=== PATIENT | male | born 1985 | race Caucasian/White ===

== ENCOUNTER 2023-12-05 13:25 | Emergency (ER) | payer MEDICAID, SELFPAY ==
[2023-12-05 13:25] VITALS: BP 110/81; PULSE 95; RESP 16; TEMP 36.2; O2SAT 99; BMI 24.9
--- NOTE | 2023-12-05 14:05 | CT_ITS ---
STUDY: CT ABDOMEN AND PELVIS WITHOUT CONTRAST REASON FOR EXAM: Male, 38 years old. Right flank pain. History of kidney stones. RADIATION DOSAGE (If Supplied By Facility): CTDIvol = ( 6.49 ) mGy, DLP = ( 300.96 ) mGycm TECHNIQUE: Transaxial images were obtained from the dome of the diaphragm to the symphysis pubis without oral contrast, and without intravenous contrast. Sagittal and coronal images were reconstructed. Individualized dose optimization techniques were used for this CT. COMPARISON: Comparison is made with prior study dated June 23, 2014. FINDINGS: The visualized lung bases are unremarkable. The visualized portions of the heart are within normal limits. Normal liver. Normal gallbladder and extrahepatic biliary system. Normal spleen. Normal pancreas. Normal bilateral adrenal glands. There is a 3 mm nonobstructive calculus in the upper pole collection of the right kidney. Punctate calculus in the lower pole calyx of the right kidney. Minimal fullness of the right renal pelvis. No obstructive uropathy is seen at this time. Normal left kidney. Normal visualized stomach. Normal small intestine. There are scattered colonic diverticula consistent with diverticulosis. The appendix is visualized and appears normal. There is scattered atherosclerotic calcification of the abdominal aorta, without a demonstrated aneurysm. Normal inferior vena cava. Normal retroperitoneum. Normal urinary bladder. There are prostatic calcifications. Normal abdominal wall. Loss of the normal lumbar lordosis. CT/Abdomen/Pelvis without Cont IMPRESSION: No obstructive uropathy is seen. Nonobstructive right intrarenal calculi. Scattered sigmoid diverticula. Electronically Signed: Ede Horne MD at 14:57 EST ,
--- NOTE | 2023-12-05 14:17 | EX.ED.DYSGE1 ---
HPI History of Present Illness Chief Complaint: Abd Pain Informant: patient Narrative Narrative: Patient is a 38-year-old male with history of kidney stones (about 6 years ago requiring stenting through [facility]) presenting with continued right flank pain. Patient states this feels like his prior kidney stone. States his symptoms started 3 days ago. He is return to drink more water with no relief of his symptoms. Has not tried any [id number] medicines including Tylenol ibuprofen. Has had associated nausea and vomiting. Denies any blood in his vomit. Denies any blood in his urine but has pain in his right flank with urination. Denies any fever or chills. Notes when he sits the symptoms get some intermittent numbness to his legs but does not currently have any numbness or tingling. No other complaints or concerns at this time. [facility] Medical History Arthritis Fatigue Knee pain Loss of consciousness Migraines Neck pain Seizures Home Medications venlafaxine 25 mg tablet 25 mg PO TID 01/11/18 [History Last Taken Unknown] ibuprofen 600 mg tablet 600 mg PO Q6H PRN pain #20 tabs 12/05/23 [Rx Last Taken Unknown] metaxalone 800 mg tablet 800 mg PO TID PRN muscle pain #20 tabs 12/05/23 [Rx Last Taken Unknown] Allergy/AdvReac Type Severity Reaction Status Date / Time naproxen Allergy Inflammation Verified 12/05/23 13:25 of lung Social History Smoking Status: Current every day smoker tobacco type: e-cigarettes ROS ROS ED Constitutional Constitutional ED: Denies chills or fever(s) Cardiovascular Cardiovascular: Denies chest pain Respiratory/Chest Respiratory/Chest: Denies cough Gastrointestinal Gastrointestinal: Reports abdominal pain, nausea and vomiting Genitourinary Genitourinary ED: Reports dysuria; Denies hematuria Musculoskeletal Musculoskeletal: Denies arthralgias or myalgias Integumentary Denies rash Neurologic Neurologic: Denies headache(s) or weakness Psychiatric Psychiatric: Denies anxiety Hematologic/Lymphatic Hematologic/Lymphatic: Denies easy bleeding or easy bruising EXAM Physical Exam Const Vital Signs: 12/05/23 13:25 Temperature 97.1 F L Temperature Source Temporal Pulse Rate 95 Respiratory Rate 16 Blood Pressure 110/81 H Blood Pressure Mean 90 Pulse Ox 99 Oxygen Delivery Method Room Air Positive well nourished and well developed Constitutional Narrative: uncomfortable appearing General Appearance ED: well developed and NAD HEENT Reports moist mucous membranes Neck supple Chest Wall inspection of chest normal and palpation of chest normal Resp normal respiratory effort and clear to auscultation bilaterally Cardio regular rate, regular rhythm and no murmurs GI non-distended and no masses Palpation: soft; Negative for tender or guarding Back/Spine Back/Spine Narrative: lumbar right paraspinal TTP General Back: CVA tenderness right Lumbar Spine / Lower Back: Negative for lumbar spinal tenderness Extremity normal to inspection General Extremety ED: Negative for edema or tenderness General Extremity: Negative for edema Neuro oriented x3 Sensorium / Orientation: alert Motor Exam: Negative for general weakness Psych mental status grossly normal Skin no rashes or lesions noted and no wounds MDM MDM MDM Narrative Medical decision making narrative: Patient is evaluated for 3 days of worsening right flank pain. States he feels prior similar to his prior kidney stones. Kidney stone workup is initiated. He has his young daughter at the bedside and states he cannot take anything sedating because he has to take care of his daughter and is driving. Patient is given IV Toradol, Zofran and fluids in the ER. Will obtain CT flank study as well as BMP, CBC and urinalysis. Patient seems more comfortable but still having pain. Does seem to be worse with movements. He does have tenderness palpation of the right lower thoracic/lumbar paraspinal region. CBC normal. BMP unremarkable. Urinalysis does not show any blood is not consistent with infection. CT of the abdomen and pelvis does not show any acute obstructive uropathy but does show nonobstructive right intrarenal calculi. Patient be treated with NSAIDs, Lidoderm patch in the ER and Skelaxin to see if this helps the symptoms as I suspect is more muscle skeletal. Is encouraged to follow-up outpatient with urology as he does have intrarenal calculi. He is agreeable. Is given a work note for today and tomorrow per his request. Discharged home in stable condition. Lab Data Attestation: I reviewed the patient's lab results. Labs: Laboratory Results - last 24 hr 12/05/23 12/05/23 13:45 15:10 WBC 10.0 RBC 5.02 Hgb 15.5 Hct 44.8 MCV 89.2 MCH 30.9 MCHC 34.6 RDW Std Deviation 42.5 RDW Coeff of Liliana 13.0 Plt Count 347 MPV 9.4 Immature Gran % (Auto) 0.100 Neut % (Auto) 49.7 Lymph % (Auto) 44.9 H [place] % (Auto) 4.4 Eos % (Auto) 0.6 Baso % (Auto) 0.3 Absolute Neuts (auto) 5.0 Absolute Lymphs (auto) 4.50 Nucleated RBC % 0 Sodium 139 Potassium 3.4 L Chloride 109 H Carbon Dioxide 26.0 Anion Gap 4 L BUN 11 Creatinine 1.04 Estim Creat Clear Calc 82.13 Est GFR (MDRD) Af Amer 101 Est GFR (MDRD) Non-Af 84 BUN/Creatinine Ratio 10.6 Glucose 91 Calcium 9.4 Urine Color Yellow Urine Clarity Clear Urine pH 6.0 Ur Specific [place] 1.015 Urine Protein Negative Urine Glucose (UA) Normal Urine Ketones 5 H Urine Occult Blood Negative Urine Nitrite Negative Urine Bilirubin Negative Urine Urobilinogen Normal Ur Leukocyte Esterase 25 H Radiography Diagnostic Testing: Clinical Impression(s) from Imaging Studies Abdomen/Pelvis CT 12/05/23 14:05 IMPRESSION: No obstructive uropathy is seen. Nonobstructive right intrarenal calculi. Scattered sigmoid diverticula. Electronically Signed: Ede Horne MD at 14:57 EST Reading Location ID and State: [address] [place] [address] , Service support , Discharge Plan Triage Chief Complaint: Abd Pain ED Provider: Fiordaliza Martin Dx/Rx/DC Orders Clinical Impression: Acute right flank pain, Acute right-sided back pain Instructions: ED Back Pain (Acute or Chronic), ED Flank Pain, Uncertain Cause Prescriptions: New ibuprofen 600 mg tablet 600 mg PO Q6H PRN (Reason: pain) Qty: 20 0RF metaxalone 800 mg tablet 800 mg PO TID PRN (Reason: muscle pain) Qty: 20 0RF No Action venlafaxine 25 mg tablet 25 mg PO TID Stand Alone Forms: ED Work / School Excuse Primary Care Provider: Care Physician,No Primary Referrals: Hugo De Los Santos MD [Non-Staff] - ContrerasBrian MD [Med Staff - Active Staff] - 3-5 Days if not improving Activity Restrictions/Additional Instructions: I suspect you have a muscle strain in your back that is causing your pain (or spasm). Your lab work was normal. Urinalysis did not show any blood was not consistent with infection. Your CT showed a stone in your kidney on the right but did not show signs of an obstructive stone that should be causing this degree of pain. You have been given outpatient follow-up with a urologist. In the meantime alternate ibuprofen and Tylenol. He can use [id number] Lidoderm patches. I have also also prescribed a muscle relaxer. You can continue to use heat. Disposition Disposition: Home, Self Care
[2023-12-05] MEDS: Ketorolac 15 MG/ML Vial IV (14:22)
[2023-12-05] MEDS: Ondansetron 4 MG/2 ML Vial IV (14:22)
[2023-12-05] MEDS: 0.9% Normal Saline (1000mL) 1,000 ML 250 ML IV (14:22)
[2023-12-05 14:31] LABS: Basophil# 0.03 X10^3/uL; Basophil% 0.3 % (0-1); Eosinophil# 0.06 X10^3/uL; Eosinophils% 0.6 % (0-5); Hematocrit 44.8 % (40-54); Hemoglobin 15.5 g/dL (13.0-16.5); Lymphocyte % 44.9 % (19-41); Mean Corp Hgb Conc 34.6 g/dL (32-36); Mean Corpuscular Hgb 30.9 pg (27.0-32.0); Mean Corpuscular Volume 89.2 fL (80-94); Mean Platelet Vol. 9.4 fl (6.2-12.0); Monocyte# 0.44 X10^3/uL; Monocyte% 4.4 % (0-10); NRBC Flagged by Analyzer 0 % (0-5); Neutrophil # 4.99 X10^3/uL (2.7-7.7); Neutrophil % 49.7 % (47-70); Platelet Count 347 K/mm3 (150-450); RBC Distribution Width SD 42.5 fl (35.1-43.9); Red Blood Count 5.02 M/mm3 (4.6-6.2)
[2023-12-05 14:44] LABS: Anion Gap 4 (5-15); BUN 11 mg/dL (7-18); BUN/Creat Ratio 10.6 RATIO (10-20); Calcium,Total 9.4 mg/dL (8.5-10.1); Chloride 109 mmol/L (98-107); Creatinine, Serum 1.04 mg/dL (0.70-1.30); EST Glomerular Filtration Rate 84 mL/min (>60); Est Glom Filt Rate - Afr Amer 101 mL/min (>60); Estimated Creatinine Clearance 82.13 ml/min; Glucose 91 mg/dL (74-106); Potassium 3.4 mmol/L (3.5-5.1); Sodium Level 139 mmol/L (136-145)
[2023-12-05 15:17] LABS: Bacteria 0 SEEN /hpf (None Seen); Red Blood Cells-Urine 0 SEEN /hpf (0-5)
[2023-12-05 15:31] LABS: Color, Urine Yellow (Yellow); Glucose, Dipstick Normal (Normal); Ketone-Dipstick 5 mg/dl (Negative); Leukocyte Esterase-Dipstick 25 /ul (Negative); Nitrite-Dipstick Negative (Negative); Occult Blood-Urine Negative /ul (Negative); Protein-Dipstick Negative (Negative); Specific Gravity, Urine 1.015 (1.002-1.030); Urine Bilirubin Dipstick Negative (Negative); Urine Clarity Clear (Clear); Urine Urobilinogen Normal (Normal)
[2023-12-05 16:05] LABS: Mucous, Urine RARE /hpf (<or=2+); Squamous Epithelial Cells - UA 0-5 SEEN /hpf (0-5); White Blood Cells 0-5 SEEN /hpf (0-5)
[2023-12-05] MEDS: Lidocaine 5% Patch 1 PATCH TOPICAL (16:19)
[2023-12-05 16:22] VITALS: BP 146/89; PULSE 75; RESP 12; TEMP 36.4; O2SAT 99
== END 2023-12-05 16:23 | disposition home or self-care (01) ==
PROVIDERS: Emergency Provider Emergency Medicine; Visit Provider Emergency Medicine
DX: R10.9 Unspecified abdominal pain (principal); R11.2 Nausea with vomiting, unspecified; F17.290 Nicotine dependence, other tobacco product, uncomplicated; M54.9 Dorsalgia, unspecified; Z87.442 Personal history of urinary calculi; R30.0 Dysuria; N20.0 Calculus of kidney
CPT/HCPCS: 74176; 80048; 81001; 85025; 96361; 96374; 96375; 99284; J7030; A4216; J2405

== ENCOUNTER 2024-07-04 17:43 | Emergency (ER) | payer MEDICAID, SELFPAY ==
[2024-07-04 17:44] VITALS: BP 153/114; PULSE 122; RESP 16; TEMP 36.1; O2SAT 98; BMI 26.3
--- NOTE | 2024-07-04 17:44 | EKG12_ITS ---
Test Reason : CP Blood Pressure : / mmHG Vent. Rate : 122 BPM Atrial Rate : 122 BPM P-R Int : 156 ms QRS Dur : 090 ms QT Int : 282 ms P-R-T Axes : 054 -43 007 degrees QTc Int : 401 ms Sinus tachycardia Possible Left atrial enlargement Left axis deviation Minimal voltage criteria for LVH, may be normal variant ( [place] product ) Nonspecific T wave abnormality Abnormal ECG Confirmed by Denis Agustin ([id number]), photograph editor KENDAL LOPEZ ([id number]) on 07/09/2024 10:41:55 AM Referred By: EDWARD/ARIANNA Confirmed By:Denis Agustin
[2024-07-04 18:01] VITALS: TEMP 36.6
--- NOTE | 2024-07-04 18:10 | RAD_ITS ---
STUDY: X-RAY CHEST REASON FOR EXAM: Male, 39 years old. chest pain TECHNIQUE: AP portable COMPARISON: February 05, 2014 FINDINGS: The lungs are clear and expanded. There is no demonstrated pleural abnormality. Heart is mildly enlarged. Normal mediastinum and ana. Normal visualized pulmonary arteries. Normal visualized aortic arch and descending thoracic aorta. Normal visualized thoracic spine. Normal visualized ribs, clavicles, and shoulders. There is no demonstrated abnormality of the visualized soft tissue structures of the upper abdomen. RAD/Chest 1 View (Portable) IMPRESSION: Mild cardiomegaly without evidence for acute cardiopulmonary pathology. Electronically Signed: Hugo Mcgrath MD at 18:49 EDT ,
[2024-07-04 18:23] LABS: Absolute Lymphocyte Count 3.46 X10^3/uL (0.83-4.51); Absolute Neutrophil Count 5.5 X10^3/uL (2.0-7.7); Basophil# 0.07 X10^3/uL; Basophil% 0.7 % (0-1); Eosinophil# 0.12 X10^3/uL; Eosinophils% 1.2 % (0-5); Hematocrit 40.5 % (40-54); Hemoglobin 13.4 g/dL (13.0-16.5); Lymphocyte # 3.46 X10^3/ul (0.83-4.51); Lymphocyte % 35.1 % (19-41); Mean Corp Hgb Conc 33.1 g/dL (32-36); Mean Corpuscular Hgb 30.3 pg (27.0-32.0); Mean Corpuscular Volume 91.6 fL (80-94); Mean Platelet Vol. 9.5 fl (6.2-12.0); Monocyte# 0.63 X10^3/uL; Monocyte% 6.4 % (0-10); NRBC Flagged by Analyzer 0 % (0-5); Neutrophil # 5.53 X10^3/uL (2.7-7.7); Neutrophil % 56.2 % (47-70); Platelet Count 385 K/mm3 (150-450); RBC Distribution Width CV 13.5 % (11.6-14.6); RBC Distribution Width SD 46.5 fl (35.1-43.9); Red Blood Count 4.42 M/mm3 (4.6-6.2); White Blood Count 9.9 K/mm3 (4.4-11.0)
--- NOTE | 2024-07-04 18:35 | ED.VIS.CHEST ---
HPI History of Present Illness Chief Complaint: Chest Pain Informant: patient and spouse/S.O. Narrative Narrative: 39-year-old male presenting to the emergency room chief complaint of chest pain. Patient states that just prior to coming to the emergency department he was eating [employer]. He began to have pain in the left arm chest up into his neck. He states that he currently has skin cancer on the right side of his nose. States he is not currently taking any medications albuterol inhaler which she got when he had a respiratory illness recently. He finished prednisone about a week ago. He states he continues to have some shortness of breath. He notes some diarrhea attacks. He states that he has felt indigestion before this feels different. He feels paresthesias in the left arm (tingling). He did notes that particular over the past week and 1/2 to 2 weeks he gets very short of breath with stair climbing and feels that he needs to use his inhaler states he is once at [facility] where he thought he was having a heart attack but was not was given pills which worked for a while till I ran out. [facility] Medical History (Updated 07/04/24 @ 22:[address] Jones Huff, DO) Skin cancer Tobacco use Seizures Migraines Arthritis Home Medications ?Medication ?Instructions ?Recorded ?Last Taken ?Type albuterol sulfate 90 mcg/actuation 2 puff inhalation Q4H PRN PRN 07/04/24 Unknown History aerosol inhaler wheezing Allergy/AdvReac Type Severity Reaction Status Date / Time naproxen Allergy Inflammation Verified 07/04/24 17:44 of lung Social History Smoking Status: Current some day smoker tobacco type: cigarettes and e-cigarettes ROS ROS ED Constitutional Constitutional ED: Denies chills, fever(s) or weight loss Eyes Eyes: Denies change in vision or diplopia ENT ENT ED: Denies ear pain, rhinorrhea or sore throat Cardiovascular Cardiovascular: Reports chest pain; Denies orthopnea, palpitations or racing heartbeat Respiratory/Chest Respiratory/Chest: Reports cough, dyspnea and dyspnea on exertion; Denies orthopnea Gastrointestinal Gastrointestinal: Denies abdominal pain, diarrhea, nausea or vomiting Genitourinary Genitourinary ED: Denies dysuria, hematuria or urinary frequency Musculoskeletal Musculoskeletal: Reports neck pain and other Details: Left arm pain ; Denies arthralgias or myalgias Integumentary Denies abscess or rash Neurologic Neurologic: Reports paresthesias; Denies headache(s) or weakness Psychiatric Psychiatric: Denies anxiety, depression, suicidal ideation or suicidal thoughts Endocrine Endocrinology: Denies polydipsia, polyphagia or polyuria Allergic/Immunologic Allergic/Immunologic ED: Denies mouth swelling, tongue swelling or urticaria EXAM Physical Exam Const Vital Signs: 07/04/24 17:44 07/04/24 17:56 07/04/24 18:01 Temperature 97 F L 98 F Temperature Source Temporal Oral Pulse Rate 122 H Respiratory Rate 16 Blood Pressure 153/114 H Blood Pressure Mean 127 Pulse Ox 98 Oxygen Delivery Method Room Air Room Air Oxygen Flow Rate (L/min) 07/04/24 18:45 07/04/24 20:00 07/04/24 21:00 Temperature Temperature Source Pulse Rate 126 H 112 H 110 H Respiratory Rate 20 H 18 20 H Blood Pressure 148/99 H 139/90 H 137/100 H Blood Pressure Mean 114 106 112 Pulse Ox 94 94 Oxygen Delivery Method Nasal Cannula Oxygen Flow Rate (L/min) 1 07/04/24 22:35 Temperature 97.6 F L Temperature Source Pulse Rate 114 H Respiratory Rate 19 H Blood Pressure 132/98 H Blood Pressure Mean 109 Pulse Ox 96 Oxygen Delivery Method Oxygen Flow Rate (L/min) Positive well nourished and well developed General Appearance ED: well developed HEENT Reports normocephalic, head/scalp atraumatic and moist mucous membranes Eyes PERRL and EOMs intact bilaterally Neck no lymphadenopathy, supple and no JVD Resp normal respiratory effort and clear to auscultation bilaterally Cardio regular rate, regular rhythm and no murmurs Rate: tachycardic GI normal to inspection, nondistended, normoactive bowel sounds and non-tender Palpation: soft Back/Spine no CVA tenderness and normal ROM Extremity normal to inspection General Extremety ED: Negative for edema General Extremity: Negative for edema Neuro oriented x3 and CN's II-XII intact bilaterally Sensorium / Orientation: alert Motor Exam: strength 5/5 throughout Psych Mood & Affect: anxious; Negative for depressed or tearful Skin no rashes or lesions noted and no wounds MDM MDM MDM Narrative Medical decision making narrative: Differential diagnosis includes but not limited to acute coronary syndrome aortic dissection pulmonary embolism pneumonia pleural effusion congestive heart failure pericarditis myocarditis endocarditis Patient's white count 9.9 hemoglobin 13.4 platelet count of 385 BMP with a creatinine 1.38 glucose 130 initial troponin is 18. CTA of the chest demonstrates no pulmonary embolism infiltrate and no obvious aortic dissection or pericardial effusion. Patient's second troponin returns at 206. He remains tachycardic at around 110-115 while resting. Repeat EKG was obtained which demonstrates a sinus tachycardic rhythm. No significant ST changes from earlier. Patient received a full dose aspirin. My recommendation is that we bring him into the hospital for further evaluation. I spoke with the hospitalist. Shortly after speaking with the hospitalist the patient decided to sign out AGAINST MEDICAL ADVICE. He fully understands that this is potentially life-threatening. I believe he demonstrates capacity to make this decision. History & Record Review Discussion w/independent historian: Patient and Significant other Lab Data Attestation: I reviewed the patient's lab results. Labs: Laboratory Results - last 24 hr 07/04/24 07/04/24 07/04/24 17:50 20:55 23:14 WBC 9.9 RBC 4.42 L Hgb 13.4 Hct 40.5 MCV 91.6 MCH 30.3 MCHC 33.1 RDW Std Deviation 46.5 H RDW Coeff of Liliana 13.5 Plt Count 385 MPV 9.5 Immature Gran % (Auto) 0.400 Neut % (Auto) 56.2 Lymph % (Auto) 35.1 [place] % (Auto) 6.4 Eos % (Auto) 1.2 Baso % (Auto) 0.7 Absolute Neuts (auto) 5.5 Absolute Lymphs (auto) 3.46 Nucleated RBC % 0 Sodium 141 Potassium 3.5 Chloride 109 H Carbon Dioxide 22.0 Anion Gap 10 BUN 15 Creatinine 1.38 H Estim Creat Clear Calc 61.28 Est GFR (MDRD) Af Amer 73 Est GFR (MDRD) Non-Af 60 BUN/Creatinine Ratio 10.9 Glucose 130 H Calcium 9.5 Troponin I High Sens 18 206 H* Urine Opiates Screen NEGATIVE Urine Methadone Screen NEGATIVE Ur Barbiturates Screen NEGATIVE Ur Phencyclidine Scrn NEGATIVE Ur Amphetamines Screen NEGATIVE MDMA (Ecstasy) Screen NEGATIVE U Benzodiazepines Scrn NEGATIVE Urine Cocaine Screen NEGATIVE U Cannabinoids Screen POSITIVE H Ur Drug Screen Comment Radiography Diagnostic Testing: Clinical Impression(s) from Imaging Studies Chest X-Ray 07/04/24 18:10 IMPRESSION: Mild cardiomegaly without evidence for acute cardiopulmonary pathology. Electronically Signed: Hugo Mcgrath MD at 18:49 EDT , Chest CTA 07/04/24 19:06 IMPRESSION: Nonspecific bilateral perihilar interstitial thickening.. No focal infiltration. No evidence for pulmonary embolus Electronically Signed: Hugo Mcgrath MD at 19:47 EDT , EKG Initial EKG: Attestation: I personally reviewed and interpreted this EKG as follows: Comments: Sinus tachycardia ventricular rate of 122 bpm Management Discussion w/another healthcare provider: Hospitalist (Dr. Silva) Discharge Plan Dx/Rx/DC Orders Clinical Impression: Chest pain, Sinus tachycardia, Elevated troponin, NSTEMI, initial episode of care Disposition Disposition: Acute Care Hospital [facility] Discharge Date/Time: 07/04/24 23:05
[2024-07-04 18:45] VITALS: BP 148/99; PULSE 126; RESP 20; O2SAT 94
[2024-07-04 18:45] LABS: Anion Gap 10 (5-15); BUN 15 mg/dL (7-18); BUN/Creat Ratio 10.9 RATIO (10-20); Calcium,Total 9.5 mg/dL (8.5-10.1); Chloride 109 mmol/L (98-107); Creatinine, Serum 1.38 mg/dL (0.70-1.30); EST Glomerular Filtration Rate 60 mL/min (>60); Est Glom Filt Rate - Afr Amer 73 mL/min (>60); Estimated Creatinine Clearance 61.28 ml/min; Glucose 130 mg/dL (74-106); Potassium 3.5 mmol/L (3.5-5.1); Sodium Level 141 mmol/L (136-145); Troponin-I HS (w/2H Reflex) 18 pg/mL (3.0-78.0)
[2024-07-04] MEDS: LORazepam 2 MG/ML Syringe 1 MG IV (18:47)
--- NOTE | 2024-07-04 19:06 | CT_ITS ---
STUDY: CTA CHEST REASON FOR EXAM: Male, 39 years old. pulmonary embolism RADIATION DOSAGE (If Supplied By Facility): CTDIvol = ( 9.89 ) mGy, DLP = ( 341.80 ) mGycm TECHNIQUE: The examination was performed with the intravenous administration of IV 100mL [id number]-370. Post-processing of the angiographic images was performed, with multiplanar reformation and 3D reconstruction. Individualized dose optimization techniques were used for this CT. COMPARISON: Portable chest July 04, 2024 FINDINGS: Normal enhancement of the main pulmonary artery and right and left pulmonary arteries. Normal enhancement of the bilateral peripheral pulmonary arteries. There is no demonstrated pulmonary embolism. Normal thoracic aorta and visualized great vessels. There is no demonstrated aortic dissection. Heart appears mildly enlarged. There is no coronary artery calcification.. Subcentimeter mediastinal nodes likely benign. Normal hilar regions. Normal visualized trachea and bronchi. The lungs are well expanded. Mild nonspecific bilateral perihilar interstitial thickening.. Normal pleura. Normal chest wall structures. Dorsal spine demonstrates degenerative changes Normal visualized upper abdomen. CT/CTA Chest W/WO Contrast IMPRESSION: Nonspecific bilateral perihilar interstitial thickening.. No focal infiltration. No evidence for pulmonary embolus Electronically Signed: Hugo Mcgrath MD at 19:47 EDT ,
[2024-07-04 20:00] VITALS: BP 139/90; PULSE 112; RESP 18
[2024-07-04 20:15] LABS: Reflex Troponin-HS? (from REC) Y
--- NOTE | 2024-07-04 20:57 | ED.RN ---
pt reused to have his troponin being drawn until h was able to get a drink. Md aware and stated ok for water. Pt had his nasal cannula off because it was given him a head ache. pulse ox 88 percent.pt ok with 02 on for 1 liter.
[2024-07-04 21:00] VITALS: BP 137/100; PULSE 110; RESP 20; O2SAT 94
[2024-07-04 21:41] LABS: Troponin-I HS 206 pg/mL (3.0-78.0)
[2024-07-04 22:35] VITALS: BP 132/98; PULSE 114; RESP 19; TEMP 36.4; O2SAT 96
--- NOTE | 2024-07-04 22:35 | PCM.HP.STD ---
HPI - General General Date of Admission: 07/04/24 Date of Service: 07/04/24 Chief Complaint: Chest pain. HPI Narrative The patient is a 39 y/o M w/ PMHx: Tobacco use, Seizure disorder, Chronic migraines, Skin cancer (R side of nose) with active evaluation ongoing who presents to the [facility] ED on 07/04/24 with history of onset of chest discomfort reportedly eating at [employer] just prior to ED presentation with sudden onset chest discomfort reported as pressure-like in sensation/heaviness in the sternal region with left arm discomfort with radiation up into his neck with history of recent URI administered albuterol inhaler and prednisone which she finished approximately week prior however notes some ongoing dyspnea and occasional loose stools with dyspepsia. He reports that over the past week and a half as noted he has had dyspnea but had difficulty doing simple activities including climbing the stairs. He reports that he was evaluated in [place] at the hospital for potentially an NSTEMI with rx administered but he reports running out and does not know what the medications were. With his recent URI he does note cough and dyspnea. Workup in the ED included T97, heart rate 122, BP 153/114, respiratory rate 16, 98% on room air, CBC w/ WBC 9.9, Hgb 13.4, Plts 385 without marked shift, BMP w/ Chl 109, BUN/Cr 15/1.38, GFR 60, glucose 130, troponin initial 18 with repeat delta 206, CXR with mild cardiomegaly without any evidence of acute cardiac pulmonary findings, CTPA w/ non-specific bilateral perihilar interstitial thickening with no focal infiltration and no evidence of PE or dissection, EKG w/ with sinus tachycardia with no significant ST changes. In the ED patient ministered Ativan 1 mg IV x 1 as well as FS ASA. Discussed case with ED physician and UDS will be ordered also. [facility] Medical History (Updated 07/04/24 @ 22:[address] Jones Huff, ) Skin cancer Tobacco use Seizures Migraines Arthritis Home Medications ?Medication ?Instructions ?Recorded ?Last Taken ?Type albuterol sulfate 90 mcg/actuation 2 puff inhalation Q4H PRN PRN 07/04/24 Unknown History aerosol inhaler wheezing Allergy/AdvReac Type Severity Reaction Status Date / Time naproxen Allergy Inflammation Verified 07/04/24 17:44 of lung Social History Smoking Status: Current some day smoker tobacco type: cigarettes and e-cigarettes Vital Signs Vital Signs Vital Signs: 07/04/24 17:44 07/04/24 17:56 07/04/24 18:01 Temperature 97 F L 98 F Temperature Source Temporal Oral Pulse Rate 122 H Respiratory Rate 16 Blood Pressure 153/114 H Blood Pressure Mean 127 Pulse Ox 98 Oxygen Delivery Method Room Air Room Air Oxygen Flow Rate (L/min) 07/04/24 18:45 07/04/24 20:00 07/04/24 21:00 Temperature Temperature Source Pulse Rate 126 H 112 H 110 H Respiratory Rate 20 H 18 20 H Blood Pressure 148/99 H 139/90 H 137/100 H Blood Pressure Mean 114 106 112 Pulse Ox 94 94 Oxygen Delivery Method Nasal Cannula Oxygen Flow Rate (L/min) 1 Weight Weight: 158 lb 1.6 oz Body Mass Index (BMI) 26.3 Results Lab / Micro Data 07/04/24 17:50 07/04/24 17:50 Labs: Laboratory Results - last 24 hr 07/04/24 17:50: WBC 9.9, RBC 4.42 L, Hgb 13.4, Hct 40.5, MCV 91.6, MCH 30.3, MCHC 33.1, RDW Std Deviation 46.5 H, RDW Coeff of Liliana 13.5, Plt Count 385, MPV 9.5, Immature Gran % (Auto) 0.400, Neut % (Auto) 56.2, Lymph % (Auto) 35.1, Bracken % (Auto) 6.4, Eos % (Auto) 1.2, Baso % (Auto) 0.7, Absolute Neuts (auto) 5.5, Absolute Lymphs (auto) 3.46, Nucleated RBC % 0, Sodium 141, Potassium 3.5, Chloride 109 H, Carbon Dioxide 22.0, Anion Gap 10, BUN 15, Creatinine 1.38 H, Estim Creat Clear Calc 61.28, Est GFR (MDRD) Af Amer 73, Est GFR (MDRD) Non-Af 60, BUN/Creatinine Ratio 10.9, Glucose 130 H, Calcium 9.5, Troponin I High Sens 18 07/04/24 20:55: Troponin I High Sens 206 H* Imaging Radiology Impression Chest X-Ray 07/04/24 18:10 IMPRESSION: Mild cardiomegaly without evidence for acute cardiopulmonary pathology. Electronically Signed: Hugo Mcgrath MD at 18:49 EDT , Chest CTA 07/04/24 19:06 IMPRESSION: Nonspecific bilateral perihilar interstitial thickening.. No focal infiltration. No evidence for pulmonary embolus Electronically Signed: Hugo Mcgrath MD at 19:47 EDT , Assessment & Plan Assessment/Plan (1) NSTEMI, initial episode of care: PLAN: Plan The patient is a 39 y/o M w/ PMHx: Tobacco use, Seizure disorder, Chronic migraines, Skin cancer (R side of nose) with active evaluation ongoing who presents to the [facility] ED on 07/04/24 with history of onset of chest discomfort reportedly eating at [employer] just prior to ED presentation with sudden onset chest discomfort reported as pressure-like in sensation/heaviness in the sternal region with left arm discomfort with radiation up into his neck with history of recent URI administered albuterol inhaler and prednisone which she finished approximately week prior however notes some ongoing dyspnea and occasional loose stools with dyspepsia. 1. Chest Pain w/ Acute NSTEMI: EKG in ED w/ sinus tachycardia with no acute evidence of ischemia, CXR w/ nonspecific bilateral perihilar interstitial thickening. Trop elevated, initial 18 with repeat delta 206. Will admit to PCU, maintain on a monitored bed, continue serial cardiac enzymes and EKGs. Obtain magnesium level upon admission. Start Heparin drip until continued enzyme trending performed. Continue medical management w/ asa, add low-dose BB, add high-dose statin w/ AM FLP. ECHO requested. Cardiology consulted, plan for cardiac catheterization. Maintain NPO after midnight. ASA, NG, morphine. UDS pending per discussion with ED. 2. Hyperglycemia, mild: Admission glucose mildly elevated 130, will obtain HgbA1c to be cautious. 3. Recent reported URI, unclear specific organism: Will obtain full respiratory viral panel and COVID as unclear workup although certainly could be negative now but to be cautious. 4. Chronic Kidney Disease Stage II per GFR trending: Admission BUN/Cr 15/1.38, GFR 60, baseline renal function 0.9-1.0 primarily, repeat BMP in AM. 5. Seizure disorder: Per current list does not appear to be on any antiepileptic medications, encourage continued outpatient follow-up. 6. Chronic migraines: Per current list does not appear to be on any medication, no current migraine symptoms, continue to monitor. 7. Skin cancer, unclear type: Recent diagnosis of right sided nasal skin cancer, encourage close early follow-up. 8. Tobacco Abuse: Encouraged cessation, inpatient consultation per RT, NR if desired. 9. DVT prophylaxis: Heparin. 10. CODE status: Patient HCPOA is [] and living will is []. Discussed CODE status at length including difference between FULL code, DNR-CCA and DNR-CC status. Following discussions about the differences in these status, requested []. Advanced Care Planning Face to Face Time: [] minutes.
--- NOTE | 2024-07-04 22:49 | EKG12_ITS ---
Test Reason : REPEAT CP Blood Pressure : / mmHG Vent. Rate : 114 BPM Atrial Rate : 114 BPM P-R Int : 160 ms QRS Dur : 090 ms QT Int : 340 ms P-R-T Axes : 047 -40 022 degrees QTc Int : 468 ms Sinus tachycardia Possible Left atrial enlargement Left axis deviation Minimal voltage criteria for LVH, may be normal variant ( [employer] product ) Nonspecific T wave abnormality Abnormal ECG Confirmed by Denis Agustin ([id number]), movie editor KENDAL LOPEZ ([id number]) on 07/09/2024 10:42:09 AM Referred By: JOLIE Confirmed By:Denis Agustin
--- NOTE | 2024-07-04 22:56 | ED.RN ---
found pt off the monitor,walked in and found pt putting on his shirt.i'm going home. Asked the pt if he can wait for the doctor to be informed. pt stated, I will,but I'm not waiting all day.
--- NOTE | 2024-07-04 23:01 | ED.RN ---
[id number] made aware of pt wanting to leave AMA. Pt signed AMA forms,Stating you guys ran all kinds of test and found nothing wrong,so I'm going to my primary doctor.I have a kid and I need to work tomorrow,I'm not wasting my time.
[2024-07-04 23:33] LABS: Amphetamine Urine VISTA NEGATIVE (<1000 ng/mL); Barbiturate Urine VISTA NEGATIVE (< 200 ng/mL); Benzodiazepine Urine VISTA NEGATIVE (< 200 ng/mL); Cocaine Urine VISTA NEGATIVE (< 300 ng/mL); Ecstacy Urine VISTA NEGATIVE (< 500 ng/mL); Methadone Urine VISTA NEGATIVE (< 300 ng/mL); PCP Urine VISTA NEGATIVE (< 25 ng/mL); THC Urine VISTA POSITIVE (< 50 ng/mL); Vista UDS pH Range 7
== END 2024-07-04 23:05 | disposition left against medical advice (07) ==
PROVIDERS: Emergency Provider Emergency Medicine; Visit Provider Emergency Medicine
DX: R07.9 Chest pain, unspecified (principal); I21.4 Non-ST elevation (NSTEMI) myocardial infarction; R00.0 Tachycardia, unspecified; R79.89 Other specified abnormal findings of blood chemistry; F17.210 Nicotine dependence, cigarettes, uncomplicated; F17.290 Nicotine dependence, other tobacco product, uncomplicated
CPT/HCPCS: 71045; 71275; 80048; 80307; 84484; 85025; 93005; 96374; 99285; Q9967; A4216

== ENCOUNTER 2024-07-09 11:43 | Inpatient (IN) | payer MEDICAID, SELFPAY ==
[2024-07-09] VITALS (24 sets, daily range): BP systolic 99–155; BP diastolic 81–114; PULSE 94–121; RESP 9–30; TEMP 35.8–36.6; O2SAT 93–99; BMI 26.2; BMI 22.6
--- NOTE | 2024-07-09 11:48 | EKG12_ITS ---
Test Reason : CP Blood Pressure : / mmHG Vent. Rate : 118 BPM Atrial Rate : 118 BPM P-R Int : 158 ms QRS Dur : 102 ms QT Int : 342 ms P-R-T Axes : 065 -55 046 degrees QTc Int : 479 ms Sinus tachycardia Possible Left atrial enlargement Left axis deviation Incomplete right bundle branch block Minimal voltage criteria for LVH, may be normal variant ( [employer] product ) Nonspecific T wave abnormality Abnormal ECG Confirmed by Denis Agustin ([id number]), editor & co founder CLARA DESAI ([id number]) on 07/10/2024 10:09:02 AM Referred By: Confirmed By:Denis Agustin
[2024-07-09 12:17] LABS: Absolute Lymphocyte Count 3.05 X10^3/uL (0.83-4.51); Absolute Neutrophil Count 6.7 X10^3/uL (2.0-7.7); Basophil# 0.09 X10^3/uL; Basophil% 0.8 % (0-1); Eosinophil# 0.14 X10^3/uL; Eosinophils% 1.3 % (0-5); Hemoglobin 14.4 g/dL (13.0-16.5); Lymphocyte # 3.05 X10^3/ul (0.83-4.51); Lymphocyte % 28.7 % (19-41); Mean Corp Hgb Conc 32.7 g/dL (32-36); Mean Corpuscular Volume 91.7 fL (80-94); Mean Platelet Vol. 9.3 fl (6.2-12.0); Monocyte# 0.62 X10^3/uL; Monocyte% 5.8 % (0-10); NRBC Flagged by Analyzer 0 % (0-5); Neutrophil # 6.69 X10^3/uL (2.7-7.7); Neutrophil % 63.1 % (47-70); Platelet Count 394 K/mm3 (150-450); RBC Distribution Width CV 13.2 % (11.6-14.6); RBC Distribution Width SD 44.6 fl (35.1-43.9); White Blood Count 10.6 K/mm3 (4.4-11.0)
[2024-07-09 12:30] LABS: International Normalized Ratio 1.1
[2024-07-09 12:46] LABS: Anion Gap 5 (5-15); BUN 15 mg/dL (7-18); BUN/Creat Ratio 12.1 RATIO (10-20); Calcium,Total 9.5 mg/dL (8.5-10.1); Chloride 108 mmol/L (98-107); Creatinine, Serum 1.24 mg/dL (0.70-1.30); EST Glomerular Filtration Rate 68 mL/min (>60); Est Glom Filt Rate - Afr Amer 82 mL/min (>60); Glucose 165 mg/dL (74-106); Potassium 3.7 mmol/L (3.5-5.1); Sodium Level 137 mmol/L (136-145); Troponin-I HS (w/2H Reflex) 228 pg/mL (3.0-78.0)
--- NOTE | 2024-07-09 13:06 | RAD_ITS ---
STUDY: X-RAY CHEST REASON FOR EXAM: Male, 39 years old. Chest pain TECHNIQUE: Single AP portable view of the chest. COMPARISON: Comparison is made with prior study July 04, 2024. FINDINGS: EKG electrodes are seen. The lungs are clear and expanded. There is no demonstrated pleural abnormality. Normal size heart. Normal mediastinum and ana. Normal visualized pulmonary arteries. Normal visualized aortic arch and descending thoracic aorta. Normal visualized thoracic spine. Normal visualized ribs, clavicles, and shoulders. There is no demonstrated abnormality of the visualized soft tissue structures of the upper abdomen. RAD/Chest 1 View (Portable) IMPRESSION: Normal x-ray examination of the chest. Electronically Signed: Ede Horne MD at 13:19 EDT ,
--- NOTE | 2024-07-09 13:46 | EDS_ITS ---
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 Patient states has been having symptoms for the past 3-1/2 weeks. He states he feels exhausted and short of breath. He gets very short of breath when laying down at night and is waking up because he cannot breathe. He is continue to cough and have mild phlegm production. Gets pain in his chest as well as his back attributes that to his coughing. Does report family history of heart disease stating his mother had stents at age 54. Was seen in our ER on 07/04 at that time had an elevated troponin but could be admitted this time and left AMA. Patient tried to follow-up today but they saw his lab reports and told him to come back to the emergency room. Patient is now amenable to admission. He denies any new night sweats, weight change, leg swelling (does report his hands feel little puffy) or any history of IV drug use. [facility] Medical History Skin cancer Tobacco use Seizures Migraines Arthritis Home Medications ?Medication ?Instructions ?Recorded ?Last Taken ?Type albuterol sulfate 90 mcg/actuation 2 puff inhalation Q4H PRN PRN 07/04/24 Unknown History aerosol inhaler wheezing Allergy/AdvReac Type Severity Reaction Status Date / Time No Known Allergies Allergy Verified 07/09/24 11:44 Social History Smoking Status: Current some day smoker tobacco type: cigarettes and e- cigarettes ROS ROS ED Constitutional Constitutional ED: Denies chills, fever(s) or sweats Eyes Eyes: Denies change in vision Cardiovascular Cardiovascular: Reports as per HPI, chest pain and paroxysmal nocturnal dyspnea Respiratory/Chest Respiratory/Chest: Reports cough, dyspnea, paroxysmal nocturnal dyspnea and sputum Gastrointestinal Gastrointestinal: Denies nausea or vomiting Musculoskeletal Musculoskeletal: Denies arthralgias or myalgias Integumentary Denies rash Neurologic Neurologic: Denies paresthesias or weakness EXAM Physical Exam Const Vital Signs: 07/09/24 11:45 07/09/24 12:20 07/09/24 12:43 Temperature 97.8 F Temperature Source Oral Pulse Rate 118 H 113 H Respiratory Rate 18 16 Respiratory Pattern Blood Pressure 137/104 H 135/103 H Blood Pressure Mean 115 113 Pulse Ox 96 99 Oxygen Delivery Method Room Air Room Air Room Air 07/09/24 13:00 07/09/24 14:00 07/09/24 14:14 Temperature Temperature Source Pulse Rate 112 H 119 H 94 Respiratory Rate 13 16 18 Respiratory Pattern Normal Blood Pressure 138/101 H 133/100 H Blood Pressure Mean 112 111 Pulse Ox 99 95 Oxygen Delivery Method Room Air 07/09/24 14:28 Temperature 97.9 F Temperature Source Pulse Rate 121 H Respiratory Rate 14 Respiratory Pattern Blood Pressure 133/100 H Blood Pressure Mean 111 Pulse Ox 95 Oxygen Delivery Method Positive well nourished and well developed General Appearance ED: well developed and NAD HEENT Reports moist mucous membranes Neck supple and no JVD Chest Wall inspection of chest normal and palpation of chest normal Resp Resp Narrative: Mild tachypnea. Rhonchorous breath sounds throughout. No crackles appreciated. Cardio regular rhythm and no murmurs Rate: tachycardic Peripheral Pulses: pulses 2+ throughout GI normal to inspection, nondistended, normoactive bowel sounds, soft to palpation and non-tender Extremity normal to inspection General Extremety ED: Negative for edema General Extremity: Negative for edema Neuro oriented x3 Sensorium / Orientation: awake and alert Motor Exam: Negative for general weakness Psych mental status grossly normal Mood & Affect: anxious Skin no rashes or lesions noted and no wounds Heart Score History: Slightly/Non-Suspicious ECG: Nonspecific Repolarization Age: </= 45 years Risk Factors: 1 or 2 Risk Factors Troponin: >/=3 x Normal Limit Score: 4 MDM MDM MDM Narrative Medical decision making narrative: Patient is evaluated for ongoing chest discomfort and shortness of breath. Has had a worsening cough. Had full evaluation in the ER 5 days ago where that time is recommended he be admitted for NSTEMI however patient could not stay and left AMA. Patient's troponin is still elevated 228. EKG does not show acute ischemic changes. BNP is added on which is significantly elevated 683.5. Patient denies any stimulant use however after hospital spoke with the patient he admits that he has been using a new preworkout for the past 6 months. Given that patient had a negative CTA of the chest for dissection or PE 5 days ago with the same symptoms I do not think this needs to be repeated at this time. It did show nonspecific bilateral perihilar interstitial thickening. Differential does include acute heart failure, ACS, myocarditis and endocarditis. Patient is given aspirin the emergency room. Will give DuoNeb as he does have a lot of coarse/rhonchorous breath sounds as well as Solu-Medrol. After BNP came back elevated is ordered Lasix and patient is requesting Ativan for his anxiety. Nursing staff did notify me that patient is a clean of some back pain. Will be given Tylenol. Case is discussed with cardiology, Dr. Toure, who recommends starting with echocardiogram and then they can determine whether stress test versus cardiac catheterization is more appropriate. This is communicated with admitting physician, Dr. Levine. Lab Data Attestation: I reviewed the patient's lab results. Labs: Laboratory Results - last 24 hr 07/09/24 12:05 WBC 10.6 RBC 4.80 Hgb 14.4 Hct 44.0 MCV 91.7 MCH 30.0 MCHC 32.7 RDW Std Deviation 44.6 H RDW Coeff of Liliana 13.2 Plt Count 394 MPV 9.3 Immature Gran % (Auto) 0.300 Neut % (Auto) 63.1 Lymph % (Auto) 28.7 Villalba % (Auto) 5.8 Eos % (Auto) 1.3 Baso % (Auto) 0.8 Absolute Neuts (auto) 6.7 Absolute Lymphs (auto) 3.05 Nucleated RBC % 0 PT 14.0 INR 1.1 Sodium 137 Potassium 3.7 Chloride 108 H Carbon Dioxide 24.0 Anion Gap 5 BUN 15 Creatinine 1.24 Estim Creat Clear Calc 68.20 Est GFR (MDRD) Af Amer 82 Est GFR (MDRD) Non-Af 68 BUN/Creatinine Ratio 12.1 Glucose 165 H Calcium 9.5 Troponin I High Sens 228 H* C-React Prot Ext Range 13.50 H B-Natriuretic Peptide 683.5 H Radiography Chest X-Ray - ED: 1 View, Read by ED Physician, Read by Radiologist and No Acute Disease Diagnostic Testing: Clinical Impression(s) from Imaging Studies Chest X-Ray 07/09/24 13:06 IMPRESSION: Normal x-ray examination of the chest. Electronically Signed: Ede Horne MD at 13:19 EDT , Rhythm Strip Rhythm Strip: Sinus Tach Rate: 118 Ectopy: None EKG Initial EKG: Attestation: I personally reviewed and interpreted this EKG as follows: Interpretation: Sinus Tachycardia Comments: Sinus tachycardia at a rate of 119 bpm Left axis deviation Minimal voltage criteria for LVH Incomplete right bundle branch block Nonspecific T wave changes No significant change for the prior EKG Management Discussion w/another healthcare provider: Hospitalist and Jeep Mechanic Discharge Plan Triage Chief Complaint: Chest Pain ED Provider: Fiordaliza Martin Dx/Rx/DC Orders Clinical Impression: Sinus tachycardia, Chest pain, Elevated troponin, Acute dyspnea, Acute heart failure, Acute congestive heart failure Prescriptions: No Action albuterol sulfate 90 mcg/actuation HFA aerosol inhaler 2 puff inhalation Q4H PRN PRN (Reason: wheezing) Primary Care Provider: Care Physician,No Primary Referrals: Care Physician,No Primary [Primary Care Provider] - Print Language: Yakut Disposition Disposition: Acute Care Hospital [facility]
[2024-07-09] MEDS: Aspirin 325 MG Tablet PO (13:49)
--- NOTE | 2024-07-09 14:06 | NURSING ---
PCU NIELSEN ELEVATED TROP, DYSPNEA
[2024-07-09 14:09] LABS: Reflex Troponin-HS? (from REC) Y
[2024-07-09 14:11] LABS: BNP,B-Type NATRIURETIC PEPTIDE 683.5 pg/mL (0-100)
[2024-07-09] MEDS: Ipratropium/Albuterol Sulfate 3 ML AMPUL.NEB INHALATION (14:14)
[2024-07-09] MEDS: MethylPREDNISolone 125 MG/2 ML Vial IV (14:14)
[2024-07-09] MEDS: LORazepam 2 MG/ML Syringe 1 MG IV (14:20)
[2024-07-09] MEDS: Furosemide 40 MG/4 ML Vial IV (14:20)
--- NOTE | 2024-07-09 14:47 | HP.PCM.HOS_ITS ---
HPI - General General Date of Admission: 07/09/24 Date of Service: 07/09/24 Chief Complaint: SOB HPI Narrative MOISES PEREZ, is a 39 M with remote history of amphetamine abuse and current tobacco use who presented [facility] ED 07/09/2024 with increasing shortness of breath. Initially seen here on Tuesday for this increasing shortness of breath and had a troponin that went from 18 to over 200, admission was advised however he did not want to stay so he left AMA. Went to his PCP today who sent him back. Was found to have persistently elevated troponin as well as elevated BNP so hospitalist contacted for admission. Patient reports increasing shortness of breath over the past 3 weeks with fatigue and feeling bloated, he has had shortness of breath specifically on exertion, intermittently will feel some indigestion-like feeling or a twinge in his chest but the indigestion feeling is at random and not associated with exertion or rest like his shortness of breath is. The twinge in his chest will feel like a pinch and lasts only seconds, denies any prolonged chest pain or discomfort and the primary complaint is this increased shortness of breath when lying down and on exertion. Also shortness of breath when he is laying down at night. Endorses he has not used any amphetamines for greater than 10 years however has been using a preworkout weight loss and energy formulation for the past 6 months and creatinine. Drinks 2 cups of coffee a day, vapes nicotine and occasionally marijuana but denies any other substance use. Has a little bit of a cough without significant production. At night will intermittently feel warm and cold but no measured fever. [facility] Medical History Skin cancer Tobacco use Seizures Migraines Arthritis Home Medications ?Medication ?Instructions ?Recorded ?Last Taken ?Type albuterol sulfate 90 mcg/actuation 2 puff inhalation Q4H PRN PRN 07/04/24 Unknown History aerosol inhaler wheezing Allergy/AdvReac Type Severity Reaction Status Date / Time No Known Allergies Allergy Verified 07/09/24 11:44 Social History Smoking Status: Current some day smoker tobacco type: cigarettes and e- cigarettes ROS ROS Narrative General: Intermittently will be hot and cold, overall fatigued HENT: Intermittently some headaches, denies stuffy nose, little bit of a sore throat from cough EYES: Denies changes in vision Resp: Little bit of intermittent cough without significant production, increasing shortness of breath especially when laying down or on exertion Cardiac: Will have twinges in his chest that feels like a pinch and sometimes indigestion GI: Gets a little bit of right lower abdominal pain, denies changes in bowel, occasionally some nausea especially if he drinks water, feels his abdomen is swollen : Somewhat darker urine Extremity: Feels little bit swollen understands MSK: Denies weakness Neuro: Denies any numbness/tingling Heme: Denies any bleeding or bruising Skin: Denies rashes Psychiatric: Feeling anxious Vital Signs Vital Signs Vital Signs: 07/09/24 11:45 07/09/24 12:20 07/09/24 12:43 Temperature 97.8 F Temperature Source Oral Pulse Rate 118 H 113 H Respiratory Rate 18 16 Respiratory Pattern Blood Pressure 137/104 H 135/103 H Blood Pressure Mean 115 113 Pulse Ox 96 99 Oxygen Delivery Method Room Air Room Air Room Air 07/09/24 13:00 07/09/24 14:00 07/09/24 14:14 Temperature Temperature Source Pulse Rate 112 H 119 H 94 Respiratory Rate 13 16 18 Respiratory Pattern Normal Blood Pressure 138/101 H 133/100 H Blood Pressure Mean 112 111 Pulse Ox 99 95 Oxygen Delivery Method Room Air 07/09/24 14:28 Temperature 97.9 F Temperature Source Pulse Rate 121 H Respiratory Rate 14 Respiratory Pattern Blood Pressure 133/100 H Blood Pressure Mean 111 Pulse Ox 95 Oxygen Delivery Method Weight Weight: 71.395 kg Body Mass Index (BMI) 26.2 Physical Exam Narrative General: Alert, appears anxious HEENT: Atraumatic, normocephalic Eyes: Anicteric, normal conjunctiva, extraocular movements grossly intact Neck: Supple Respiratory: Somewhat diminished at the bases, increased respiratory effort Cardiovascular: Sinus tachycardia GI: Slightly protuberant but nontender and overall soft Extremities: No significant pitting edema edema Musculoskeletal: Moving all extremities Neuro: No overt focal neurological deficits Skin: No rashes appreciated Psych: Anxious Results Lab / Micro Data 07/09/24 12:05 07/09/24 12:05 Labs: Laboratory Results - last 24 hr 07/09/24 12:05: WBC 10.6, RBC 4.80, Hgb 14.4, Hct 44.0, MCV 91.7, MCH 30.0, MCHC 32.7, RDW Std Deviation 44.6 H, RDW Coeff of Liliana 13.2, Plt Count 394, MPV 9.3, Immature Gran % (Auto) 0.300, Neut % (Auto) 63.1, Lymph % (Auto) 28.7, [place] % (Auto) 5.8, Eos % (Auto) 1.3, Baso % (Auto) 0.8, Absolute Neuts (auto) 6.7, Absolute Lymphs (auto) 3.05, Nucleated RBC % 0, PT 14.0, INR 1.1, Sodium 137, Potassium 3.7, Chloride 108 H, Carbon Dioxide 24.0, Anion Gap 5, BUN 15, Creatinine 1.24, Estim Creat Clear Calc 68.20, Est GFR (MDRD) Af Amer 82, Est GFR (MDRD) Non-Af 68, BUN/Creatinine Ratio 12.1, Glucose 165 H, Calcium 9.5, T roponin I High Sens 228 H*, C-React Prot Ext Range 13.50 H, B-Natriuretic Peptide 683.5 H Imaging Radiology Impression Chest X-Ray 07/09/24 13:06 IMPRESSION: Normal x-ray examination of the chest. Electronically Signed: Ede Horne MD at 13:19 EDT Reading Location ID and State: [address] [place] [address] , Service support , Assessment & Plan Assessment/Plan (1) Elevated troponin: PLAN: Plan # Concern for new onset heart failure -Patient with increasing shortness of breath when lying flat and on exertion with an elevated BNP of over 600 -Given Lasix in the ED -Admit to telemetry -Continue IV lasix -echo ordered -Daily weights, I's and O's -Fluid restriction, heart healthy diet -Has been persistently sinus tach, unclear if he has a tachycardia induced cardiomyopathy or if his tachycardia is due to to his cardiomyopathy, will avoid beta-blockers or negative inotropes due to concern that this will cause decompensation -Patient takes preworkout that is for weight loss and energy and has for 6 months, query if this could be the cause or contributor to this -Will check TSH # Elevated troponin -Suspect due to an underlying cardiomyopathy -Chest pain is mostly twinges and occasionally an indigestion feeling that does not correlate with exertion or rest or his shortness of breath -However given concern for his new onset cardiomyopathy as well as the elevated troponin and persistent sinus tachycardia cardiology has been consulted -Do not feel this is a type I NSTEMI necessitating heparin #Tobacco use -Advise cessation -Nicotine replacement available if desired # Remote history of amphetamine use -UDS negative on Tuesday, patient reports being in remission for 10 years #DVT ppx: Lovenox subcu Celeste Levine MD Time spent in the patient's overall evaluation,decision-making process, review of diagnostic data, adjustment of management, discussion with other providers, nursing nursing and ancillary staff involved in patient's care documentation, 57 Minutes Charges/Coding Visit Charges Inpatient E&M: 25782 Init Hosp L2
[2024-07-09] MEDS: Acetaminophen 325 MG Tablet 650 MG PO (14:50)
[2024-07-09 14:56] LABS: Troponin-I HS 219 pg/mL (3.0-78.0)
--- NOTE | 2024-07-09 17:48 | ECHOD_ITS ---
Reason For Study: Dyspnea/SOB Procedure This was a 2D Doppler, Color Flow transthoracic echocardiogram. Myocardial strain analysis was performed in this exam to aid in the assessment of cardiac function. Exam performed portable in patient room. Left Ventricle Mildly dilated left ventricle. The left ventricular ejection fraction is 15 %. There is severe global hypokinesis of the left ventricle. Right Ventricle Normal RV size. Normal systolic function. Atria The left atrium is moderately enlarged. Normal right atrium. Mitral Valve Normal mitral valve. Mild (1+) eccentric mitral valve insufficiency. Tricuspid Valve Normal tricuspid valve. Aortic Valve Normal aortic valve. Trisinus/trileaflet aortic valve. Pulmonic Valve Normal pulmonic valve. Great Vessels Normal aortic root. The pulmonary artery is normal size. Inferior vena cava collapse with respiration. Pericardium/Pleural No pericardial effusion. MMode/2D Measurements & Calculations LVIDd: 5.8 cm IVSd: 1.1 cm Ao root diam: 3.1 cm LVIDs: 5.5 cm LVPWd: 1.2 cm RVDd: 3.3 cm FS: 6.8 % LAV(MOD-bp): 99.9 ml LVAd ap4: 46.7 cm2 LVAd ap2: 37.4 cm2 LAV(MOD-bp) Indexed: 56.6 ml/m2 LVLd ap4: 9.2 cm LVLd ap2: 8.5 cm LAV(MOD-sp2): 81.0 ml EDV(MOD-sp4): 194.3 ml EDV(MOD-sp2): 142.3 ml LAV(MOD-sp4): 98.7 ml EDV(sp4-el): 201.0 ml EDV(sp2-el): 139.9 ml LVAs ap4: 40.4 cm2 LVAs ap2: 33.6 cm2 LVLs ap4: 8.3 cm LVLs ap2: 8.2 cm ESV(MOD-sp4): 162.1 ml ESV(MOD-sp2): 115.3 ml ESV(sp4-el): 166.0 ml ESV(sp2-el): 116.8 ml EF(MOD-sp4): 16.6 % EF(MOD-sp2): 19.0 % EF(sp4-el): 17.4 % SV(MOD-sp4): 32.3 ml SV(MOD-sp2): 27.0 ml SV(sp4-el): 34.9 ml Ao sinus diam: 2.[address] Junction: 2.7 cm LA A4 area: 29.7 cm2 LA dimension(2D): 4.4 cm RA A4 area: 13.4 cm2 TAPSE: 1.4 cm Time Measurements MV dec time: 0.14 sec Doppler Measurements & Calculations MV E max erasmo: 73.1 cm/sec Med Peak E' Erasmo: 8.0 cm/sec MV V2 max: 105.2 cm/sec MV A max erasmo: 54.2 cm/sec E/E' med: 9.1 MV max P.4 mmHg MV E/A: 1.3 MV V2 mean: 52.0 cm/sec MV mean P.4 mmHg MV V2 VTI: 15.5 cm MV P1/2t max erasmo: 106.5 cm/sec Ao V2 max: 95.1 cm/sec LV V1 max: 83.9 cm/sec MV P1/2t: 44.1 msec Ao max P.6 mmHg LV V1 max P.8 mmHg Ao V2 mean: 75.4 cm/sec LV V1 mean P.8 mmHg MV dec slope: 707.8 cm/sec2 Ao mean P.5 mmHg LV V1 mean: 63.8 cm/sec MVA(P1/2t): 5.0 cm2 Ao V2 VTI: 18.1 cm LV V1 VTI: 12.9 cm AV (velocity ratio): 0.71 PA V2 max: 66.4 cm/sec ECHO/Echo Complete Interpretation Summary The left ventricular ejection fraction is 15 %. Mildly dilated left ventricle. There is severe global hypokinesis of the left ventricle. The left atrium is moderately enlarged. Mild (1+) eccentric mitral valve insufficiency. The global longitudinal strain is severely abnormal. The global longitudinal st rain = -6.7% (abnormal). Ordering Physician: Celeste Levine Performed By: Obi Mendoza RCS
--- NOTE | 2024-07-09 18:13 | CON.PCM.CA_ITS ---
Assessment & Plan Assessment/Plan (1) Acute congestive heart failure: QUALIFIERS: Heart failure type: unspecified Qualified Code(s): I 50.9 - Heart failure, unspecified PLAN: The patient's presentation is consistent with a possible postviral myocarditis/cardiomyopathy. A 2D echocardiogram will be performed to evaluate the patient's LV function and structural heart. His exam is consistent with an S3 gallop and sinus tachycardia in the face of progressive dyspnea on exertion and shortness of breath with rales posteriorly. He does feel some better after IV Lasix being administered in the emergency department. Would recommend we start guideline directed medical therapy for LV recovery. Will initiate Coreg 3.125 mg twice daily, losartan 25 mg daily this evening, and spironolactone 12.5 mg every morning tomorrow morning. Would continue another dose of IV Lasix and then switch to p.o. Lasix pending the outcome of the echo and his response to diuresis tomorrow morning. 2D echocardiogram be obtained and further recommendations will be forthcoming. (2) Elevated troponin: PLAN: Patient's troponin is minimally elevated 219. This has been chronic since July 04. It appears this represents most likely a postviral myocarditis/cardiomyopathy. His BNP is also elevated in the 680 range. I do not feel this represents a non-STEMI. PLAN: Plan 1. Will institute guideline directed medical therapy as noted above in the and in the orders. 2. 2D echocardiogram to be obtained tomorrow. 3. Further recommendations for long-term management will be forthcoming pending the outcome of the echo and response to his medical therapy as it is initiated and titrated. HPI Consult Data Date of Consult: 07/09/24 HPI Narrative Reason for Consultation: Presumed CHF. HPI Narrative: MOISES PEREZ, is a 39 M who presents with a 3-week history of progressive shortness of breath and dyspnea on exertion. Patient was evaluated July 04 in the emergency department with minimally elevated troponins and left AMA. He now comes back with slight elevation in his troponin in the 200 range. His BNP is elevated at 600 and he is congested and short of breath. The patient's chest x-ray did not show any overt congestive heart failure. The patient's history is that 3 weeks ago he developed significant URI was evaluated in the emergency department and COVID was ruled out. He was treated with aerosol inhaler without any significant improvement over the last 3 weeks. Other family members were sick as well. The patient is just never gotten over it and has gotten progressively more dyspneic. The patient denies any change in his appetite or urinary output. There is no prior history of any cardiac issues. The patient really has not sought medical care. He does have a family history of the mother having a pacemaker and then dying a couple years later. He does not really know the etiology of her cardiovascular status. He also has uncles that have cardiac issues as well. He has a sister who is not in touch with. The patient does have a child who is cared for by his fisandra?e at this time. The patient denies any lower extremity edema denies any syncope. He does report that shortness of breath and dyspnea on exertion has been present for 3 weeks. [facility] Medical History Skin cancer Tobacco use Seizures Migraines Arthritis Home Medications ?Medication ?Instructions ?Recorded ?Last Taken ?Type albuterol sulfate 90 mcg/actuation 2 puff inhalation Q4H PRN PRN 07/04/24 Unknown History aerosol inhaler wheezing Allergy/AdvReac Type Severity Reaction Status Date / Time No Known Allergies Allergy Verified 07/09/24 11:44 Family History (Updated 07/09/24 @ 18:[address] Denis Agustin MD) Mother Heart disease Social History Smoking Status: Current some day smoker tobacco type: cigarettes and e- cigarettes ROS Constitutional Constitutional: Reports as per HPI Eyes Eyes: Reports systems reviewed and no addt'l complaints, except as documented ENT HEENT: Reports as per HPI Cardiovascular Cardiovascular: Reports as per HPI Respiratory/Chest Respiratory/Chest: Reports as per HPI Gastrointestinal Gastrointestinal: Reports as per HPI Genitourinary Genitourinary: Reports as per HPI Musculoskeletal Musculoskeletal: Reports systems reviewed and no addt'l complaints, except as documented Integumentary Integumentary: Reports systems reviewed and no addt'l complaints, except as documented Neurologic Neurologic: Reports systems reviewed and no addt'l complaints, except as documented Psychiatric Psychiatric: Reports systems reviewed and no addt'l complaints, except as documented Endocrine Endocrinology: Reports systems reviewed and no addt'l complaints, except as documented Hematologic/Lymphatic Hematologic/Lymphatic: Reports systems reviewed and no addt'l complaints, except as documented Allergic/Immunologic Allergic/Immunologic: Reports systems reviewed and no addt'l complaints, except as documented Physical Exam Const alert and oriented x3 HEENT normocephalic Eyes EOMs intact bilaterally Neck no JVD Neck Narrative: At 90 degrees. Chest inspection of chest normal Resp normal respiratory effort Auscultation: rales bilateral lower Cardio Rate: tachycardic Rhythm: regular rhythm Heart Sounds: S1 normal, S2 normal and gallop S3 gallop; Negative for click, murmur or rub GI soft to palpation Extremity no pedal edema Skin no rashes or lesions noted Skin Narrative: Several tattoos noted Neuro Neuro Narrative: Alert and oriented x 3 Psych mental status grossly normal Risk Stratification Risk Stratification Applicable: Yes Age >/= 65: No >/= 3 CAD Risk Factors (HTN, HLD, DM, family hx of CAD, or current smoker): Yes Aspirin Use in the Past 7 Days: No Severe Angina (>/= episodes in 24 hours): No EKG ST Changes >/= 0.5mm: No Positive Cardiac Marker: Yes JESSICA Risk Stratification Score: 2 JESSICA % Risk: 8% Risk Charges/Coding Visit Charges Inpatient E&M: 65309 Init Hosp L3 Objective Data Vital Signs: Vital Signs Temp Pulse Resp BP Pulse Ox O2 Del Method 96.9 F L 101 H 16 125/96 H 99 Room Air 07/09/24 18:00 07/09/24 18:00 07/09/24 18:00 07/09/24 18:00 07/09/24 18:00 07/09/24 18:00 Oxygen Delivery Method Room Air Weight: 153 lb 0.013 oz Body Mass Index (BMI) 22.6 Lab / Micro Data Attestation: I reviewed the patient's lab results. 07/09/24 12:05 07/09/24 12:05 Labs: Laboratory Results - last 24 hr 07/09/24 12:05: WBC 10.6, RBC 4.80, Hgb 14.4, Hct 44.0, MCV 91.7, MCH 30.0, MCHC 32.7, RDW Std Deviation 44.6 H, RDW Coeff of Liliana 13.2, Plt Count 394, MPV 9.3, Immature Gran % (Auto) 0.300, Neut % (Auto) 63.1, Lymph % (Auto) 28.7, [place] % (Auto) 5.8, Eos % (Auto) 1.3, Baso % (Auto) 0.8, Absolute Neuts (auto) 6.7, Absolute Lymphs (auto) 3.05, Nucleated RBC % 0, PT 14.0, INR 1.1, Sodium 137, Potassium 3.7, Chloride 108 H, Carbon Dioxide 24.0, Anion Gap 5, BUN 15, Creatinine 1.24, Estim Creat Clear Calc 68.20, Est GFR (MDRD) Af Amer 82, Est GFR (MDRD) Non-Af 68, BUN/Creatinine Ratio 12.1, Glucose 165 H, Calcium 9.5, T roponin I High Sens 228 H*, C-React Prot Ext Range 13.50 H, B-Natriuretic Peptide 683.5 H 07/09/24 14:16: Troponin I High Sens 219 H* Rhythm Strip Rhythm Strip: Sinus Tach Rate: 110 Ectopy: None Cardiology Labs/Tests 07/09/24 12:05: WBC 10.6, RBC 4.80, Hgb 14.4, Hct 44.0, MCV 91.7, MCH 30.0, MCHC 32.7, Plt Count 394, MPV 9.3, Immature Gran % (Auto) 0.300, Neut % (Auto) 63.1, Lymph % (Auto) 28.7, [place] % (Auto) 5.8, Eos % (Auto) 1.3, Baso % (Auto) 0.8, Absolute Neuts (auto) 6.7, Nucleated RBC % 0, PT 14.0, INR 1.1, Sodium 137, Potassium 3.7, Chloride 108 H, Carbon Dioxide 24.0, Anion Gap 5, BUN 15, Creatinine 1.24, Est GFR (MDRD) Af Amer 82, Est GFR (MDRD) Non-Af 68, BUN/Creatinine Ratio 12.1, Glucose 165 H, Calcium 9.5, B-Natriuretic Peptide 683.5 H Rhythm: EKG: ECHO: Stress Test: Cardiac Cath: PCI: CT Surgery: Holter monitor: EPS: PPM: CXR: Chest CT Scan: Radiography Diagnostic Testing: Radiology Impression Chest X-Ray 07/09/24 13:06 IMPRESSION: Normal x-ray examination of the chest. Electronically Signed: Ede Horne MD at 13:19 EDT ,
[2024-07-09] MEDS: Losartan Potassium 25 MG Tablet PO (19:35)
[2024-07-09] MEDS: Carvedilol 3.125 MG TABLET PO (20:35)
[2024-07-09] MEDS: hydrOXYzine 10 MG Tablet PO (21:12)
[2024-07-10 03:15] VITALS: BP 107/72; PULSE 93; RESP 16; TEMP 35.7; O2SAT 94
[2024-07-10 05:40] VITALS: BMI 22.6
[2024-07-10 05:58] LABS: Absolute Lymphocyte Count 1.62 X10^3/uL (0.83-4.51); Absolute Neutrophil Count 17.6 X10^3/uL (2.0-7.7); Basophil# 0.03 X10^3/uL; Basophil% 0.2 % (0-1); Hematocrit 48.8 % (40-54); Lymphocyte # 1.62 X10^3/ul (0.83-4.51); Lymphocyte % 8.2 % (19-41); Mean Corp Hgb Conc 32.8 g/dL (32-36); Mean Corpuscular Hgb 30.2 pg (27.0-32.0); Mean Corpuscular Volume 92.2 fL (80-94); Mean Platelet Vol. 9.2 fl (6.2-12.0); Monocyte# 0.36 X10^3/uL; Monocyte% 1.8 % (0-10); NRBC Flagged by Analyzer 0 % (0-5); Neutrophil # 17.56 X10^3/uL (2.7-7.7); Neutrophil % 89.3 % (47-70); Platelet Count 448 K/mm3 (150-450); RBC Distribution Width CV 13.2 % (11.6-14.6); RBC Distribution Width SD 45.4 fl (35.1-43.9); Red Blood Count 5.29 M/mm3 (4.6-6.2); White Blood Count 19.7 K/mm3 (4.4-11.0)
[2024-07-10] MEDS: hydrOXYzine 10 MG Tablet PO (06:15)
[2024-07-10 06:35] LABS: Troponin-I HS 72 pg/mL (3.0-78.0)
[2024-07-10 06:39] LABS: ALB/GLOB Ratio 0.8 RATIO (0.9-2.4); AST(SGOT) 15 U/L (15-37); Alanine Aminotransfer ALT/SGPT 37 U/L (16-61); Albumin, Serum 3.5 g/dL (3.2-5.0); Alkaline Phosphatase 69 U/L (45-117); Anion Gap 6 (5-15); BUN 19 mg/dL (7-18); BUN/Creat Ratio 17.1 RATIO (10-20); Calcium,Total 10.1 mg/dL (8.5-10.1); Chloride 107 mmol/L (98-107); Cholesterol 329 mg/dL (200); Creatinine, Serum 1.11 mg/dL (0.70-1.30); EST Glomerular Filtration Rate 77 mL/min (>60); Est Glom Filt Rate - Afr Amer 94 mL/min (>60); Estimated Creatinine Clearance 85.97 ml/min; Globulin 4.4 g/dL (2.2-4.2); Glucose 140 mg/dL (74-106); High Density Lipoprotein 59 mg/dL; Magnesium 2.2 mg/dL (1.6-2.6); Potassium 4.3 mmol/L (3.5-5.1); Protein, Total 7.9 g/dL (6.4-8.2); Sodium Level 135 mmol/L (136-145); Thyroid Stim Hormone (TSH) 0.345 uIU/mL (0.358-3.740); Triglycerides 64 mg/dL; Very Low Density Lipoprotein 13 mg/dL (5-40)
--- NOTE | 2024-07-10 08:45 | PN.CARD_ITS ---
Subjective Subjective Patient reports he is feeling much better this morning he is essentially back to his baseline. He diuresed significantly overnight. He has tolerated the institution of his guideline directed medical therapy at this time. The patient does report that his puffiness in his hands and ankles is completely resolved overnight. The patient is adamant that he needs to be home by this evening due to commitments at work and with his family. The patient does have home blood pressure and heart rate monitoring capabilities he has a very supportive fianc? that lives with him. Objective Data Vital Signs: Vital Signs Temp Pulse Resp BP Pulse Ox O2 Del Method 96.3 F L 93 16 107/72 94 Room Air 07/10/24 03:15 07/10/24 03:15 07/10/24 03:15 07/10/24 03:15 07/10/24 03:15 07/10/24 03:15 Oxygen Delivery Method Room Air Weight: 153 lb 0.013 oz Body Mass Index (BMI) 22.6 Intake & Output: Intake and Output for Last 24 Hours 07/08/24 07/09/24 07/10/24 23:59 23:59 23:59 Intake Total 480 / 480 Balance 480 / 480 Lab / Micro Data Attestation: I reviewed the patient's lab results. 07/10/24 05:33 07/10/24 05:33 Labs: Laboratory Results - last 24 hr 07/09/24 12:05: WBC 10.6, RBC 4.80, Hgb 14.4, Hct 44.0, MCV 91.7, MCH 30.0, MCHC 32.7, RDW Std Deviation 44.6 H, RDW Coeff of Liliana 13.2, Plt Count 394, MPV 9.3, Immature Gran % (Auto) 0.300, Neut % (Auto) 63.1, Lymph % (Auto) 28.7, [place] % (Auto) 5.8, Eos % (Auto) 1.3, Baso % (Auto) 0.8, Absolute Neuts (auto) 6.7, Absolute Lymphs (auto) 3.05, Nucleated RBC % 0, PT 14.0, INR 1.1, Sodium 137, Potassium 3.7, Chloride 108 H, Carbon Dioxide 24.0, Anion Gap 5, BUN 15, Creatinine 1.24, Estim Creat Clear Calc 68.20, Est GFR (MDRD) Af Amer 82, Est GFR (MDRD) Non-Af 68, BUN/Creatinine Ratio 12.1, Glucose 165 H, Calcium 9.5, T roponin I High Sens 228 H*, C-React Prot Ext Range 13.50 H, B-Natriuretic Peptide 683.5 H 07/09/24 14:16: Troponin I High Sens 219 H* 07/10/24 05:33: WBC 19.7 H, RBC 5.29, Hgb 16.0, Hct 48.8, MCV 92.2, MCH 30.2, MCHC 32.8, RDW Std Deviation 45.4 H, RDW Coeff of Liliana 13.2, Plt Count 448, MPV 9.2, Immature Gran % (Auto) 0.500, Neut % (Auto) 89.3 H, Lymph % (Auto) 8.2 L, [place] % (Auto) 1.8, Eos % (Auto) 0.0, Baso % (Auto) 0.2, Absolute Neuts (auto) 17.6 H, Absolute Lymphs (auto) 1.62, Nucleated RBC % 0, Sodium 135 L, Potassium 4.3, Chloride 107, Carbon Dioxide 22.0, Anion Gap 6, BUN 19 H, Creatinine 1.11, Estim Creat Clear Calc 85.97, Est GFR (MDRD) Af Amer 94, Est GFR (MDRD) Non-Af 77, BUN/Creatinine Ratio 17.1, Glucose 140 H, Calcium 10.1, Magnesium 2.2, Total Bilirubin 0.70, AST 15, ALT 37, Alkaline Phosphatase 69, Troponin I High Sens 72, Total Protein 7.9, Albumin 3.5, Globulin 4.4 H, Albumin/Globulin Ratio 0.8 L , Triglycerides 64, Cholesterol 329 H, LDL Cholesterol 257 H, VLDL Cholesterol 13, HDL Cholesterol 59, TSH 0.345 L Rhythm Strip Rhythm Strip: Sinus Tach Rate: 105 Ectopy: None Cardiology Labs/Tests 07/09/24 12:05: WBC 10.6, RBC 4.80, Hgb 14.4, Hct 44.0, MCV 91.7, MCH 30.0, MCHC 32.7, Plt Count 394, MPV 9.3, Immature Gran % (Auto) 0.300, Neut % (Auto) 63.1, Lymph % (Auto) 28.7, [place] % (Auto) 5.8, Eos % (Auto) 1.3, Baso % (Auto) 0.8, Absolute Neuts (auto) 6.7, Nucleated RBC % 0, PT 14.0, INR 1.1, Sodium 137, Potassium 3.7, Chloride 108 H, Carbon Dioxide 24.0, Anion Gap 5, BUN 15, Creatinine 1.24, Est GFR (MDRD) Af Amer 82, Est GFR (MDRD) Non-Af 68, BUN/Creatinine Ratio 12.1, Glucose 165 H, Calcium 9.5, B-Natriuretic Peptide 683.5 H 07/10/24 05:33: WBC 19.7 H, RBC 5.29, Hgb 16.0, Hct 48.8, MCV 92.2, MCH 30.2, MCHC 32.8, Plt Count 448, MPV 9.2, Immature Gran % (Auto) 0.500, Neut % (Auto) 89.3 H, Lymph % (Auto) 8.2 L, [place] % (Auto) 1.8, Eos % (Auto) 0.0, Baso % (Auto) 0.2, Absolute Neuts (auto) 17.6 H, Nucleated RBC % 0, Sodium 135 L, Potassium 4.3, Chloride 107, Carbon Dioxide 22.0, Anion Gap 6, BUN 19 H, Creatinine 1.11, Est GFR (MDRD) Af Amer 94, Est GFR (MDRD) Non-Af 77, BUN/Creatinine Ratio 17.1, Glucose 140 H, Calcium 10.1, Magnesium 2.2, Total Bilirubin 0.70, Triglycerides 64, Cholesterol 329 H, LDL Cholesterol 257 H, VLDL Cholesterol 13, HDL Cholesterol 59 Rhythm: EKG: ECHO: Stress Test: Cardiac Cath: PCI: CT Surgery: Holter monitor: EPS: PPM: CXR: Chest CT Scan: Radiography Diagnostic Testing: Radiology Impression Chest X-Ray 07/09/24 13:06 IMPRESSION: Normal x-ray examination of the chest. Electronically Signed: Ede Horne MD at 13:19 EDT , Physical Exam Const alert and oriented x3 HEENT normocephalic Eyes EOMs intact bilaterally Neck no JVD Neck Narrative: No JVD at 90 degrees. Chest inspection of chest normal Resp normal respiratory effort and clear to auscultation bilaterally Resp Narrative: The patient's bilateral posterior crackles have cleared since last evening. Cardio Rate: tachycardic Rhythm: regular rhythm Heart Sounds: S1 normal, S2 normal and gallop S3 gallop; Negative for click or murmur GI normal to inspection, nondistended, normoactive bowel sounds Extremity no pedal edema General Extremity: Negative for edema Neuro Neuro Narrative: Alert and oriented x 3. Psych mental status grossly normal Assessment & Plan Assessment/Plan (1) Acute congestive heart failure: QUALIFIERS: Heart failure type: unspecified Qualified Code(s): I 50.9 - Heart failure, unspecified PLAN: The patient's symptoms have essentially completely resolved. He is resting comfortably flat in the bed denies any shortness of breath or congested feeling. He also reports that his puffiness in his hands and ankles is completely resolved and had extensive diuresis feeling up to 3 large bottles of urine last night. There was an inaccuracy in the capture of his I's and O's. Currently the patient is tolerating his current medical therapy blood pressure and heart rate have responded appropriately to the carvedilol furosemide and losartan. We will add spironolactone this morning. And increase his carvedilol to 6.25 mg twice daily. Losartan will be maintained at 25 mg daily. 2D echocardiogram is pending at this time. 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 We will finalize long-term recommendations once the results of the echocardiogram are known. I expect the patient should be able to be discharged to home later today and titrate his medications in the home environment by virtual visits on the phone. I did go over in detail with the patient what he should be expecting as we titrate the medications as far as orthostatic changes and what to do in case these occur. (2) Elevated troponin: PLAN: Patient's minimally elevated troponin appears to be related to a presumed viral myocarditis. I do not feel this represents an ischemic event. PLAN: Plan 1. Titrate Coreg to 6.25 mg twice daily. 2. Change Lasix to 20 mg daily p.o. Will probably discontinue this in the ambulatory setting. 3. Continue spironolactone 25 mg every morning. 4. Continue losartan 25 mg at suppertime. 5. Patient is to take his blood pressure and heart rate and record this twice a day for the next 48 hours at home. He is to call those to our office and we will titrate his medications accordingly. 6. The patient should call our office to make a follow-up appointment the week of July 23, [address] Agustin. Charges/Coding Visit Charges Inpatient E&M: 10400 Subs Hosp L3
--- NOTE | 2024-07-10 08:48 | PN.HOSP_ITS ---
Reason for Visit Reason for Visit: Diagnoses Heart failure, unspecified (07/09/24) Other specified abnormal findings of blood chemistry (07/09/24) Subjective Subjective No new events. Feeling well. Objective Data Objective Data Vital Signs: Vital Signs Temp Pulse Resp BP Pulse Ox O2 Del Method 35.7 C L 93 16 107/72 94 Room Air 07/10/24 03:15 07/10/24 03:15 07/10/24 03:15 07/10/24 03:15 07/10/24 03:15 07/10/24 03:15 Oxygen Delivery Method Room Air Weight: 69.4 kg Body Mass Index (BMI) 22.6 Intake & Output: Intake and Output for Last 24 Hours 07/08/24 07/09/24 07/10/24 23:59 23:59 23:59 Intake Total 480 / 480 Balance 480 / 480 Lab / Micro Data 07/10/24 05:33 07/10/24 05:33 Labs: Laboratory Results - last 24 hr 07/09/24 12:05: WBC 10.6, RBC 4.80, Hgb 14.4, Hct 44.0, MCV 91.7, MCH 30.0, MCHC 32.7, RDW Std Deviation 44.6 H, RDW Coeff of Liliana 13.2, Plt Count 394, MPV 9.3, Immature Gran % (Auto) 0.300, Neut % (Auto) 63.1, Lymph % (Auto) 28.7, [place] % (Auto) 5.8, Eos % (Auto) 1.3, Baso % (Auto) 0.8, Absolute Neuts (auto) 6.7, Absolute Lymphs (auto) 3.05, Nucleated RBC % 0, PT 14.0, INR 1.1, Sodium 137, Potassium 3.7, Chloride 108 H, Carbon Dioxide 24.0, Anion Gap 5, BUN 15, Creatinine 1.24, Estim Creat Clear Calc 68.20, Est GFR (MDRD) Af Amer 82, Est GFR (MDRD) Non-Af 68, BUN/Creatinine Ratio 12.1, Glucose 165 H, Calcium 9.5, T roponin I High Sens 228 H*, C-React Prot Ext Range 13.50 H, B-Natriuretic Peptide 683.5 H 07/09/24 14:16: Troponin I High Sens 219 H* 07/10/24 05:33: WBC 19.7 H, RBC 5.29, Hgb 16.0, Hct 48.8, MCV 92.2, MCH 30.2, MCHC 32.8, RDW Std Deviation 45.4 H, RDW Coeff of Liliana 13.2, Plt Count 448, MPV 9.2, Immature Gran % (Auto) 0.500, Neut % (Auto) 89.3 H, Lymph % (Auto) 8.2 L, [place] % (Auto) 1.8, Eos % (Auto) 0.0, Baso % (Auto) 0.2, Absolute Neuts (auto) 17.6 H, Absolute Lymphs (auto) 1.62, Nucleated RBC % 0, Sodium 135 L, Potassium 4.3, Chloride 107, Carbon Dioxide 22.0, Anion Gap 6, BUN 19 H, Creatinine 1.11, Estim Creat Clear Calc 85.97, Est GFR (MDRD) Af Amer 94, Est GFR (MDRD) Non-Af 77, BUN/Creatinine Ratio 17.1, Glucose 140 H, Calcium 10.1, Magnesium 2.2, Total Bilirubin 0.70, AST 15, ALT 37, Alkaline Phosphatase 69, Troponin I High Sens 72, Total Protein 7.9, Albumin 3.5, Globulin 4.4 H, Albumin/Globulin Ratio 0.8 L , Triglycerides 64, Cholesterol 329 H, LDL Cholesterol 257 H, VLDL Cholesterol 13, HDL Cholesterol 59, TSH 0.345 L Radiography Diagnostic Testing: Radiology Impression Chest X-Ray 07/09/24 13:06 IMPRESSION: Normal x-ray examination of the chest. Electronically Signed: Ede Horne MD at 13:19 EDT , Rhythm Strip Rhythm Strip: Sinus Tach Rate: 110 Ectopy: None Physical Exam Const alert and no apparent distress Resp normal respiratory effort, no retractions, no use of accessory muscles and clear to auscultation bilaterally Cardio regular rate, regular rhythm, S1 normal heart sound and S2 normal heart sound GI normal to inspection, nondistended, normoactive bowel sounds, soft to palpation and non-distended Neuro Sensorium / Orientation: awake Assessment & Plan Assessment/Plan (1) Elevated troponin: PLAN: Plan Acute heart failure with reduced ejection fraction * EF on echocardiogram is 15%. Discussed with Dr. Agustin of cardiology. [place] the patient likely had a viral myocarditis. Patient okay to go home. Patient will be on medications to help optimize his heart returning to normal function with carvedilol 6.25 mg twice daily, losartan and spironolactone. Patient will be on furosemide as needed. 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 Patient will follow-up with cardiology in about 2 weeks time and further adjustments to his medications will be made at that time. Eventually he will need follow-up echocardiogram to see if his EF is improving. NSTEMI type II: * Likely due to demand of the heart failure with a cardiomyopathy * No additional workup at this time. Discharge home.
--- NOTE | 2024-07-10 10:30 | CASEMGMT ---
NICOLAS LU Face to Face with patient for initial transition planning/care coordination assessment. RN TABITHA introduced self and role at [facility]. Patient lying in bed, alert and oriented, significant . Patient willing to participate in assessment and is able to answer all questions appropriately. Care providers, pharmacy, and demographics verified. Strata: 2 PCP: none, PCP list provided Specialists: none Preferred Pharmacy: [facility] Insurance: [employer] Prescription Benefit: yes Living Will/HPOA: none LNOK: significant other Living Arrangements: Patient lives with significant other in an apartment. Patient is independent and able to ambulate stairs. Transportation: self, significant other DME/HHC: Patient has BP cuff and scales at home. Patient wishes to discharge home, denies need for home health at this time. Patient states he has no further needs or concerns at this time. CM to follow for discharge planning needs that may arise. Disposition Plan: Patient to discharge home with family support and follow-up plans in place. Gayle COSTA, RN, CM
[2024-07-10 10:34] VITALS: BP 124/93; PULSE 99; RESP 16; TEMP 36.6; O2SAT 97
[2024-07-10] MEDS: Aspirin E.C. 81 MG Tablet PO (10:41)
[2024-07-10] MEDS: Carvedilol 6.25 MG Tablet PO (10:41)
[2024-07-10] MEDS: Spironolactone 25 MG Tablet PO (10:41)
[2024-07-10] MEDS: Furosemide 20 MG Tablet PO (10:42)
--- NOTE | 2024-07-10 13:46 | DS.PCM_ITS ---
Providers Date of Admission: 07/09/24 Primary Care Physician: Catia Primary Care Phys Consultations 07/09/24 17:48 Consult: Cardiology Routine Consulting Provider: Denis Agustin Reason for Consult: New trop elevation, tachycardic, concern for new HF in 39 y/o EMERGENT Consult: No Notified: Yes Date Notified: 07/09/24 Time Notified: 17:56 Method of Notification: Text Reason For Visit: ELEVATED TROPONIN Diagnosis Discharge Diagnosis (1) Elevated troponin: Status: Acute Code(s): R79.89 - Other specified abnormal findings of blood chemistry Plan Acute heart failure with reduced ejection fraction * EF on echocardiogram is 15%. Discussed with Dr. Agustin of cardiology. [place] the patient likely had a viral myocarditis. Patient okay to go home. Patient will be on medications to help optimize his heart returning to normal function with carvedilol 6.25 mg twice daily, losartan and spironolactone. Patient will be on furosemide as needed. 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 Patient will follow-up with cardiology in about 2 weeks time and further adjustments to his medications will be made at that time. Eventually he will need follow-up echocardiogram to see if his EF is improving. NSTEMI type II: * Likely due to demand of the heart failure with a cardiomyopathy * No additional workup at this time. Discharge home. Medications at Discharge Home Medications carvedilol 6.25 mg tablet 6.25 mg PO BIDCM #60 tabs 07/10/24 furosemide 20 mg tablet 20 mg PO DAILY PRN For weight gain of 2 pounds in 1 day or 3 pounds in 1 week #30 tabs 07/10/24 losartan 25 mg tablet 25 mg PO DINNER #30 tabs 07/10/24 spironolactone 25 mg tablet 25 mg PO DAILY #30 tabs 07/10/24 Hospital Course Procedures 2-D Echocardiogram Summary of Care Provided Minutes Spent on Discharge: 35 Hospital Course: Patient presents with shortness of breath and was found to be in heart failure. Patient did receive furosemide and that did help him. He did have an echocardiogram that showed an EF of 15%. Cardiology feels that he may have had a viral myocarditis that caused a cardiomyopathy. Patient will be on carvedilol, losartan and spironolactone as well as as needed furosemide. Patient will need follow-up cardiology next couple weeks for further medication titration and eventually patient will require repeat echocardiogram. Weight / BMI Weight Weight: 69.4 kg Body Mass Index (BMI) 22.6 ABG / Lab / Microbiology Data 07/10/24 05:33 07/10/24 05:33 Laboratory: Laboratory Results - last 24 hr 07/09/24 12:05: C-React Prot Ext Range 13.50 H, B-Natriuretic Peptide 683.5 H 07/09/24 14:16: Troponin I High Sens 219 H* 07/10/24 05:33: WBC 19.7 H, RBC 5.29, Hgb 16.0, Hct 48.8, MCV 92.2, MCH 30.2, MCHC 32.8, RDW Std Deviation 45.4 H, RDW Coeff of Liliana 13.2, Plt Count 448, MPV 9.2, Immature Gran % (Auto) 0.500, Neut % (Auto) 89.3 H, Lymph % (Auto) 8.2 L, [place] % (Auto) 1.8, Eos % (Auto) 0.0, Baso % (Auto) 0.2, Absolute Neuts (auto) 17.6 H, Absolute Lymphs (auto) 1.62, Nucleated RBC % 0, Sodium 135 L, Potassium 4.3, Chloride 107, Carbon Dioxide 22.0, Anion Gap 6, BUN 19 H, Creatinine 1.11, Estim Creat Clear Calc 85.97, Est GFR (MDRD) Af Amer 94, Est GFR (MDRD) Non-Af 77, BUN/Creatinine Ratio 17.1, Glucose 140 H, Calcium 10.1, Magnesium 2.2, Total Bilirubin 0.70, AST 15, ALT 37, Alkaline Phosphatase 69, Troponin I High Sens 72, Total Protein 7.9, Albumin 3.5, Globulin 4.4 H, Albumin/Globulin Ratio 0.8 L , Triglycerides 64, Cholesterol 329 H, LDL Cholesterol 257 H, VLDL Cholesterol 13, HDL Cholesterol 59, TSH 0.345 L Radiography Diagnostic Testing: Radiology Impression Echocardiogram 07/09/24 17:48 Interpretation Summary The left ventricular ejection fraction is 15 %. Mildly dilated left ventricle. There is severe global hypokinesis of the left ventricle. The left atrium is moderately enlarged. Mild (1+) eccentric mitral valve insufficiency. The global longitudinal strain is severely abnormal. The global longitudinal strain = -6.7% (abnormal). Ordering Physician: Celeste Levine Performed By: Obi Mendoza RCS D/C Instructions Discharge Diet: Low fat / Low cholesterol, 8 Cup Fluid Restriction and 2000 mg Sodium Diet Return to work on: 07/10/24 Meaningful Use Info Meaningful Use Meaningful Use Diagnoses (Choose all that apply): None applicable and CHF CHF CH[place]/ARB ordered at discharge?: Yes Documented LVEF (%): 15 Ischemic Stroke Statin Dosing Therapy Reference: STATIN DOSE THERAPY REFERENCE: * Patients > 75 years receive moderate or high dose statin therapy. * Patients 75 years or YOUNGER should receive HIGH intensity statin dose unless contraindicated. You will be required to document reason for non-treatment if statin daily dose does not meet guidelines. HIGH DOSE STATIN THERAPY DAILY Atorvastatin > than or = to 40 mg Rosuvastatin > than or = to 20 mg Amlodipine + Atorvastatin > than or = to 2.5/40 mg Ezetimibe + Simvastatin 10/80 mg Simvastatin 80mg Discharge Plan Admission Admit Date/Time: 07/09/24 14:47 Primary Reason for Your Visit: Heart failure Attending Provider: Carlos Banks Primary Care Provider: Care Physician,No Primary Consulting Providers: Denis Agustin; Celeste Levine Instructions Additional Instructions / Restrictions: You had fluid buildup in your lungs that caused to be short of breath. You have heart failure with your heart being weak. It is possible that you may have had a virus that may have affected your heart rate. To help your heart, we have you on medications that is very important that you do take. Is also important for you to measure weight and check your weight daily. Please follow-up with cardiology so your medications may further be adjusted if necessary. You will need to avoid strenuous activity for the next 6 weeks per cardiology's recommendations. Those okay for you to return to work. Additionally, please find a primary care physician to become established with as well. Discharge Orders/Prescriptions Prescriptions: New carvedilol 6.25 mg Tablet 6.25 mg PO BIDCM Qty: 60 0RF spironolactone 25 mg Tablet 25 mg PO DAILY Qty: 30 0RF losartan 25 mg Tablet 25 mg PO DINNER Qty: 30 0RF furosemide 20 mg Tablet 20 mg PO DAILY PRN (Reason: For weight gain of 2 pounds in 1 day or 3 pounds in 1 week) Qty: 30 0RF Discontinued albuterol sulfate 90 mcg/actuation HFA aerosol inhaler 2 puff inhalation Q4H PRN PRN (Reason: wheezing) Referrals / Follow Up: [facility] [Provider Group] - Within 2 Weeks Care Physician,No Primary [Primary Care Provider] - Disposition Disposition (needs filled in before D/C Order can be placed): Home, Self Care Charges/Coding Visit Charges Inpatient E&M: 24072 Disch Hosp >30min
--- NOTE | 2024-07-10 14:41 | CASEMGMT ---
Patient was discharged before SW could completed SDOH. Citlaly Lou ASSISTANT FAMILY TEACHER JEANNE
== END 2024-07-10 14:30 | disposition home or self-care (01) | DRG 280 ==
LOC: ED 14:48 → PCU 16:59
PROVIDERS: Internal Medicine; Admitting Provider Internal Medicine; Emergency Provider Emergency Medicine
DX: I11.0 Hypertensive heart disease with heart failure (principal); I21.A1 Myocardial infarction type 2; I50.21 Acute systolic (congestive) heart failure; I42.9 Cardiomyopathy, unspecified; F17.210 Nicotine dependence, cigarettes, uncomplicated; F17.290 Nicotine dependence, other tobacco product, uncomplicated
CPT/HCPCS: 36415; 71045; 80048; 80053; 80061; 83735; 83880; 84443; 84484; 85025; 85610; 86140; 93005; 93306; 94640; 94668; 99285; 99406; A4216; J1940

== ENCOUNTER 2024-07-14 15:35 | Emergency (ER) | payer MEDICAID, SELFPAY ==
[2024-07-14] VITALS (7 sets, daily range): BP systolic 97–111; BP diastolic 71–98; PULSE 69–95; RESP 12–20; TEMP 36.2–36.7; O2SAT 95–100; BMI 23.4
--- NOTE | 2024-07-14 15:44 | EKG12_ITS ---
Test Reason : CP Blood Pressure : / mmHG Vent. Rate : 094 BPM Atrial Rate : 094 BPM P-R Int : 160 ms QRS Dur : 086 ms QT Int : 366 ms P-R-T Axes : 033 -41 -06 degrees QTc Int : 457 ms Normal sinus rhythm Possible Left atrial enlargement Left axis deviation T wave abnormality, consider lateral ischemia Abnormal ECG Confirmed by AIDAN MARTINEZ, VICTORINA ([id number]), supervising editor news reel CLARA DESAI ([id number]) on 07/17/2024 1:53:41 PM Referred By: Confirmed By:VICTORINA BERMUDEZ MD
[2024-07-14 16:02] LABS: Absolute Lymphocyte Count 4.43 X10^3/uL (0.83-4.51); Absolute Neutrophil Count 6.5 X10^3/uL (2.0-7.7); Basophil% 0.8 % (0-1); Eosinophils% 1.7 % (0-5); Hematocrit 46.4 % (40-54); Hemoglobin 15.3 g/dL (13.0-16.5); Lymphocyte # 4.43 X10^3/ul (0.83-4.51); Lymphocyte % 36.8 % (19-41); Mean Corpuscular Hgb 30.2 pg (27.0-32.0); Mean Corpuscular Volume 91.7 fL (80-94); Mean Platelet Vol. 9.4 fl (6.2-12.0); Monocyte# 0.71 X10^3/uL; Monocyte% 5.9 % (0-10); NRBC Flagged by Analyzer 0 % (0-5); Neutrophil # 6.49 X10^3/uL (2.7-7.7); Neutrophil % 53.9 % (47-70); Platelet Count 434 K/mm3 (150-450); RBC Distribution Width CV 13.4 % (11.6-14.6); RBC Distribution Width SD 45.2 fl (35.1-43.9); Red Blood Count 5.06 M/mm3 (4.6-6.2)
--- NOTE | 2024-07-14 16:08 | EDS_ITS ---
<Statement entered by Obi Lynch, DO - 07/15/24 15:27> Supervisory Physician Note Patient was seen and examined with the Advanced Practice Provider. Nursing notes and vital signs have been reviewed. Pertinent old records have been reviewed. I agree with the essential elements of the MATY's history, physical exam, assessment, and plan. The differential diagnosis and management options were discussed with the MATY. I participated in determining and agree with the management, procedures, final impression and disposition as documented. See changes noted by me. Please see addendum or separate note for any additional details. 39-year-old male with tobacco abuse and newly diagnosed CHF presents for evaluation of chest pain. Pain is left-sided. Developed while at rest and driving. Describes it as sharp. Does not radiate. Endorses some mild shortness of breath. Denies a history of DVT/PE, recent trauma or surgery, lower extremity pain or unilateral swelling, known malignancy, travel. On chart review, patient has an EF of 15%. Pertinent physical exam findings: Gen: A&O x3, NAD but anxious Neck: Trachea midline, No JVD CV: RRR, no murmurs, no peripheral edema Resp: Lungs CTA BL, no w/r/c GI: Soft, nondistended, nontender, no hepatosplenomegaly, no pulsatile masses Musc: Full ROM, no deformity Differential diagnosis includes but is not limited to CHF exacerbation, ACS, PE, musculoskeletal strain Cardiac/respiratory workup ordered. Nitroglycerin given for pain. ECG was interpreted by me and contributed to patient care in the ED. It showed normal sinus rhythm, heart rate 94, no acute ischemic changes Plain images were interpreted by the radiologist and me, and contributed to patient care in the ED. They showed no pneumonia, effusion, pneumothorax CBC with mild leukocytosis of 12 however this is downtrending from 19.7 on previous labs. D-dimer unremarkable. BMP relatively unremarkable. Troponin unremarkable x 2. BNP elevated at 362 however on chart review is downtrending from prior admission. Patient has unremarkable cardiac workup. He describes his pain as sharp which is atypical for ACS. Given patient's recent cardiac workup and history however cardiology was contacted and patient was discussed. They agree with discharge home. Patient to follow-up outpatient. Return precautions explained. Impression: 1. Left-sided chest pain 2. History of CHF HPI History of Present Illness Chief Complaint: Chest Pain Narrative Narrative: Patient is a 39-year-old male recently diagnosed with CHF, fluid around his heart who is on Lasix presenting to the emergency department for left-sided chest pain. Pay states he was recently discharged from the hospital on July 11, 2024. Patient sees Dr. Agustin who is his wharf helper. Patient states that today while he was resting, he developed chest pain to the left side of his chest. He felt more short of breath, and is here for evaluation. Patient smokes 1/2 pack/day, patient denies any alcohol use. Patient is here for evaluation. [facility] Medical History (Updated 07/14/24 @ 19:02 by CAYDEN Real) Congestive heart failure Seizure disorder Skin cancer Tobacco use Seizures Migraines Arthritis Home Medications ?Medication ?Instructions ?Recorded ?Last Taken ?Type carvedilol 6.25 mg tablet 6.25 mg PO BIDCM #60 tabs 07/10/24 07/14/24 Rx furosemide 20 mg tablet 20 mg PO DAILY PRN For weight gain 07/10/24 07/14/24 Rx of 2 pounds in 1 day or 3 pounds in 1 week #30 tabs losartan 25 mg tablet 25 mg PO DINNER #30 tabs 07/10/24 07/13/24 Rx spironolactone 25 mg tablet 25 mg PO DAILY #30 tabs 07/10/24 07/14/24 Rx Allergy/AdvReac Type Severity Reaction Status Date / Time No Known Allergies Allergy Verified 07/14/24 15:36 Family History (Updated 07/09/24 @ 18:[address] Denis Agustin MD) Mother Heart disease Social History Smoking Status: Current some day smoker tobacco type: cigarettes and e- cigarettes ROS ROS ED ROS Narrative Constitutional: Negative for fever, chills, weight loss, weakness Eyes: Negative for vision loss, vision change, double vision ENT: Negative for any sore throat, ear pain, congestion Cardiovascular: Negative for any tightness, palpitations. Positive chest pain Respiratory: Negative for any cough, sputum production, hemoptysis,orthopnea. Positive dyspnea, dyspnea on exertion Gastrointestinal: Negative for any abdominal pain, nausea, vomiting, diarrhea, constipation, blood in stool, blood in vomit : Negative for any urinary frequency, dysuria, retention, blood in urine Muscle skeletal: Negative for any neck pain, back pain Neurological: Negative for any headache, syncope, dizziness Skin: Negative for any rashes, itching, abrasions, lacerations Psychiatric: Negative for any depression, anxiety, stress, suicidal ideation, homicidal ideation Hematologic: Negative for any excessive bruising, easy bleeding EXAM Physical Exam Narrative Exam Narrative: Vital signs reviewed. Patient is in no obvious distress. HEET: Head normocephalic atraumatic, TMs clear bilaterally. Posterior pharynx is clear, moist mucous membranes. Nares clear bilaterally. Neck: Supple with no lymphadenopathy or tenderness. No signs of meningismus. Cardiac: Regular rate and rhythm no murmurs gallops or rubs, equal peripheral pulses bilaterally. Respiratory: Diminished lung sounds in the lower lobes. No chest tenderness. Abdomen: Soft, nontender, nondistended. No abdominal bruit or pulsatile masses. No hepatosplenomegaly Extremities: No peripheral edema, no signs of gross trauma or deformity. Active full range of motion of all extremities. Neuro: Cranial nerves II through XII intact, no focal neurological deficits. Skin: Clean dry and intact with no rash, purpura, petechiae, vesicles or pustules. Backs/flank: No CVA tenderness, no midline spinal tenderness, no deformity. Psych: Normal mood and affect. No SI, HI or acute psychosis. Const Vital Signs: 07/14/24 15:36 07/14/24 16:01 07/14/24 16:10 Temperature 97.2 F L Temperature Source Temporal Pulse Rate 94 95 Respiratory Rate 18 Respiratory Effort Blood Pressure 106/84 H 110/88 H Blood Pressure Mean 91 Pulse Ox 98 95 Oxygen Delivery Method Room Air Room Air 07/14/24 16:36 07/14/24 17:00 07/14/24 17:00 Temperature Temperature Source Pulse Rate 95 84 Respiratory Rate 19 H 12 Respiratory Effort Normal Blood Pressure 107/80 100/78 Blood Pressure Mean 89 85 Pulse Ox 96 97 Oxygen Delivery Method Room Air 07/14/24 18:00 Temperature Temperature Source Pulse Rate 94 Respiratory Rate 18 Respiratory Effort Blood Pressure 111/98 H Blood Pressure Mean 102 Pulse Ox 98 Oxygen Delivery Method MDM MDM Lab Data Labs: Laboratory Results - last 24 hr 07/14/24 07/14/24 07/14/24 15:24 15:25 18:21 WBC 12.0 H RBC 5.06 Hgb 15.3 Hct 46.4 MCV 91.7 MCH 30.2 MCHC 33.0 RDW Std Deviation 45.2 H RDW Coeff of Liliana 13.4 Plt Count 434 MPV 9.4 Immature Gran % (Auto) 0.900 Neut % (Auto) 53.9 Lymph % (Auto) 36.8 [place] % (Auto) 5.9 Eos % (Auto) 1.7 Baso % (Auto) 0.8 Absolute Neuts (auto) 6.5 Absolute Lymphs (auto) 4.43 Nucleated RBC % 0 PT 13.1 INR 1.0 D-Dimer Quant (PE/DVT) < 0.27 L Sodium 141 Potassium 3.9 Chloride 108 H Carbon Dioxide 28.0 Anion Gap 6 BUN 16 Creatinine 1.29 Estim Creat Clear Calc 75.36 Est GFR (MDRD) Af Amer 79 Est GFR (MDRD) Non-Af 65 BUN/Creatinine Ratio 12.4 Glucose 100 Calcium 9.8 Troponin I High Sens 24 25 B-Natriuretic Peptide 362.7 H Radiography Diagnostic Testing: Clinical Impression(s) from Imaging Studies Chest X-Ray 07/14/24 16:25 IMPRESSION: Normal x-ray examination of the chest. Electronically Signed: Anton Abreu MD at 16:57 EDT , EKG Normal sinus rhythm, T wave abnormality: Attestation: I personally reviewed and interpreted this EKG as follows: Comments: Normal sinus rhythm, T wave abnormality, rate 94 bpm, TX interval 160 ms, QRS duration 86 ms, no acute ST elevation, no acute infarct noted. Treatment and Re-Evaluation :: Differential diagnosis includes however is not limited to: CHF exacerbation, pulmonary embolus, ACS, SC, anxiety, muscle skeletal pain Patient appears generally well, vital signs are stable, patient is nontoxic- appearing. Presenting to the emerged part with left-sided chest pain, shortness of breath, patient was discharged from the hospital on 11 July. Patient does have a EF of 15%. Patient is currently on new medications as well as Lasix. Patient states that today roughly 2 hours prior to coming to the ER he developed left-sided chest pain. Patient will receive a dimer, troponin x 2, chest x-ray, BNP as well as basic labs. Patient's EKG was unchanged. All radiologic examinations were read, reviewed by the emergency department attending. From these reads, a plan of care will be put in place. Patient's laboratory values show slight leukocytosis white blood count of 12. He was 19.7 on the 24 of this month. Patient's D-dimer was negative. PT/INR within normal limits. Patient's chemistries were unremarkable, patient's BNP was 362, this is cut in half from 07/09/2024 when it was 683.5. Patient initial troponin was 24, repeat will be drawn. EKG was unremarkable. Patient states the nitroglycerin did not help anything with his pain. Patient does seem to be very anxious. Will reevaluate after second troponin. Second troponin was 25, this is negative. I reached out to Dr. Le, I spoke with the patient's status, his most recent laboratory studies. Patient at this time will be discharged home. He will follow-up closely outpatient. I spoke with the patient's again, she believes it might be anxiety. I do agree, the patient was significantly anxious. However patient feels comfortable going home, he will return for any worsening symptoms, stable for discharge. Discharge Plan Triage Chief Complaint: Chest Pain ED Midlevel Provider: Wayne Quan ED Provider: Obi Lynch Dx/Rx/DC Orders Clinical Impression: Anxiety, Chest pain Instructions: ED Anxiety Reaction, ED Chest Pain, Uncertain Cause Prescriptions: No Action carvedilol 6.25 mg Tablet 6.25 mg PO BIDCM Qty: 60 0RF spironolactone 25 mg Tablet 25 mg PO DAILY Qty: 30 0RF losartan 25 mg Tablet 25 mg PO DINNER Qty: 30 0RF furosemide 20 mg Tablet 20 mg PO DAILY PRN (Reason: For weight gain of 2 pounds in 1 day or 3 pounds in 1 week) Qty: 30 0RF Primary Care Provider: Care Physician,No Primary Referrals: Denis Agustin MD [Med Staff - Active Staff] - Care Physician,No Primary [Primary Care Provider] - Activity Restrictions/Additional Instructions: Continue to follow-up. Decrease your smoking. Return for any other concerning symptoms. Print Language: Tamazight Disposition Disposition: Home, Self Care
[2024-07-14] MEDS: Nitroglycerin (INPATIENT USE) 0.4 MG TAB.SUBL SL (16:10)
[2024-07-14 16:11] LABS: Prothrombin Time (Protime)PT. 13.1 SECONDS (11.7-14.9)
[2024-07-14 16:21] LABS: Anion Gap 6 (5-15); BUN 16 mg/dL (7-18); BUN/Creat Ratio 12.4 RATIO (10-20); Calcium,Total 9.8 mg/dL (8.5-10.1); Chloride 108 mmol/L (98-107); Creatinine, Serum 1.29 mg/dL (0.70-1.30); EST Glomerular Filtration Rate 65 mL/min (>60); Est Glom Filt Rate - Afr Amer 79 mL/min (>60); Estimated Creatinine Clearance 75.36 ml/min; Glucose 100 mg/dL (74-106); Potassium 3.9 mmol/L (3.5-5.1); Sodium Level 141 mmol/L (136-145); Troponin-I HS (w/2H Reflex) 24 pg/mL (3.0-78.0)
--- NOTE | 2024-07-14 16:25 | RAD_ITS ---
STUDY: X-RAY CHEST REASON FOR EXAM: Male, 39 years old. cough TECHNIQUE: PA and lateral views of the chest. COMPARISON: 07/09/2024 FINDINGS: The lungs are clear and expanded. There is no demonstrated pleural abnormality. Normal size heart. Normal mediastinum and ana. Normal visualized pulmonary arteries. Normal visualized aortic arch and descending thoracic aorta. Normal visualized thoracic spine. Normal visualized ribs, clavicles, and shoulders. There is no demonstrated abnormality of the visualized soft tissue structures of the upper abdomen. RAD/Chest PA and Lateral IMPRESSION: Normal x-ray examination of the chest. Electronically Signed: Anton Abreu MD at 16:57 EDT ,
[2024-07-14 16:31] LABS: BNP,B-Type NATRIURETIC PEPTIDE 362.7 pg/mL (0-100)
[2024-07-14 17:06] LABS: D-Dimer Quantitative (DVT/PE) < 0.27 FEU/ug/m (0.27-0.49)
[2024-07-14 17:57] LABS: Reflex Troponin-HS? (from REC) Y
[2024-07-14] MEDS: Ketorolac 15 MG/ML Vial IV (18:17)
[2024-07-14 18:50] LABS: Troponin-I HS 25 pg/mL (3.0-78.0)
== END 2024-07-14 19:11 | disposition home or self-care (01) ==
PROVIDERS: Nurse Practitioner; Emergency Provider Surgery; Visit Provider Surgery
DX: F41.9 Anxiety disorder, unspecified (principal); I50.9 Heart failure, unspecified; R07.9 Chest pain, unspecified; F17.210 Nicotine dependence, cigarettes, uncomplicated; F17.290 Nicotine dependence, other tobacco product, uncomplicated; Z79.899 Other long term (current) drug therapy
CPT/HCPCS: 71046; 80048; 83880; 84484; 85025; 85379; 85610; 93005; 96374; 99283; A4216

== ENCOUNTER → 2024-08-21 | Outpatient (CLI) | payer MEDICAID, SELFPAY ==
[2024-08-21 17:23] LABS: Absolute Lymphocyte Count 3.98 X10^3/uL (0.83-4.51); Basophil# 0.06 X10^3/uL; Basophil% 0.6 % (0-1); Eosinophil# 0.14 X10^3/uL; Eosinophils% 1.4 % (0-5); Hematocrit 44.2 % (40-54); Hemoglobin 14.8 g/dL (13.0-16.5); Lymphocyte # 3.98 X10^3/ul (0.83-4.51); Lymphocyte % 39.9 % (19-41); Mean Corp Hgb Conc 33.5 g/dL (32-36); Mean Corpuscular Hgb 30.6 pg (27.0-32.0); Mean Corpuscular Volume 91.3 fL (80-94); Monocyte# 0.72 X10^3/uL; Monocyte% 7.2 % (0-10); NRBC Flagged by Analyzer 0 % (0-5); Neutrophil # 5.04 X10^3/uL (2.7-7.7); Neutrophil % 50.6 % (47-70); Platelet Count 361 K/mm3 (150-450); RBC Distribution Width CV 13.1 % (11.6-14.6); RBC Distribution Width SD 43.8 fl (35.1-43.9); Red Blood Count 4.84 M/mm3 (4.6-6.2)
[2024-08-21 18:13] LABS: BNP,B-Type NATRIURETIC PEPTIDE 151.7 pg/mL (0-100)
[2024-08-21 18:40] LABS: Anion Gap 5 (5-15); BUN 16 mg/dL (7-18); BUN/Creat Ratio 13.9 RATIO (10-20); Calcium,Total 9.6 mg/dL (8.5-10.1); Chloride 106 mmol/L (98-107); Creatinine, Serum 1.15 mg/dL (0.70-1.30); EST Glomerular Filtration Rate 74 mL/min (>60); Est Glom Filt Rate - Afr Amer 90 mL/min (>60); Glucose 85 mg/dL (74-106); Potassium 4.2 mmol/L (3.5-5.1); Sodium Level 137 mmol/L (136-145); Thyroid Stim Hormone (TSH) 0.867 uIU/mL (0.358-3.740)
== END | disposition home or self-care (01) ==
LOC: LAB 16:08
PROVIDERS: Referring Provider Nurse Practitioner Gerontology; Visit Provider Nurse Practitioner Gerontology
DX: R06.09 Other forms of dyspnea (principal); I50.21 Acute systolic (congestive) heart failure
CPT/HCPCS: 36415; 80048; 83880; 84443; 85025

== ENCOUNTER 2024-11-02 14:30 | Emergency (ER) | payer MEDICAID, SELFPAY ==
[2024-11-02 14:31] VITALS: BP 140/102; PULSE 117; RESP 16; TEMP 36.6; O2SAT 98; BMI 23.1
--- NOTE | 2024-11-02 14:42 | CT_ITS ---
STUDY: CT ABDOMEN AND PELVIS WITHOUT CONTRAST REASON FOR EXAM: Male, 39 years old. Right flank pain. History of kidney stones. RADIATION DOSAGE (If Supplied By Facility): CTDIvol = ( 6.22 ) mGy, DLP = ( 313.79 ) mGycm TECHNIQUE: Transaxial images were obtained from the dome of the diaphragm to the symphysis pubis without oral contrast, and without intravenous contrast. Sagittal and coronal images were reconstructed. Individualized dose optimization techniques were used for this CT. COMPARISON: Comparison is made with prior study dated December 05, 2023. FINDINGS: The visualized lung bases are unremarkable. The visualized portions of the heart are within normal limits. Normal liver. Normal gallbladder and extrahepatic biliary system. Normal spleen. Normal pancreas. Normal bilateral adrenal glands. Moderate degree right hydronephrosis and a right hydroureter due to a 4.4 mm calculus in the distal portion of the right ureter. Normal left kidney. Normal visualized stomach. Normal small intestine. There are scattered colonic diverticula consistent with diverticulosis. The appendix is visualized and appears normal. There is scattered atherosclerotic calcification of the abdominal aorta, without a demonstrated aneurysm. Normal inferior vena cava. Normal retroperitoneum. Normal urinary bladder. Central prostatic calcification. Normal abdominal wall. Normal osseous structures. CT/Abdomen/Pelvis without Cont IMPRESSION: 4.4 mm calculus in the distal portion of the right ureter causing right hydronephrosis and right hydroureter. Scattered sigmoid diverticula. Electronically Signed: Ede Horne MD at 15:35 EST ,
--- NOTE | 2024-11-02 14:43 | EX.ED.DYSGE1 ---
HPI <SRINIVASA Quevedo - Last Filed: 11/02/24 17:47> History of Present Illness Chief Complaint: Flank Pain Narrative Narrative: 39-year-old male with PMH of CHF, recurrent kidney stones presents with sudden onset right flank pain and nausea and vomiting that started 2 hours ago. Feels like a kidney stone. She states he has not urinated over the last 2 hours but prior to that had no issues. He had a stent placed due to a kidney stone including clinic in the past. PFSH <SRINIVASA Quevedo - Last Filed: 11/02/24 17:47> PFSH Medical History Congestive heart failure Seizure disorder Skin cancer Tobacco use Seizures Migraines Arthritis Home Medications ?Medication ?Instructions ?Recorded ?Last Taken ?Type furosemide 20 mg tablet 20 mg PO DAILY PRN For weight gain 07/10/24 07/14/24 Rx of 2 pounds in 1 day or 3 pounds in 1 week #30 tabs carvedilol 12.5 mg tablet 12.5 mg PO BIDCM #180 tabs 09/10/24 Unknown Rx losartan 25 mg tablet 25 mg PO DINNER #90 tabs 09/10/24 Unknown Rx spironolactone 25 mg tablet 25 mg PO DAILY #90 tabs 09/10/24 Unknown Rx sertraline 25 mg tablet (Zoloft) 25 mg PO QDAY #30 tabs 09/27/24 Unknown Rx levofloxacin 750 mg tablet 750 mg PO DAILY 7 days #7 tabs 11/02/24 Unknown Rx Allergy/AdvReac Type Severity Reaction Status Date / Time No Known Allergies Allergy Verified 11/02/24 14:32 Family History Mother Heart disease Surgical History History of stent insertion of renal artery History of craniotomy Social History Smoking Status: Light Smoker (<10/day) alcohol intake: never substance use type: does not use caffeine: Yes ROS <SRINIVASA Quevedo - Last Filed: 11/02/24 17:47> ROS ED ROS Narrative Constitutional: Negative for fever, chills, malaise. CVS: Negative for chest pain. Respiratory: Negative for shortness of breath. GI: Negative for abdominal pain. Positive for nausea, vomiting. : Negative for dysuria, hematuria or frequency. EXAM <SRINIVASA Quevedo - Last Filed: 11/02/24 17:47> Physical Exam Narrative Exam Narrative: CONST: Patient lying in bed appears in pain. EYES: Normal inspection. NECK: Normal inspection. RESP: No respiratory distress, CTAB. CVS: Regular rate and rhythm, no murmur, no gallop. ABD: Soft and nontender, no guarding or rebound, nondistended. Back: Normal inspection, right CVA tenderness. SKIN: Color normal, no rash, warm, dry, intact. EXTREMITIES: Normal appearance, no pedal edema. NEURO: Alert and answering questions appropriately. PSYCH: Normal affect. Const Vital Signs: 11/02/24 14:31 Temperature 98 F Temperature Source Temporal Pulse Rate 117 H Respiratory Rate 16 Blood Pressure 140/102 H Blood Pressure Mean 114 Pulse Ox 98 Oxygen Delivery Method Room Air <Dr. Obi Lynch DO - Last Filed: 11/04/24 15:35> Physical Exam Const Vital Signs: 11/02/24 14:31 Temperature 98 F Temperature Source Temporal Pulse Rate 117 H Respiratory Rate 16 Blood Pressure 140/102 H Blood Pressure Mean 114 Pulse Ox 98 Oxygen Delivery Method Room Air MDM <SRINIVASA Quevedo - Last Filed: 11/02/24 17:47> [facility] MDM Narrative Medical decision making narrative: 39-year-old male with history of recurrent kidney stones presents with acute onset nausea and vomiting and right flank pain. He appears uncomfortable but nontoxic. BP is 140/102, HR 117, otherwise normal vital signs. Exam only notable for right CVA tenderness. Labs show white count of 17.3, normal chemistry and renal function. CT scan shows 4.4 mm stone in the right distal ureter causing right hydronephrosis. I went to reevaluate the patient and asked for his urine sample because I was concerned about his white count and potential for infection. He was standing up and had his street close on and states he was leaving because he received a call that no one had picked up his daughter from school. He had left a urine sample on the counter but it was not run yet. I verbally discussed the risks including potential kidney infection/complicated UTI that would require IV antibiotics and admission but he states he must leave right now to get his daughter. I asked him to return afterwards and he states he will. After he left his urinalysis returned with 100 leukocyte esterase and 5-10 WBC but is nitrite and bacteria negative and was cultured. I am concerned with his high white count and urinary tract infection that he required admission to the hospital for IV antibiotics. I attempted to contact the patient. He has no phone number listed in his file. Registration said he told him he does not have a phone. I contacted [employer] who provided me with the phone number [phone] which had a generic voicemail. I did leave a voicemail requesting that he call the emergency room. I also sent Ag to his pharmacy and asked the pharmacist leave a note if he shows up there to have him call the ER. Lab Data Attestation: I reviewed the patient's lab results. Labs: Laboratory Results - last 24 hr 11/02/24 11/02/24 14:50 16:15 WBC 17.3 H RBC 4.56 L Hgb 14.2 Hct 42.5 MCV 93.2 MCH 31.1 MCHC 33.4 RDW Std Deviation 47.4 H RDW Coeff of Liliana 13.8 Plt Count 345 MPV 8.6 Immature Gran % (Auto) 0.500 Neut % (Auto) 76.0 H Lymph % (Auto) 17.0 L Ramsey % (Auto) 5.2 Eos % (Auto) 0.8 Baso % (Auto) 0.5 Absolute Neuts (auto) 13.1 H Absolute Lymphs (auto) 2.94 Nucleated RBC % 0 Sodium 138 Potassium 3.8 Chloride 107 Carbon Dioxide 25.0 Anion Gap 7 BUN 12 Creatinine 1.24 Estim Creat Clear Calc 78.40 Est GFR (MDRD) Af Amer 82 Est GFR (MDRD) Non-Af 68 BUN/Creatinine Ratio 9.7 L Glucose 113 H Calcium 9.0 Urine Color Yellow Urine Clarity Clear Urine pH 6.0 Ur Specific Browning 1.015 Urine Protein 30 H Urine Glucose (UA) Normal Urine Ketones Negative Urine Occult Blood 250 H Urine Nitrite Negative Urine Bilirubin Negative Urine Urobilinogen Normal Ur Leukocyte Esterase 100 H Urine RBC 0-5 SEEN Urine WBC 5-10 SEEN Ur Squamous Epith Cells 0 SEEN Urine Bacteria 0 SEEN Urine Mucus 0 SEEN Radiography Diagnostic Testing: Clinical Impression(s) from Imaging Studies Abdomen/Pelvis CT 11/02/24 14:42 IMPRESSION: 4.4 mm calculus in the distal portion of the right ureter causing right hydronephrosis and right hydroureter. Scattered sigmoid diverticula. Electronically Signed: Ede Horne MD at 15:35 EST , <Dr. Obi Lynch, DO - Last Filed: 11/04/24 15:35> MDM MDM Narrative Medical decision making narrative: 39-year-old male with history of recurrent kidney stones presents with acute onset nausea and vomiting and right flank pain. He appears uncomfortable but nontoxic. BP is 140/102, HR 117, otherwise normal vital signs. Exam only notable for right CVA tenderness. Labs show white count of 17.3, normal chemistry and renal function. CT scan shows 4.4 mm stone in the right distal ureter causing right hydronephrosis. I went to reevaluate the patient and asked for his urine sample because I was concerned about his white count and potential for infection. He was standing up and had his street close on and states he was leaving because he received a call that no one had picked up his daughter from school. He had left a urine sample on the counter but it was not run yet. I verbally discussed the risks including potential kidney infection/complicated UTI that would require IV antibiotics and admission but he states he must leave right now to get his daughter. I asked him to return afterwards and he states he will. After he left his urinalysis returned with 100 leukocyte esterase and 5-10 WBC but is nitrite and bacteria negative and was cultured. I am concerned with his high white count and urinary tract infection that he required admission to the hospital for IV antibiotics. I attempted to contact the patient. He has no phone number listed in his file. Registration said he told him he does not have a phone. I contacted [employer] who provided me with the phone number [phone] which had a generic voicemail. I did leave a voicemail requesting that he call the emergency room. I also sent Levaquin to his pharmacy and asked the pharmacist leave a note if he shows up there to have him call the ER. Supervisory Physician Note Patient was seen and examined with the Advanced Practice Provider. Nursing notes and vital signs have been reviewed. Pertinent old records have been reviewed. I agree with the essential elements of the MATY's history, physical exam, assessment, and plan. The differential diagnosis and management options were discussed with the MATY. I participated in determining and agree with the management, procedures, final impression and disposition as documented. See changes noted by me. Please see addendum or separate note for any additional details. 39-year-old male with past medical history of urolithiasis presents for evaluation of right flank pain. Associated symptoms nausea and vomiting. Feels like his previous urolithiasis. Does not follow regularly with a urologist. Denies any fever, chills, diarrhea, constipation, dysuria, hematuria. Gen: A&O x3, NAD Head: Normocephalic, atraumatic Eyes: No sclera icterus, conjunctiva clear ENT: Moist mucous membranes Neck: Trachea midline, No JVD CV: RRR, no murmurs, no peripheral edema Resp: Lungs CTA BL, no w/r/c GI: Abd soft, non-distended, non-tender, no r/r/g : + R CVA tenderness Musc: Full ROM, no deformity Skin: Warm, dry Neuro: Alert, oriented, grossly intact, sensation intact Psych: Cooperative, appropriate mood and affect Differential diagnosis includes was not limited to urolithiasis, UTI, pyelonephritis. NS bolus, Zofran, and pain medicine ordered. Abdominal pain workup ordered. CBC with a leukocytosis of 17.3. No anemia. BMP without BRENDA. CT abdomen pelvis shows a 4.4 mm calculus in the distal portion of the right ureter causing right hydronephrosis and right hydroureter. Still awaiting urine culture but concern is for infected urolithiasis given his leukocytosis. Luz went to evaluate the patient and asked for a urine sample when he was dressed in his normal close and walking out the door. Stated he needed to package pick up his daughter. Luz did explain the risks to leaving and patient confirmed understanding. He verbally left AMA. He would not wait for her to get me for discussion. He told her that he would return after he picked up his daughter. After patient left UA resulted. UA positive for blood leukoesterase and WBCs. Negative for bacteria and nitrates. Urine culture sent. Given patient's leukocytosis, concern is for UTI and infected urolithiasis and need for IV antibiotics. We attempted to contact the patient to return back to the ED as he had still not returned. He had no phone number listed in his file. Registration states that he told them he did not have a phone. Due to continued concern we will call his pharmacy to obtain a phone number to get him to return to the emergency department. Luz was able to obtain a number by [employer]. She called the number and left a voicemail requesting that he call the emergency department and that we recommend him to return to the emergency department. We also sent a Levaquin prescription to the pharmacy in case patient does not return to the emergency department therefore he can at least get outpatient treatment and asked the pharmacist to leave a note to have him call us at the ER. Patient's stone is 4.4 mm so he does have a high likelihood of passing it on his own. Patient never returned during our shift. Impression: 1. Right urolithiasis 2. Right hydronephrosis 3. Complicated UTI 4. Left AMA Lab Data Labs: Laboratory Results - last 24 hr 11/02/24 11/02/24 14:50 16:15 WBC 17.3 H RBC 4.56 L Hgb 14.2 Hct 42.5 MCV 93.2 MCH 31.1 MCHC 33.4 RDW Std Deviation 47.4 H RDW Coeff of Liliana 13.8 Plt Count 345 MPV 8.6 Immature Gran % (Auto) 0.500 Neut % (Auto) 76.0 H Lymph % (Auto) 17.0 L Ramsey % (Auto) 5.2 Eos % (Auto) 0.8 Baso % (Auto) 0.5 Absolute Neuts (auto) 13.1 H Absolute Lymphs (auto) 2.94 Nucleated RBC % 0 Sodium 138 Potassium 3.8 Chloride 107 Carbon Dioxide 25.0 Anion Gap 7 BUN 12 Creatinine 1.24 Estim Creat Clear Calc 78.40 Est GFR (MDRD) Af Amer 82 Est GFR (MDRD) Non-Af 68 BUN/Creatinine Ratio 9.7 L Glucose 113 H Calcium 9.0 Urine Color Yellow Urine Clarity Clear Urine pH 6.0 Ur Specific Browning 1.015 Urine Protein 30 H Urine Glucose (UA) Normal Urine Ketones Negative Urine Occult Blood 250 H Urine Nitrite Negative Urine Bilirubin Negative Urine Urobilinogen Normal Ur Leukocyte Esterase 100 H Urine RBC 0-5 SEEN Urine WBC 5-10 SEEN Ur Squamous Epith Cells 0 SEEN Urine Bacteria 0 SEEN Urine Mucus 0 SEEN Radiography Diagnostic Testing: Clinical Impression(s) from Imaging Studies Abdomen/Pelvis CT 11/02/24 14:42 IMPRESSION: 4.4 mm calculus in the distal portion of the right ureter causing right hydronephrosis and right hydroureter. Scattered sigmoid diverticula. Electronically Signed: Ede Horne MD at 15:35 EST , Discharge Plan Triage Chief Complaint: Flank Pain ED Midlevel Provider: Luz Marinelli ED Provider: Obi Lynch Dx/Rx/DC Orders Clinical Impression: Calculus of right kidney, Hydronephrosis of right kidney, Complicated urinary tract infection Prescriptions: New levofloxacin 750 mg tablet 750 mg PO DAILY 7 Days Qty: 7 0RF No Action sertraline [Zoloft] 25 mg tablet 25 mg PO QDAY Qty: 30 0RF furosemide 20 mg Tablet 20 mg PO DAILY PRN (Reason: For weight gain of 2 pounds in 1 day or 3 pounds in 1 week) Qty: 30 0RF carvedilol 12.5 mg tablet 12.5 mg PO BIDCM Qty: 180 3RF losartan 25 mg tablet 25 mg PO DINNER Qty: 90 3RF spironolactone 25 mg tablet 25 mg PO DAILY Qty: 90 3RF Primary Care Provider: Care Physician,No Primary Referrals: Care Physician,No Primary [Primary Care Provider] - Print Language: Bulgarian Disposition Disposition: Elopement Discharge Date/Time: 11/02/24 16:23
[2024-11-02 14:56] LABS: Absolute Lymphocyte Count 2.94 X10^3/uL (0.83-4.51); Absolute Neutrophil Count 13.1 X10^3/uL (2.0-7.7); Basophil# 0.08 X10^3/uL; Basophil% 0.5 % (0-1); Eosinophil# 0.13 X10^3/uL; Eosinophils% 0.8 % (0-5); Hematocrit 42.5 % (40-54); Hemoglobin 14.2 g/dL (13.0-16.5); Lymphocyte # 2.94 X10^3/ul (0.83-4.51); Mean Corp Hgb Conc 33.4 g/dL (32-36); Mean Corpuscular Hgb 31.1 pg (27.0-32.0); Mean Corpuscular Volume 93.2 fL (80-94); Mean Platelet Vol. 8.6 fl (6.2-12.0); Monocyte% 5.2 % (0-10); NRBC Flagged by Analyzer 0 % (0-5); Neutrophil # 13.14 X10^3/uL (2.7-7.7); Platelet Count 345 K/mm3 (150-450); RBC Distribution Width CV 13.8 % (11.6-14.6); RBC Distribution Width SD 47.4 fl (35.1-43.9); Red Blood Count 4.56 M/mm3 (4.6-6.2); White Blood Count 17.3 K/mm3 (4.4-11.0)
[2024-11-02] MEDS: Ondansetron 4 MG/2 ML Vial IV (14:57)
[2024-11-02] MEDS: 0.9% Normal Saline (1000mL) 1,000 ML 999 ML IV (14:57)
[2024-11-02] MEDS: Morphine 4 MG/ML Syringe IV (14:57)
[2024-11-02] MEDS: Ketorolac 15 MG/ML Vial IV (14:57)
[2024-11-02 15:15] LABS: Anion Gap 7 (5-15); BUN 12 mg/dL (7-18); BUN/Creat Ratio 9.7 RATIO (10-20); Chloride 107 mmol/L (98-107); Creatinine, Serum 1.24 mg/dL (0.70-1.30); EST Glomerular Filtration Rate 68 mL/min (>60); Est Glom Filt Rate - Afr Amer 82 mL/min (>60); Glucose 113 mg/dL (74-106); Potassium 3.8 mmol/L (3.5-5.1); Sodium Level 138 mmol/L (136-145)
--- NOTE | 2024-11-02 16:00 | ED.RN ---
Patient prompted for urine. Patient refused to attempt to urinate. Patient asked if he would like to be straight cathd. Patient said (fuck no, you aint doing that). Patient asked if he could attempt since his full liter of fluids have been infused. Patient stated no. MD to be notified.
--- NOTE | 2024-11-02 16:20 | ED.RN ---
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 states he will come back. pt told this to the PA. explained that it will be a new visit if he comes back. pt verbalized understanding. iv as dc'd and pt ambulated from er.
[2024-11-02 16:23] LABS: Bacteria 0 SEEN /hpf (None Seen); Mucous, Urine 0 SEEN /hpf (<or=2+); Squamous Epithelial Cells - UA 0 SEEN /hpf (0-5)
[2024-11-02 16:25] LABS: Color, Urine Yellow (Yellow); Glucose, Dipstick Normal (Normal); Ketone-Dipstick Negative (Negative); Leukocyte Esterase-Dipstick 100 /ul (Negative); Nitrite-Dipstick Negative (Negative); Occult Blood-Urine 250 /ul (Negative); Protein-Dipstick 30 mg/dl (Negative); Specific Gravity, Urine 1.015 (1.002-1.030); Urine Bilirubin Dipstick Negative (Negative); Urine Clarity Clear (Clear); Urine Urobilinogen Normal (Normal)
[2024-11-02 16:42] LABS: Red Blood Cells-Urine 0-5 SEEN /hpf (0-5); White Blood Cells 5-10 SEEN /hpf (0-5)
== END 2024-11-02 16:23 | disposition left against medical advice (07) ==
LOC: ED 15:33
PROVIDERS: Physician Assistant; Emergency Provider Surgery; Visit Provider Surgery
DX: N13.6 Pyonephrosis (principal)

== ENCOUNTER 2024-11-13 08:21 | Emergency (ER) | payer MEDICAID, SELFPAY ==
[2024-11-13 08:22] VITALS: BP 120/86; PULSE 74; RESP 20; TEMP 36.7; O2SAT 96
--- NOTE | 2024-11-13 08:38 | RAD_ITS ---
PROCEDURE: CHEST PA AND LATERAL REASON FOR EXAM: Chest pain and dizziness TECHNIQUE: Single frontal image including the chest and abdomen. COMPARISON: Chest x-ray of 07/14/2024. RAD/Chest PA and Lateral IMPRESSION: Mild thoracic spine degenerative changes are noted. Lungs appear clear throughout. No pleural effusion or pneumothorax is seen. The cardiomediastinal silhouette is within the normal range. No evidence of acute cardiopulmonary disease. Reading Location: [id number]
--- NOTE | 2024-11-13 08:38 | EKG12_ITS ---
Test Reason : CP Blood Pressure : */* mmHG Vent. Rate : 73 BPM Atrial Rate : 73 BPM P-R Int : 158 ms QRS Dur : 86 ms QT Int : 392 ms P-R-T Axes : 46 -22 -57 degrees QTcB Int : 431 ms Normal sinus rhythm with sinus arrhythmia ST & T wave abnormality, consider inferolateral ischemia Abnormal ECG Confirmed by KIARA MARTINEZ, DULCE ([id number]), city editor KENDAL LOPEZ ([id number]) on 11/15/2024 6:35:35 AM Referred By: DILAN/BLU Confirmed By: DULCE CRAIG MD
[2024-11-13 08:47] VITALS: BMI 24.4
--- NOTE | 2024-11-13 09:02 | EDS_ITS ---
HPI History of Present Illness Chief Complaint: Chest Pain Narrative Narrative: Patient is a 39-year-old male with a past medical history of seizures, tobacco use, congestive heart failure, migraines who presents to the emergency department with a chief complaint of chest pain. Patient states that he was at work when he noted he felt a pinch in his chest. 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 He states that he became lightheaded as well when his symptoms occurred. In the triage noted states that he was dizzy although after further clarification with the patient he states that he was lightheaded and not dizzy. Patient states that he has been feeling well outside of he feels like he is dealing with a sinus infection currently. Patient states that he is not any medications for this. [facility] Medical History Congestive heart failure Seizure disorder Skin cancer Tobacco use Seizures Migraines Arthritis Home Medications ?Medication ?Instructions ?Recorded ?Last Taken ?Type furosemide 20 mg tablet 20 mg PO DAILY PRN For weight gain 07/10/24 07/14/24 Rx of 2 pounds in 1 day or 3 pounds in 1 week #30 tabs carvedilol 12.5 mg tablet 12.5 mg PO BIDCM #180 tabs 09/10/24 Unknown Rx losartan 25 mg tablet 25 mg PO DINNER #90 tabs 09/10/24 Unknown Rx spironolactone 25 mg tablet 25 mg PO DAILY #90 tabs 09/10/24 Unknown Rx levofloxacin 750 mg tablet 750 mg PO DAILY 7 days #7 tabs 11/02/24 Unknown Rx sertraline 25 mg tablet (Zoloft) 25 mg PO QDAY #30 tabs 11/12/24 Unknown Rx Allergy/AdvReac Type Severity Reaction Status Date / Time No Known Allergies Allergy Verified 11/13/24 08:24 Family History Mother Heart disease Surgical History History of stent insertion of renal artery History of craniotomy Social History Smoking Status: Current every day smoker tobacco type: cigarettes and e- cigarettes alcohol intake: never substance use type: does not use caffeine: Yes ROS ROS ED ROS Narrative Constitutional: Denies any fevers, chills, headaches, lightness, dizziness Eyes: Denies change in vision double vision blurry vision Cardiovascular: Complaint chest pain as noted above but currently states that he feels back to his baseline has no complaints denies palpitations Respiratory: States that he has shortness of breath but states that this is not out of the ordinary for himself, denies coughing wheezing Abdomen: Denies nausea vomit diarrhea : Denies any urinary symptoms Neurological: Denies numbness, weakness, tingling Skin: Denies rashes or lesions EXAM Physical Exam Narrative Exam Narrative: General: Patient lying in bed rest comfortably did not appear to be acute distress Head: Atraumatic, normocephalic Eyes: PERRL bilaterally, EOMI bilaterally, no conjunctival injection noted Neck: Soft, supple, trachea midline Cardiovascular: Regular rate and rhythm no murmurs gallops rubs noted Respiratory: Clear to auscultation bilaterally no rales rhonchi or wheezes noted Abdomen: Soft, nondistended, nontender to palpation Extremities: +5/5 strength noted in the bilateral upper and lower extremities, radial pulses +2/4 in the bilateral extremities, no pedal edema on exam Neurological: Patient follow commands knew that he was at [facility] year is 2024 Skin: Warm, dry, intact no rashes or lesions noted Const Vital Signs: 11/13/24 08:22 11/13/24 08:47 11/13/24 08:47 Temperature 98.0 F Temperature Source Temporal Pulse Rate 74 Respiratory Rate 20 H Respiratory Effort Normal Non-Labored Respiratory Pattern Normal Blood Pressure 120/86 H Blood Pressure Mean 97 Pulse Ox 96 Oxygen Delivery Method Room Air Room Air 11/13/24 09:22 11/13/24 10:00 Temperature Temperature Source Pulse Rate 81 92 Respiratory Rate 18 18 Respiratory Effort Respiratory Pattern Blood Pressure 115/82 H 118/82 H Blood Pressure Mean 93 94 Pulse Ox 95 95 Oxygen Delivery Method Room Air Room Air MDM MDM MDM Narrative Medical decision making narrative: Patient is a 39-year-old male who presents to the emergency department chief complaint of chest pain. On the differential diagnose includes but not limited to ACS, CHF exacerbation, pneumothorax, musculoskeletal strain. Once workup is obtained reviewed he will be reevaluated. Patient CBC reviewed showed no evidence leukocytosis white blood count was n ormal 8.6, hemoglobin 13.8, platelet count was noted be normal at 334., INR normal at 0.9, PT of 12.8. Patient sodium normal at 140, potassium normal at 3.7, creatinine was noted to be 1.03. Patient troponin was normal at 7. Patient's EKG reviewed and independently interpreted by myself which showed sinus rhythm with a rate of 73 bpm patient does have depressions noted in the lateral leads however this was compared to a previous EKG and was largely unchanged V4 does have some interval depression noted comparatively to the old EKG this EKG was from 07/14/2024. Patient proBNP reviewed and showed elevation to 168. Patient's chest x-ray reviewed by myself and by radiology and showed no pleural effusion or pneumothorax. Lungs clear throughout. He has mild thoracic spine degenerative changes. Otherwise no acute findings. On reevaluation the patient he is feeling better delta troponin is pending. Patient would like to go home at this point in time I advised him that we need to obtain a delta troponin and he states that he does not want to wait on this and he will follow-up with his diagnostic cardiac sonographer in outpatient setting. I will have the patient's sign out AGAINST MEDICAL ADVICE. I discussed the risks of this such as worsening symptoms leading to ultimately . He verbalized understanding of these and states that he will return if things worsen. He is requesting a work note which will be provided. He is encouraged return with worsening symptoms and concerns he is agreeable this plan all question concerns answered discharged home in stable condition. Lab Data Labs: Laboratory Results - last 24 hr 11/13/24 08:55 WBC 8.6 RBC 4.50 L Hgb 13.8 Hct 42.0 MCV 93.3 MCH 30.7 MCHC 32.9 RDW Std Deviation 47.7 H RDW Coeff of Liliana 13.8 Plt Count 334 MPV 8.9 Immature Gran % (Auto) 0.400 Neut % (Auto) 65.8 Lymph % (Auto) 22.4 Hardin % (Auto) 9.1 Eos % (Auto) 1.4 Baso % (Auto) 0.9 Absolute Neuts (auto) 5.6 Absolute Lymphs (auto) 1.92 Nucleated RBC % 0 PT 12.8 INR 0.9 APTT 25.8 Sodium 140 Potassium 3.7 Chloride 108 H Carbon Dioxide 26.0 Anion Gap 6 BUN 12 Creatinine 1.03 Estim Creat Clear Calc 94.38 Est GFR (MDRD) Af Amer 102 Est GFR (MDRD) Non-Af 84 BUN/Creatinine Ratio 11.7 Glucose 108 H Calcium 9.5 Troponin I High Sens 7 B-Natriuretic Peptide 168.7 H Radiography Diagnostic Testing: Clinical Impression(s) from Imaging Studies Chest X-Ray 11/13/24 08:38 IMPRESSION: Mild thoracic spine degenerative changes are noted. Lungs appear clear throughout. No pleural effusion or pneumothorax is seen. The cardiomediastinal silhouette is within the normal range. No evidence of acute cardiopulmonary disease. Reading Location: [address] Discharge Plan Triage Chief Complaint: Chest Pain ED Provider: [place] Dx/Rx/DC Orders Clinical Impression: Chest pain Prescriptions: No Action levofloxacin 750 mg tablet 750 mg PO DAILY 7 Days Qty: 7 0RF furosemide 20 mg Tablet 20 mg PO DAILY PRN (Reason: For weight gain of 2 pounds in 1 day or 3 pounds in 1 week) Qty: 30 0RF carvedilol 12.5 mg tablet 12.5 mg PO BIDCM Qty: 180 3RF losartan 25 mg tablet 25 mg PO DINNER Qty: 90 3RF spironolactone 25 mg tablet 25 mg PO DAILY Qty: 90 3RF sertraline [Zoloft] 25 mg tablet 25 mg PO QDAY Qty: 30 0RF Stand Alone Forms: Work / School Excuse Primary Care Provider: Care Physician,No Primary Referrals: Care Physician,No Primary [Primary Care Provider] - Lidya Sarah Cesar DO [[facility]] - Activity Restrictions/Additional Instructions: Follow-up with your doctor in outpatient setting. Return with worsening symptoms or concerns. Print Language: Amharic Disposition Disposition: Against Medical Advice Discharge Date/Time: 11/13/24 10:18
[2024-11-13 09:16] LABS: Anion Gap 6 (5-15); BUN 12 mg/dL (7-18); BUN/Creat Ratio 11.7 RATIO (10-20); Calcium,Total 9.5 mg/dL (8.5-10.1); Chloride 108 mmol/L (98-107); Creatinine, Serum 1.03 mg/dL (0.70-1.30); EST Glomerular Filtration Rate 84 mL/min (>60); Est Glom Filt Rate - Afr Amer 102 mL/min (>60); Estimated Creatinine Clearance 94.38 ml/min; Glucose 108 mg/dL (74-106); Potassium 3.7 mmol/L (3.5-5.1); Sodium Level 140 mmol/L (136-145); Troponin-I HS (w/2H Reflex) 7 pg/mL (3.0-78.0)
[2024-11-13 09:21] LABS: Absolute Lymphocyte Count 1.92 X10^3/uL (0.83-4.51); Absolute Neutrophil Count 5.6 X10^3/uL (2.0-7.7); Basophil# 0.08 X10^3/uL; Basophil% 0.9 % (0-1); Eosinophil# 0.12 X10^3/uL; Eosinophils% 1.4 % (0-5); Hemoglobin 13.8 g/dL (13.0-16.5); Lymphocyte # 1.92 X10^3/ul (0.83-4.51); Lymphocyte % 22.4 % (19-41); Mean Corp Hgb Conc 32.9 g/dL (32-36); Mean Corpuscular Hgb 30.7 pg (27.0-32.0); Mean Corpuscular Volume 93.3 fL (80-94); Mean Platelet Vol. 8.9 fl (6.2-12.0); Monocyte# 0.78 X10^3/uL; Monocyte% 9.1 % (0-10); NRBC Flagged by Analyzer 0 % (0-5); Neutrophil # 5.63 X10^3/uL (2.7-7.7); Neutrophil % 65.8 % (47-70); Platelet Count 334 K/mm3 (150-450); RBC Distribution Width CV 13.8 % (11.6-14.6); RBC Distribution Width SD 47.7 fl (35.1-43.9); White Blood Count 8.6 K/mm3 (4.4-11.0)
[2024-11-13 09:22] VITALS: BP 115/82; PULSE 81; RESP 18; O2SAT 95
[2024-11-13 09:26] LABS: International Normalized Ratio 0.9; Prothrombin Time (Protime)PT. 12.8 SECONDS (11.7-14.9)
[2024-11-13 09:27] LABS: Partial Thromboplast Time 25.8 Seconds (24.1-36.2)
[2024-11-13 10:00] VITALS: BP 118/82; PULSE 92; RESP 18; O2SAT 95
[2024-11-13 10:12] LABS: BNP,B-Type NATRIURETIC PEPTIDE 168.7 pg/mL (0-100)
--- NOTE | 2024-11-13 10:13 | CM.ED ---
Social work Reason for referral: no PCP Referral source: case find This SW identified patient's lack of PCP and need for resources. Patient was asleep in bed upon SW entrance to patient's room, but this SW identified self and role at [facility] to patient's guests. Patient's guests included patient's daughter, Janina Ocasio, who was also a patient at this time, and patient's female friend. Patient's friend stated knowing patient since high school and reported currently living with patient and Janina. [facility] refused to provide this SW with Janina's name, though [facility] was open to showing this SW coloring pages Janina had completed on a phone. Patient woke up and this SW reintroduced self and role at [facility]. Janina immediately showed patient the same coloring pages and patient appeared to be connected to Janina. Patient confirmed not having a PCP and stated Dr. De Los Santos is no longer a family provider. Patient stated not desiring to always have to go back and forth when needing medical care and patient refused to accept PCP resources. Patient stated patient will continue to bring self and Janina to the ED when patient gets sick once a year. Patient denied needing any emergency contacts listed on patient's facesheet as well, stating patient's information is listed how I want it. Patient denied further needs at this time. Gabbie James, DOCUMENT DESIGN SPECIALIST, HYDROMETER TESTER
--- NOTE | 2024-11-13 10:14 | ED.RN ---
patient requesting to leave. Dr. Hill informed, AMA paperwork signed
[2024-11-13 10:58] LABS: Reflex Troponin-HS? (from REC) Y
== END 2024-11-13 10:18 | disposition left against medical advice (07) ==
LOC: ED 09:03
PROVIDERS: Emergency Provider Emergency Medicine; Visit Provider Emergency Medicine
DX: R07.9 Chest pain, unspecified (principal); I50.9 Heart failure, unspecified; F17.210 Nicotine dependence, cigarettes, uncomplicated; F17.290 Nicotine dependence, other tobacco product, uncomplicated; Z79.899 Other long term (current) drug therapy
CPT/HCPCS: 71046; 80048; 83880; 84484; 85025; 85610; 85730; 93005; 99284

== ENCOUNTER 2024-12-24 16:32 | Emergency (ER) | payer MEDICAID, SELFPAY ==
[2024-12-24 16:34] VITALS: BP 111/85; PULSE 90; RESP 18; TEMP 36.3; O2SAT 98; BMI 22.4
--- NOTE | 2024-12-24 16:44 | CT_ITS ---
PROCEDURE: CHEST WITHOUT CONTRAST REASON FOR EXAM: FALL TECHNIQUE: Chest CT without contrast. COMPARISON: Chest radiograph 11/13/2019 FINDINGS: Hardware: None. Lymph nodes: No mediastinal hilar or axillary lymphadenopathy. Heart and Vasculature: Normal heart size. No pericardial effusion. Thoracic aorta and pulmonary arteries have normal contours; noncontrast technique limits evaluation. Coronary Artery Calcifications: Lungs and Airways: The lungs are normally expanded and clear. Pleura: No pleural effusion. No pneumothorax. Upper Abdomen: Visualized portions of the upper abdominal viscera are unremarkable. Bones: Bone windows are unremarkable. CT/Chest without Contrast IMPRESSION: No acute findings in the thorax. One or more dose reduction techniques were used (e.g., Automated exposure contr ol, adjustment of the mA and/or kV according to patient size, use of iterative reconstruction technique). Reading Location: [facility]
--- NOTE | 2024-12-24 16:58 | ED.VIS.FALL ---
HPI <SRINIVASA Quevedo - Last Filed: 12/24/24 17:53> HPI - Fall History of Present Illness Chief Complaint: Fall Narrative Narrative: 39-year-old male states he was about 6 to 8 feet up in the 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 No head injury or LOC. He complains of mid and left-sided back pain with taking a deep breath. PFSH <SRINIVASA Quevedo - Last Filed: 12/24/24 17:53> PFSH Medical History Congestive heart failure Seizure disorder Skin cancer Tobacco use Seizures Migraines Arthritis Home Medications ?Medication ?Instructions ?Recorded ?Last Taken ?Type furosemide 20 mg tablet 20 mg PO DAILY PRN For weight gain 07/10/24 07/14/24 Rx of 2 pounds in 1 day or 3 pounds in 1 week #30 tabs carvedilol 12.5 mg tablet 12.5 mg PO BIDCM #180 tabs 09/10/24 Unknown Rx losartan 25 mg tablet 25 mg PO DINNER #90 tabs 09/10/24 Unknown Rx spironolactone 25 mg tablet 25 mg PO DAILY #90 tabs 09/10/24 Unknown Rx levofloxacin 750 mg tablet 750 mg PO DAILY 7 days #7 tabs 11/02/24 Unknown Rx sertraline 25 mg tablet (Zoloft) 25 mg PO QDAY #30 tabs 11/12/24 Unknown Rx Allergy/AdvReac Type Severity Reaction Status Date / Time No Known Allergies Allergy Verified 12/24/24 16:34 Family History Mother Heart disease Surgical History History of stent insertion of renal artery History of craniotomy Social History Smoking Status: Current every day smoker tobacco type: cigarettes and e-cigarettes alcohol intake: never substance use type: does not use caffeine: Yes ROS <SRINIVASA Quevedo - Last Filed: 12/24/24 17:53> ROS ED ROS Narrative CVS: Negative for chest pain. Respiratory: Negative for shortness of breath. GI: Negative for abdominal pain, nausea, vomiting. Neuro: Negative for headache, motor/sensory dysfunction. EXAM <SRINIVASA Quevedo - Last Filed: 12/24/24 17:53> Physical Exam Narrative Exam Narrative: CONST: Patient sitting in no acute distress. EYES: Normal inspection. NECK: Normal inspection. RESP: No respiratory distress, CTAB. No anterior chest wall tenderness. CVS: Regular rate and rhythm, no murmur, no gallop. ABD: Soft and nontender, no guarding or rebound, nondistended. Back: Normal inspection with no external signs of trauma. No cervical thoracic or lumbar midline tenderness or step-offs. Tender over left thoracic rib cage without deformity or crepitus. SKIN: Color normal, no rash, warm, dry, intact. EXTREMITIES: Normal appearance, full ROM upper and lower extremities, no bony tenderness, 2+ radial and PT pulses. NEURO: Alert and answering questions appropriately. PSYCH: Normal affect. Const Vital Signs: 12/24/24 16:34 12/24/24 17:26 12/24/24 17:54 Temperature 97.3 F L 97.3 F L Temperature Source Temporal Pulse Rate 90 90 Respiratory Rate 18 18 Respiratory Effort Normal Respiratory Depth Normal Respiratory Pattern Normal Blood Pressure 111/85 H 115/72 Blood Pressure Mean 93 86 Pulse Ox 98 99 Oxygen Delivery Method Room Air Room Air <Kahlil Bowman MD - Last Filed: 12/25/24 00:02> Physical Exam Const Vital Signs: 12/24/24 16:34 12/24/24 17:26 12/24/24 17:54 Temperature 97.3 F L 97.3 F L Temperature Source Temporal Pulse Rate 90 90 Respiratory Rate 18 18 Respiratory Effort Normal Respiratory Depth Normal Respiratory Pattern Normal Blood Pressure 111/85 H 115/72 Blood Pressure Mean 93 86 Pulse Ox 98 99 Oxygen Delivery Method Room Air Room Air MDM <SRINIVASA Quevedo - Last Filed: 12/24/24 17:53> [facility] Narrative Medical decision making narrative: Differential includes but not limited to back contusion, rib fracture, pneumothorax 39-year-old male had a mechanical fall while cleaning gutters approximately 6 feet landing on his back yesterday. No head injury or LOC. He is ambulatory, hemodynamically stable, and has no external signs of trauma to his head neck or thorax. He is moving all extremities and neurovascular intact. Normal heart and lung sounds. Jalil over the left posterior lateral rib cage. I ordered a CT chest to evaluate and it is negative for traumatic findings. Patient declined pain medication. He will take [id number] analgesia as needed and was discharged in stable condition. Radiography Diagnostic Testing: Clinical Impression(s) from Imaging Studies Chest CT 12/24/24 16:44 IMPRESSION: No acute findings in the thorax. One or more dose reduction techniques were used (e.g., Automated exposure control, adjustment of the mA and/or kV according to patient size, use of iterative reconstruction technique). Reading Location: [facility] <Khalil Bowman MD - Last Filed: 12/25/24 00:02> MDM Radiography Diagnostic Testing: Clinical Impression(s) from Imaging Studies Chest CT 12/24/24 16:44 IMPRESSION: No acute findings in the thorax. One or more dose reduction techniques were used (e.g., Automated exposure control, adjustment of the mA and/or kV according to patient size, use of iterative reconstruction technique). Reading Location: [facility] Treatment and Re-Evaluation Narrative: Dr. Bowman: I have personally performed a face to face assessment of the patient and have reviewed the MATY Note. I performed a substantive portion of the visit including all aspects of the following. My abreu findings include: History is mechanical fall while cleaning gutters yesterday, fell approximately 6 feet, complains of lung pain and left-sided back pain. Exam is GCS 15. ABCs intact. Mild tenderness to palpation diffusely left ribs greater than right. No vertebral point tenderness or bony step-off. Cardiovascular examination regular rate and rhythm. Lungs are clear to auscultation bilaterally. No crepitance. Medical Decision Making: Check CT chest. Reassurance. Discharge. Other additions or changes: [None] Discharge Plan Triage Chief Complaint: Fall ED Midlevel Provider: Luz Marinelli ED Provider: Kahlil Bowman Dx/Rx/DC Orders Clinical Impression: Fall from roof, Back contusion Instructions: ED Back Contusion Prescriptions: No Action levofloxacin 750 mg tablet 750 mg PO DAILY 7 Days Qty: 7 0RF furosemide 20 mg Tablet 20 mg PO DAILY PRN (Reason: For weight gain of 2 pounds in 1 day or 3 pounds in 1 week) Qty: 30 0RF carvedilol 12.5 mg tablet 12.5 mg PO BIDCM Qty: 180 3RF losartan 25 mg tablet 25 mg PO DINNER Qty: 90 3RF spironolactone 25 mg tablet 25 mg PO DAILY Qty: 90 3RF sertraline [Zoloft] 25 mg tablet 25 mg PO QDAY Qty: 30 0RF Stand Alone Forms: ED Work / School Excuse Primary Care Provider: Care Physician,No Primary Referrals: Care Physician,No Primary [Primary Care Provider] - Activity Restrictions/Additional Instructions: The CT scan of your chest shows no broken bones or internal injuries. Take Tylenol or ibuprofen and ice as needed. Print Language: Nepali Disposition Disposition: Home, Self Care Discharge Date/Time: 12/24/24 17:55
[2024-12-24 17:54] VITALS: BP 115/72; PULSE 90; RESP 18; TEMP 36.3; O2SAT 99
== END 2024-12-24 17:55 | disposition home or self-care (01) ==
PROVIDERS: Emergency Provider Emergency Medicine; Visit Provider Emergency Medicine
DX: S20.229A Contusion of unspecified back wall of thorax, initial encounter (principal); I50.9 Heart failure, unspecified; F17.210 Nicotine dependence, cigarettes, uncomplicated; F17.290 Nicotine dependence, other tobacco product, uncomplicated; W19.XXXA Unspecified fall, initial encounter
CPT/HCPCS: 71250; 99282

== ENCOUNTER 2025-02-19 10:48 | Emergency (ER) | payer MEDICAID, SELFPAY ==
[2025-02-19 10:49] VITALS: BP 132/102; PULSE 83; RESP 14; TEMP 36.1; O2SAT 98; BMI 22.7
--- NOTE | 2025-02-19 10:59 | EX.ED.VIS.EY ---
HPI History of Present Illness Chief Complaint: Eye Problem [facility] Medical History Congestive heart failure Seizure disorder Skin cancer Tobacco use Seizures Migraines Arthritis Home Medications ?Medication ?Instructions ?Recorded ?Last Taken ?Type furosemide 20 mg tablet 20 mg PO DAILY PRN For weight gain 07/10/24 07/14/24 Rx of 2 pounds in 1 day or 3 pounds in 1 week #30 tabs carvedilol 12.5 mg tablet 12.5 mg PO BIDCM #180 tabs 09/10/24 Unknown Rx losartan 25 mg tablet 25 mg PO DINNER #90 tabs 09/10/24 Unknown Rx spironolactone 25 mg tablet 25 mg PO DAILY #90 tabs 09/10/24 Unknown Rx levofloxacin 750 mg tablet 750 mg PO DAILY 7 days #7 tabs 11/02/24 Unknown Rx sertraline 25 mg tablet (Zoloft) 25 mg PO QDAY #30 tabs 11/12/24 Unknown Rx Allergy/AdvReac Type Severity Reaction Status Date / Time No Known Allergies Allergy Verified 02/19/25 11:53 Family History Mother Heart disease Surgical History History of stent insertion of renal artery History of craniotomy Social History Smoking Status: Current every day smoker tobacco type: cigarettes and e-cigarettes alcohol intake: never substance use type: does not use caffeine: Yes EXAM Physical Exam Const Vital Signs: 02/19/25 10:49 Temperature 96.9 F L Temperature Source Temporal Pulse Rate 83 Respiratory Rate 14 Blood Pressure 132/102 H Blood Pressure Mean 112 Pulse Ox 98 Oxygen Delivery Method Room Air MDM MDM MDM Narrative Medical decision making narrative: HISTORY OF PRESENT ILLNESS: Chief complaint: Eye burning 40-year-old male history of myocarditis, CHF, hypothyroidism presents with bilateral eye burning and itching. Notes redness. This began yesterday states he was removing caulking from an old window. He notes he did not feel an object fly in his eye but he did note some itching and he rubbed his eye. Since then he has had increasing burning photophobia. That is started in his left eye and now is in his right eye. Does not wear contacts or glasses. 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 REVIEW OF SYSTEMS: Pertinent positives: Eye pain, photophobia Pertinent negatives: Decreased visual acuity PHYSICAL EXAM: Nursing triage notes reviewed, Vital signs reviewed Constitutional: please see [facility] HENT: MMM Eyes: Pupils equal round and reactive to light, Extraocular muscles intact, visual acuity 20/20 bilaterally, visual cowart intact bilaterally, offered fluorescein staining but patient refused. Neck: No stridor, no JVD, full neck ROM Skin: No rash or lesions noted MEDICAL DECISION MAKING: Chief Complaint: please see [facility] External records reviewed: Reviewed prior ED encounters Factors affecting care: As per [facility] Social determinants of health: none History obtained from others: none Consults: none [facility] Narrative: The patient was initially hemodynamically stable, afebrile and nontoxic-appearing. Exam without visual deficits, visual field cuts, no signs of dacryocystitis, chalazion, or delirium. Exam consistent with photokeratitis versus other inflammatory process. Will give symptomatic therapy in the form of NSAID drops. Will give ophthalmology follow-up. The patient and/or family, caregivers express understanding. The patient and/or family, caregivers agrees with the plan. Shared decision making: I will have a discussion with the patient and or visitors regarding risk/benefits of further testing or admission. They will be made aware of of the risk/benefits inherent in this decision they will be given the opportunity to voice understanding. Total critical care time today provided was at least 0 minutes. This excludes separately billable procedures. Critical care time (if documented) is secondary to the patient having high probability of clinically significant/life threatening deterioration in the patient's condition which required my urgent intervention. Impression: 1. Acute eye pain 2. Photophobia Dispo: Discharge home This note was generated with [employer] dictation software. It may contain incorrect words, spelling, and punctuation that were not noted in review of the chart prior to signing. Discharge Plan Triage Chief Complaint: Eye Problem ED Provider: Lambert Isaacs Dx/Rx/DC Orders Prescriptions: No Action levofloxacin 750 mg tablet 750 mg PO DAILY 7 Days Qty: 7 0RF furosemide 20 mg Tablet 20 mg PO DAILY PRN (Reason: For weight gain of 2 pounds in 1 day or 3 pounds in 1 week) Qty: 30 0RF carvedilol 12.5 mg tablet 12.5 mg PO BIDCM Qty: 180 3RF losartan 25 mg tablet 25 mg PO DINNER Qty: 90 3RF spironolactone 25 mg tablet 25 mg PO DAILY Qty: 90 3RF sertraline [Zoloft] 25 mg tablet 25 mg PO QDAY Qty: 30 0RF Primary Care Provider: Care Physician,No Primary Referrals: Care Physician,No Primary [Primary Care Provider] - Print Language: Vietnamese
[2025-02-19] MEDS: Fluorescein 1 MG STRIP 1 STRIP EACH EYE (11:37)
[2025-02-19] MEDS: Tetracaine 0.5% Ophthalmic Bottle 1 DRP EACH EYE (11:37)
== END 2025-02-19 12:00 | disposition home or self-care (01) ==
PROVIDERS: Emergency Provider Emergency Medicine; Visit Provider Emergency Medicine
DX: H57.13 Ocular pain, bilateral (principal); I50.9 Heart failure, unspecified; H53.149 Visual discomfort, unspecified; F17.210 Nicotine dependence, cigarettes, uncomplicated; F17.290 Nicotine dependence, other tobacco product, uncomplicated; Z95.5 Presence of coronary angioplasty implant and graft
CPT/HCPCS: 99283

== ENCOUNTER 2025-04-16 07:25 | Emergency (ER) | payer MEDICAID, SELFPAY ==
[2025-04-16 07:25] VITALS: BP 141/95; PULSE 97; RESP 14; TEMP 36.1; O2SAT 98
--- NOTE | 2025-04-16 08:34 | ED.VIS.LOWEX ---
HPI History of Present Illness HPI Narrative: 40-year-old male was playing with his children yesterday running through the house when he accidentally kicked a table injuring his left lateral foot and toes. Chief Complaint: Lower Extremity Injury Informant: patient Occured/Mechanism Mechanism/Context: Yes injury and Yes blunt trauma Onset/Context/Timing Onset: Yesterday Context: Sudden Onset Timing: Continuous Quality of Pain: Stabbing Current Severity: Moderate Maximum Severity: Moderate Associated Symptoms Associated Symptoms: Negative for Parasthesia, Weakness or Loss of Funtion Narrative Narrative: 40-year-old male accidentally kicked a table yesterday complaining of pain left lateral 3 toes and foot. No prior foot history or surgery. Prior similar symptoms: No Recent Illness/Hospitalization: No PFSH PFS Medical History Congestive heart failure Seizure disorder Skin cancer Tobacco use Seizures Migraines Arthritis Home Medications ?Medication ?Instructions ?Recorded ?Last Taken ?Type furosemide 20 mg tablet 20 mg PO DAILY PRN For weight gain 07/10/24 07/14/24 Rx of 2 pounds in 1 day or 3 pounds in 1 week #30 tabs carvedilol 12.5 mg tablet 12.5 mg PO BIDCM #180 tabs 09/10/24 Unknown Rx losartan 25 mg tablet 25 mg PO DINNER #90 tabs 09/10/24 Unknown Rx spironolactone 25 mg tablet 25 mg PO DAILY #90 tabs 09/10/24 Unknown Rx levofloxacin 750 mg tablet 750 mg PO DAILY 7 days #7 tabs 11/02/24 Unknown Rx sertraline 25 mg tablet (Zoloft) 25 mg PO QDAY #30 tabs 11/12/24 Unknown Rx ketorolac 0.4 % eye drops 1 drp EACH EYE Q6H 4 days #10 mL 02/19/25 Unknown Rx Allergy/AdvReac Type Severity Reaction Status Date / Time No Known Allergies Allergy Verified 04/16/25 07:26 Family History Mother Heart disease Surgical History History of stent insertion of renal artery History of craniotomy Social History Smoking Status: Current every day smoker tobacco type: cigarettes and e-cigarettes alcohol intake: never substance use type: does not use caffeine: Yes ROS ROS ED ROS Narrative Denies recent illness. Constitutional Constitutional ED: Denies chills or fever(s) Eyes Eyes: Denies blurry vision ENT ENT ED: Denies ear pain or rhinorrhea Cardiovascular Cardiovascular: Denies chest pain Respiratory/Chest Respiratory/Chest: Denies cough Gastrointestinal Gastrointestinal: Denies abdominal pain Genitourinary Genitourinary ED: Denies dysuria or hematuria Musculoskeletal Musculoskeletal: Denies arthralgias Integumentary Denies abscess Neurologic Neurologic: Denies headache(s) Psychiatric Psychiatric: Denies anxiety or depression Endocrine Endocrinology: Denies polydipsia, polyphagia or polyuria Hematologic/Lymphatic Hematologic/Lymphatic: Denies easy bleeding, easy bruising or lymphadenopathy Allergic/Immunologic Allergic/Immunologic ED: Denies mouth swelling, tongue swelling or urticaria EXAM Physical Exam Narrative Exam Narrative: 40-year-old male vital signs stable afebrile. Sitting upright in bed. No acute distress. H EENT exam pupils round react light. No trauma no head. Neck nontender. Lungs clear to auscultation. Heart regular rhythm rate about 95 no murmur. Chest wall and ribs nontender. Abdomen soft nontender. Pelvic girdle intact. Moving all 4 extremities. Neurovascular intact. Left lateral foot distally along the left lateral 3 toes and distal metatarsals tender mild swelling. Minimal bruising. No gross bony deformity. Normal DP pulse. Able to wiggle his toes. Ankle and lower leg nontender. No edema. Other extremities are nontender normal range of motion. He is awake and alert. Answer questions following commands. Unremarkable neurologic exam. Const Vital Signs: 04/16/25 07:25 Temperature 97 F L Temperature Source Temporal Pulse Rate 97 Respiratory Rate 14 Blood Pressure 141/95 H Blood Pressure Mean 110 Pulse Ox 98 Oxygen Delivery Method Room Air Positive well nourished and well developed; Negative for obese, cachectic, contractures or unkempt General Appearance ED: well developed and NAD; Negative for unkempt, cachectic or contractures Nutritional Appearance: Negative for cachectic or obese HEENT Reports moist mucous membranes normocephalic and atraumatic; Negative for trauma or tenderness Eyes PERRL Neck full ROM and supple Chest Wall inspection of chest normal and palpation of chest normal Resp normal respiratory effort, no retractions and clear to auscultation bilaterally Cardio regular rate, regular rhythm, S1 normal heart sound, S2 normal heart sound and no murmurs GI non-tender, non-distended and no masses Auscultation: normoactive bowel sounds Palpation: soft; Negative for tender, guarding or rebound tenderness present Back/Spine no CVA tenderness General Back: Negative for CVA tenderness Cervical Spine: Negative for cervical spine tenderness Thoracic Spine / Upper Back: Negative for thoracic spinal tenderness Lumbar Spine / Lower Back: Negative for lumbar spinal tenderness Extremity normal to inspection and full ROM Extremity Narrative: Except left foot. Tender minimal swelling and bruising left lateral distal foot along the MTP of the lateral 3 toes. No bony deformity. General Extremety ED: Yes edema General Extremity: edema Neuro oriented x3, CN's II-XII intact bilaterally, moves all extremities and no sensory deficits noted Sensorium / Orientation: alert, oriented to person, oriented to place and oriented to time Motor Exam: strength 5/5 throughout Psych mental status grossly normal Appearance: Negative for unkempt Skin no wounds Lesions: no lesions Rashes: no rashes MDM MDM MDM Narrative Medical decision making narrative: 40-year-old male accidentally kicked a table while playing with his children. Complaining of left foot pain x-ray being obtained. He was offered but did not want any for pain at this time. Repeat exam unchanged at 9:28 AM. Discussed with patient his x-ray results. Discharged on postop shoe. Ice elevate. Motrin Tylenol. Follow-up with podiatry as needed. History & Record Review Discussion w/independent historian: Patient Additional record(s) reviewed:: Prior inpatient record, Prior outpatient record, Prior ED visit and Prior labs Radiography Diagnostic Testing: Clinical Impression(s) from Imaging Studies Foot X-Ray 04/16/25 08:35 IMPRESSION: There is an oblique fracture of the 4th proximal phalanx with a slight impaction. There is a transverse fracture of the 5th proximal phalanx with anatomic alignment. Critical results were discussed with Dr. Tomlinson by Dr. Addison at the time of dictation. Reading Location: [facility] Left foot x-ray, 3 views, interpreted by by myself and the radiologist. Shows a fracture of the left fourth proximal phalanx and also of the left fifth proximal phalanx. Interpreted both by myself and the radiologist. Discharge Plan Triage Chief Complaint: Lower Extremity Injury ED Provider: Codey Tomlinson Dx/Rx/DC Orders Clinical Impression: Fracture of left toe Instructions: ED Fracture, Toe, Closed Prescriptions: No Action levofloxacin 750 mg tablet 750 mg PO DAILY 7 Days Qty: 7 0RF ketorolac 0.4 % drops 1 drp EACH EYE Q6H 4 Days Qty: 10 0RF furosemide 20 mg Tablet 20 mg PO DAILY PRN (Reason: For weight gain of 2 pounds in 1 day or 3 pounds in 1 week) Qty: 30 0RF carvedilol 12.5 mg tablet 12.5 mg PO BIDCM Qty: 180 3RF losartan 25 mg tablet 25 mg PO DINNER Qty: 90 3RF spironolactone 25 mg tablet 25 mg PO DAILY Qty: 90 3RF sertraline [Zoloft] 25 mg tablet 25 mg PO QDAY Qty: 30 0RF Primary Care Provider: Care Physician,No Primary Referrals: Gasper Perez DPM [Med Staff - Active Staff] - As soon as possible Care Physician,No Primary [Primary Care Provider] - Activity Restrictions/Additional Instructions: You have a broken 4th and 5th toes. Ice and elevate. Motrin and Tylenol for pain. Postop shoe to help you walk. Follow-up with the dental equipment mechanic as needed. Print Language: Frisian Disposition Disposition: Home, Self Care
--- NOTE | 2025-04-16 08:35 | RAD_ITS ---
PROCEDURE: FOOT MIN 3 VIEWS 04/16/2025 REASON FOR EXAM: TRAUMA ATTENTIL LATERAL TOES TECHNIQUE: FOOT MIN 3 VIEWS COMPARISON: None FINDINGS: There is an oblique fracture of the 4th proximal phalanx with a slight impaction. There is a transverse fracture of the 5th proximal phalanx with anatomic alignment. There is no dislocation. Mineralization is normal. There is no visible atherosclerosis. RAD/Foot min 3 Views IMPRESSION: There is an oblique fracture of the 4th proximal phalanx with a slight impactio n. There is a transverse fracture of the 5th proximal phalanx with anatomic alignm ent. Critical results were discussed with Dr. Tomlinson by Dr. Addison at the time o f dictation. Reading Location: [facility]
[2025-04-16 10:07] VITALS: BP 141/95; PULSE 97; RESP 14; TEMP 36.1; O2SAT 98
--- OUTSIDE RECORDS SUMMARY | 2025-04-16 19:07 | XMS RPT_ITS | CCD ---
Author Organization [facility] CliniSyal Care Team Providers Care Wrister Name Role Phone ITRAT, AHMED Unavailable Unavailable [facility] Unavailable Unavailable [facility] Unavailable Unavailable Required, No Pcp Unavailable Unavailable Esa Ayon Unavailable Unavailabl e Uyen Kaur Unavailable Unavailable Darrin, Howard L Unavailable Unavailable Unavailable Darrin, Mrs. Howard Edmond Referring Unavailabl e Hensley, Mrs. Howard Rodriguezn Primary Care Unavailabl e Hensley, Mrs. Howard Rodriguezn Attending Unavailabl e Hensley, Mrs. Howard Rodriguezn Referring Unavailabl e Hensley, Mrs. Howard Rodriguezn Primary Care Unavailabl e Darrin, Mrs. Howard Rodriguezn Attending Unavailabl e Felicita Adams PA-C Primary Care Provider [phone] Felicita Adams PA-C Primary Care Provider NO, PHYSICIAN Primary Care Unavailable YAN WEBSTER Attending Unavailable Darrin YARD INSPECTORHoward L Primary Care Provider [phone] Hensley Howard RUBIN Primary Care Provider [phone] Care Physician, No Primary Primary Care Provider Unavailable Care Physician, No Primary Referring Provider Un available Antonio Mock Attending Provider [phone] Obi Lynch DO Attending Provider Dr. Obi Lynch DO Emergency Provider Dr. Jordan Hill DO Attending Provider Dr. Jordan Hill DO Emergency Provider Kahlil Bowman MD Emergency Provider [phone] HOWARD CLIFFORD Primary Care Unavailable DARRIN, HOWARD DARRIN Primary Care Unavailable PHI REID Referring Unavailable DARRIN, HOWARD DARRIN Primary Care Unavailable DARRIN, HOWARD DARRIN Primary Care Unavailable DARRIN, HOWARD DARRIN Primary Care Unavailable DARRIN, HOWARD DARRIN Primary Care Unavailable ANIKA SANCHEZ Attending Unavailable Obi Lynch Attending Unavailabl e Care Physician, No Primary Primary Care Unava ilable Care Physician, No Primary Primary Care Unava ilable Meek INTERNAL GRINDER, Adelaida Referring Unavailable Meek INTERNAL GRINDER, Adelaida Attending Unavailable Celeste Levine Attending Unavailable Care Physician, No Primary Primary Care Unava ilable Abner, Celeste Admitting Unavailable Denis Agustin Attending Unavailable Denis Agustin Consulting Unavailable Celeste Levine Consulting Unavailable Jalen INTERNAL GRINDER, Antonio Freeman Attending Unavailable Care Physician, No Primary Primary Care Unava ilable Care Physician, No Primary Referring Unava ilable Care Physician, No Primary Primary Care Unava ilable Care Physician, No Primary Referring Unava ilable Denis Agustin Attending Unavailable Care Physician, No Primary Primary Care Unava ilable Care Physician, No Primary Referring Unava ilable Meek INTERNAL GRINDER, Adelaida Attending Unavailable Care Physician, No Primary Primary Care Unava ilable Ramsey Cleveland Attending Unavailable Jocubaeri, Carlos Consulting Unavailable Carlos Banks Attending Unavailable Care Physician, No Primary Primary Care Unava ilable Kahlil Bowman Attending Unavailable Lambert Isaacs Attending Unavailable Care Physician, No Primary Primary Care Unava ilable Obi Lynch Attending Unavailabl e Care Physician, No Primary Primary Care Unava ilable Care Physician, No Primary Primary Care Unava ilable Meek INTERNAL GRINDER, Adelaida Attending Unavailable Meek INTERNAL GRINDER, Adelaida Referring Unavailable Celeste Levine Admitting Unavailable Carlos Banks Attending Unavailable Denis Agustin Consulting Unavailable Care Physician, No Primary Primary Care Unava ilable Abner Celeste Consulting Unavailable Jones Huff Attending Unavailable Care Physician, No Primary Primary Care Unava ilable Jordan Hill Attending Unavailable Care Physician, No Primary Primary Care Unava ilable Care Physician, No Primary Primary Care Provider Unavailable Kahlil Bowman MD Attending Provider Dr. Lambert Isaacs DO Attending Provider Dr. Lambert Isaacs DO Emergency Provider Dr. Codey Tomlinson MD Emergency Provider Allergies Allergy Classification Reported Allergen(s) Allergy Type Date of Onset Reaction(s) Facility (1 source) Naproxen Drug Allergy Inflammation of lung [facility] Medications Current Medications Medication Drug Class(es) Dates Sig (Normalized) Sig (Original) brompheniramine maleate 0.4 mg/ml / dextromethorphan hydrobromide 2 mg/ml / pseudoephedrine hydrochloride 6 mg/ml oral solution (7 sources) alpha-Adrenergic Agonist, Uncompetitive B-ptsyuw-I-aspartat e Receptor Antagonist, Sigma-1 Agonist Start: 06-18-2024 take 10 mL by mouth every six hours as needed Brompheniramine -Pseudoeph-DM (BROMFED DM) 2-30-10 mg/5 mL syrup Take 10 mL by mouth four times a day as needed. 118 mL 06/18/2024 Active carvedilol 12.5 mg oral tablet (6 sources) alpha-Adrenergic Shawna, beta-Adrenergic Shawna Start: 07-26-2024 End: 09-10-2024 take 1 tablet by mouth twice daily at mealtime Carvedilol 12.5 mg tablet Active 12.5 mg PO TWICE DAILY WITH MEALS 180 3 September 10, 2024 3:59pm Start: 07-10-2024 End: 07-26-2024 take 1 tablet by mouth twice daily at mealtime Carvedilol 6.25 mg Tablet Discontinued 6.25 mg PO TWICE DAILY WITH MEALS 60 0 July 10, 2024 12:00am July 26, 2024 3:47pm clindamycin 150 mg oral capsule (1 source) Lincosamide Antibacterial Start: 03-08-2022 take 3 capsules by mouth every eight hours CLINDAMYCIN HCL 150 MG CAPSULE ; 3 cap(s) orally every 8 hours Quantity: 0 Refills: 0 Ordered: 11-Mar-2022 Carey Desouza Start: 08-Mar-2022 Generic Substitution Allowed Comments: Source=Surescripts, Medication=CLINDAMYCIN HCL 150 MG CAPSULE, OriginatingSource=[facility] OriginatingProvider=CALVIN NORIEGA, Duration=10, Date Last Modified/Filled=08-Mar-2022 Comment on above: Source=Surescripts, Medication=CLINDAMYC IN HCL 150 MG CAPSULE, OriginatingSource=[facility] [employer] [facility] OriginatingProvider=CALVIN NORIEGA, Duration=10, Date Last Modified/Filled=08-Mar-2022 doxycycline hyclate 100 mg oral tablet (3 sources) Tetracycline-clas s Drug Start: 06-19-2024 End: 06-26-2024 take 1 tablet by mouth twice daily doxycycline (VIBRA-TABS) 100 mg tablet Indications: Sinobronchitis Take 1 tablet by mouth two times a day for 7 days. 14 tablet 06/19/2024 06/26/2024 Active furosemide 20 mg oral tablet (2 sources) Loop Diuretic Start: 07-10-2024 Furosemide 20 mg Tablet Active 20 mg PO DAILY as needed for For weight gain of 2 pounds in 1 day or 3 pounds in 1 week July 10, 2024 12:00am Inhalational Spacing Device (1 source) Start: 06-23-2024 End: 06-23-2024 Inhalational Spacing Device Indications: URI, acute 1 Device one time only for 1 dose. 1 Each 06/23/2024 06/23/2024 Active ketorolac tromethamine 4 mg/ml ophthalmic solution (1 source) Nonsteroidal Anti-inflammatory Drug, Cyclooxygenase Inhibitor Start: 02-19-2025 Ketorolac 0.4 % drops Active 1 NMA EACH EYE EVERY 6 HOURS 10 4 0 February 19, 2025 12:00am levoFLOXacin 750 mg oral tablet (2 sources) Quinolone Antimicrobial Start: 11-02-2024 take 1 tablet by mouth once daily Levofloxacin 750 mg tablet Active 750 mg PO DAILY 7 7 0 November 02, 2024 1:00am predniSONE 20 mg oral tablet (3 sources) Start: 06-19-2024 End: 06-24-2024 take 2 tablets by mouth once daily predniSONE (DELTASONE) 20 mg tablet Indications: Sinobronchitis Take 2 tablets by mouth once daily for 5 days. 10 tablet 06/19/2024 06/24/2024 Active sertraline 25 mg oral tablet (4 sources) Serotonin Reuptake Inhibitor Start: 09-27-2024 End: 11-12-2024 take 1 tablet by mouth once daily Sertraline (Zoloft) 25 mg tablet Active 25 mg PO daily 30 0 Radha 27th, 2025 10:36am Completed/Discontinued Medications Medication Drug Class(es) Dates Sig (Normalized) Sig (Original) acetaminophen 325 mg oral tablet (4 sources) End: 12-29-2022 take 2 tablets by mouth every six hours as needed acetaminophen (TYLENOL) 325 mg tablet Take 650 mg by mouth every 6 hours as needed. 0 12/29/2022 Discontinued (Other) Comment on above: Take 650 mg by mouth every 6 hours as needed. [id number] 200 actuat albuterol 0.09 mg/actuat metered dose inhaler (7 sources) beta2-Adrenergic Agonist Start: 07-04-2024 End: 07-10-2024 Albuterol Sulfate 90 mcg/actuation HFA aerosol inhaler Discontinued 2 NMA INHALATION EVERY 4 HOURS NEEDED as needed for wheezing July 04, 2024 12:00am July 10, 2024 1:48pm Start: 06-23-2024 take 2 puff(s) by in halation every four hours as needed for wheezing albuterol HFA (PROVENTIL HFA, VENTOLIN HFA) 90 mcg/actuation inhaler Indications: URI, acute Inhale 2 Puffs as instructed every 4 hours as needed for wheezing/shortness of breath. 1 Each 06/23/2024 Active Start: 07-04-2021 End: 08-02-2021 take 2 puff(s) by inhalation every six hours albuterol 90 mcg/inh inhalation aerosol ; 2 puff(s) inhaled every 6 hours Quantity: 1 Refills: 0 Ordered: 04-Jul-2021 Esa Ayon Start: 04-Jul-2021 End: 02-Aug-2021 Status: Completed Generic Substitution Allowed Comments: For inhalation only.It is very important that you take or use this exactly as directed. Do not skip doses or discontinue unless directed by your doctor.Obtain medical advice before taking any non-prescription drugs as some may affect the action of this medication.Shake well before use. Comment on above: For inhalation only. It is very important that you take or use this exactly as directed. Do not skip doses or discontinue unless directed by your doctor.Obtain medical advice before taking any non-prescription drugs as some may affect the action of this medication.Shake well before use. atorvastatin 20 mg oral tablet (1 source) HMG-CoA Reductase Inhibitor Start: take 1 tablet by mouth at bedtime Atorvastatin Calcium 20 MG Oral Tablet TAKE 1 TABLET AT BEDTIME. Quantity: 30 Refills: 5 Ordered: 03-Jun-2022 Howard Diehl Start : 03-Jun-2022 Active cephalexin 500 mg oral capsule (3 sources) Cephalosporin Antibacterial Start: End: take 1 capsule by mouth every six hours Cephalexin 500 MG capsule Discontinued 500 mg PO EVERY 6 HOURS September 09, 2017 1:00am January 11, 2018 3:41pm ibuprofen 600 mg oral tablet (3 sources) Nonsteroidal Anti-inflammatory Drug Start: End: take 1 tablet by mouth every six hours as needed for pain Ibuprofen 600 mg tablet Discontinued 600 mg PO EVERY 6 HOURS as needed for pain December 05, 2023 1:00am July 04, 2024 9:06pm lisinopril 5 mg oral tablet (1 source) Angiotensin Converting Enzyme Inhibitor Start: take 1 tablet by mouth once daily Lisinopril 5 MG Oral Tablet TAKE 1 TABLET DAILY. Quantity: 30 Refills: 5 Ordered: 02-Jun-2022 Howard Diehl Start : 02-Jun-2022 Active losartan potassium 25 mg oral tablet (6 sources) Angiotensin 2 Receptor Shawna Start: End: take 1 tablet by mouth at dinner Losartan 25 mg tablet Discontinued 25 mg PO WITH DINNER 90 August 10, 2024 2:23pm September 10, 2024 4:00pm metaxalone 800 mg oral tablet (3 sources) Start: End: take 1 tablet by mouth three times daily as needed for pain Metaxalone 800 mg tablet Discontinued 800 mg PO THREE TIMES A DAY as needed for muscle pain December 05, 2023 1:00am July 04, 2024 9:06pm phenytoin sodium 100 mg extended release oral capsule (3 sources) Anti-epileptic Agent Start: End: take 3 capsules by mouth twice daily Phenytoin Sodium Extended 100 MG capsule Discontinued 300 mg PO TWICE A DAY March 25, 2015 12:00am August 19, 2015 7:19pm Start: 03-25-2015 End: 08-19-2015 take 300 mg by mouth twice daily Phenytoin Sodium Extended Discontinued 300 MG PO TWICE A DAY 60 March 24, 2015 11:00pm August 19, 2015 6:19pm spironolactone 25 mg oral tablet (6 sources) Aldosterone Antagonist Start: 07-10-2024 End: 09-10-2024 take 1 tablet by mouth once daily Spironolactone 25 mg tablet Discontinued 25 mg PO DAILY 90 3 August 10, 2024 2:23pm September 10, 2024 4:00pm traZODone hydrochloride 50 mg oral tablet (4 sources) Serotonin Reuptake Inhibitor Start: 10-05-2017 End: 12-29-2022 take 1.5 tablets by mouth once daily at bedtime traZODone (DESYREL) 50 mg tablet Indications: Adjustment insomnia Take 1.5 tablets by mouth daily at bedtime. 30 tablet 2 10/05/2017 12/29/2022 Discontinued (Other) Comment on above: Take 1.5 tablets by mouth daily at bedtime. Tylenol Extra Strength TABS (1 source) Tylenol Extra Strength TABS Quantity: 0 Refills: 0 Ordered: 02-Jun-2022 DO Active venlafaxine 25 mg oral tablet (7 sources) Serotonin and Norepinephrine Reuptake Inhibitor Start: 01-11-2018 End: 07-04-2024 take 1 tablet by mouth three times daily Venlafaxine 25 mg tablet Discontinued 25 mg PO THREE TIMES A DAY January 11, 2018 12:00am July 04, 2024 9:07pm Start: 11-24-2017 End: 12-29-2022 take 1 capsule by mouth once daily venlafaxine ER (EFFEXOR XR) 75 mg 24 hr capsule Indications: Severe single current episode of major depressive disorder, without psychotic features (HCC) Take 1 capsule by mouth once daily. 30 capsule 5 11/24/2017 12/29/2022 Discontinued (Other) Comment on above: Take [address] [facility] once daily. Problems Active Problems Problem Classification Problem Date Documented Da te Episodic/Chronic Abdominal pain (4 sources) Right flank pain; Translations: [Unspecified abdominal pain] Onset: 03-05-2025 12-05-2023 Episodic Acute myocardial infarction (2 sources) Myocardial infarction; Translations: [Non-ST elevation (NSTEMI) myocardial infarction] 07-12-2024 Chronic Anxiety disorders (2 sources) Anxiety; Translations: [Anxiety disorder, unspecified] 07-22-2024 Chronic Calculus of urinary tract (3 sources) History of calculus of kidney; Translations: [Personal history of urinary calculi] 11-10-2024 Episodic Cardiac dysrhythmias (5 sources) Tachycardia; Translations: [Tachycardia, unspecified] 08-19-2015 Episodic Conditions associated with dizziness or vertigo (2 sources) Dizziness; Translations: [Dizziness and giddiness] 12-24-2024 Episodic Congestive heart failure; nonhypertensive (9 sources) Acute heart failure; Translations: [Heart failure, unspecified] Onset: 08-06-2024 07-12-2024 Chronic Disorders of lipid metabolism (1 source) Hyperlipidemia; Translations: [Other and unspecified hyperlipidemia] Chronic Disorders of teeth and jaw (3 sources) Toothache; Translations: [Dental caries] 03-11-2022 Episodic Comment on above: DENTAL PAIN E Codes: Fall (2 sources) Fall from roof; Translations: [Fall from, out of or through roof, initial encounter] 12-24-2024 Episodic Epilepsy; convulsions (3 sources) Seizure disorder; Translations: [Epilepsy, unspecified, not intractable, without status epilepticus] 08-19-2015 Chronic Essential hypertension (3 sources) Essential hypertension; Translations: [Unspecified essential hypertension] Onset: 02-14-2023 Chronic Fracture of lower limb (1 source) Unspecified fracture of left toe(s), initial encounter for closed fracture; Translations: [Fracture of phalanx of toe of left foot] 04-16-2025 Episodic Inflammation; infection of eye (except that caused by tuberculosis or sexually transmitteddisease) (3 sources) Acute conjunctivitis; Translations: [Unspecified acute conjunctivitis, right eye] 10-29-2013 Episodic Malaise and fatigue (7 sources) Malaise; Translations: [Other malaise and fatigue] Onset: 10-09-2024 03-11-2022 Episodic Miscellaneous mental health disorders (1 source) Acute insomnia; Translations: [Adjustment insomnia] Episodic Mood disorders (12 sources) Severe major depression, single episode, without psychotic features; Translations: [Major depressive disorder, single episode, severe without psychotic features] Onset: 09-29-2017 Chronic Nonspecific chest pain (10 sources) Chest discomfort; Translations: [Other chest pain] Onset: 04-11-2025 12-24-2024 Episodic Other congenital anomalies (1 source) Congenital anomaly of eye; 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, unspecified] 02-19-2025 Chronic Other congenital anomalies (1 source) Congenital malformation of eye, unspecified; Translations: [Eye abnormalities] Onset: 02-19-2025 Chronic Other diseases of kidney and ureters (2 sources) Hydronephrosis; Translations: [Unspecified hydronephrosis] 11-10-2024 Episodic Other eye disorders (1 source) Ocular pain, bilateral; Translations: [Ocular pain, bilateral] Onset: 02-22-2025 Episodic Other lower respiratory disease (2 sources) Cough; Translations: [Acute cough] 06-18-2024 Episodic Other lower respiratory disease (3 sources) Dyspnea; Translations: [Shortness of breath] 12-24-2024 Episodic Other lower respiratory disease (2 sources) Dyspnea on exertion; Translations: [Other forms of dyspnea] 08-21-2024 Episodic Other lower respiratory disease (1 source) Other forms of dyspnea; Translations: [Other forms of dyspnea] Onset: 03-05-2025 Episodic Other screening for suspected conditions (not mental disorders or infectious disease) (9 sources) Left ventricular systolic dysfunction; Translations: [Abnormal findings on diagnostic imaging of heart and coronary circulation] Onset: 08-06-2024 07-10-2024 Episodic Other skin disorders (1 source) Lesion of nose; Translations: [Disorder of the skin and subcutaneous tissue, unspecified] Episodic Other skin disorders (1 source) Skin lesion; Translations: [Disorder of the skin and subcutaneous tissue, unspecified] Episodic Other upper respiratory infections (1 source) Chronic sinusitis; Translations: [Chronic sinusitis, unspecified] 06-19-2024 Chronic Other upper respiratory infections (7 sources) Upper respiratory infection; Translations: [Acute upper respiratory infections of unspecified site] 07-04-2021 Episodic Ghada-; endo-; and myocarditis; cardiomyopathy (except that caused by tuberculosis or sexually transmitted disease) (3 sources) Myocarditis; Translations: [Myocarditis, unspecified] 07-26-2024 Chronic Pneumonia (except that caused by tuberculosis or sexually transmitted disease) (5 sources) Pneumonia, unspecified organism; Translations: [Community acquired pneumonia] Onset: 02-14-2023 Episodic Residual codes; unclassified (1 source) History of drug therapy; Translations: [Opioid abuse, in remission] Episodic Residual codes; unclassified (1 source) History of clinical finding in subject; Translations: [Personal history of other specified diseases] Episodic Spondylosis; intervertebral disc disorders; other back problems (4 sources) Backache; Translations: [Dorsalgia, unspecified] Onset: 01-24-2025 12-05-2023 Episodic Superficial injury; contusion (2 sources) Contusion of back; Translations: [Contusion of unspecified back wall of thorax, initial encounter] 12-24-2024 Episodic Unclassified (2 sources) SHORT OF BREATH COUGH AND RUNNY NOSE 07-04-2021 Comment on above: SHORT OF BREATH COUG H AND RUNNY NOSE Unclassified (1 source) Infected dental caries 03-11-2022 Urinary tract infections (2 sources) Urinary tract infectious disease; Translations: [Urinary tract infection, site not specified] 11-10-2024 Episodic Past or Other Problems Problem Classification Problem Date Documented Da te Episodic/Chronic Epilepsy; convulsions (11 sources) Seizure; Translations: [Unspecified convulsions] Onset: 02-15-2012 02-15-2012 Episodic Fracture of upper limb (11 sources) Fracture of metacarpal bone; Translations: [Unspecified fracture of fifth metacarpal bone, right hand, initial encounter for closed fracture] Onset: 02-28-2012 02-28-2012 Episodic Ghada-; endo-; and myocarditis; cardiomyopathy (except that caused by tuberculosis or sexually transmitted disease) (1 source) Acute myocarditis, unspecified; Translations: [Acute myocarditis, unspecified] Onset: 10-09-2024 Episodic Results Test Name Value Interpretation Reference Range Facility CNOVon 02-19-2025 CNOV Office Visit ([facility] ) FAMILIA [id number]) 1985 M Date Time Provider Department 02/19/25 10:45 AM ANIKA SANCHEZ [facility] During your visit today, we recorded the following information about you: Anika Sanchez APRN.YARD INSPECTOR 02/19/2025 10:46 AM Signed Called to triage patient. Presents with eye complaints Acute onset yesterday He walks in without the initial ability to open eyes He is walking arm in arm with his significant other He was able to open eyes, He can only read the E on the eye chart Discussed limitations of express care Referred to ED Allergies As of Date: 02/19/2025 (No Known Allergies) Date Reviewed: 06/23/2024 Reviewed by: Cris Farrell MA - Fully Assessed Primary Visit Diagnosis:Eye abnormalities [Q15.9] Prescriptions as of 02/19/2025 - albuterol HFA (PROVENTIL HFA, VENTOLIN HFA) 90 mcg/actuation inhaler Inhale 2 Puffs as instructed every 4 hours as needed for wheezing/shortness of breath. - Brompheniramine-Pseudoe ph-DM (BROMFED DM) 2-30-10 mg/5 mL syrup Take 10 mL by mouth four times a day as needed. Problem List As Of Date 02/19/2025 Noted Resolved Seizures [R56.9] 02/15/2012 Fracture of fifth metacarpal bone of right hand*02/28/2012 Current severe episode of major depressive diso*09/29/2017 Encounter Status:Closed by ANIKA SANCHEZ on 02/19/25 Normal [facility] Emergency Department Summary on 02-19-2025 Emergency Department Summary [facility] Medical Records Department [address] [place] [address] Emergency Department Summary 02/19/25 MR#: [id number] Acct: [id number] Name: FAMILIA PEREZ Rep #: [id number] : 1985 40 From: Lambert Isaacs DO PCP: Care Physician,No Primary Status:REG ER Location: ED HPI History of Present Illness Chief Complaint: Eye Problem PFSH [facility] Medical History Congestive heart failure Seizure disorder Skin cancer Tobacco use Seizures Migraines Arthritis Home Medications ???Medication ???Instructions ???Recorded ???Last Taken ???Type furosemide 20 mg tablet 20 mg PO DAILY PRN For weight gain 07/10/24 07/14/24 Rx of 2 pounds in 1 day or 3 pounds in 1 week #30 tabs carvedilol 12.5 mg tablet 12.5 mg PO BIDCM #180 tabs 4 Unknown Rx losartan 25 mg tablet 25 mg PO DINNER #90 tabs 09/10/24 Unknown Rx spironolactone 25 mg tablet 25 mg PO DAILY #90 tabs 09/10/24 U nknown Rx levofloxacin 750 mg tablet 750 mg PO DAILY 7 days #7 tabs Unknown Rx sertraline 25 mg tablet (Zoloft) 25 mg PO QDAY #30 tabs 11/12/24 Un known Rx Allergy/AdvReac Type Severity Reaction Status Date / Time No Known Allergies Allergy Verified 02/19/25 11:53 Family History Mother Heart disease Surgical History History of stent insertion of renal artery History of craniotomy Social History Smoking Status: Current every day smoker tobacco type: cigarettes and e-cigarettes alcohol intake: never substance use type: does not use caffeine: Yes EXAM Physical Exam Const Vital Signs: 02/19/25 10:49 Temperature 96.9 F L Temperature Source Temporal Pulse Rate 83 Respiratory Rate 14 Blood Pressure 132/102 H Blood Pressure Mean 112 Pulse Ox 98 Oxygen Delivery Method Room Air MDM MDM MDM Narrative Medical decision making narrative: HISTORY OF PRESENT ILLNESS: Chief complaint: Eye burning 40-year-old male history of myocarditis, CHF, hypothyroidism presents with bilateral eye burning and itching. Notes redness. This began yesterday states he was removing caulking from an old window. He notes he did not feel an object fly in his eye but he did note some itching and he rubbed his eye. Since then he has had increasing burning photophobia. That is started in his left eye and now is in his right eye. Does not wear contacts or glasses. 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 REVIEW OF SYSTEMS: Pertinent positives: Eye pain, photophobia Pertinent negatives: Decreased visual acuity PHYSICAL EXAM: Nursing triage notes reviewed, Vital signs reviewed Constitutional: please see [facility] HENT: MMM Eyes: Pupils equal round and reactive to light, Extraocular muscles intact, visual acuity 20/20 bilaterally, visual cowart intact bilaterally, offered fluorescein staining but patient refused. Neck: No stridor, no JVD, full neck ROM Skin: No rash or lesions noted MEDICAL DECISION MAKING: Chief Complaint: please see [facility] External records reviewed: Reviewed prior ED encounters Factors affecting care: As per [facility] Social determinants of health: none History obtained from others: none Consults: none [facility] Narrative: The patient was initially hemodynamically stable, afebrile and nontoxic-appearing. Exam without visual deficits, visual field cuts, no signs of dacryocystitis, chalazion, or delirium. Exam consistent with photokeratitis versus other inflammatory process. Will give symptomatic therapy in the form of NSAID drops. Will give ophthalmology follow-up. The patient and/or family, caregivers express understanding. The patient and/or family, caregivers agrees with the plan. Shared decision making: I will have a discussion with the patient and or visitors regarding risk/benefits of further testing or admission. They will be made aware of of the risk/benefits inherent in this decision they will be given the opportunity to voice understanding. Total critical care time today provided was at least 0 minutes. This excludes separately billable procedures. Critical care time (if documented) is secondary to the patient having high probability of clinically significant/life threatening deterioration in the patient's condition which required my urgent intervention. Impression: 1. Acute eye pain 2. Photophobia Dispo: Discharge home This note was generated with [employer] dictation software. It may contain incorrect words, spelling, and punctuation that were not noted i (more content not included)... Normal [facility] CNOVon 12-24-2024 CNOV Office Visit (UCWSTR ) FAMILIA PEREZ ([id number]) 1985 M Date Time Provider Department 12/24/24 9:15 AM EDU HINTON WSTR During your visit today, we recorded the following information about you: Edu Hinton MD 12/24/2024 9:18 AM Signed Express Care Triage Note: [facility] complaint of chest tightness and shortness of breath. It is making him feel dizzy, but says his heart medicine makes him feel dizzy too. He has no cough, fever, cold symptoms, or history of asthma. He does smoke. Patient is somewhat anxious, alert, ambulates by himself, and speaks in full sentences. 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 Allergies As of Date: 12/24/2024 (No Known Allergies) Date Reviewed: 06/23/2024 Reviewed by: Cris Farrell MA - Fully Assessed Primary Visit Diagnosis:SOB (shortness of breath) [R06.02] Other Visit Diagnoses:Chest tightness [R07.89] Dizziness [R42] Prescriptions as of 12/24/2024 - albuterol HFA (PROVENTIL HFA, VENTOLIN HFA) 90 mcg/actuation inhaler Inhale 2 Puffs as instructed every 4 hours as needed for wheezing/shortness of breath. - Brompheniramine-Pseudoe ph-DM (BROMFED DM) 2-30-10 mg/5 mL syrup Take 10 mL by mouth four times a day as needed. Problem List As Of Date 12/24/2024 Noted Resolved Seizures [R56.9] 02/15/2012 Fracture of fifth metacarpal bone of right hand*02/28/2012 Current severe episode of major depressive diso*09/29/2017 Encounter Status:Closed by EDU HINTON on 12/24/24 Normal [facility] Chest without Contraston Chest without Contrast [facility] Imaging Services [address] [place] [address] Chest without Contrast MR#: [id number] Acct: [id number] Name: FAMILIA PEREZ Rep #: [id number] : 1985 M 39 From: Maik morgan MD PCP: Care Physician,No Primary Status: REG ER Study: Chest without Contrast Date of Exam: 12/24/24 Exam# [id number] Ordering Dr: Luz Marinelli PROCEDURE: CHEST WITHOUT CONTRAST REASON FOR EXAM: FALL TECHNIQUE: Chest CT without contrast. COMPARISON: Chest radiograph 11/13/2019 FINDINGS: Hardware: None. Lymph nodes: No mediastinal hilar or axillary lymphadenopathy. Heart and Vasculature: Normal heart size. No pericardial effusion. Thoracic aorta and pulmonary arteries have normal contours; noncontrast technique limits evaluation. Coronary Artery Calcifications: Lungs and Airways: The lungs are normally expanded and clear. Pleura: No pleural effusion. No pneumothorax. Upper Abdomen: Visualized portions of the upper abdominal viscera are unremarkable. Bones: Bone windows are unremarkable. CT/Chest without Contrast IMPRESSION: No acute findings in the thorax. One or more dose reduction techniques were used (e.g., Automated exposure control, adjustment of the mA and/or kV according to patient size, use of iterative reconstruction technique). Reading [facility] CC: SRINIVASA Quevedo; No Primary Care Physician Production Inspector: Signed Normal [facility] Emergency Department Summary on 12-24-2024 Emergency Department Summary [facility] Medical Records Department [address] [place] [address] Emergency Department Summary 12/24/24 MR#: [id number] Acct: [id number] Name: FAMILIA PEREZ Rep #: [id number] : 1985 39 From: Kahlil Bowman MD PCP: Care Physician,No Primary Status:DEP ER Location: ED HPI HPI - Fall History of Present Illness Chief Complaint: Fall Narrative Narrative: 39-year-old male states he was about 6 to 8 feet up in the 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 No head injury or LOC. He complains of mid and left-sided back pain with taking a deep breath. [facility] Medical History Congestive heart failure Seizure disorder Skin cancer Tobacco use Seizures Migraines Arthritis Home Medications ???Medication ???Instructions ???Recorded ???Last Taken ???Type furosemide 20 mg tablet 20 mg PO DAILY PRN For weight gain 07/10/24 07/14/24 Rx of 2 pounds in 1 day or 3 pounds in 1 week #30 tabs carvedilol 12.5 mg tablet 12.5 mg PO BIDCM #180 tabs 4 Unknown Rx losartan 25 mg tablet 25 mg PO DINNER #90 tabs 09/10/24 Unknown Rx spironolactone 25 mg tablet 25 mg PO DAILY #90 tabs 09/10/24 U nknown Rx levofloxacin 750 mg tablet 750 mg PO DAILY 7 days #7 tabs Unknown Rx sertraline 25 mg tablet (Zoloft) 25 mg PO QDAY #30 tabs 11/12/24 Un known Rx Allergy/AdvReac Type Severity Reaction Status Date / Time No Known Allergies Allergy Verified 12/24/24 16:34 Family History Mother Heart disease Surgical History History of stent insertion of renal artery History of craniotomy Social History Smoking Status: Current every day smoker tobacco type: cigarettes and e-cigarettes alcohol intake: never substance use type: does not use caffeine: Yes ROS ROS ED ROS Narrative CVS: Negative for chest pain. Respiratory: Negative for shortness of breath. GI: Negative for abdominal pain, nausea, vomiting. Neuro: Negative for headache, motor/sensory dysfunction. EXAM Physical Exam Narrative Exam Narrative: CONST: Patient sitting in no acute distress. EYES: Normal inspection. NECK: Normal inspection. RESP: No respiratory distress, CTAB. No anterior chest wall tenderness. CVS: Regular rate and rhythm, no murmur, no gallop. ABD: Soft and nontender, no guarding or rebound, nondistended. Back: Normal inspection with no external signs of trauma. No cervical thoracic or lumbar midline tenderness or step-offs. Tender over left thoracic rib cage without deformity or crepitus. SKIN: Color normal, no rash, warm, dry, intact. EXTREMITIES: Normal appearance, full ROM upper and lower extremities, no bony tenderness, 2+ radial and PT pulses. NEURO: Alert and answering questions appropriately. PSYCH: Normal affect. Const Vital Signs: 12/24/24 16:34 12/24/24 17:26 12/24/24 17:54 Temperature 97.3 F L 97.3 F L Temperature Source Temporal Pulse Rate 90 90 Respiratory Rate 18 18 Respiratory Effort Normal Respiratory Depth Normal Respiratory Pattern Normal Blood Pressure 111/85 H 115/72 Blood Pressure Mean 93 86 Pulse Ox 98 99 Oxygen Delivery Method Room Air Room Air Physical Exam Const Vital Signs: 12/24/24 16:34 12/24/24 17:26 12/24/24 17:54 Temperature 97.3 F L 97.3 F L Temperature Source Temporal Pulse Rate 90 90 Respiratory Rate 18 18 Respiratory Effort Normal Respiratory Depth Normal Respiratory Pattern Normal Blood Pressure 111/85 H 115/72 Blood Pressure Mean 93 86 Pulse Ox 98 99 Oxygen Delivery Method Room Air Room Air MDM MDM MDM Narrative Medical decision making narrative: Differential includes but not limited to back contusion, rib fracture, pneumothorax 39-year-old male had a mechanical fall while cleaning gutters approximately 6 feet landing on his back yesterday. No head injury or LOC. He is ambulatory, hemodynamically stable, and has no external signs of trauma to his head neck or thorax. He is moving all extremities and neurovascular intact. Normal heart and lung sounds. Jalil over the left posterior lateral rib cage. I ordered a CT chest to evaluate and it is negative for traumatic findings. Patient declined pain medication. He will take [id number] analgesia as needed and was discharged in stable condition. Radiography Diagnostic Testing: Clinical Impression(s) from Imaging Studies Chest CT 12/24/24 16:44 IMPRESSION: No acute findings in the thorax. One or more dose reduction techniques were used (e.g., Autom (more content not included)... Normal [facility] 12 Lead EKGon 11-13-2024 12 Lead EKG [facility] Cardiovascular Services [address] [place] [address] 12 Lead EKG 11/13/24 0833 MR#: [id number] Acct: [id number] Name: FAMILIA PEREZ Rep #: [id number] : 1985 39 From: May Toure MD Attending Dr: Status: DEP ER Ordering Dr: Jordan Hill DO Date: 11/13/24 Location: ED Sex: M C Admitted: Test Reason : CP Blood Pressure : */* mmHG Vent. Rate : 73 BPM Atrial Rate : 73 BPM P-R Int : 158 ms QRS Dur : 86 ms QT Int : 392 ms P-R-T Axes : 46 -22 -57 degrees QTcB Int : 431 ms Normal sinus rhythm with sinus arrhythmia ST T wave abnormality, consider inferolateral ischemia Abnormal ECG Confirmed by KIARA MARTINEZ, DULCE ([id number]), image editor CAREY LOPEZ ([id number]) on 11/15/2024 6:35:35 AM Referred By: TB/AK Confirmed By: DULCE TOURE MD 11/15/24 0635 Date May Toure MD CC: Dr. Jordan Hill DO; No Primary Care Physician Signed Normal [facility] Absolute neutrophil countOrd ered By: Jordan Hill on 11-13-2024 Neutrophils (Bld) [#/Vol] 5.6 10*3/uL 2.0-7.7 [facility] BNP (brain natriuretic pepti de measurement)Ordered By: Jordan Hill on 11-13-2024 Natriuretic peptide B (Bld) [Mass/Vol] 168.7 pg/mL High 0-100 [facility] BNP,B-Type NATRIURETIC PEPTI Sirena 11-13-2024 Natriuretic peptide B (Bld) [Mass/Vol] 168.7 pg/mL High 0-100 [facility] Comment on above: Performed By: #### L 500.2500, L100.0100, L501.5425, L300.3900 #### [facility] [place], [address] Basic Metabolic Profile (BMP )on 11-13-2024 BUN/CRE 11.7 RATIO Normal 10-20 [facility] Comment on above: Order Comment: 1Y Performed By: #### L 500.2500, L100.0100, L501.5425, L300.3900 #### [facility] [address] [place], [address] CA,Total 9.5 mg/dL Normal 8.5-10.1 [facility] Comment on above: Order Comment: 1Y Performed By: #### L 500.2500, L100.0100, L501.5425, L300.3900 #### [facility] [address] [place], [address] Chloride [Moles/Vol] 108 mmol/L High 98-107 [facility] Comment on above: Order Comment: 1Y Performed By: #### L 500.2500, L100.0100, L501.5425, L300.3900 #### [facility] [address] [place], [address] CO2 [Moles/Vol] 26.0 mmol/L Normal 21.0-32.0 [facility] Comment on above: Order Comment: 1Y Performed By: #### L 500.2500, L100.0100, L501.5425, L300.3900 #### [facility] [address] [place], [address] Creatinine [Mass/Vol] 1.03 mg/dL Normal 0.70-1.30 [facility] Comment on above: Order Comment: 1Y Result Comment: The validity of the calculated GFR GFRAA in patients over 70 years has not been determined. Clinical correlation is essential. Performed By: #### L 500.2500, L100.0100, L501.5425, L300.3900 #### [facility] [address] [place], [address] ECRCL 94.38 ml/min Normal [facility] Comment on above: Order Comment: 1Y Performed By: #### L 500.2500, L100.0100, L501.5425, L300.3900 #### [facility] [address] [place], [address] EST GFR - AA 102 mL/min Normal >60 [facility] Comment on above: Order Comment: 1Y Result Comment: Afri can Anguillan GFR Calc Performed By: #### L 500.2500, L100.0100, L501.5425, L300.3900 #### [facility] [address] [place], [address] GAP 6 Normal 5-15 [facility] Comment on above: Order Comment: 1Y Performed By: #### L 500.2500, L100.0100, L501.5425, L300.3900 #### [facility] [address] [place], [address] GFR/1.73 sq M.predicted among non-blacks MDRD (S/P/Bld) [Vol rate/Area] 84 mL/min/{1.73_m2} Normal >60 [facility] Comment on above: Order Comment: 1Y Result Comment: Non- GFR Calc Performed By: #### L 500.2500, L100.0100, L501.5425, L300.3900 #### [facility] [address] [place], [address] Glucose [Mass/Vol] 108 mg/dL High 74-106 [facility] Comment on above: Order Comment: 1Y Result Comment: Fast ing Glucose result from 100 to 125 mg/dL suggests IMPAIRED HOMEOSTASIS per A.D.A. criteria. Performed By: #### L 500.2500, L100.0100, L501.5425, L300.3900 #### [facility] [address] [place], [address] Potassium [Moles/Vol] 3.7 mmol/L Normal 3.5-5.1 [facility] Comment on above: Order Comment: 1Y Performed By: #### L 500.2500, L100.0100, L501.5425, L300.3900 #### [facility] [address] [place], [address] Sodium [Moles/Vol] 140 mmol/L Normal 136-145 [facility] Comment on above: Order Comment: 1Y Performed By: #### L 500.2500, L100.0100, L501.5425, L300.3900 #### [facility] [address] [place], [address] Urea nitrogen [Mass/Vol] 12 mg/dL Normal 7-18 [facility] Comment on above: Order Comment: 1Y Performed By: #### L 500.2500, L100.0100, L501.5425, L300.3900 #### [facility] [address] [place], [address] Basophil percentageOrdered B y: Jordan Hill on 11-13-2024 Basophils/100 WBC (Bld) 0.9 % 0-1 [facility] Blood urea nitrogen (BUN)/cr eatinine ratioOrdered By: Jordan Hill on 11-13-2024 Urea nitrogen/Creatinine [Mass ratio] 11.7 mg/mg 10-20 [facility] CBC W/Diff, Automatedon 10-18 Absolute Lymph 1.92 X10 3/uL Normal 0.83-4.51 [facility] Comment on above: Performed By: #### L 500.2500, L100.0100, L501.5425, L300.3900 #### [facility] [address] [place], [address] Absolute Neut 5.6 X10 3/uL Normal 2.0-7.7 [facility] Comment on above: Performed By: #### L 500.2500, L100.0100, L501.5425, L300.3900 #### [facility] [address] [place], [address] Basophils/100 WBC (Bld) 0.9 % Normal 0-1 [facility] Comment on above: Performed By: #### L 500.2500, L100.0100, L501.5425, L300.3900 #### [facility] [address] [place], [address] Eosinophils/100 WBC (Bld) 1.4 % Normal 0-5 [facility] Comment on above: Performed By: #### L 500.2500, L100.0100, L501.5425, L300.3900 #### [facility] [address] [place], [address] Erythrocyte distribution width (RBC) [Ratio] 13.8 % Normal 11.6-14.6 [facility] Comment on above: Performed By: #### L 500.2500, L100.0100, L501.5425, L300.3900 #### [facility] [address] [place], [address] Hematocrit (Bld) [Volume fraction] 42.0 % Normal 40-54 [facility] Comment on above: Performed By: #### L 500.2500, L100.0100, L501.5425, L300.3900 #### [facility] [address] [place], [address] Hemoglobin (Bld) [Mass/Vol] 13.8 g/dL Normal 13.0-16.5 [facility] Comment on above: Performed By: #### L 500.2500, L100.0100, L501.5425, L300.3900 #### [facility] [address] [place], [address] IG% 0.400 Normal 0.0-0.9 [facility] Comment on above: Result Comment: IG% - Immature Granulocytes (promyelocytes, myelocytes and metamyelocytes) > 1% indicates that a LEFT SHIFT is Present. Performed By: #### L 500.2500, L100.0100, L501.5425, L300.3900 #### [facility] [address] [place], [address] Lymphocytes/100 WBC (Bld) 22.4 % Normal 19-41 [facility] Comment on above: Performed By: #### L 500.2500, L100.0100, L501.5425, L300.3900 #### [facility] [address] [place], [address] MCH (RBC) [Entitic mass] 30.7 pg Normal 27.0-32.0 [facility] Comment on above: Performed By: #### L 500.2500, L100.0100, L501.5425, L300.3900 #### [facility] [address] [place], [address] MCHC (RBC) [Mass/Vol] 32.9 g/dL Normal 32-36 [facility] Comment on above: Performed By: #### L 500.2500, L100.0100, L501.5425, L300.3900 #### [facility] [address] [place], [address] MCV (RBC) [Entitic vol] 93.3 fL Normal 80-94 [facility] Comment on above: Performed By: #### L 500.2500, L100.0100, L501.5425, L300.3900 #### [facility] [address] [place], [address] Monocytes/100 WBC (Bld) 9.1 % Normal 0-10 [facility] Comment on above: Performed By: #### L 500.2500, L100.0100, L501.5425, L300.3900 #### [facility] [address] [place], [address] Neutrophils/100 WBC (Bld) 65.8 % Normal 47-70 [facility] Comment on above: Performed By: #### L 500.2500, L100.0100, L501.5425, L300.3900 #### [facility] [address] [place], [address] Nucleated RBC (Bld) [#/Vol] 0 10*3/uL Normal 0-5 [facility] Comment on above: Performed By: #### L 500.2500, L100.0100, L501.5425, L300.3900 #### [facility] [address] [place], [address] Platelet mean volume (Bld) [Entitic vol] 8.9 fL Normal 6.2-12.0 [facility] Comment on above: Performed By: #### L 500.2500, L100.0100, L501.5425, L300.3900 #### [facility] [address] [place], [address] Platelets (Bld) [#/Vol] 334 10*3/uL Normal 150-450 [facility] Comment on above: Performed By: #### L 500.2500, L100.0100, L501.5425, L300.3900 #### [facility] [address] [place], [address] RBC (Bld) [#/Vol] 4.50 10*6/uL Low 4.6-6.2 [facility] Comment on above: Performed By: #### L 500.2500, L100.0100, L501.5425, L300.3900 #### [facility] [address] [place], [address] RDW SD 47.7 fl High 35.1-43.9 [facility] Comment on above: Performed By: #### L 500.2500, L100.0100, L501.5425, L300.3900 #### [facility] [address] [place], [address] WBC (Bld) [#/Vol] 8.6 10*3/uL Normal 4.4-11.0 [facility] Comment on above: Performed By: #### L 500.2500, L100.0100, L501.5425, L300.3900 #### [facility] [address] [place], [address] Carbon dioxide measurementOr dered By: Jordan Hill on 11-13-2024 CO2 [Moles/Vol] 26.0 mmol/L 21.0-32.0 [facility] Chest PA and Lateralon 11-13 Chest PA and Lateral [facility] Imaging Services [address] [place] [address] Chest PA and Lateral MR#: [id number] Acct: [id number] Name: FAMILIA PEREZ Rep #: [id number] : 1985 M 39 From: Kari Norwood PCP: Care Physician,No Primary Status: [facility] ER Study: Chest PA and Lateral Date of Exam: 11/13/24 Exam# [id number] Ordering Dr: Jordan Hill DO PROCEDURE: CHEST PA AND LATERAL REASON FOR EXAM: Chest pain and dizziness TECHNIQUE: Single frontal image including the chest and abdomen. COMPARISON: Chest x-ray of 07/14/2024. RAD/Chest PA and Lateral IMPRESSION: Mild thoracic spine degenerative changes are noted. Lungs appear clear throughout. No pleural effusion or pneumothorax is seen. The cardiomediastinal silhouette is within the normal range. No evidence of acute cardiopulmonary disease. Reading Location: [address] CC: Dr. Jordan Hill DO; No Primary Care Physician Production Inspector: Signed Normal [facility] Chloride measurementOrdered By: Jordan Hill on 11-13-2024 Chloride [Moles/Vol] 108 mmol/L High 98-107 [facility] Emergency Department Summary on 11-13-2024 Emergency Department Summary [facility] Medical Records Department [address] [place] [address] Emergency Department Summary 11/13/24 MR#: [id number] Acct: [id number] Name: FAMILIA PEREZ Rep #: [id number] : 1985 39 From: Jordan Hill DO PCP: Care Physician,No Primary Status:DEP ER Location: ED HPI History of Present Illness Chief Complaint: Chest Pain Narrative Narrative: Patient is a 39-year-old male with a past medical history of seizures, tobacco use, congestive heart failure, migraines who presents to the emergency department with a chief complaint of chest pain. Patient states that he was at work when he noted he felt a pinch in his chest. 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 He states that he became lightheaded as well when his symptoms occurred. In the triage noted states that he was dizzy although after further clarification with the patient he states that he was lightheaded and not dizzy. Patient states that he has been feeling well outside of he feels like he is dealing with a sinus infection currently. Patient states that he is not any medications for this. [facility] Medical History Congestive heart failure Seizure disorder Skin cancer Tobacco use Seizures Migraines Arthritis Home Medications ???Medication ???Instructions ???Recorded ???Last Taken ???Type furosemide 20 mg tablet 20 mg PO DAILY PRN For weight gain 07/10/24 07/14/24 Rx of 2 pounds in 1 day or 3 pounds in 1 week #30 tabs carvedilol 12.5 mg tablet 12.5 mg PO BIDCM #180 tabs 09/10/24 Unknown Rx losartan 25 mg tablet 25 mg PO DINNER #90 tabs 09/10/24 Unknown Rx spironolactone 25 mg tablet 25 mg PO DAILY #90 tabs 09/10/24 Unknown Rx levofloxacin 750 mg tablet 750 mg PO DAILY 7 days #7 tabs 11/02/24 Unknown Rx sertraline 25 mg tablet (Zoloft) 25 mg PO QDAY #30 tabs 11/12/24 Unknown Rx Allergy/AdvReac Type Severity Reaction Status Date / Time No Known Allergies Allergy Verified 11/13/24 08:24 Family History Mother Heart disease Surgical History History of stent insertion of renal artery History of craniotomy Social History Smoking Status: Current every day smoker tobacco type: cigarettes and e-cigarettes alcohol intake: never substance use type: does not use caffeine: Yes ROS ROS ED ROS Narrative Constitutional: Denies any fevers, chills, headaches, lightness, dizziness Eyes: Denies change in vision double vision blurry vision Cardiovascular: Complaint chest pain as noted above but currently states that he feels back to his baseline has no complaints denies palpitations Respiratory: States that he has shortness of breath but states that this is not out of the ordinary for himself, denies coughing wheezing Abdomen: Denies nausea vomit diarrhea : Denies any urinary symptoms Neurological: Denies numbness, weakness, tingling Skin: Denies rashes or lesions EXAM Physical Exam Narrative Exam Narrative: General: Patient lying in bed rest comfortably did not appear to be acute distress Head: Atraumatic, normocephalic Eyes: PERRL bilaterally, EOMI bilaterally, no conjunctival injection noted Neck: Soft, supple, trachea midline Cardiovascular: Regular rate and rhythm no murmurs gallops rubs noted Respiratory: Clear to auscultation bilaterally no rales rhonchi or wheezes noted Abdomen: Soft, nondistended, nontender to palpation Extremities: +5/5 strength noted in the bilateral upper and lower extremities, radial pulses +2/4 in the bilateral extremities, no pedal edema on exam Neurological: Patient follow commands knew that he was at [facility] year is 2024 Skin: Warm, dry, intact no rashes or lesions noted Const Vital Signs: 11/13/24 08:22 11/13/24 08:47 11/13/24 08:47 Temperature 98.0 F Temperature Source Temporal Pulse Rate 74 Respiratory Rate 20 H Respiratory Effort Normal Non-Labored Respiratory Pattern Normal Blood Pressure 120/86 H Blood Pressure Mean 97 Pulse Ox 96 Oxygen Delivery Method Room Air Room Air 11/13/24 09:22 11/13/24 10:00 Temperature Temperature Source Pulse Rate 81 92 Respiratory Rate 18 18 Respiratory Effort Respiratory Pattern Blood Pressure 115/82 H 118/82 H Blood Pressure Mean 93 94 Pulse Ox 95 95 Oxygen Delivery Method Room Air Room Air MDM MDM MDM Narrative Medical decision making narrative: Patient is a 39-year-old male who presents to the emergency department chief complaint of chest pain. On the differential diagnose includes but not limited to (more content not included)... Normal [facility] Eosinophil percentageOrdered By: Jordan Hill on 11-13-2024 Eosinophils/100 WBC (Bld) 1.4 % 0-5 [facility] Erythrocyte distribution wid th ratioOrdered By: Jordan Hill on 11-13-2024 Erythrocyte distribution width (RBC) [Ratio] 13.8 % 11.6-14.6 [facility] Erythrocyte distribution wid th standard deviationOrdered By: Jordan Hill on 11-13-2024 Erythrocyte distribution width (RBC) [Entitic vol] 47.7 fL High 35.1-43.9 [facility] Estimated glomerular filtrat ion rate (GFR) AmericanOrdered By: Jordan Hill on 11-13-2024 Estimated GFR (MDRD) Amer 102 mL/min >60 [facility] Comment on above: GFR Calc Estimation of creatinine matthew aranceOrdered By: Jordan Hill on 11-13-2024 Estimated Creatinine Clearance Calc 94.38 ml/min [facility] Glomerular filtration rate ( GFR) estimationOrdered By: Jordan Hill on 11-13-2024 Estimated GFR (MDRD) Non-Af Amer 84 mL/min >60 [facility] Comment on above: Non- GFR Calc Glucose measurementOrdered B y: Jordan Hill on 11-13-2024 Glucose [Mass/Vol] 108 mg/dL High 74-106 [facility] Comment on above: Fasting Glucose resu lt from 100 to 125 mg/dL suggests IMPAIRED HOMEOSTASIS per A.D.A. criteria. Hematocrit Auto (Bld) [Volum e fraction]Ordered By: Jordan Hill on 11-13-2024 Hematocrit (Bld) [Volume fraction] 42.0 % 40-54 [facility] Hemoglobin measurementOrdere d By: Jordan Hill on 11-13-2024 Hemoglobin (Bld) [Mass/Vol] 13.8 g/dL 13.0-16.5 [facility] Immature granulocytes/100 WB C Auto (Bld)Ordered By: Jordan Hill on 11-13-2024 Immature granulocytes/100 WBC (Bld) 0.400 % 0.0-0.9 [facility] Comment on above: IG% - Immature Granu locytes (promyelocytes, myelocytes and metamyelocytes) > 1% indicates that a LEFT SHIFT is Present. International normalized rat io (INR) calculationOrdered By: Jordan Hill on 11-13-2024 INR Coag (Bld) [Relative time] 0.9 {INR} [facility] L501.5425on 11-13-2024 TROPONIN-I HS 7 pg/mL Normal 3.0-78.0 [facility] Comment on above: Order Comment: 1Y Result Comment: Plea se Note: New Test Units and Gender Specific Reference Ranges. For more information see Policy Stat Procedure [facility] High Sensitivity Troponin (TNIH) and attachments. Performed By: #### L 500.2500, L100.0100, L501.5425, L300.3900 #### [facility] [address] [place], [place], [address] Lymphocytes Auto (Unsp spec) [#/Vol]Ordered By: Jordan Hill on 11-13-2024 Lymphocytes (Bld) [#/Vol] 1.92 10*3/uL 0.83-4.51 [facility] Lymphocytes/100 WBC Auto (Un sp spec)Ordered By: Jordan Hill on 11-13-2024 Lymphocytes/100 WBC (Bld) 22.4 % 19-41 [facility] MCV (mean corpuscular volume ) determinationOrdered By: Jordan Hill on 11-13-2024 MCV (RBC) [Entitic vol] 93.3 fL 80-94 [facility] Mean corpuscular hemoglobin (MCH) determinationOrdered By: Jordan Hill on 11-13-2024 MCH (RBC) [Entitic mass] 30.7 pg 27.0-32.0 [facility] Mean corpuscular hemoglobin concentration (MCHC) determinationOrdered By: Jordan Hill on 11-13-2024 MCHC (RBC) [Mass/Vol] 32.9 g/dL 32-36 [facility] Mean platelet volume determi nationOrdered By: Jordan Hill on 11-13-2024 Platelet mean volume (Bld) [Entitic vol] 8.9 fL 6.2-12.0 [facility] Monocyte percentageOrdered B y: Jordan Hill on 11-13-2024 Monocytes/100 WBC (Bld) 9.1 % 0-10 [facility] Neutrophil percentageOrdered By: Jordan Hill on 11-13-2024 Neutrophils/100 WBC (Bld) 65.8 % 47-70 [facility] Nucleated red blood cell per centageOrdered By: Jordan Hill on 11-13-2024 Nucleated RBC/100 WBC (Bld) [Ratio] 0 % 0-5 [facility] Partial Thromboplast Timeon 11-13-2024 aPTT Coag (Bld) [Time] 25.8 s Normal 24.1-36.2 [facility] Comment on above: Performed By: #### L 500.2500, L100.0100, L501.5425, L300.3900 #### [facility] [address] [place], [place], [id number] Platelet countOrdered By: Christ Hill on 11-13-2024 Platelets (Bld) [#/Vol] 334 10*3/uL 150-450 [facility] Potassium measurementOrdered By: Jordan Hill on 11-13-2024 Potassium [Moles/Vol] 3.7 mmol/L 3.5-5.1 [facility] Prothrombin Time w/INRon INR Coag (PPP) [Relative time] 0.9 {INR} Normal [facility] Comment on above: Performed By: #### L 500.2500, L100.0100, L501.5425, L300.3900 #### [facility] [address] [place], [place], [address] PT Coag (PPP) [Time] 12.8 s Normal 11.7-14.9 [facility] Comment on above: Performed By: #### L 500.2500, L100.0100, L501.5738, L300.3900 #### [facility] [address] [place], [place], [id number] Prothrombin timeOrdered By: Jordan Hill on 11-13-2024 PT Coag (PPP) [Time] 12.8 s 11.7-14.9 [facility] RBC Auto (Bld) [#/Vol]Ordere d By: Jordan Hill on 11-13-2024 RBC (Bld) [#/Vol] 4.50 10*6/uL Low 4.6-6.2 [facility] Serum anion gap measurementO rdered By: Jordan Hill on 11-13-2024 Anion gap [Moles/Vol] 6 mmol/L 5-15 [facility] Serum or plasma calcium lizett urement (mass/volume)Ordered By: Jordan Hill on 11-13-2024 Calcium [Mass/Vol] 9.5 mg/dL 8.5-10.1 [facility] Serum or plasma creatinine m easurement (mass/volume)Ordered By: Jordan Hill on 11-13-2024 Creatinine [Mass/Vol] 1.03 mg/dL 0.70-1.30 [facility] Comment on above: The validity of the calculated GFR & GFRAA in patients over 70 years has not been determined. Clinical correlation is essential. Serum or plasma urea nitroge n measurement (mass/volume)Ordered By: Jordan Hill on 11-13-2024 Urea nitrogen [Mass/Vol] 12 mg/dL 7-18 [facility] Sodium levelOrdered By: Griselda Hill on 11-13-2024 Sodium [Moles/Vol] 140 mmol/L 136-145 [facility] Tropinin I.cardiac panel Hig h sensitivity methodOrdered By: Jordan Hill on 11-13-2024 Troponin I High Sensitivity 7 pg/mL 3.0-78.0 [facility] Comment on above: Please Note: [place] t Units and Gender Specific Reference Ranges. For more information see Policy Stat Procedure [facility] High Sensitivity Troponin (TNIH) and attachments. White blood cell (WBC) count Ordered By: Jordan Hill on 11-13-2024 WBC (Bld) [#/Vol] 8.6 10*3/uL 4.4-11.0 [facility] aPTT Coag (PPP) [Time]Ordere d By: Jordan Hill on 11-13-2024 aPTT Coag (Bld) [Time] 25.8 s 24.1-36.2 [facility] Urine Cultureon 11-03-2024 [facility] Culture exhibits no growth. Normal [facility] Comment on above: Performed By: #### M 100.2200 ####[facility] [address] [facility]. [place], [place], [id number] Abdomen/Pelvis without Conto n 11-02-2024 Abdomen/Pelvis without Cont [facility] Services [address] [place], [place] [address] Abdomen/Pelvis without Cont MR#: [id number] Acct: [id number] Name: FAMILIA PEREZ Rep #: [id number] : 1985 M 39 From: Ede villanueva MD PCP: Care Physician,No Primary Status: REG ER Study: Abdomen/Pelvis without Cont Date of Exam: 10/17 05/10 Exam# [id number] Ordering Dr: Luz Marinelli [id number] STUDY: CT ABDOMEN AND PELVIS WITHOUT CONTRAST REASON FOR EXAM: Male, 39 years old. Right flank pain. History of kidney stones. RADIATION DOSAGE (If Supplied By Facility): CTDIvol = ( 6.22 ) mGy, DLP = ( 313.79 ) mGycm TECHNIQUE: Transaxial images were obtained from the dome of the diaphragm to the symphysis pubis without oral contrast, and without intravenous contrast. Sagittal and coronal images were reconstructed. Individualized dose optimization techniques were used for this CT. COMPARISON: Comparison is made with prior study dated December 05, 2023. FINDINGS: The visualized lung bases are unremarkable. The visualized portions of the heart are within normal limits. Normal liver. Normal gallbladder and extrahepatic biliary system. Normal spleen. Normal pancreas. Normal bilateral adrenal glands. Moderate degree right hydronephrosis and a right hydroureter due to a 4.4 mm calculus in the distal portion of the right ureter. Normal left kidney. Normal visualized stomach. Normal small intestine. There are scattered colonic diverticula consistent with diverticulosis. The appendix is visualized and appears normal. There is scattered atherosclerotic calcification of the abdominal aorta, without a demonstrated aneurysm. Normal inferior vena cava. Normal retroperitoneum. Normal urinary bladder. Central prostatic calcification. Normal abdominal wall. Normal osseous structures. CT/Abdomen/Pelvis without Cont IMPRESSION: 4.4 mm calculus in the distal portion of the right ureter causing right hydronephrosis and right hydroureter. Scattered sigmoid diverticula. Electronically Signed: Ede Horne MD at 15:35 EST , CC: SRINIVASA Quevedo; No Primary Care Physician Production Inspector: Signed Normal [facility] Absolute neutrophil countOrd ered By: Luz Marinelli on 11-02-2024 Neutrophils (Bld) [#/Vol] 13.1 10*3/uL High 2.0-7.7 [facility] Basic Metabolic Profile (BMP )on 11-02-2024 BUN/CRE 9.7 RATIO Low 10-20 [facility] Comment on above: Performed By: #### L 500.2500, L100.0100, L501.5025, L300.3900 #### [facility] [address] [place], [address] CA,Total 9.0 mg/dL Normal 8.5-10.1 [facility] Comment on above: Performed By: #### L 500.2500, L100.0100, L501.5425, L300.3900 #### [facility] [address] [place], [address] Chloride [Moles/Vol] 107 mmol/L Normal 98-107 [facility] Comment on above: Performed By: #### L 500.2500, L100.0100, L501.5425, L300.3900 #### [facility] [address] [place], [address] CO2 [Moles/Vol] 25.0 mmol/L Normal 21.0-32.0 [facility] Comment on above: Performed By: #### L 500.2500, L100.0100, L501.5425, L300.3900 #### [facility] [address] [place], [address] Creatinine [Mass/Vol] 1.24 mg/dL Normal 0.70-1.30 [facility] Comment on above: Result Comment: The validity of the calculated GFR GFRAA in patients over 70 years has not been determined. Clinical correlation is essential. Performed By: #### L 500.2500, L100.0100, L501.5425, L300.3900 #### [facility] [address] [place], [address] ECRCL 78.40 ml/min Normal [facility] Comment on above: Performed By: #### L 500.2500, L100.0100, L501.5425, L300.3900 #### [facility] [address] [place], [address] EST GFR - AA 82 mL/min Normal >60 [facility] Comment on above: Result Comment: Afri can Anguillan GFR Calc Performed By: #### L 500.2500, L100.0100, L501.5425, L300.3900 #### [facility] [address] [place], [address] GAP 7 Normal 5-15 [facility] Comment on above: Performed By: #### L 500.2500, L100.0100, L501.5425, L300.3900 #### [facility] [address] [place], [address] GFR/1.73 sq M.predicted among non-blacks MDRD (S/P/Bld) [Vol rate/Area] 68 mL/min/{1.73_m2} Normal >60 [facility] Comment on above: Result Comment: Non- GFR Calc Performed By: #### L 500.2500, L100.0100, L501.5425, L300.3900 #### [facility] [address] [place], [address] Glucose [Mass/Vol] 113 mg/dL High 74-106 [facility] Comment on above: Result Comment: Fast ing Glucose result from 100 to 125 mg/dL suggests IMPAIRED HOMEOSTASIS per A.D.A. criteria. Performed By: #### L 500.2500, L100.0100, L501.5425, L300.3900 #### [facility] [address] [place], [address] Potassium [Moles/Vol] 3.8 mmol/L Normal 3.5-5.1 [facility] Comment on above: Performed By: #### L 500.2500, L100.0100, L501.5425, L300.3900 #### [facility] [address] [place], [address] Sodium [Moles/Vol] 138 mmol/L Normal 136-145 [facility] Comment on above: Performed By: #### L 500.2500, L100.0100, L501.5425, L300.3900 #### [facility] [address] [place], [address] Urea nitrogen [Mass/Vol] 12 mg/dL Normal 7-18 [facility] Comment on above: Performed By: #### L 500.2500, L100.0100, L501.5425, L300.3900 #### [facility] [address] [place], [address] Basophil percentageOrdered B y: Luz Bergeronsavageshant on 11-02-2024 Basophils/100 WBC (Bld) 0.5 % 0-1 [facility] Bilirubin Test strip Ql (U)O rdered By: Luz Bergeronvernon on 11-02-2024 Bilirubin Ql (U) Negative Negative [facility] Blood urea nitrogen (BUN)/cr eatinine ratioOrdered By: Luz Bergeronvernon on 11-02-2024 Urea nitrogen/Creatinine [Mass ratio] 9.7 mg/mg Low 10-20 [facility] CBC W/Diff, Automatedon 10-17 Absolute Lymph 2.94 X10 3/uL Normal 0.83-4.51 [facility] Comment on above: Performed By: #### L 500.2500, L100.0100, L501.5425, L300.3900 #### [facility] [address] [place], [address] Absolute Neut 13.1 X10 3/uL High 2.0-7.7 [facility] Comment on above: Performed By: #### L 500.2500, L100.0100, L501.5425, L300.3900 #### [facility] [address] [place], [address] Basophils/100 WBC (Bld) 0.5 % Normal 0-1 [facility] Comment on above: Performed By: #### L 500.2500, L100.0100, L501.5425, L300.3900 #### [facility] [address] [place], [address] Eosinophils/100 WBC (Bld) 0.8 % Normal 0-5 [facility] Comment on above: Performed By: #### L 500.2500, L100.0100, L501.5425, L300.3900 #### [facility] [address] [place], [address] Erythrocyte distribution width (RBC) [Ratio] 13.8 % Normal 11.6-14.6 [facility] Comment on above: Performed By: #### L 500.2500, L100.0100, L501.5425, L300.3900 #### [facility] [address] [place], [address] Hematocrit (Bld) [Volume fraction] 42.5 % Normal 40-54 [facility] Comment on above: Performed By: #### L 500.2500, L100.0100, L501.5425, L300.3900 #### [facility] [address] [place], [address] Hemoglobin (Bld) [Mass/Vol] 14.2 g/dL Normal 13.0-16.5 [facility] Comment on above: Performed By: #### L 500.2500, L100.0100, L501.5425, L300.3900 #### [facility] [address] [place], [address] IG% 0.500 Normal 0.0-0.9 [facility] Comment on above: Result Comment: IG% - Immature Granulocytes (promyelocytes, myelocytes and metamyelocytes) > 1% indicates that a LEFT SHIFT is Present. Performed By: #### L 500.2500, L100.0100, L501.5425, L300.3900 #### [facility] [address] [place], [address] Lymphocytes/100 WBC (Bld) 17.0 % Low 19-41 [facility] Comment on above: Performed By: #### L 500.2500, L100.0100, L501.5425, L300.3900 #### [facility] [address] [place], [address] MCH (RBC) [Entitic mass] 31.1 pg Normal 27.0-32.0 [facility] Comment on above: Performed By: #### L 500.2500, L100.0100, L501.5425, L300.3900 #### [facility] [address] [place], [address] MCHC (RBC) [Mass/Vol] 33.4 g/dL Normal 32-36 [facility] Comment on above: Performed By: #### L 500.2500, L100.0100, L501.5425, L300.3900 #### [facility] [address] [place], [address] MCV (RBC) [Entitic vol] 93.2 fL Normal 80-94 [facility] Comment on above: Performed By: #### L 500.2500, L100.0100, L501.5425, L300.3900 #### [facility] [address] [place], [address] Monocytes/100 WBC (Bld) 5.2 % Normal 0-10 [facility] Comment on above: Performed By: #### L 500.2500, L100.0100, L501.5425, L300.3900 #### [facility] [address] [place], [address] Neutrophils/100 WBC (Bld) 76.0 % High 47-70 [facility] Comment on above: Performed By: #### L 500.2500, L100.0100, L501.5425, L300.3900 #### [facility] [address] [place], [address] Nucleated RBC (Bld) [#/Vol] 0 10*3/uL Normal 0-5 [facility] Comment on above: Performed By: #### L 500.2500, L100.0100, L501.5425, L300.3900 #### [facility] [address] [place], [address] Platelet mean volume (Bld) [Entitic vol] 8.6 fL Normal 6.2-12.0 [facility] Comment on above: Performed By: #### L 500.2500, L100.0100, L501.5425, L300.3900 #### [facility] [address] [place], [address] Platelets (Bld) [#/Vol] 345 10*3/uL Normal 150-450 [facility] Comment on above: Performed By: #### L 500.2500, L100.0100, L501.5425, L300.3900 #### [facility] [address] [place], [address] RBC (Bld) [#/Vol] 4.56 10*6/uL Low 4.6-6.2 [facility] Comment on above: Performed By: #### L 500.2500, L100.0100, L501.5425, L300.3900 #### [facility] [address] [place], [address] RDW SD 47.4 fl High 35.1-43.9 [facility] Comment on above: Performed By: #### L 500.2500, L100.0100, L501.5425, L300.3900 #### [facility] [address] [place], [address] WBC (Bld) [#/Vol] 17.3 10*3/uL High 4.4-11.0 [facility] Comment on above: Performed By: #### L 500.2500, L100.0100, L501.5425, L300.3900 #### [facility] [address] [place], [address] Carbon dioxide measurementOr dered By: Luz Marinelli on 11-02-2024 CO2 [Moles/Vol] 25.0 mmol/L 21.0-32.0 [facility] Chloride measurementOrdered By: Luz Marinelli on 11-02-2024 Chloride [Moles/Vol] 107 mmol/L 98-107 [facility] Emergency Department Summary on 11-02-2024 Emergency Department Summary [facility] Medical Records Department [address] [place] [address] Emergency Department Summary 11/02/24 MR#: [id number] Acct: [id number] Name: FAMILIA PEREZ Rep #: [id number] : 1985 39 From: Luz BERNABE PCP: Care Physician,No Primary Status:DEP ER Location: ED HPI History of Present Illness Chief Complaint: Flank Pain Narrative Narrative: 39-year-old male with PMH of CHF, recurrent kidney stones presents with sudden onset right flank pain and nausea and vomiting that started 2 hours ago. Feels like a kidney stone. She states he has not urinated over the last 2 hours but prior to that had no issues. He had a stent placed due to a kidney stone including clinic in the past. [facility] Medical History Congestive heart failure Seizure disorder Skin cancer Tobacco use Seizures Migraines Arthritis Home Medications ???Medication ???Instructions ???Recorded ???Last Taken ???Type furosemide 20 mg tablet 20 mg PO DAILY PRN For weight gain 07/10/24 07/14/24 Rx of 2 pounds in 1 day or 3 pounds in 1 week #30 tabs carvedilol 12.5 mg tablet 12.5 mg PO BIDCM #180 tabs 09/10/24 Unknown Rx losartan 25 mg tablet 25 mg PO DINNER #90 tabs 09/10/24 Unknown Rx spironolactone 25 mg tablet 25 mg PO DAILY #90 tabs 09/10/24 Unknown Rx sertraline 25 mg tablet (Zoloft) 25 mg PO QDAY #30 tabs 09/27/24 Unknown Rx levofloxacin 750 mg tablet 750 mg PO DAILY 7 days #7 tabs 11/02/24 Unknown Rx Allergy/AdvReac Type Severity Reaction Status Date / Time No Known Allergies Allergy Verified 11/02/24 14:32 Family History Mother Heart disease Surgical History History of stent insertion of renal artery History of craniotomy Social History Smoking Status: Light Smoker (<10/day) alcohol intake: never substance use type: does not use caffeine: Yes ROS ROS ED ROS Narrative Constitutional: Negative for fever, chills, malaise. CVS: Negative for chest pain. Respiratory: Negative for shortness of breath. GI: Negative for abdominal pain. Positive for nausea, vomiting. : Negative for dysuria, hematuria or frequency. EXAM Physical Exam Narrative Exam Narrative: CONST: Patient lying in bed appears in pain. EYES: Normal inspection. NECK: Normal inspection. RESP: No respiratory distress, CTAB. CVS: Regular rate and rhythm, no murmur, no gallop. ABD: Soft and nontender, no guarding or rebound, nondistended. Back: Normal inspection, right CVA tenderness. SKIN: Color normal, no rash, warm, dry, intact. EXTREMITIES: Normal appearance, no pedal edema. NEURO: Alert and answering questions appropriately. PSYCH: Normal affect. Const Vital Signs: 11/02/24 14:31 Temperature 98 F Temperature Source Temporal Pulse Rate 117 H Respiratory Rate 16 Blood Pressure 140/102 H Blood Pressure Mean 114 Pulse Ox 98 Oxygen Delivery Method Room Air Physical Exam Const Vital Signs: 11/02/24 14:31 Temperature 98 F Temperature Source Temporal Pulse Rate 117 H Respiratory Rate 16 Blood Pressure 140/102 H Blood Pressure Mean 114 Pulse Ox 98 Oxygen Delivery Method Room Air MDM MDM MDM Narrative Medical decision making narrative: 39-year-old male with history of recurrent kidney stones presents with acute onset nausea and vomiting and right flank pain. He appears uncomfortable but nontoxic. BP is 140/102, HR 117, otherwise normal vital signs. Exam only notable for right CVA tenderness. Labs show white count of 17.3, normal chemistry and renal function. CT scan shows 4.4 mm stone in the right distal ureter causing right hydronephrosis. I went to reevaluate the patient and asked for his urine sample because I was concerned about his white count and potential for infection. He was standing up and had his street close on and states he was leaving because he received a call that no one had picked up his daughter from school. He had left a urine sample on the counter but it was not run yet. I verbally discussed the risks including potential kidney infection/complicated UTI that would require IV antibiotics and admission but he states he must leave right now to get his daughter. I asked him to return afterwards and he states he will. After he left his urinalysis returned with 100 leukocyte esterase and 5-10 WBC but is nitrite and bacteria negative and was cultured. I am concerned with his high white count and urinary tract infection that he required admission to the hospital for IV antibiotics. I attempted to contact the patient. He has no phone number listed in his file. Registration doni (more content not included)... Normal [facility] Eosinophil percentageOrdered By: Luz Marinelli on 11-02-2024 Eosinophils/100 WBC (Bld) 0.8 % 0-5 [facility] Epithelial cells.squamous LM Ql (Urine sed)Ordered By: Luz Marinelli on 11-02-2024 Epithelial cells.squamous LM.HPF (Urine sed) [#/Area] 0 /[HPF] 0-5 [facility] Erythrocyte distribution wid th ratioOrdered By: Luz Marinelli on 11-02-2024 Erythrocyte distribution width (RBC) [Ratio] 13.8 % 11.6-14.6 [facility] Erythrocyte distribution wid th standard deviationOrdered By: Luz Marinelli on 11-02-2024 Erythrocyte distribution width (RBC) [Entitic vol] 47.4 fL High 35.1-43.9 [facility] Estimated glomerular filtrat ion rate (GFR) AmericanOrdered By: Luz Marinelli on 11-02-2024 Estimated GFR (MDRD) Amer 82 mL/min >60 [facility] Comment on above: GFR Calc Estimation of creatinine matthew aranceOrdered By: Luz Marinelli on 11-02-2024 Estimated Creatinine Clearance Calc 78.40 ml/min [facility] Glomerular filtration rate ( GFR) estimationOrdered By: Luz Marinelli on 11-02-2024 Estimated GFR (MDRD) Non-Af Amer 68 mL/min >60 [facility] Comment on above: Non- GFR Calc Glucose Ql (U)Ordered By: Bre Marinelli on 11-02-2024 Urine Glucose (UA) Normal mg/dl Normal [facility] Glucose measurementOrdered B y: Luz Yves on 11-02-2024 Glucose [Mass/Vol] 113 mg/dL High 74-106 [facility] Comment on above: Fasting Glucose resu lt from 100 to 125 mg/dL suggests IMPAIRED HOMEOSTASIS per A.D.A. criteria. Hematocrit Auto (Bld) [Volum e fraction]Ordered By: Luz Marinelli on 11-02-2024 Hematocrit (Bld) [Volume fraction] 42.5 % 40-54 [facility] Hemoglobin measurementOrdere d By: Luz Marinelli on 11-02-2024 Hemoglobin (Bld) [Mass/Vol] 14.2 g/dL 13.0-16.5 [facility] Immature granulocytes/100 WB C Auto (Bld)Ordered By: Luz Marinelli on 11-02-2024 Immature granulocytes/100 WBC (Bld) 0.500 % 0.0-0.9 [facility] Comment on above: IG% - Immature Granu locytes (promyelocytes, myelocytes and metamyelocytes) > 1% indicates that a LEFT SHIFT is Present. Ketones Test strip Ql (U)Ord ered By: Luz Marinelli on 11-02-2024 Ketones Ql (U) Negative Negative [facility] Lymphocytes Auto (Unsp spec) [#/Vol]Ordered By: Luz Marinelli on 11-02-2024 Lymphocytes (Bld) [#/Vol] 2.94 10*3/uL 0.83-4.51 [facility] Lymphocytes/100 WBC Auto (Un sp spec)Ordered By: Luz Marinelli on 11-02-2024 Lymphocytes/100 WBC (Bld) 17.0 % Low 19-41 [facility] MCV (mean corpuscular volume ) determinationOrdered By: Luz Marinelli on 11-02-2024 MCV (RBC) [Entitic vol] 93.2 fL 80-94 [facility] Mean corpuscular hemoglobin (MCH) determinationOrdered By: Luz Marinelli on 11-02-2024 MCH (RBC) [Entitic mass] 31.1 pg 27.0-32.0 [facility] Mean corpuscular hemoglobin concentration (MCHC) determinationOrdered By: Luz Marinelli on 11-02-2024 MCHC (RBC) [Mass/Vol] 33.4 g/dL 32-36 [facility] Mean platelet volume determi nationOrdered By: Luz Marinelli on 11-02-2024 Platelet mean volume (Bld) [Entitic vol] 8.6 fL 6.2-12.0 [facility] Microscopic analysis of urin e for red blood cells (RBC)Ordered By: Luz Marinelli on 11-02-2024 Urine RBC 0-5 SEEN /hpf 0-5 [facility] Monocyte percentageOrdered B y: Luz Marinelli on 11-02-2024 Monocytes/100 WBC (Bld) 5.2 % 0-10 [facility] Mucus LM Ql (Urine sed)Order ed By: Luz Marinelli on 11-02-2024 Mucus Ql (Urine sed) 0 SEEN /hpf [facility] Neutrophil percentageOrdered By: Luz Marinelli on 11-02-2024 Neutrophils/100 WBC (Bld) 76.0 % High 47-70 [facility] Nitrite Test strip Ql (U)Ord ered By: Luz Marinelli on 11-02-2024 Nitrite Ql (U) Negative Negative [facility] Nucleated red blood cell per centageOrdered By: Luz Marinelli on 11-02-2024 Nucleated RBC/100 WBC (Bld) [Ratio] 0 % 0-5 [facility] Platelet countOrdered By: Bre Marinelli on 11-02-2024 Platelets (Bld) [#/Vol] 345 10*3/uL 150-450 [facility] Potassium measurementOrdered By: Luz Marinelli on 11-02-2024 Potassium [Moles/Vol] 3.8 mmol/L 3.5-5.1 [facility] Protein Test strip Ql (U)Ord ered By: Luz Marinelli on 11-02-2024 Protein Ql (U) 30 mg/dl High Negative [facility] RBC Auto (Bld) [#/Vol]Ordere d By: Luz Marinelli on 11-02-2024 RBC (Bld) [#/Vol] 4.56 10*6/uL Low 4.6-6.2 [facility] Serum anion gap measurementO rdered By: Luz Marinelli on 11-02-2024 Anion gap [Moles/Vol] 7 mmol/L 5-15 [facility] Serum or plasma calcium lizett urement (mass/volume)Ordered By: Luz Marinelli on 11-02-2024 Calcium [Mass/Vol] 9.0 mg/dL 8.5-10.1 [facility] Serum or plasma creatinine m easurement (mass/volume)Ordered By: Luz Marinelli on 11-02-2024 Creatinine [Mass/Vol] 1.24 mg/dL 0.70-1.30 [facility] Comment on above: The validity of the calculated GFR & GFRAA in patients over 70 years has not been determined. Clinical correlation is essential. Serum or plasma urea nitroge n measurement (mass/volume)Ordered By: Luz Marinelli on 11-02-2024 Urea nitrogen [Mass/Vol] 12 mg/dL 7-18 [facility] Sodium levelOrdered By: Luz Marinelli on 11-02-2024 Sodium [Moles/Vol] 138 mmol/L 136-145 [facility] Urinalysis, Completeon 11-02 RBC 0-5 SEEN Normal 0-5 [facility] Comment on above: Order Comment: MARLENY CTOR TO SPECIFY Performed By: #### L 500.2500, L100.0100, L501.5425, L300.3900 #### [facility] [address] [place], [address] WBC 5-10 SEEN Normal 0-5 [facility] Comment on above: Order Comment: MARLENY CTOR TO SPECIFY Performed By: #### L 500.2500, L100.0100, L501.5425, L300.3900 #### [facility] [address] [place], [address] BACTERIA 0 SEEN Normal None Seen [facility] Comment on above: Order Comment: MARLENY CTOR TO SPECIFY Performed By: #### L 500.2500, L100.0100, L501.5425, L300.3900 #### [facility] [address] [place], [address] EPI,SQUAMOUS 0 SEEN Normal 0-5 [facility] Comment on above: Order Comment: COLLE CTOR TO SPECIFY Performed By: #### L 500.2500, L100.0100, L501.5425, L300.3900 #### [facility] [address] [place], [address] Mucus Ql (Urine sed) 0 SEEN Normal [facility] Comment on above: Order Comment: COLLE CTOR TO SPECIFY Performed By: #### L 500.2500, L100.0100, L501.5425, L300.3900 #### [facility] [address] [place], [address] Urine blood detectionOrdered By: Luz Marinelli on 11-02-2024 Urine Occult Blood 250 /ul High Negative [facility] Urine clarityOrdered By: Cammy Marinelli on 11-02-2024 Clarity (U) Clear Clear [facility] Urine color determinationOrd ered By: Luz Marinelli on 11-02-2024 Color (U) Yellow Yellow [facility] Urine cultureOrdered By: Cammy Marinelli on 11-02-2024 Bacteria identified Cx Nom (U) Culture exhibits no growth. [facility] Urine leukocyte esterase det ection by dipstickOrdered By: Luz Marinelli on 11-02-2024 Leukocyte esterase Test strip Ql (U) 100 /ul High Negative [facility] Urine pHOrdered By: Luz junior on 11-02-2024 pH (U) 6.0 [pH] 5.0 - 8.0 [facility] Urine sediment bacteria coun t by microscopy (number/high power field)Ordered By: Luz Marinelli on 11-02-2024 Bacteria LM.HPF (Urine sed) [#/Area] 0 /[HPF] None Seen [facility] Urine specific gravity measu rementOrdered By: Luz Marinelli on 11-02-2024 Specific gravity (U) [Rel density] 1.015 1.002-1.030 [facility] Urobilinogen Ql (U)Ordered B y: Luz Mairnelli on 11-02-2024 Urine Urobilinogen Normal mg/dl Normal [facility] White blood cell (WBC) count Ordered By: Luz Marinelli on 11-02-2024 WBC (Bld) [#/Vol] 17.3 10*3/uL High 4.4-11.0 [facility] White blood cell countOrdere d By: Luz Marinelli on 11-02-2024 Urine WBC 5-10 SEEN /hpf 0-5 [facility] Cardiology Visit Reporton Cardiology Visit Report [facility] [address] [place] [address] OFFICE VISIT Date of Service: 09/27/24 MR#: [id number] Acct: [id number] Name: FAMILIA PEREZ Rep #: [id number] : 1985 Provider: CAYDEN coello Age/Sex: 39/M [place] [facility] Status: Signed HPI HPI History of Present Illness Details: The patient comes in today for cardiovascular follow-up visit for his decreased ejection fraction. The patient's a 39-year-old white male. Patient was readmitted July 09, 2024 for with a presentation consistent with a postviral myocarditis. An echocardiogram was performed which showed an ejection fraction estimated 15% with a mildly dilated left ventricle and severe global hypokinesis. The left atrium was moderately enlarged with 1+ mitral regurgitation. The patient was released and his symptoms completely resolved within approximately 24 hours. He was titrated on guideline directed medical therapy as blood pressure will tolerate and discharged to home. He represented in the emergency department July 14, 2020 for with what was diagnosed as a panic attack. Chest x-ray was read as normal at that time his blood work showed normal electrolytes BUN and creatinine were 16 and 1.29, troponins were negative x 2 sets and his BNP had gone down from 650 to 362. He acknowledges random left-sided chest discomfort. This occurs weekly and is brief. He describes this as pinching. He states intermittent palpitations that he describes as fast. He denies bilateral lower extremity edema. He denies claudication. He denies shortness of breath with activity, shortness of breath at rest, orthopnea, or PND. He denies chronic cough. He denies significant, sudden weight gain. He denies lightheadedness, dizziness, near-syncope, or syncope. He denies blood in urine, blood in stool, or epistaxis. He denies fever with chills. He denies myalgia. He acknowledges depression and fatigue. His exercise level has remained stable. Intake Vital Signs 08/21/24 15:31 09/27/24 16:17 Height 5 ft 9 in 5 ft 9 in Weight: 160 lb 162 lb BMI 23.6 23.9 BP 105/70 127/77 H Blood Pressure Location Lt brachial Lt brachial Position Sitting Sitting Respiration 18 16 Pulse 80 85 Pulse Source Monitor NIBP Pulse Oximetry (%) 96 Intake Visit Reasons: 1 M FU/ APPROVED Clerical Methods Analyst Required: No Is patient in pain?: No Allergies No Known Allergies Allergy (Verified 09/27/24 16:21) Medications ???Medication ???Instructions ???Recorded ???Confirmed ???Type furosemide 20 mg tablet 20 mg PO DAILY PRN For weight gain 07/10/24 09/27/24 Rx of 2 pounds in 1 day or 3 pounds in 1 week #30 tabs carvedilol 12.5 mg tablet 12.5 mg PO BIDCM #180 tabs 09/10/24 09/27/24 Rx losartan 25 mg tablet 25 mg PO DINNER #90 tabs 09/10/24 09/27/24 Rx spironolactone 25 mg tablet 25 mg PO DAILY #90 tabs 09/10/24 09/27/24 Rx sertraline 25 mg tablet (Zoloft) 25 mg PO QDAY #30 tabs 09/27/24 09/27/24 Rx Ejection fraction %: 15 Have you fallen in the past year?: No PFSH Medical History Congestive heart failure Seizure disorder Skin cancer Tobacco use Seizures Migraines Arthritis Surgical History History of stent insertion of renal artery History of craniotomy Family History Mother Heart disease Social History Smoking Status: Light Smoker (<10/day) alcohol intake: never substance use type: does not use caffeine: Yes ROS Const Const: Positive for fatigue; Negative for weakness Eyes Eyes: Negative for change in vision ENT ENT: Negative for dizziness or balance problems Cardio Chest Pain: Yes Frequency: weekly (couple times per week) Character: other (pinch) Onset: other (Randomly) Location: left chest Duration: brief Palpitations: Yes (Occurs daily) feels like its: fast Edema: None Muscle aches with walking: None Resp Respiratory: Negative for SOB with activity, SOB at rest or SOB orthopnea SOB lying down GI GI: Negative nausea or heartburn : Negative for hematuria or frequent nighttime urination/ nocturia Musc Musc: Negative for balance problems Skin Skin: Negative non-healing lesions or rash Neuro Neuro: Negative for dizziness, lightheadedness, near syncope, syncope or weakness Endo Endo: Positive for fatigue Allergy Allergy/Immunology: Negative for rash Cardiology Exam Const Appearance: cooperative, healthy appearing, comfortable and no acute distress Nutritional Appearance: average body habitus and well nourished Orientation: alert, awake and oriented x3 Head Head: normal to inspection Ears: hearing evelina (more content not included)... Normal [facility] 12 Lead EKG performed by [facility] on 08-21-2024 12 Lead EKG performed by [facility] [address] [place] [address] 12 Lead EKG performed by [facility] 08/21/24 1546 MR#: [id number] Acct: [id number] Name: FAMILIA PEREZ Rep #: [id number] : 1985 39 From: Adelaida Eden NP INTERNAL GRINDER-C Attending Dr: VANNESSA CoronaC Status: DEP A KIP Ordering Dr: Adelaida Eden NP INTERNAL [employer]ER-C Date: 08/21/24 Location: [facility] [place] Sex: M C Admitted: [facility]/ Lead EKG performed by [facility] ECG Report Interpretation ---Sinus Rhythm -Left axis. - T-abnormality - Anterolateral ischemia. ABNORMAL Electronically signed on 08/30/2024 at 08:04 by Ramsey [place] Software Version [id number] 08/30/2409 Date Adelaida Eden NP INTERNAL GR[employer]ER-C CC: No Primary Care Physician Date Dictated: 08/21/241545 Date Transcribed: 08/21/241545 Production Inspector: CYRUS Signed Normal [facility] BNP,B-Type NATRIURETIC PEPTI Sirena 08-21-2024 Natriuretic peptide B (Bld) [Mass/Vol] 151.7 pg/mL High 0-100 [facility] Comment on above: Performed By: #### L 500.2500, L100.0100, L501.5425, L300.3900 #### [facility] [address] [place], [address] Basic Metabolic Profile (BMP )on 08-21-2024 BUN/CRE 13.9 RATIO Normal 10-20 [facility] Comment on above: Performed By: #### L 500.2500, L100.0100, L501.5425, L300.3900 #### [facility] [address] [place], [address] CA,Total 9.6 mg/dL Normal 8.5-10.1 [facility] Comment on above: Performed By: #### L 500.2500, L100.0100, L501.5425, L300.3900 #### [facility] [address] [place], [address] Chloride [Moles/Vol] 106 mmol/L Normal 98-107 [facility] Comment on above: Performed By: #### L 500.2500, L100.0100, L501.5425, L300.3900 #### [facility] [address] [place], [address] CO2 [Moles/Vol] 26.0 mmol/L Normal 21.0-32.0 [facility] Comment on above: Performed By: #### L 500.2500, L100.0100, L501.5425, L300.3900 #### [facility] [address] [place], [address] Creatinine [Mass/Vol] 1.15 mg/dL Normal 0.70-1.30 [facility] Comment on above: Result Comment: The validity of the calculated GFR GFRAA in patients over 70 years has not been determined. Clinical correlation is essential. Performed By: #### L 500.2500, L100.0100, L501.5425, L300.3900 #### [facility] [address] [place], [address] EST GFR - AA 90 mL/min Normal >60 [facility] Comment on above: Result Comment: Afri can Anguillan GFR Calc Performed By: #### L 500.2500, L100.0100, L501.5425, L300.3900 #### [facility] [address] [place], [address] GAP 5 Normal 5-15 [facility] Comment on above: Performed By: #### L 500.2500, L100.0100, L501.5425, L300.3900 #### [facility] [address] [place], [address] GFR/1.73 sq M.predicted among non-blacks MDRD (S/P/Bld) [Vol rate/Area] 74 mL/min/{1.73_m2} Normal >60 [facility] Comment on above: Result Comment: Non- GFR Calc Performed By: #### L 500.2500, L100.0100, L501.5425, L300.3900 #### [facility] [address] [place], [address] Glucose [Mass/Vol] 85 mg/dL Normal 74-106 [facility] Comment on above: Performed By: #### L 500.2500, L100.0100, L501.5425, L300.3900 #### [facility] [address] [place], [address] Potassium [Moles/Vol] 4.2 mmol/L Normal 3.5-5.1 [facility] Comment on above: Performed By: #### L 500.2500, L100.0100, L501.5425, L300.3900 #### [facility] [address] [place], [address] Sodium [Moles/Vol] 137 mmol/L Normal 136-145 [facility] Comment on above: Performed By: #### L 500.2500, L100.0100, L501.5425, L300.3900 #### [facility] [address] [place], [address] Urea nitrogen [Mass/Vol] 16 mg/dL Normal 7-18 [facility] Comment on above: Performed By: #### L 500.2500, L100.0100, L501.5425, L300.3900 #### [facility] [address] [place], [address] CBC W/Diff, Automatedon 11-0 5-2023 Absolute Lymph 3.98 X10 3/uL Normal 0.83-4.51 [facility] Comment on above: Performed By: #### L 500.2500, L100.0100, L501.5425, L300.3900 #### [facility] [address] [place], [address] Absolute Neut 5.0 X10 3/uL Normal 2.0-7.7 [facility] Comment on above: Performed By: #### L 500.2500, L100.0100, L501.5425, L300.3900 #### [facility] [address] [place], [address] Basophils/100 WBC (Bld) 0.6 % Normal 0-1 [facility] Comment on above: Performed By: #### L 500.2500, L100.0100, L501.5425, L300.3900 #### [facility] [address] [place], [address] Eosinophils/100 WBC (Bld) 1.4 % Normal 0-5 [facility] Comment on above: Performed By: #### L 500.2500, L100.0100, L501.5425, L300.3900 #### [facility] [address] [place], [address] Erythrocyte distribution width (RBC) [Ratio] 13.1 % Normal 11.6-14.6 [facility] Comment on above: Performed By: #### L 500.2500, L100.0100, L501.5425, L300.3900 #### [facility] [address] [place], [address] Hematocrit (Bld) [Volume fraction] 44.2 % Normal 40-54 [facility] Comment on above: Performed By: #### L 500.2500, L100.0100, L501.5425, L300.3900 #### [facility] [address] [place], [address] Hemoglobin (Bld) [Mass/Vol] 14.8 g/dL Normal 13.0-16.5 [facility] Comment on above: Performed By: #### L 500.2500, L100.0100, L501.5425, L300.3900 #### [facility] [address] [place], [address] IG% 0.300 Normal 0.0-0.9 [facility] Comment on above: Result Comment: IG% - Immature Granulocytes (promyelocytes, myelocytes and metamyelocytes) > 1% indicates that a LEFT SHIFT is Present. Performed By: #### L 500.2500, L100.0100, L501.5425, L300.3900 #### [facility] [address] [place], [address] Lymphocytes/100 WBC (Bld) 39.9 % Normal 19-41 [facility] Comment on above: Performed By: #### L 500.2500, L100.0100, L501.5425, L300.3900 #### [facility] [address] [place], [address] MCH (RBC) [Entitic mass] 30.6 pg Normal 27.0-32.0 [facility] Comment on above: Performed By: #### L 500.2500, L100.0100, L501.5425, L300.3900 #### [facility] [address] [place], [address] MCHC (RBC) [Mass/Vol] 33.5 g/dL Normal 32-36 [facility] Comment on above: Performed By: #### L 500.2500, L100.0100, L501.5425, L300.3900 #### [facility] [address] [place], [address] MCV (RBC) [Entitic vol] 91.3 fL Normal 80-94 [facility] Comment on above: Performed By: #### L 500.2500, L100.0100, L501.5425, L300.3900 #### [facility] [address] [place], [address] Monocytes/100 WBC (Bld) 7.2 % Normal 0-10 [facility] Comment on above: Performed By: #### L 500.2500, L100.0100, L501.5425, L300.3900 #### [facility] [address] [place], [address] Neutrophils/100 WBC (Bld) 50.6 % Normal 47-70 [facility] Comment on above: Performed By: #### L 500.2500, L100.0100, L501.5425, L300.3900 #### [facility] [address] [place], [address] Nucleated RBC (Bld) [#/Vol] 0 10*3/uL Normal 0-5 [facility] Comment on above: Performed By: #### L 500.2500, L100.0100, L501.5425, L300.3900 #### [facility] [address] [place], [address] Platelet mean volume (Bld) [Entitic vol] 9.0 fL Normal 6.2-12.0 [facility] Comment on above: Performed By: #### L 500.2500, L100.0100, L501.5425, L300.3900 #### [facility] [address] [place], [address] Platelets (Bld) [#/Vol] 361 10*3/uL Normal 150-450 [facility] Comment on above: Performed By: #### L 500.2500, L100.0100, L501.5425, L300.3900 #### [facility] [address] [place], [address] RBC (Bld) [#/Vol] 4.84 10*6/uL Normal 4.6-6.2 [facility] Comment on above: Performed By: #### L 500.2500, L100.0100, L501.5425, L300.3900 #### [facility] [address] [place], [address] RDW SD 43.8 fl Normal 35.1-43.9 [facility] Comment on above: Performed By: #### L 500.2500, L100.0100, L501.5425, L300.3900 #### [facility] [address] [place], [address] WBC (Bld) [#/Vol] 10.0 10*3/uL Normal 4.4-11.0 [facility] Comment on above: Performed By: #### L 500.2500, L100.0100, L501.5425, L300.3900 #### [facility] [address] [place], [address] Cardiology Visit Reporton Cardiology Visit Report [facility] [address] [place] [address] OFFICE VISIT Date of Service: 08/21/24 MR#: [id number] Acct: [id number] Name: FAMILIA PEREZ Rep #: [id number] : 1985 Provider: CAYDEN morataya Age/Sex: 39/M Location: [facility] [place] Status: Signed HPI HPI History of Present Illness Details: The patient comes in today for cardiovascular follow-up visit for his decreased ejection fraction. The patient's a 39-year-old white male this accompanied by his new bride. Patient was readmitted July 09, 2024 for with a presentation consistent with a postviral myocarditis. An echocardiogram was performed which showed an ejection fraction estimated 15 6% with a mildly dilated left ventricle and severe global hypokinesis. The left atrium was moderately enlarged with 1+ mitral regurgitation. The patient was released and his symptoms completely resolved within approximately 24 hours. He was titrated on guideline directed medical therapy as blood pressure will tolerate and discharged to home. He represented in the emergency department July 14, 2020 for with what was diagnosed as a panic attack. Chest x-ray was read as normal at that time his blood work showed normal electrolytes BUN and creatinine were 16 and 1.29, troponins were negative x 2 sets and his BNP had gone down from 650 to 362. He states he has recently lost his job due to not feeling well, and missing work. From a cardiac standpoint, the patient is doing well. He denies any palpitations. He does acknowledge occasional chest pain. He describes this as a pinching sensation. This will last for a few seconds. He does acknowledge occasional SOB with exertion and at rest. He does acknowledge orthopnea. He denies PND. He does not have bleeding issues; no blood in urine, stool or nosebleeds. He does acknowledge a decrease in energy level. He does acknowledge myalgias. He denies claudication. He does not have edema. He states that he has been gaining weight. He does acknowledge dizziness daily. He denies lightheadedness, syncopal or near syncopal episodes, and headaches. He states he has monitored his blood pressures at home a few times- 129/87-132/86. Intake Vital Signs 07/26/24 15:29 08/21/24 15:31 Height 5 ft 9 in 5 ft 9 in Weight: 160 lb BMI 23.6 BP 105/70 Blood Pressure Location Lt brachial Position Sitting Respiration 18 Pulse 80 Pulse Source Monitor Pulse Oximetry (%) 96 Intake Visit Reasons: 1 M FU Clerical Methods Analyst Required: No Is patient in pain?: No Allergies No Known Allergies Allergy (Verified 08/21/24 15:43) Medications ???Medication ???Instructions ???Recorded ???Confirmed ???Type furosemide 20 mg tablet 20 mg PO DAILY PRN For weight gain 07/10/24 08/21/24 Rx of 2 pounds in 1 day or 3 pounds in 1 week #30 tabs carvedilol 12.5 mg tablet 12.5 mg PO BIDCM #60 tabs 07/26/24 08/21/24 Rx losartan 25 mg tablet 25 mg PO DINNER #90 tabs 08/10/24 08/21/24 Rx spironolactone 25 mg tablet 25 mg PO DAILY #90 tabs 08/10/24 08/21/24 Rx PFSH Medical History (Updated 08/21/24 @ 16:11 by Adelaida Eden NP, INTERNAL GRINDER-C) History of stent insertion of renal artery Congestive heart failure Seizure disorder Skin cancer Tobacco use Seizures Migraines Arthritis Surgical History History of craniotomy Family History Mother Heart disease Social History Smoking Status: Light Smoker (<10/day) alcohol intake: never substance use type: does not use caffeine: Yes ROS Const Const: Positive for fatigue; Negative for weakness, fever(s), headache(s), chills, frequent falls, weight gain or weight loss Eyes Eyes: Negative for blind spots, loss of peripheral vision, transient loss of vision, blurry vision, change in vision, double vision, floaters or tunnel vision ENT ENT: Positive for dizziness; Negative for headache(s), Nosebleed/epistaxis, balance problems or neck pain Cardio Chest Pain: Yes Frequency: other Character: other (Pinching sensation) Location: mid sternal and left chest Duration: brief Palpitations: No Edema: None Muscle aches with walking: None Resp Respiratory: Positive for SOB with activity and SOB at rest; Negative for SOB orthopnea SOB lying down GI GI: Negative nausea, vomiting, heartburn, bloating, vomiting blood/hematemesis, bright, red blood in stools or black,tarry stools Musc Musc: Negative for muscle aches/ myalgia, muscle weakness, joint pain or balance problems Neuro Neuro: Positive for dizziness; Negative for lightheadedness, near syncope, syncope, orthostatic symptoms, frequent falls, headache(s), wea (more content not included)... Normal [facility] Thyroid Stim Hormone (TSH)on 08-21-2024 TSH 0.867 uIU/mL Normal 0.358-3.740 [facility] Comment on above: Performed By: #### L 500.2500, L100.0100, L501.5425, L300.3900 #### [facility] [address] [place], [address] Cardiology Visit Reporton Cardiology Visit Report [facility] [address] [place] [address] OFFICE VISIT Date of Service: 07/26/24 MR#: [id number] Acct: [id number] Name: FAMILIA PEREZ Rep #: [id number] : 1985 Provider: Dr. Denis mi MD Age/Sex: 39/M Location: [facility] [place] Status: Signed HPI HPI History of Present Illness Details: The patient comes in today for follow-up following hospital discharge for acute onset of heart failure. The patient's a 39-year-old white male this accompanied by his new bride. Patient was readmitted July 09, 2020 for with a presentation consistent with a postviral myocarditis. An echocardiogram was performed which showed an ejection fraction estimated 15 6% with a mildly dilated left ventricle and severe global hypokinesis. The left atrium was moderately enlarged with 1+ mitral regurgitation. The patient was released and his symptoms completely resolved within approximately 24 hours. He was titrated on guideline directed medical therapy as blood pressure will tolerate and discharged to home. He represented in the emergency department July 14, 2020 for with what was diagnosed as a panic attack. Chest x-ray was read as normal at that time his blood work showed normal electrolytes BUN and creatinine were 16 and 1.29, troponins were negative x 2 sets and his BNP had gone down from 650 to 362. 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 He reports that he seems that his exercise tolerance is slowly getting better he does have some nonspecific complaints of some occasional bilateral arm numbness, he has some watery stools episodically, he initially when he started the medications had anorexia which is now resolving and his appetite is much better, his weight is been stable in his home environment he is occasionally using Lasix as directed when he gains 3 pounds in 1 day. The patient denies any lower extremity edema. He did report that he occasionally gets some visual flashes but only at night reminds him of what had previously started some seizures he had back when he was a child. Has not had any seizures. The patient did bring in some vital signs that show routinely his heart rate runs in the 100 bpm range in his home environment blood pressures have been well-controlled and 110???120 systolic range. Intake Vital Signs 07/14/24 15:36 07/26/24 15:27 07/26/24 15:29 Height 5 ft 9 in 5 ft 9 in 5 ft 9 in Weight: 157 lb BMI 23.1 BP 113/77 Blood Pressure Location Lt brachial Position Sitting Respiration 16 Pulse 90 Pulse Source Monitor Pulse Oximetry (%) 96 Oxygen Delivery Method room air Intake Visit Reasons: 07/09 [facility] Acute CHF Clerical Methods Analyst Required: No Accompanied by: Self Is patient in pain?: No Allergies No Known Allergies Allergy (Verified 07/26/24 15:24) Medications ???Medication ???Instructions ???Recorded ???Confirmed ???Type furosemide 20 mg tablet 20 mg PO DAILY PRN For weight gain 07/10/24 07/26/24 Rx of 2 pounds in 1 day or 3 pounds in 1 week #30 tabs losartan 25 mg tablet 25 mg PO DINNER #30 tabs 07/10/24 07/26/24 Rx spironolactone 25 mg tablet 25 mg PO DAILY #30 tabs 07/10/24 07/26/24 Rx carvedilol 12.5 mg tablet 12.5 mg PO BIDCM #60 tabs 07/26/24 07/26/24 Rx Ejection fraction %: 15 Have you fallen in the past year?: No PFSH Medical History (Updated 07/26/24 @ 16:[address] Denis Agustin MD) History of stent insertion of renal artery Congestive heart failure Seizure disorder Skin cancer Tobacco use Seizures Migraines Arthritis Surgical History History of craniotomy Family History Mother Heart disease Social History Smoking Status: Light Smoker (<10/day) alcohol intake: never substance use type: does not use caffeine: Yes ROS Const Const: Positive for fatigue and weakness ENT ENT: Positive for dizziness Cardio Chest Pain: No Palpitations: No Edema: None Resp Respiratory: Positive for SOB with activity (Climbing stairs); Negative for SOB orthopnea SOB lying down GI GI: Positive for loose stools Neuro Neuro: Positive for dizziness and weakness Endo Endo: Positive for fatigue Cardiology Exam Const Appearance: comfortable, no acute distress and well developed Head Head: normal to inspection Eyes General: appearance normal, both eyes and all related structures Neck Neck: normal visual inspection and no JVD Carotids: Negative bruit Chest Chest inspection: normal inspection of the chest Auscultation: Bilateral: Clear to Auscultation Cardio Rate: regular rate Rhythm: regular (more content not included)... Normal [facility] 12 Lead EKGon 07-14-2024 12 Lead EKG [facility] Cardiovascular Services [address] [place] [address] 12 Lead EKG 07/14/24 1539 MR#: [id number] Acct: [id number] Name: FAMILIA PEREZ Rep #: [id number] : 1985 39 From: Ramsey Cleveland MD Attending Dr: Status: DEP ER Ordering Dr: Obi Lynch DO Date: 4 Location: ED Sex: M C Admitted: Test Reason : CP Blood Pressure : / mmHG Vent. Rate : 094 BPM Atrial Rate : 094 BPM P-R Int : 160 ms QRS Dur : 086 ms QT Int : 366 ms P-R-T Axes : 033 -41 -06 degrees QTc Int : 457 ms Normal sinus rhythm Possible Left atrial enlargement Left axis deviation T wave abnormality, consider lateral ischemia Abnormal ECG Confirmed by AIDAN MARTINEZ, RAMSEY ([id number]), image editor CLARA DESAI ([id number]) on 07/17/2024 1:53:41 PM Referred By: Confirmed By:RAMSEY CLEVELAND MD 07/17/24 1353 Date Ramsey Cleveland MD CC: Dr. Obi Lynch DO; No Primary Care Physician Signed Normal [facility] BNP,B-Type NATRIURETIC PEPTI Sirena 07-14-2024 Natriuretic peptide B (Bld) [Mass/Vol] 362.7 pg/mL High 0-100 [facility] Comment on above: Performed By: #### L 500.2500, L100.0100, L501.5425, L300.3900 #### [facility] [address] [place], [address] Basic Metabolic Profile (BMP )on 07-14-2024 BUN/CRE 12.4 RATIO Normal 10-20 [facility] Comment on above: Order Comment: 1 Y Performed By: #### L 500.2500, L100.0100, L501.5425, L300.3900 #### [facility] [address] [place], [address] CA,Total 9.8 mg/dL Normal 8.5-10.1 [facility] Comment on above: Order Comment: 1 Y Performed By: #### L 500.2500, L100.0100, L501.5425, L300.3900 #### [facility] [address] [place], [address] Chloride [Moles/Vol] 108 mmol/L High 98-107 [facility] Comment on above: Order Comment: 1 Y Performed By: #### L 500.2500, L100.0100, L501.5425, L300.3900 #### [facility] [address] [place], [address] CO2 [Moles/Vol] 28.0 mmol/L Normal 21.0-32.0 [facility] Comment on above: Order Comment: 1 Y Performed By: #### L 500.2500, L100.0100, L501.5425, L300.3900 #### [facility] [address] [place], [address] Creatinine [Mass/Vol] 1.29 mg/dL Normal 0.70-1.30 [facility] Comment on above: Order Comment: 1 Y Result Comment: The validity of the calculated GFR GFRAA in patients over 70 years has not been determined. Clinical correlation is essential. Performed By: #### L 500.2500, L100.0100, L501.5425, L300.3900 #### [facility] [address] [place], [address] ECRCL 75.36 ml/min Normal [facility] Comment on above: Order Comment: 1 Y Performed By: #### L 500.2500, L100.0100, L501.5425, L300.3900 #### [facility] [address] [place], [address] EST GFR - AA 79 mL/min Normal >60 [facility] Comment on above: Order Comment: 1 Y Result Comment: Afri can [place]guillan GFR Calc Performed By: #### L 500.2500, L100.0100, L501.5425, L300.3900 #### [facility] [address] [place], [address] GAP 6 Normal 5-15 [facility] Comment on above: Order Comment: 1 Y Performed By: #### L 500.2500, L100.0100, L501.5425, L300.3900 #### [facility] [address] [place], [address] GFR/1.73 sq M.predicted among non-blacks MDRD (S/P/Bld) [Vol rate/Area] 65 mL/min/{1.73_m2} Normal >60 [facility] Comment on above: Order Comment: 1 Y Result Comment: Non- GFR Calc Performed By: #### L 500.2500, L100.0100, L501.5425, L300.3900 #### [facility] [address] [place], [address] Glucose [Mass/Vol] 100 mg/dL Normal 74-106 [facility] Comment on above: Order Comment: 1 Y Result Comment: Fast ing Glucose result from 100 to 125 mg/dL suggests IMPAIRED HOMEOSTASIS per A.D.A. criteria. Performed By: #### L 500.2500, L100.0100, L501.5425, L300.3900 #### [facility] [address] [place], [address] Potassium [Moles/Vol] 3.9 mmol/L Normal 3.5-5.1 [facility] Comment on above: Order Comment: 1 Y Performed By: #### L 500.2500, L100.0100, L501.5425, L300.3900 #### [facility] [address] [place], [address] Sodium [Moles/Vol] 141 mmol/L Normal 136-145 [facility] Comment on above: Order Comment: 1 Y Performed By: #### L 500.2500, L100.0100, L501.5425, L300.3900 #### [facility] [address] [place], [address] Urea nitrogen [Mass/Vol] 16 mg/dL Normal 7-18 [facility] Comment on above: Order Comment: 1 Y Performed By: #### L 500.2500, L100.0100, L501.5425, L300.3900 #### [facility] [address] [place], [address] CBC W/Diff, Automatedon -11 24-2023 Absolute Lymph 4.43 X10 3/uL Normal 0.83-4.51 [facility] Comment on above: Performed By: #### L 500.2500, L100.0100, L501.5425, L300.3900 #### [facility] [address] [place], [address] Absolute Neut 6.5 X10 3/uL Normal 2.0-7.7 [facility] Comment on above: Performed By: #### L 500.2500, L100.0100, L501.5425, L300.3900 #### [facility] [address] [place], [address] Basophils/100 WBC (Bld) 0.8 % Normal 0-1 [facility] Comment on above: Performed By: #### L 500.2500, L100.0100, L501.5425, L300.3900 #### [facility] [address] [place], [address] Eosinophils/100 WBC (Bld) 1.7 % Normal 0-5 [facility] Comment on above: Performed By: #### L 500.2500, L100.0100, L501.5425, L300.3900 #### [facility] [address] [place], [address] Erythrocyte distribution width (RBC) [Ratio] 13.4 % Normal 11.6-14.6 [facility] Comment on above: Performed By: #### L 500.2500, L100.0100, L501.5425, L300.3900 #### [facility] [address] [place], [address] Hematocrit (Bld) [Volume fraction] 46.4 % Normal 40-54 [facility] Comment on above: Performed By: #### L 500.2500, L100.0100, L501.5425, L300.3900 #### [facility] [address] [place], [address] Hemoglobin (Bld) [Mass/Vol] 15.3 g/dL Normal 13.0-16.5 [facility] Comment on above: Performed By: #### L 500.2500, L100.0100, L501.5425, L300.3900 #### [facility] [address] [place], [address] IG% 0.900 Normal 0.0-0.9 [facility] Comment on above: Result Comment: IG% - Immature Granulocytes (promyelocytes, myelocytes and metamyelocytes) > 1% indicates that a LEFT SHIFT is Present. Performed By: #### L 500.2500, L100.0100, L501.5425, L300.3900 #### [facility] [address] [place], [address] Lymphocytes/100 WBC (Bld) 36.8 % Normal 19-41 [facility] Comment on above: Performed By: #### L 500.2500, L100.0100, L501.5425, L300.3900 #### [facility] [address] [place], [address] MCH (RBC) [Entitic mass] 30.2 pg Normal 27.0-32.0 [facility] Comment on above: Performed By: #### L 500.2500, L100.0100, L501.5425, L300.3900 #### [facility] [address] [place], [address] MCHC (RBC) [Mass/Vol] 33.0 g/dL Normal 32-36 [facility] Comment on above: Performed By: #### L 500.2500, L100.0100, L501.5425, L300.3900 #### [facility] [address] [place], [address] MCV (RBC) [Entitic vol] 91.7 fL Normal 80-94 [facility] Comment on above: Performed By: #### L 500.2500, L100.0100, L501.5425, L300.3900 #### [facility] [address] [place], [address] Monocytes/100 WBC (Bld) 5.9 % Normal 0-10 [facility] Comment on above: Performed By: #### L 500.2500, L100.0100, L501.5425, L300.3900 #### [facility] [address] [place], [address] Neutrophils/100 WBC (Bld) 53.9 % Normal 47-70 [facility] Comment on above: Performed By: #### L 500.2500, L100.0100, L501.5425, L300.3900 #### [facility] [address] [place], [address] Nucleated RBC (Bld) [#/Vol] 0 10*3/uL Normal 0-5 [facility] Comment on above: Performed By: #### L 500.2500, L100.0100, L501.5425, L300.3900 #### [facility] [address] [place], [address] Platelet mean volume (Bld) [Entitic vol] 9.4 fL Normal 6.2-12.0 [facility] Comment on above: Performed By: #### L 500.2500, L100.0100, L501.5425, L300.3900 #### [facility] [address] [place], [address] Platelets (Bld) [#/Vol] 434 10*3/uL Normal 150-450 [facility] Comment on above: Performed By: #### L 500.2500, L100.0100, L501.5425, L300.3900 #### [facility] [address] [place], [address] RBC (Bld) [#/Vol] 5.06 10*6/uL Normal 4.6-6.2 [facility] Comment on above: Performed By: #### L 500.2500, L100.0100, L501.5425, L300.3900 #### [facility] [address] [place], [address] RDW SD 45.2 fl High 35.1-43.9 [facility] Comment on above: Performed By: #### L 500.2500, L100.0100, L501.5425, L300.3900 #### [facility] [address] [place], [address] WBC (Bld) [#/Vol] 12.0 10*3/uL High 4.4-11.0 [facility] Comment on above: Performed By: #### L 500.2500, L100.0100, L501.5425, L300.3900 #### [facility] [address] [place], [address] Chest PA and Lateralon 07-14 Chest PA and Lateral [facility] Imaging Services [address] [place] [address] Chest PA and Lateral MR#: [id number] Acct: [id number] Name: FAMILIA PEREZ Rep #: [id number] : 1985 M 39 From: Uyen Abreu MD PCP: Care Physician,No Primary Status: REG ER Study: Chest PA and Lateral Date of Exam: 07/14/24 Exam# [id number] Ordering Dr: Wayne Quan [id number] STUDY: X-RAY CHEST REASON FOR EXAM: Male, 39 years old. cough TECHNIQUE: PA and lateral views of the chest. COMPARISON: 07/09/2024 FINDINGS: The lungs are clear and expanded. There is no demonstrated pleural abnormality. Normal size heart. Normal mediastinum and ana. Normal visualized pulmonary arteries. Normal visualized aortic arch and descending thoracic aorta. Normal visualized thoracic spine. Normal visualized ribs, clavicles, and shoulders. There is no demonstrated abnormality of the visualized soft tissue structures of the upper abdomen. RAD/Chest PA and Lateral IMPRESSION: Normal x-ray examination of the chest. Electronically Signed: Uyen Abreu MD at 16:57 EDT , CC: CAYDEN Quan; No Primary Care Physician Production Inspector: Signed Normal [facility] D-Dimer Quantitative (DVT/PE )on 07-14-2024 D-DIMER QUANT < 0.27 Low 0.27-0.49 [facility] Comment on above: Result Comment: NORM AL D-Dimer level (<0.50) indicates no DVT or PE. Performed By: #### L 500.2500, L100.0100, L501.5425, L300.3900 #### [facility] [address] [place], [address] Emergency Department Summary on 07-14-2024 Emergency Department Summary [facility] Medical Records Department [address] [place] [address] Emergency Department Summary 07/14/24 MR#: [id number] Acct: [id number] Name: FAMILIA PEREZ Rep #: [id number] : 1985 39 From: Wayne Quan INTERNAL GRINDER-C PCP: Care Physician,No Primary Status:DEP ER Location: ED Supervisory Physician Note Patient was seen and examined with the Advanced Practice Provider. Nursing notes and vital signs have been reviewed. Pertinent old records have been reviewed. I agree with the essential elements of the MATY's history, physical exam, assessment, and plan. The differential diagnosis and management options were discussed with the MATY. I participated in determining and agree with the management, procedures, final impression and disposition as documented. See changes noted by me. Please see addendum or separate note for any additional details. 39-year-old male with tobacco abuse and newly diagnosed CHF presents for evaluation of chest pain. Pain is left-sided. Developed while at rest and driving. Describes it as sharp. Does not radiate. Endorses some mild shortness of breath. Denies a history of DVT/PE, recent trauma or surgery, lower extremity pain or unilateral swelling, known malignancy, travel. On chart review, patient has an EF of 15%. Pertinent physical exam findings: Gen: A O x3, NAD but anxious Neck: Trachea midline, No JVD CV: RRR, no murmurs, no peripheral edema Resp: Lungs CTA BL, no w/r/c GI: Soft, nondistended, nontender, no hepatosplenomegaly, no pulsatile masses Musc: Full ROM, no deformity Differential diagnosis includes but is not limited to CHF exacerbation, ACS, PE, musculoskeletal strain Cardiac/respiratory workup ordered. Nitroglycerin given for pain. ECG was interpreted by me and contributed to patient care in the ED. It showed normal sinus rhythm, heart rate 94, no acute ischemic changes Plain images were interpreted by the radiologist and me, and contributed to patient care in the ED. They showed no pneumonia, effusion, pneumothorax CBC with mild leukocytosis of 12 however this is downtrending from 19.7 on previous labs. D-dimer unremarkable. BMP relatively unremarkable. Troponin unremarkable x 2. BNP elevated at 362 however on chart review is downtrending from prior admission. Patient has unremarkable cardiac workup. He describes his pain as sharp which is atypical for ACS. Given patient's recent cardiac workup and history however cardiology was contacted and patient was discussed. They agree with discharge home. Patient to follow-up outpatient. Return precautions explained. Impression: 1. Left-sided chest pain 2. History of CHF HPI History of Present Illness Chief Complaint: Chest Pain Narrative Narrative: Patient is a 39-year-old male recently diagnosed with CHF, fluid around his heart who is on Lasix presenting to the emergency department for left-sided chest pain. Pay states he was recently discharged from the hospital on July 11, 2024. Patient sees Dr. Agustin who is his fisher gill net. Patient states that today while he was resting, he developed chest pain to the left side of his chest. He felt more short of breath, and is here for evaluation. Patient smokes 1/2 pack/day, patient denies any alcohol use. Patient is here for evaluation. [facility] Medical History (Updated 07/14/24 @ 19:02 by CAYDEN Real) Congestive heart failure Seizure disorder Skin cancer Tobacco use Seizures Migraines Arthritis Home Medications ???Medication ???Instructions ???Recorded ???Last Taken ???Type carvedilol 6.25 mg tablet 6.25 mg PO BIDCM #60 tabs 07/10/24 07/14/24 Rx furosemide 20 mg tablet 20 mg PO DAILY PRN For weight gain 07/10/24 07/14/24 Rx of 2 pounds in 1 day or 3 pounds in 1 week #30 tabs losartan 25 mg tablet 25 mg PO DINNER #30 tabs 07/10/24 07/13/24 Rx spironolactone 25 mg tablet 25 mg PO DAILY #30 tabs 07/10/24 07/14/24 Rx Allergy/AdvReac Type Severity Reaction Status Date / Time No Known Allergies Allergy Verified 07/14/24 15:36 Family History (Updated 07/09/24 @ 18:[address] Denis Agustin MD) Mother Heart disease Social History Smoking Status: Current some day smoker tobacco type: cigarettes and e-cigarettes ROS ROS ED ROS Narrative Constitutional: Negative for fever, chills, weight loss, weakness Eyes: Negative for vision loss, vision change, double vision ENT: Negative for any sore throat, ear pain, congestion Cardiovascular: Negative for any tightness, palpitations. Positive chest pain Respiratory: Negative for any cough, sputum production, hemoptysis,orthopnea. Positive dyspnea, dyspnea on exertion Gastrointestinal: Negative for any abdominal pain, nausea, vomiting, diarrhea, constipation, blood in stool, (more content not included)... Normal [facility] L501.4020on 07-14-2024 TROPONIN-I HS 25 pg/mL Normal 3.0-78.0 [facility] Comment on above: Result Comment: Plea se Note: New Test Units and Gender Specific Reference Ranges. For more information see Policy Stat Procedure [place] High Sensitivity Troponin (TNIH) and attachments. Performed By: #### L 500.2500, L100.0100, L501.5425, L300.3900 #### [facility] [address] [place], [address] L501.5425on 07-14-2024 TROPONIN-I HS 24 pg/mL Normal 3.0-78.0 [facility] Comment on above: Order Comment: 1 Y Result Comment: Plea se Note: New Test Units and Gender Specific Reference Ranges. For more information see Policy Stat Procedure Temple High Sensitivity Troponin (TNIH) and attachments. Performed By: #### L 500.2500, L100.0100, L501.5425, L300.3900 #### [facility] [address] [place], [address] Prothrombin Time w/INRon INR Coag (PPP) [Relative time] 1.0 {INR} Normal [facility] Comment on above: Performed By: #### L 300.3900 #### [facility] [address] [place], [address] PT Coag (PPP) [Time] 13.1 s Normal 11.7-14.9 [facility] Comment on above: Performed By: #### L 300.3900 #### [facility] [address] [place], [address] CBC W/Diff, Automatedon 06-18 Absolute Lymph 1.62 X10 3/uL Normal 0.83-4.51 [facility] Comment on above: Performed By: #### L 500.2500, L100.0100, L501.5425, L300.3900 #### [facility] [address] [place], [address] Absolute Neut 17.6 X10 3/uL High 2.0-7.7 [facility] Comment on above: Performed By: #### L 500.2500, L100.0100, L501.5425, L300.3900 #### [facility] [address] [place], [address] Basophils/100 WBC (Bld) 0.2 % Normal 0-1 [facility] Comment on above: Performed By: #### L 500.2500, L100.0100, L501.5425, L300.3900 #### [facility] [address] [place], [address] Eosinophils/100 WBC (Bld) 0.0 % Normal 0-5 [facility] Comment on above: Performed By: #### L 500.2500, L100.0100, L501.5425, L300.3900 #### [facility] [address] [place], [address] Erythrocyte distribution width (RBC) [Ratio] 13.2 % Normal 11.6-14.6 [facility] Comment on above: Performed By: #### L 500.2500, L100.0100, L501.5425, L300.3900 #### [facility] [address] [place], [address] Hematocrit (Bld) [Volume fraction] 48.8 % Normal 40-54 [facility] Comment on above: Performed By: #### L 500.2500, L100.0100, L501.5425, L300.3900 #### [facility] [address] [place], [address] Hemoglobin (Bld) [Mass/Vol] 16.0 g/dL Normal 13.0-16.5 [facility] Comment on above: Performed By: #### L 500.2500, L100.0100, L501.5425, L300.3900 #### [facility] [address] [place], [address] IG% 0.500 Normal 0.0-0.9 [facility] Comment on above: Result Comment: IG% - Immature Granulocytes (promyelocytes, myelocytes and metamyelocytes) > 1% indicates that a LEFT SHIFT is Present. Performed By: #### L 500.2500, L100.0100, L501.5425, L300.3900 #### [facility] [address] [place], [address] Lymphocytes/100 WBC (Bld) 8.2 % Low 19-41 [facility] Comment on above: Performed By: #### L 500.2500, L100.0100, L501.5425, L300.3900 #### [facility] [address] [place], [address] MCH (RBC) [Entitic mass] 30.2 pg Normal 27.0-32.0 [facility] Comment on above: Performed By: #### L 500.2500, L100.0100, L501.5425, L300.3900 #### [facility] [address] [place], [address] MCHC (RBC) [Mass/Vol] 32.8 g/dL Normal 32-36 [facility] Comment on above: Performed By: #### L 500.2500, L100.0100, L501.5425, L300.3900 #### [facility] [address] [place], [address] MCV (RBC) [Entitic vol] 92.2 fL Normal 80-94 [facility] Comment on above: Performed By: #### L 500.2500, L100.0100, L501.5425, L300.3900 #### [facility] [address] [place], [address] Monocytes/100 WBC (Bld) 1.8 % Normal 0-10 [facility] Comment on above: Performed By: #### L 500.2500, L100.0100, L501.5425, L300.3900 #### [facility] [address] [place], [address] Neutrophils/100 WBC (Bld) 89.3 % High 47-70 [facility] Comment on above: Performed By: #### L 500.2500, L100.0100, L501.5425, L300.3900 #### [facility] [address] [place], [address] Nucleated RBC (Bld) [#/Vol] 0 10*3/uL Normal 0-5 [facility] Comment on above: Performed By: #### L 500.2500, L100.0100, L501.5425, L300.3900 #### [facility] [address] [place], [address] Platelet mean volume (Bld) [Entitic vol] 9.2 fL Normal 6.2-12.0 [facility] Comment on above: Performed By: #### L 500.2500, L100.0100, L501.5425, L300.3900 #### [facility] [address] [place], [address] Platelets (Bld) [#/Vol] 448 10*3/uL Normal 150-450 [facility] Comment on above: Performed By: #### L 500.2500, L100.0100, L501.5425, L300.3900 #### [facility] [address] [place], [address] RBC (Bld) [#/Vol] 5.29 10*6/uL Normal 4.6-6.2 [facility] Comment on above: Performed By: #### L 500.2500, L100.0100, L501.5425, L300.3900 #### [facility] [address] [place], [address] RDW SD 45.4 fl High 35.1-43.9 [facility] Comment on above: Performed By: #### L 500.2500, L100.0100, L501.5425, L300.3900 #### [facility] [address] [place], [address] WBC (Bld) [#/Vol] 19.7 10*3/uL High 4.4-11.0 [facility] Comment on above: Performed By: #### L 500.2500, L100.0100, L501.5425, L300.3900 #### [facility] [address] [place], [address] Comprehensive Metabolic [facility] 07-10-2024 Albumin [Mass/Vol] 3.5 g/dL Normal 3.2-5.0 [facility] Comment on above: Performed By: #### L 500.4050, L501.9520, L501.5200, L500.4100 #### [facility] [address] [place], [address] Albumin/Globulin [Mass ratio] 0.8 {ratio} Low 0.9-2.4 [facility] Comment on above: Performed By: #### L 500.4050, L501.9520, L501.5200, L500.4100 #### [facility] [address] [place], [address] ALK P 69 U/L Normal 45-117 [facility] Comment on above: Performed By: #### L 500.4050, L501.9520, L501.5200, L500.4100 #### [facility] [address] [place], [address] ALT [Catalytic activity/Vol] 37 U/L Normal 16-61 [facility] Comment on above: Performed By: #### L 500.4050, L501.9520, L501.5200, L500.4100 #### [facility] [address] [place], [address] AST [Catalytic activity/Vol] 15 U/L Normal 15-37 [facility] Comment on above: Performed By: #### L 500.4050, L501.9520, L501.5200, L500.4100 #### [facility] [address] [place], [address] Bilirubin [Mass/Vol] 0.70 mg/dL Normal 0.20-1.00 [facility] Comment on above: Result Comment: For patients on eltrombopag therapy, use of Dimension Temple TBIL is not recommended. Performed By: #### L 500.4050, L501.9520, L501.5200, L500.4100 #### [facility] [address] [place], [address] BUN/CRE 17.1 RATIO Normal 10-20 [facility] Comment on above: Performed By: #### L 500.4050, L501.9520, L501.5200, L500.4100 #### [facility] [address] [place], [address] CA,Total 10.1 mg/dL Normal 8.5-10.1 [facility] Comment on above: Performed By: #### L 500.4050, L501.9520, L501.5200, L500.4100 #### [facility] [address] [place], [address] Chloride [Moles/Vol] 107 mmol/L Normal 98-107 [facility] Comment on above: Performed By: #### L 500.4050, L501.9520, L501.5200, L500.4100 #### [facility] [address] [place], [address] CO2 [Moles/Vol] 22.0 mmol/L Normal 21.0-32.0 [facility] Comment on above: Performed By: #### L 500.4050, L501.9520, L501.5200, L500.4100 #### [facility] [address] [place], [address] Creatinine [Mass/Vol] 1.11 mg/dL Normal 0.70-1.30 [facility] Comment on above: Result Comment: The validity of the calculated GFR GFRAA in patients over 70 years has not been determined. Clinical correlation is essential. Performed By: #### L 500.4050, L501.9520, L501.5200, L500.4100 #### [facility] [address] [place], [address] ECRCL 85.97 ml/min Normal [facility] Comment on above: Performed By: #### L 500.4050, L501.9520, L501.5200, L500.4100 #### [facility] [address] [place], [address] EST GFR - AA 94 mL/min Normal >60 [facility] Comment on above: Result Comment: Afri can Anguillan GFR Calc Performed By: #### L 500.4050, L501.9520, L501.5200, L500.4100 #### [facility] [address] [place], [address] GAP 6 Normal 5-15 [facility] Comment on above: Performed By: #### L 500.4050, L501.9520, L501.5200, L500.4100 #### [facility] [address] [place], [address] GFR/1.73 sq M.predicted among non-blacks MDRD (S/P/Bld) [Vol rate/Area] 77 mL/min/{1.73_m2} Normal >60 [facility] Comment on above: Result Comment: Non- GFR Calc Performed By: #### L 500.4050, L501.9520, L501.5200, L500.4100 #### [facility] [address] [place], [address] Globulin (S) [Mass/Vol] 4.4 g/dL High 2.2-4.2 [facility] Comment on above: Performed By: #### L 500.4050, L501.9520, L501.5200, L500.4100 #### [facility] [address] [place], [address] Glucose [Mass/Vol] 140 mg/dL High 74-106 [facility] Comment on above: Result Comment: Fast ing Glucose result greater than or equal to 126 mg/dL suggests DIABETES MELLITUS per A.D.A. criteria. Performed By: #### L 500.4050, L501.9520, L501.5200, L500.4100 #### [facility] [address] [place], [address] Potassium [Moles/Vol] 4.3 mmol/L Normal 3.5-5.1 [facility] Comment on above: Performed By: #### L 500.4050, L501.9520, L501.5200, L500.4100 #### [facility] [address] [place], [address] Sodium [Moles/Vol] 135 mmol/L Low 136-145 [facility] Comment on above: Performed By: #### L 500.4050, L501.9520, L501.5200, L500.4100 #### [facility] [address] [place], [address] T PROT 7.9 g/dL Normal 6.4-8.2 [facility] Comment on above: Performed By: #### L 500.4050, L501.9520, L501.5200, L500.4100 #### [facility] [address] [place], [address] Urea nitrogen [Mass/Vol] 19 mg/dL High 7-18 [facility] Comment on above: Performed By: #### L 500.4050, L501.9520, L501.5200, L500.4100 #### [facility] [address] [place], [address] L501.4020on 07-10-2024 TROPONIN-I HS 72 pg/mL Normal 3.0-78.0 [facility] Comment on above: Order Comment: 'TROP ' Serial specimen #1, #2 or #3: 3 Result Comment: Plea se Note: New Test Units and Gender Specific Reference Ranges. For more information see Policy Stat Procedure [facility] High Sensitivity Troponin (TNIH) and attachments. Performed By: #### L 500.2500, L100.0100, L501.5425, L300.3900 #### [facility] [address] [place], [address] Lipid Profileon 07-10-2024 Cholesterol [Mass/Vol] 329 mg/dL High 200 [facility] Comment on above: Result Comment: <200 mg/dL Desirable 200-240 mg/dL Borderline >240 mg/dL High Risk Performed By: #### L 500.4050, L501.9520, L501.5200, L500.4100 #### [facility] [address] [place], [address] Cholesterol in HDL [Mass/Vol] 59 mg/dL Normal [facility] Comment on above: Result Comment: The drugs N-Acetylcysteine and Metamizole may falsely depress this assay. Reference Range HDL <40 mg/dL Low HDL Cholesterol HDL >or= 60 mg/dL High HDL Cholesterol Performed By: #### L 500.4050, L501.9520, L501.5200, L500.4100 #### [facility] [address] [place], [address] Cholesterol in LDL [Mass/Vol] 257 mg/dL High 0-130 [facility] Comment on above: Performed By: #### L 500.4050, L501.9520, L501.5200, L500.4100 #### [facility] [address] [place], [address] Cholesterol in VLDL [Mass/Vol] 13 mg/dL Normal 5-40 [facility] Comment on above: Performed By: #### L 500.4050, L501.9520, L501.5200, L500.4100 #### [facility] [address] [place], [address] Triglyceride [Mass/Vol] 64 mg/dL Normal [facility] Comment on above: Result Comment: The drugs N-Acetylcysteine and Metamizole may falsely depress this assay. Serum Triglycerides Reference Interval Normal <150 mg/dL Borderline high 150 - 199 mg/dL High 200 - 499 mg/dL Very High > or = 500 mg/dL Performed By: #### L 500.4050, L501.9520, L501.5200, L500.4100 #### [facility] [address] [place], [address] Magnesiumon 09-24-2024 Magnesium [Mass/Vol] 2.2 mg/dL Normal 1.6-2.6 [facility] Comment on above: Performed By: #### L 500.4050, L501.9520, L501.5200, L500.4100 ####[facility] [id number] [place], [address] Thyroid Stim Hormone (TSH)on 07-10-2024 TSH 0.345 uIU/mL Low 0.358-3.740 [facility] Comment on above: Performed By: #### L 500.4050, L501.9520, L501.5200, L500.4100 ####[facility] [address] [place], [address] 12 Lead EKGon 07-09-2024 12 Lead EKG [facility] [address] [place] [address] 12 Lead EKG 07/09/24 1151 MR#: [id number] Acct: [id number] Name: FAMILIA PEREZ Rep #: [id number] : 1985 39 From: Denis Agustin MD Attending Dr: Dr. Carlos Banks DO Status: ADM IN Ordering Dr: Fiordaliza Martin DO Date: 07/09/24 Location: [facility] Sex: M C Admitted: 07/09/24 Test Reason : CP Blood Pressure : / mmHG Vent. Rate : 118 BPM Atrial Rate : 118 BPM P-R Int : 158 ms QRS Dur : 102 ms QT Int : 342 ms P-R-T Axes : 065 -55 046 degrees QTc Int : 479 ms Sinus tachycardia Possible Left atrial enlargement Left axis deviation Incomplete right bundle branch block Minimal voltage criteria for LVH, may be normal variant ( Sage product ) Nonspecific T wave abnormality Abnormal ECG Confirmed by Denis Agustin ([id number]), image editor CLARA DESAI ([id number]) on 07/10/2024 10:09:02 AM Referred By: Confirmed By:Denis Agustin 07/10/24 1009 Date Denis Agustin MD CC: Dr. Fiordaliza Martin, DO; Dr. Carlos Banks, DO; No Primary Care Physician Signed Normal [facility] BNP,B-Type NATRIURETIC PEPTI Sirena 07-09-2024 Natriuretic peptide B (Bld) [Mass/Vol] 683.5 pg/mL High 0-100 [facility] Comment on above: Performed By: #### L 503.6620 ####[facility] [address] [place], [address] Basic Metabolic Profile (BMP )on 07-09-2024 BUN/CRE 12.1 RATIO Normal 10-20 [facility] Comment on above: Order Comment: 1 Y Performed By: #### L 500.2500, L100.0100, L501.5425, L300.3900 #### [facility] [address] [place], [address] CA,Total 9.5 mg/dL Normal 8.5-10.1 [facility] Comment on above: Order Comment: 1 Y Performed By: #### L 500.2500, L100.0100, L501.5425, L300.3900 #### [facility] [address] [place], [address] Chloride [Moles/Vol] 108 mmol/L High 98-107 [facility] Comment on above: Order Comment: 1 Y Performed By: #### L 500.2500, L100.0100, L501.5425, L300.3900 #### [facility] [address] [place], [address] CO2 [Moles/Vol] 24.0 mmol/L Normal 21.0-32.0 [facility] Comment on above: Order Comment: 1 Y Performed By: #### L 500.2500, L100.0100, L501.5425, L300.3900 #### [facility] [address] [place], [address] Creatinine [Mass/Vol] 1.24 mg/dL Normal 0.70-1.30 [facility] Comment on above: Order Comment: 1 Y Result Comment: The validity of the calculated GFR GFRAA in patients over 70 years has not been determined. Clinical correlation is essential. Performed By: #### L 500.2500, L100.0100, L501.5425, L300.3900 #### [facility] [address] [place], [address] ECRCL 68.20 ml/min Normal [facility] Comment on above: Order Comment: 1 Y Performed By: #### L 500.2500, L100.0100, L501.5425, L300.3900 #### [facility] [address] [place], [address] EST GFR - AA 82 mL/min Normal >60 [facility] Comment on above: Order Comment: 1 Y Result Comment: Afri can Anguillan GFR Calc Performed By: #### L 500.2500, L100.0100, L501.5425, L300.3900 #### [facility] [address] [place], [address] GAP 5 Normal 5-15 [facility] Comment on above: Order Comment: 1 Y Performed By: #### L 500.2500, L100.0100, L501.5425, L300.3900 #### [facility] [address] [place], [address] GFR/1.73 sq M.predicted among non-blacks MDRD (S/P/Bld) [Vol rate/Area] 68 mL/min/{1.73_m2} Normal >60 [facility] Comment on above: Order Comment: 1 Y Result Comment: Non- GFR Calc Performed By: #### L 500.2500, L100.0100, L501.5425, L300.3900 #### [facility] [address] [place], [address] Glucose [Mass/Vol] 165 mg/dL High 74-106 [facility] Comment on above: Order Comment: 1 Y Result Comment: Fast ing Glucose result greater than or equal to 126 mg/dL suggests DIABETES MELLITUS per A.D.A. criteria. Performed By: #### L 500.2500, L100.0100, L501.5425, L300.3900 #### [facility] [address] [place], [address] Potassium [Moles/Vol] 3.7 mmol/L Normal 3.5-5.1 [facility] Comment on above: Order Comment: 1 Y Performed By: #### L 500.2500, L100.0100, L501.5425, L300.3900 #### [facility] [address] [place], [address] Sodium [Moles/Vol] 137 mmol/L Normal 136-145 [facility] Comment on above: Order Comment: 1 Y Performed By: #### L 500.2500, L100.0100, L501.5425, L300.3900 #### [facility] [address] [place], [address] Urea nitrogen [Mass/Vol] 15 mg/dL Normal 7-18 [facility] Comment on above: Order Comment: 1 Y Performed By: #### L 500.2500, L100.0100, L501.5425, L300.3900 #### [facility] [address] [place], [address] CBC W/Diff, Automatedon 09-2 -2023 Absolute Lymph 3.05 X10 3/uL Normal 0.83-4.51 [facility] Comment on above: Performed By: #### L 500.2500, L100.0100, L501.5425, L300.3900 #### [facility] [address] [place], [address] Absolute Neut 6.7 X10 3/uL Normal 2.0-7.7 [facility] Comment on above: Performed By: #### L 500.2500, L100.0100, L501.5425, L300.3900 #### [facility] [address] [place], [address] Basophils/100 WBC (Bld) 0.8 % Normal 0-1 [facility] Comment on above: Performed By: #### L 500.2500, L100.0100, L501.5425, L300.3900 #### [facility] [address] [place], [address] Eosinophils/100 WBC (Bld) 1.3 % Normal 0-5 [facility] Comment on above: Performed By: #### L 500.2500, L100.0100, L501.5425, L300.3900 #### [facility] [address] [place], [address] Erythrocyte distribution width (RBC) [Ratio] 13.2 % Normal 11.6-14.6 [facility] Comment on above: Performed By: #### L 500.2500, L100.0100, L501.5425, L300.3900 #### [facility] [address] [place], [address] Hematocrit (Bld) [Volume fraction] 44.0 % Normal 40-54 [facility] Comment on above: Performed By: #### L 500.2500, L100.0100, L501.5425, L300.3900 #### [facility] [address] [place], [address] Hemoglobin (Bld) [Mass/Vol] 14.4 g/dL Normal 13.0-16.5 [facility] Comment on above: Performed By: #### L 500.2500, L100.0100, L501.5425, L300.3900 #### [facility] [address] [place], [address] IG% 0.300 Normal 0.0-0.9 [facility] Comment on above: Result Comment: IG% - Immature Granulocytes (promyelocytes, myelocytes and metamyelocytes) > 1% indicates that a LEFT SHIFT is Present. Performed By: #### L 500.2500, L100.0100, L501.5425, L300.3900 #### [facility] [address] [place], [address] Lymphocytes/100 WBC (Bld) 28.7 % Normal 19-41 [facility] Comment on above: Performed By: #### L 500.2500, L100.0100, L501.5425, L300.3900 #### [facility] [address] [place], [address] MCH (RBC) [Entitic mass] 30.0 pg Normal 27.0-32.0 [facility] Comment on above: Performed By: #### L 500.2500, L100.0100, L501.5425, L300.3900 #### [facility] [address] [place], [address] MCHC (RBC) [Mass/Vol] 32.7 g/dL Normal 32-36 [facility] Comment on above: Performed By: #### L 500.2500, L100.0100, L501.5425, L300.3900 #### [facility] [address] [place], [address] MCV (RBC) [Entitic vol] 91.7 fL Normal 80-94 [facility] Comment on above: Performed By: #### L 500.2500, L100.0100, L501.5425, L300.3900 #### [facility] [address] [place], [address] Monocytes/100 WBC (Bld) 5.8 % Normal 0-10 [facility] Comment on above: Performed By: #### L 500.2500, L100.0100, L501.5425, L300.3900 #### [facility] [address] [place], [address] Neutrophils/100 WBC (Bld) 63.1 % Normal 47-70 [facility] Comment on above: Performed By: #### L 500.2500, L100.0100, L501.5425, L300.3900 #### [facility] [address] [place], [address] Nucleated RBC (Bld) [#/Vol] 0 10*3/uL Normal 0-5 [facility] Comment on above: Performed By: #### L 500.2500, L100.0100, L501.5425, L300.3900 #### [facility] [address] [place], [address] Platelet mean volume (Bld) [Entitic vol] 9.3 fL Normal 6.2-12.0 [facility] Comment on above: Performed By: #### L 500.2500, L100.0100, L501.5425, L300.3900 #### [facility] [address] [place], [address] Platelets (Bld) [#/Vol] 394 10*3/uL Normal 150-450 [facility] Comment on above: Performed By: #### L 500.2500, L100.0100, L501.5425, L300.3900 #### [facility] [address] [place], [address] RBC (Bld) [#/Vol] 4.80 10*6/uL Normal 4.6-6.2 [facility] Comment on above: Performed By: #### L 500.2500, L100.0100, L501.5425, L300.3900 #### [facility] [address] [place], [address] RDW SD 44.6 fl High 35.1-43.9 [facility] Comment on above: Performed By: #### L 500.2500, L100.0100, L501.5425, L300.3900 #### [facility] [address] [place], [address] WBC (Bld) [#/Vol] 10.6 10*3/uL Normal 4.4-11.0 [facility] Comment on above: Performed By: #### L 500.2500, L100.0100, L501.5425, L300.3900 #### [facility] [address] [place], [address] CNCOon 07-09-2024 CNCO Letter Text Normal [facility] CRPon 07-09-2024 C-REACTIVE PROT 13.50 mg/L High 0.0-3.0 [facility] Comment on above: Result Comment: C-Re active Protein (CRP) provides useful information for the diagnosis, therapy and monitoring of inflammatory processes and associated diseases. For the evaluation of Relative Risk for Cardiovascular Disease, a High Sensitivity CRP (HSCRP) should be ordered. Performed By: #### L 501.6710 ####[facility] [address] [place], [address] Chest 1 View (Portable)on Chest 1 View (Portable) [facility] Imaging Services [address] [place] [address] Chest 1 View (Portable) MR#: [id number] Acct: [id number] Name: FAMILIA PEREZ Rep #: [id number] : 1985 M 39 From: Ede villanueva MD PCP: Care Physician,No Primary Status: [facility] ER Study: Chest 1 View (Portable) Date of Exam: 07/09/24 Exam# [id number] Ordering Dr: [place] [id number] STUDY: X-RAY CHEST REASON FOR EXAM: Male, 39 years old. Chest pain TECHNIQUE: Single AP portable view of the chest. COMPARISON: Comparison is made with prior study July 04, 2024. FINDINGS: EKG electrodes are seen. The lungs are clear and expanded. There is no demonstrated pleural abnormality. Normal size heart. Normal mediastinum and ana. Normal visualized pulmonary arteries. Normal visualized aortic arch and descending thoracic aorta. Normal visualized thoracic spine. Normal visualized ribs, clavicles, and shoulders. There is no demonstrated abnormality of the visualized soft tissue structures of the upper abdomen. RAD/Chest 1 View (Portable) IMPRESSION: Normal x-ray examination of the chest. Electronically Signed: Ede Horne MD at 13:19 EDT Reading Location ID and State: [facility] / [place] , Service support , CC: Dr. Fiordaliza Martin, DO; No Primary Care Physician Production Inspector: Signed Normal [facility] Consultation - Cardiologyon 07-09-2024 Consultation - Cardiology [facility] Medical Records Department [address] [place] [address] Consultation - Cardiology 07/09/24 1813 MR#: [id number] Acct: [id number] Name: FAMILIA PEREZ Rep #: [id number] : 1985 39 From: Denis Agustin MD PCP: Care Physician,No Primary Status:ADM IN Location: [place] [address] Assessment Plan Assessment/Plan (1) Acute congestive heart failure: QUALIFIERS: Heart failure type: unspecified Qualified Code(s): I50.9 - Heart failure, unspecified PLAN: The patient's presentation is consistent with a possible postviral myocarditis/cardiomyopa thy. A 2D echocardiogram will be performed to evaluate the patient's LV function and structural heart. His exam is consistent with an S3 gallop and sinus tachycardia in the face of progressive dyspnea on exertion and shortness of breath with rales posteriorly. He does feel some better after IV Lasix being administered in the emergency department. Would recommend we start guideline directed medical therapy for LV recovery. Will initiate Coreg 3.125 mg twice daily, losartan 25 mg daily this evening, and spironolactone 12.5 mg every morning tomorrow morning. Would continue another dose of IV Lasix and then switch to p.o. Lasix pending the outcome of the echo and his response to diuresis tomorrow morning. 2D echocardiogram be obtained and further recommendations will be forthcoming. (2) Elevated troponin: PLAN: Patient's troponin is minimally elevated 219. This has been chronic since July 04. It appears this represents most likely a postviral myocarditis/cardiomyopa thy. His BNP is also elevated in the 680 range. I do not feel this represents a non-STEMI. PLAN: Plan 1. Will institute guideline directed medical therapy as noted above in the and in the orders. 2. 2D echocardiogram to be obtained tomorrow. 3. Further recommendations for long-term management will be forthcoming pending the outcome of the echo and response to his medical therapy as it is initiated and titrated. HPI Consult Data Date of Consult: 07/09/24 HPI Narrative Reason for Consultation: Presumed CHF. HPI Narrative: FAMILIA PEREZ, is a 39 M who presents with a 3-week history of progressive shortness of breath and dyspnea on exertion. Patient was evaluated July 04 in the emergency department with minimally elevated troponins and left AMA. He now comes back with slight elevation in his troponin in the 200 range. His BNP is elevated at 600 and he is congested and short of breath. The patient's chest x-ray did not show any overt congestive heart failure. The patient's history is that 3 weeks ago he developed significant URI was evaluated in the emergency department and COVID was ruled out. He was treated with aerosol inhaler without any significant improvement over the last 3 weeks. Other family members were sick as well. The patient is just never gotten over it and has gotten progressively more dyspneic. The patient denies any change in his appetite or urinary output. There is no prior history of any cardiac issues. The patient really has not sought medical care. He does have a family history of the mother having a pacemaker and then dying a couple years later. He does not really know the etiology of her cardiovascular status. He also has uncles that have cardiac issues as well. He has a sister who is not in touch with. The patient does have a child who is cared for by his fianc???e at this time. The patient denies any lower extremity edema denies any syncope. He does report that shortness of breath and dyspnea on exertion has been present for 3 weeks. [facility] Medical History Skin cancer Tobacco use Seizures Migraines Arthritis Home Medications ???Medication ???Instructions ???Recorded ???Last Taken ???Type albuterol sulfate 90 mcg/actuation 2 puff inhalation Q4H PRN PRN 07/04/24 Unknown History aerosol inhaler wheezing Allergy/AdvReac Type Severity Reaction Status Date / Time No Known Allergies Allergy Verified 07/09/24 11:44 Family History (Updated 07/09/24 @ 18:[address] Denis Agustin MD) Mother Heart disease Social History Smoking Status: Current some day smoker tobacco type: cigarettes and e-cigarettes ROS Constitutional Constitutional: Reports as per HPI Eyes Eyes: Reports systems reviewed and no addt'l complaints, except as documented ENT HEENT: Reports as per HPI Cardiovascular Cardiovascular: Reports as per HPI Respiratory/Chest Respiratory/Chest: Reports as per HPI Gastrointestinal Gastrointestinal: Reports as per HPI Genitourinary Genitourinary: Reports as per HPI Musculoskeletal Musculoskeletal: Reports systems reviewed and no addt'l complaints, except as documented Integume (more content not included)... Normal [facility] Echo Completeon 07-09-2024 Echo [facility] Cardiovascular Services [address] [place] [address] Echo Complete 07/10/24 1137 MR#: [id number] Acct: [id number] Name: FAMILIA PEREZ Rep #: [id number] : 1985 39 From: Ramsey Cleveland MD Attending Dr: Dr. Carlos Banks, DO Status: ADM IN Ordering Dr: Celeste Levine MD Date: 07/09/24 Location: [facility] Sex: M C Admitted: 07/09/24 Reason For Study: Dyspnea/SOB Procedure This was a 2D Doppler, Color Flow transthoracic echocardiogram. Myocardial strain analysis was performed in this exam to aid in the assessment of cardiac function. Exam performed portable in patient room. Left Ventricle Mildly dilated left ventricle. The left ventricular ejection fraction is 15 %. There is severe global hypokinesis of the left ventricle. Right Ventricle Normal RV size. Normal systolic function. Atria The left atrium is moderately enlarged. Normal right atrium. Mitral Valve Normal mitral valve. Mild (1+) eccentric mitral valve insufficiency. Tricuspid Valve Normal tricuspid valve. Aortic Valve Normal aortic valve. Trisinus/trileaflet aortic valve. Pulmonic Valve Normal pulmonic valve. Great Vessels Normal aortic root. The pulmonary artery is normal size. Inferior vena cava collapse with respiration. Pericardium/Pleural No pericardial effusion. MMode/2D Measurements Calculations LVIDd: 5.8 cm IVSd: 1.1 cm Ao root diam: 3.1 cm LVIDs: 5.5 cm LVPWd: 1.2 cm RVDd: 3.3 cm FS: 6.8 % LAV(MOD-bp): 99.9 ml LVAd ap4: 46.7 cm2 LVAd ap2: 37.4 cm2 LAV(MOD-bp) Indexed: 56.6 ml/m2 LVLd ap4: 9.2 cm LVLd ap2: 8.5 cm LAV(MOD-sp2): 81.0 ml EDV(MOD-sp4): 194.3 ml EDV(MOD-sp2): 142.3 ml LAV(MOD-sp4): 98.7 ml EDV(sp4-el): 201.0 ml EDV(sp2-el): 139.9 ml LVAs ap4: 40.4 cm2 LVAs ap2: 33.6 cm2 LVLs ap4: 8.3 cm LVLs ap2: 8.2 cm ESV(MOD-sp4): 162.1 ml ESV(MOD-sp2): 115.3 ml ESV(sp4-el): 166.0 ml ESV(sp2-el): 116.8 ml EF(MOD-sp4): 16.6 % EF(MOD-sp2): 19.0 % EF(sp4-el): 17.4 % SV(MOD-sp4): 32.3 ml SV(MOD-sp2): 27.0 ml SV(sp4-el): 34.9 ml Ao sinus diam: 2.[address] Junction: 2.7 cm LA A4 area: 29.7 cm2 LA dimension(2D): 4.4 cm RA A4 area: 13.4 cm2 TAPSE: 1.4 cm Time Measurements MV dec time: 0.14 sec Doppler Measurements Calculations MV E max john: 73.1 cm/sec Med Peak E' John: 8.0 cm/sec MV V2 max: 105.2 cm/sec MV A max john: 54.2 cm/sec E/E' med: 9.1 MV max P.4 mmHg MV E/A: 1.3 MV V2 mean: 52.0 cm/sec MV mean P.4 mmHg MV V2 VTI: 15.5 cm MV P1/2t max john: 106.5 cm/sec Ao V2 max: 95.1 cm/sec LV V1 max: 83.9 cm/sec MV P1/2t: 44.1 msec Ao max P.6 mmHg LV V1 max P.8 mmHg Ao V2 mean: 75.4 cm/sec LV V1 mean P.8 mmHg MV dec slope: 707.8 cm/sec2 Ao mean P.5 mmHg LV V1 mean: 63.8 cm/sec MVA(P1/2t): 5.0 cm2 Ao V2 VTI: 18.1 cm LV V1 VTI: 12.9 cm AV (velocity ratio): 0.71 PA V2 max: 66.4 cm/sec ECHO/Echo Complete Interpretation Summary The left ventricular ejection fraction is 15 %. Mildly dilated left ventricle. There is severe global hypokinesis of the left ventricle. The left atrium is moderately enlarged. Mild (1+) eccentric mitral valve insufficiency. The global longitudinal strain is severely abnormal. The global longitudinal strain = -6.7% (abnormal). Ordering Physician: Celeste Levine Performed By: BroObi baker RCS 07/10/24 1309 Date Ramsey Cleveland MD CC: Dr. Carlos Banks DO; Dr. Celeste Levine MD; No Primary Care Physician Date Dictated: 07/10/24 1137 Date Transcribed: 07/10/24 1309 Production Inspector: Signed Normal [facility] Department Summary on 07-09-2024 Emergency Department Summary [facility] Medical Records Department [address] [place] [address] Emergency Department Summary 07/09/24 MR#: [id number] Acct: [id number] Name: FAMILIA PEREZ Rep #: [id number] : 1985 39 From: Fiordaliza Martin DO PCP: Care Physician,No Primary Status:REG ER Location: ED HPI History of Present Illness Chief Complaint: Chest Pain Informant: patient Narrative Narrative: Patient is a 39-year-old male with tobacco use, 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 Patient states has been having symptoms for the past 3-1/2 weeks. He states he feels exhausted and short of breath. He gets very short of breath when laying down at night and is waking up because he cannot breathe. He is continue to cough and have mild phlegm production. Gets pain in his chest as well as his back attributes that to his coughing. Does report family history of heart disease stating his mother had stents at age 54. Was seen in our ER on 07/04 at that time had an elevated troponin but could be admitted this time and left AMA. Patient tried to follow-up today but they saw his lab reports and told him to come back to the emergency room. Patient is now amenable to admission. He denies any new night sweats, weight change, leg swelling (does report his hands feel little puffy) or any history of IV drug use. [facility] Medical History Skin cancer Tobacco use Seizures Migraines Arthritis Home Medications ???Medication ???Instructions ???Recorded ???Last Taken ???Type albuterol sulfate 90 mcg/actuation 2 puff inhalation Q4H PRN PRN 07/04/24 Unknown History aerosol inhaler wheezing Allergy/AdvReac Type Severity Reaction Status Date / Time No Known Allergies Allergy Verified 07/09/24 11:44 Social History Smoking Status: Current some day smoker tobacco type: cigarettes and e-cigarettes ROS ROS ED Constitutional Constitutional ED: Denies chills, fever(s) or sweats Eyes Eyes: Denies change in vision Cardiovascular Cardiovascular: Reports as per HPI, chest pain and paroxysmal nocturnal dyspnea Respiratory/Chest Respiratory/Chest: Reports cough, dyspnea, paroxysmal nocturnal dyspnea and sputum Gastrointestinal Gastrointestinal: Denies nausea or vomiting Musculoskeletal Musculoskeletal: Denies arthralgias or myalgias Integumentary Denies rash Neurologic Neurologic: Denies paresthesias or weakness EXAM Physical Exam Const Vital Signs: 07/09/24 11:45 07/09/24 12:20 07/09/24 12:43 Temperature 97.8 F Temperature Source Oral Pulse Rate 118 H 113 H Respiratory Rate 18 16 Respiratory Pattern Blood Pressure 137/104 H 135/103 H Blood Pressure Mean 115 113 Pulse Ox 96 99 Oxygen Delivery Method Room Air Room Air Room Air 07/09/24 13:00 07/09/24 14:00 07/09/24 14:14 Temperature Temperature Source Pulse Rate 112 H 119 H 94 Respiratory Rate 13 16 18 Respiratory Pattern Normal Blood Pressure 138/101 H 133/100 H Blood Pressure Mean 112 111 Pulse Ox 99 95 Oxygen Delivery Method Room Air 07/09/24 14:28 Temperature 97.9 F Temperature Source Pulse Rate 121 H Respiratory Rate 14 Respiratory Pattern Blood Pressure 133/100 H Blood Pressure Mean 111 Pulse Ox 95 Oxygen Delivery Method Positive well nourished and well developed General Appearance ED: well developed and NAD HEENT Reports moist mucous membranes Neck supple and no JVD Chest Wall inspection of chest normal and palpation of chest normal Resp Resp Narrative: Mild tachypnea. Rhonchorous breath sounds throughout. No crackles appreciated. Cardio regular rhythm and no murmurs Rate: tachycardic Peripheral Pulses: pulses 2+ throughout GI normal to inspection, nondistended, normoactive bowel sounds, soft to palpation and non-tender Extremity normal to inspection General Extremety ED: Negative for edema General Extremity: Negative for edema Neuro oriented x3 Sensorium / Orientation: awake and alert Motor Exam: Negative for general weakness Psych mental status grossly normal Mood Affect: anxious Skin no rashes or lesions noted and no wounds Heart Score History: Slightly/Non-Suspicious ECG: Nonspecific Repolarization Age: Risk Factors: 1 or 2 Risk Factors Troponin: >/=3 x Normal Limit Score: 4 MDM MDM MDM Narrative Medical decision making narrative: Patient is evaluated for ongoing chest discomfort and shortness of breath. Has had a worsening cough. Had full evaluation in the ER 5 days ago where that time is recommend (more content not included)... Normal [facility] H AND P Exam - Hospitaliston 07-09-2024 H&P Exam - Hospitalist [facility] Medical Records Department [address] [place] [address] H P Exam - Hospitalist 07/09/24 1447 MR#: [id number] Acct: [id number] Name: FAMILIA PEREZ Rep #: [id number] : 1985 39 From: Celeste Levine MD PCP: Care Physician,No Primary Status:REG ER Location: ED HPI - General General Date of Admission: 07/09/24 Date of Service: 07/09/24 Chief Complaint: SOB HPI Narrative FAMILIA PEREZ, is a 39 M with remote history of amphetamine abuse and current tobacco use who presented [facility] ED 07/09/2024 with increasing shortness of breath. Initially seen here on Tuesday for this increasing shortness of breath and had a troponin that went from 18 to over 200, admission was advised however he did not want to stay so he left AMA. Went to his PCP today who sent him back. Was found to have persistently elevated troponin as well as elevated BNP so hospitalist contacted for admission. Patient reports increasing shortness of breath over the past 3 weeks with fatigue and feeling bloated, he has had shortness of breath specifically on exertion, intermittently will feel some indigestion-like feeling or a twinge in his chest but the indigestion feeling is at random and not associated with exertion or rest like his shortness of breath is. The twinge in his chest will feel like a pinch and lasts only seconds, denies any prolonged chest pain or discomfort and the primary complaint is this increased shortness of breath when lying down and on exertion. Also shortness of breath when he is laying down at night. Endorses he has not used any amphetamines for greater than 10 years however has been using a preworkout weight loss and energy formulation for the past 6 months and creatinine. Drinks 2 cups of coffee a day, vapes nicotine and occasionally marijuana but denies any other substance use. Has a little bit of a cough without significant production. At night will intermittently feel warm and cold but no measured fever. [facility] Medical History Skin cancer Tobacco use Seizures Migraines Arthritis Home Medications ???Medication ???Instructions ???Recorded ???Last Taken ???Type albuterol sulfate 90 mcg/actuation 2 puff inhalation Q4H PRN PRN 07/04/24 Unknown History aerosol inhaler wheezing Allergy/AdvReac Type Severity Reaction Status Date / Time No Known Allergies Allergy Verified 07/09/24 11:44 Social History Smoking Status: Current some day smoker tobacco type: cigarettes and e-cigarettes ROS ROS Narrative General: Intermittently will be hot and cold, overall fatigued HENT: Intermittently some headaches, denies stuffy nose, little bit of a sore throat from cough EYES: Denies changes in vision Resp: Little bit of intermittent cough without significant production, increasing shortness of breath especially when laying down or on exertion Cardiac: Will have twinges in his chest that feels like a pinch and sometimes indigestion GI: Gets a little bit of right lower abdominal pain, denies changes in bowel, occasionally some nausea especially if he drinks water, feels his abdomen is swollen : Somewhat darker urine Extremity: Feels little bit swollen understands MSK: Denies weakness Neuro: Denies any numbness/tingling Heme: Denies any bleeding or bruising Skin: Denies rashes Psychiatric: Feeling anxious Vital Signs Vital Signs Vital Signs: 07/09/24 11:45 07/09/24 12:20 07/09/24 12:43 Temperature 97.8 F Temperature Source Oral Pulse Rate 118 H 113 H Respiratory Rate 18 16 Respiratory Pattern Blood Pressure 137/104 H 135/103 H Blood Pressure Mean 115 113 Pulse Ox 96 99 Oxygen Delivery Method Room Air Room Air Room Air 07/09/24 13:00 07/09/24 14:00 07/09/24 14:14 Temperature Temperature Source Pulse Rate 112 H 119 H 94 Respiratory Rate 13 16 18 Respiratory Pattern Normal Blood Pressure 138/101 H 133/100 H Blood Pressure Mean 112 111 Pulse Ox 99 95 Oxygen Delivery Method Room Air 07/09/24 14:28 Temperature 97.9 F Temperature Source Pulse Rate 121 H Respiratory Rate 14 Respiratory Pattern Blood Pressure 133/100 H Blood Pressure Mean 111 Pulse Ox 95 Oxygen Delivery Method Weight Weight: 71.395 kg Body Mass Index (BMI) 26.2 Physical Exam Narrative General: Alert, appears anxious HEENT: Atraumatic, normocephalic Eyes: Anicteric, normal conjunctiva, extraocular movements grossly intact Neck: Supple Respiratory: Somewhat diminished at the bases, increased respiratory effort Cardiovascular: Sinus tachycardia GI: Slightly protuberant but nontender and overall soft Extremities: No signific (more content not included)... Normal [facility] L501.4020on 07-09-2024 TROPONIN-I HS 219 pg/mL Invalid Interpretation Code 3.0-78.0 [facility] Comment on above: Result Comment: Crit ical Result(s) Called at: 14:55:22 07/09/2024 by: AMY ANGELES to Gissel Perdomo. Results read back by same. Please Note: New Test Units and Gender Specific Reference Ranges. For more information see Policy Stat Procedure [facility] High Sensitivity Troponin (TNIH) and attachments. Performed By: #### L 501.4020 ####[facility] [address] [place], [address] L501.5425on 07-09-2024 TROPONIN-I HS 228 pg/mL Invalid Interpretation Code 3.0-78.0 [facility] Comment on above: Order Comment: 1 Y Result Comment: Crit ical Result(s) Called at: 12:44:59 07/09/2024 by: Celina Gudino. Results read back by same. Please Note: New Test Units and Gender Specific Reference Ranges. For more information see Policy Stat Procedure [facility] High Sensitivity Troponin (TNIH) and attachments. Performed By: #### L 500.2500, L100.0100, L501.5425, L300.3900 #### [facility] [address] [place], [address] Prothrombin Time w/INRon INR Coag (PPP) [Relative time] 1.1 {INR} Normal [facility] Comment on above: Performed By: #### L 500.2500, L100.0100, L501.5425, L300.3900 #### [facility] [address] [place], [address] PT Coag (PPP) [Time] 14.0 s Normal 11.7-14.9 [facility] Comment on above: Performed By: #### L 500.2500, L100.0100, L501.5425, L300.3900 #### [facility] [address] [place], [address] 12 Lead EKGon 07-04-2024 12 Lead EKG [facility] Cardiovascular Services [address] [place] [address] 12 Lead EKG 07/04/24 2214 MR#: [id number] Acct: [id number] Name: FAMILIA PEREZ Rep #: [id number] : 1985 39 From: Denis Agustin MD Attending Dr: Status: DEP ER Ordering Dr: Jones Huff DO Date: 07/04/24 Location: ED Sex: M C Admitted: Test Reason : REPEAT CP Blood Pressure : / mmHG Vent. Rate : 114 BPM Atrial Rate : 114 BPM P-R Int : 160 ms QRS Dur : 090 ms QT Int : 340 ms P-R-T Axes : 047 -40 022 degrees QTc Int : 468 ms Sinus tachycardia Possible Left atrial enlargement Left axis deviation Minimal voltage criteria for LVH, may be normal variant ( Sage product ) Nonspecific T wave abnormality Abnormal ECG Confirmed by Denis Agustin ([id number]), image editor CAREY LOPEZ ([id number]) on 07/09/2024 10:42:09 AM Referred By: JOLIE Confirmed By:Denis Agustin 07/09/24 1042 Date Denis Agustin MD CC: Dr. Jones Huff DO; No Primary Care Physician Signed Normal [facility] 12 Lead EKG [facility] Cardiovascular Services [address] [place] [address] 12 Lead EKG 07/04/24 1743 MR#: [id number] Acct: [id number] Name: FAMILIA PEREZ Rep #: [id number] : 1985 39 From: Denis Agustin MD Attending Dr: Status: DEP ER Ordering Dr: Jones Huff DO Date: 07/04/24 Location: ED Sex: M C Admitted: Test Reason : CP Blood Pressure : / mmHG Vent. Rate : 122 BPM Atrial Rate : 122 BPM P-R Int : 156 ms QRS Dur : 090 ms QT Int : 282 ms P-R-T Axes : 054 -43 007 degrees QTc Int : 401 ms Sinus tachycardia Possible Left atrial enlargement Left axis deviation Minimal voltage criteria for LVH, may be normal variant ( Matthews product ) Nonspecific T wave abnormality Abnormal ECG Confirmed by Denis Agustin ([id number]), image editor CAREY LOPEZ ([id number]) on 07/09/2024 10:41:55 AM Referred By: EDWARD/ARIANNA Confirmed By:Denis Agustin 07/09/24 1041 Date Denis Agustin MD CC: Dr. Jones Huff DO; No Primary Care Physician Signed Normal [facility] Basic Metabolic Profile (BMP )on 07-04-2024 BUN/CRE 10.9 RATIO Normal 10-20 [facility] Comment on above: Order Comment: 1Y Performed By: #### L 500.2500, L100.0100, L501.5425, L300.3900 #### [facility] [address] [place], [address] CA,Total 9.5 mg/dL Normal 8.5-10.1 [facility] Comment on above: Order Comment: 1Y Performed By: #### L 500.2500, L100.0100, L501.5425, L300.3900 #### [facility] [address] [place], [address] Chloride [Moles/Vol] 109 mmol/L High 98-107 [facility] Comment on above: Order Comment: 1Y Performed By: #### L 500.2500, L100.0100, L501.5425, L300.3900 #### [facility] [address] [place], [address] CO2 [Moles/Vol] 22.0 mmol/L Normal 21.0-32.0 [facility] Comment on above: Order Comment: 1Y Performed By: #### L 500.2500, L100.0100, L501.5425, L300.3900 #### [facility] [address] [place], [address] Creatinine [Mass/Vol] 1.38 mg/dL High 0.70-1.30 [facility] Comment on above: Order Comment: 1Y Result Comment: The validity of the calculated GFR GFRAA in patients over 70 years has not been determined. Clinical correlation is essential. Performed By: #### L 500.2500, L100.0100, L501.5425, L300.3900 #### [facility] [address] [place], [address] ECRCL 61.28 ml/min Normal [facility] Comment on above: Order Comment: 1Y Performed By: #### L 500.2500, L100.0100, L501.5425, L300.3900 #### [facility] [address] [place], [address] EST GFR - AA 73 mL/min Normal >60 [facility] Comment on above: Order Comment: 1Y Result Comment: Afri can Anguillan GFR Calc Performed By: #### L 500.2500, L100.0100, L501.5425, L300.3900 #### [facility] [address] [place], [address] GAP 10 Normal 5-15 [facility] Comment on above: Order Comment: 1Y Performed By: #### L 500.2500, L100.0100, L501.5425, L300.3900 #### [facility] [address] [place], [address] GFR/1.73 sq M.predicted among non-blacks MDRD (S/P/Bld) [Vol rate/Area] 60 mL/min/{1.73_m2} Normal >60 [facility] Comment on above: Order Comment: 1Y Result Comment: Non- GFR Calc Performed By: #### L 500.2500, L100.0100, L501.5425, L300.3900 #### [facility] [address] [place], [address] Glucose [Mass/Vol] 130 mg/dL High 74-106 [facility] Comment on above: Order Comment: 1Y Result Comment: Fast ing Glucose result greater than or equal to 126 mg/dL suggests DIABETES MELLITUS per A.D.A. criteria. Performed By: #### L 500.2500, L100.0100, L501.5425, L300.3900 #### [facility] [address] [place], [address] Potassium [Moles/Vol] 3.5 mmol/L Normal 3.5-5.1 [facility] Comment on above: Order Comment: 1Y Performed By: #### L 500.2500, L100.0100, L501.5425, L300.3900 #### [facility] [address] [place], [address] Sodium [Moles/Vol] 141 mmol/L Normal 136-145 [facility] Comment on above: Order Comment: 1Y Performed By: #### L 500.2500, L100.0100, L501.5425, L300.3900 #### [facility] [address] [place], [address] Urea nitrogen [Mass/Vol] 15 mg/dL Normal 7-18 [facility] Comment on above: Order Comment: 1Y Performed By: #### L 500.2500, L100.0100, L501.5425, L300.3900 #### [facility] [address] [place], [address] CBC W/Diff, Automatedon 06-17 Absolute Lymph 3.46 X10 3/uL Normal 0.83-4.51 [facility] Comment on above: Performed By: #### L 500.2500, L100.0100, L501.5425, L300.3900 #### [facility] [address] [place], [address] Absolute Neut 5.5 X10 3/uL Normal 2.0-7.7 [facility] Comment on above: Performed By: #### L 500.2500, L100.0100, L501.5425, L300.3900 #### [facility] [address] [place], [address] Basophils/100 WBC (Bld) 0.7 % Normal 0-1 [facility] Comment on above: Performed By: #### L 500.2500, L100.0100, L501.5425, L300.3900 #### [facility] [address] [place], [address] Eosinophils/100 WBC (Bld) 1.2 % Normal 0-5 [facility] Comment on above: Performed By: #### L 500.2500, L100.0100, L501.5425, L300.3900 #### [facility] [address] [place], [address] Erythrocyte distribution width (RBC) [Ratio] 13.5 % Normal 11.6-14.6 [facility] Comment on above: Performed By: #### L 500.2500, L100.0100, L501.5425, L300.3900 #### [facility] [address] [place], [address] Hematocrit (Bld) [Volume fraction] 40.5 % Normal 40-54 [facility] Comment on above: Performed By: #### L 500.2500, L100.0100, L501.5425, L300.3900 #### [facility] [address] [place], [address] Hemoglobin (Bld) [Mass/Vol] 13.4 g/dL Normal 13.0-16.5 [facility] Comment on above: Performed By: #### L 500.2500, L100.0100, L501.5425, L300.3900 #### [facility] [address] [place], [address] IG% 0.400 Normal 0.0-0.9 [facility] Comment on above: Result Comment: IG% - Immature Granulocytes (promyelocytes, myelocytes and metamyelocytes) > 1% indicates that a LEFT SHIFT is Present. Performed By: #### L 500.2500, L100.0100, L501.5425, L300.3900 #### [facility] [address] [place], [address] Lymphocytes/100 WBC (Bld) 35.1 % Normal 19-41 [facility] Comment on above: Performed By: #### L 500.2500, L100.0100, L501.5425, L300.3900 #### [facility] [address] [place], [address] MCH (RBC) [Entitic mass] 30.3 pg Normal 27.0-32.0 [facility] Comment on above: Performed By: #### L 500.2500, L100.0100, L501.5425, L300.3900 #### [facility] [address] [place], [address] MCHC (RBC) [Mass/Vol] 33.1 g/dL Normal 32-36 [facility] Comment on above: Performed By: #### L 500.2500, L100.0100, L501.5425, L300.3900 #### [facility] [address] [place], [address] MCV (RBC) [Entitic vol] 91.6 fL Normal 80-94 [facility] Comment on above: Performed By: #### L 500.2500, L100.0100, L501.5425, L300.3900 #### [facility] [address] [place], [address] Monocytes/100 WBC (Bld) 6.4 % Normal 0-10 [facility] Comment on above: Performed By: #### L 500.2500, L100.0100, L501.5425, L300.3900 #### [facility] [address] [place], [address] Neutrophils/100 WBC (Bld) 56.2 % Normal 47-70 [facility] Comment on above: Performed By: #### L 500.2500, L100.0100, L501.5425, L300.3900 #### [facility] [address] [place], [address] Nucleated RBC (Bld) [#/Vol] 0 10*3/uL Normal 0-5 [facility] Comment on above: Performed By: #### L 500.2500, L100.0100, L501.5425, L300.3900 #### [facility] [address] [place], [address] Platelet mean volume (Bld) [Entitic vol] 9.5 fL Normal 6.2-12.0 [facility] Comment on above: Performed By: #### L 500.2500, L100.0100, L501.5425, L300.3900 #### [facility] [address] [place], [address] Platelets (Bld) [#/Vol] 385 10*3/uL Normal 150-450 [facility] Comment on above: Performed By: #### L 500.2500, L100.0100, L501.5425, L300.3900 #### [facility] [address] [place], [address] RBC (Bld) [#/Vol] 4.42 10*6/uL Low 4.6-6.2 [facility] Comment on above: Performed By: #### L 500.2500, L100.0100, L501.5425, L300.3900 #### [facility] [address] [place], [address] RDW SD 46.5 fl High 35.1-43.9 [facility] Comment on above: Performed By: #### L 500.2500, L100.0100, L501.5425, L300.3900 #### [facility] [address] [place], [address] WBC (Bld) [#/Vol] 9.9 10*3/uL Normal 4.4-11.0 [facility] Comment on above: Performed By: #### L 500.2500, L100.0100, L501.5425, L300.3900 #### [facility] [address] [place], [address] CTA Chest W/WO Contraston CTA Chest W/WO Contrast [facility] [address] [place] [address] CTA Chest W/WO Contrast MR#: [id number] Acct: [id number] Name: FAMILIA PEREZ Rep #: [id number] : 1985 M 39 From: Hugo Mcgrath MD PCP: Care Physician,No Primary Status: REG ER Study: CTA Chest W/WO Contrast Date of Exam: 07/04/24 Exam# [id number] Ordering Dr: [place] [id number] STUDY: CTA CHEST REASON FOR EXAM: Male, 39 years old. pulmonary embolism RADIATION DOSAGE (If Supplied By Facility): CTDIvol = ( 9.89 ) mGy, DLP = ( 341.80 ) mGycm TECHNIQUE: The examination was performed with the intravenous administration of IV 100mL [id number]-370. Post-processing of the angiographic images was performed, with multiplanar reformation and 3D reconstruction. Individualized dose optimization techniques were used for this CT. COMPARISON: Portable chest July 04, 2024 FINDINGS: Normal enhancement of the main pulmonary artery and right and left pulmonary arteries. Normal enhancement of the bilateral peripheral pulmonary arteries. There is no demonstrated pulmonary embolism. Normal thoracic aorta and visualized great vessels. There is no demonstrated aortic dissection. Heart appears mildly enlarged. There is no coronary artery calcification.. Subcentimeter mediastinal nodes likely benign. Normal hilar regions. Normal visualized trachea and bronchi. The lungs are well expanded. Mild nonspecific bilateral perihilar interstitial thickening.. Normal pleura. Normal chest wall structures. Dorsal spine demonstrates degenerative changes Normal visualized upper abdomen. CT/CTA Chest W/WO Contrast IMPRESSION: Nonspecific bilateral perihilar interstitial thickening.. No focal infiltration. No evidence for pulmonary embolus Electronically Signed: Hugo Mcgrath MD at 19:47 EDT , CC: Dr. Jones Huff DO; No Primary Care Physician Production Inspector: Signed Normal [facility] Chest 1 View (Portable)on Chest 1 View (Portable) [facility] [address] [place], [place] [address] Chest 1 View (Portable) MR#: [id number] Acct: [id number] Name: FAMLIIA PEREZ Rep #: [id number] : 1985 M 39 From: Hugo Mcgrath MD PCP: Care Physician,No Primary Status: [facility] ER Study: Chest 1 View (Portable) Date of Exam: 07/04/24 Exam# [id number] Ordering Dr: [place] [id number] STUDY: X-RAY CHEST REASON FOR EXAM: Male, 39 years old. chest pain TECHNIQUE: AP portable COMPARISON: February 05, 2014 FINDINGS: The lungs are clear and expanded. There is no demonstrated pleural abnormality. Heart is mildly enlarged. Normal mediastinum and ana. Normal visualized pulmonary arteries. Normal visualized aortic arch and descending thoracic aorta. Normal visualized thoracic spine. Normal visualized ribs, clavicles, and shoulders. There is no demonstrated abnormality of the visualized soft tissue structures of the upper abdomen. RAD/Chest 1 View (Portable) IMPRESSION: Mild cardiomegaly without evidence for acute cardiopulmonary pathology. Electronically Signed: Hugo Mcgrath MD at 18:49 EDT , CC: Dr. Jones Huff DO; No Primary Care Physician Production Inspector: Signed Normal [facility] Emergency Department Summary on 07-04-2024 Emergency Department Summary [facility] Medical Records Department [address] [place] [address] Emergency Department Summary 07/04/24 MR#: [id number] Acct: [id number] Name: FAMILIA PEREZ Rep #: [id number] : 1985 39 From: Jones Huff DO PCP: Care Physician,No Primary Status:DEP ER Location: ED HPI History of Present Illness Chief Complaint: Chest Pain Informant: patient and spouse/S.O. Narrative Narrative: 39-year-old male presenting to the emergency room chief complaint of chest pain. Patient states that just prior to coming to the emergency department he was eating [employer]. He began to have pain in the left arm chest up into his neck. He states that he currently has skin cancer on the right side of his nose. States he is not currently taking any medications albuterol inhaler which she got when he had a respiratory illness recently. He finished prednisone about a week ago. He states he continues to have some shortness of breath. He notes some diarrhea attacks. He states that he has felt indigestion before this feels different. He feels paresthesias in the left arm (tingling). He did notes that particular over the past week and 1/2 to 2 weeks he gets very short of breath with stair climbing and feels that he needs to use his inhaler states he is once at [facility] where he thought he was having a heart attack but was not was given pills which worked for a while till I ran out. [facility] Medical History (Updated 07/04/24 @ 22:[address] Jones Huff, ) Skin cancer Tobacco use Seizures Migraines Arthritis Home Medications ???Medication ???Instructions ???Recorded ???Last Taken ???Type albuterol sulfate 90 mcg/actuation 2 puff inhalation Q4H PRN PRN 07/04/24 Unknown History aerosol inhaler wheezing Allergy/AdvReac Type Severity Reaction Status Date / Time naproxen Allergy Inflammation Verified 07/04/24 17:44 of lung Social History Smoking Status: Current some day smoker tobacco type: cigarettes and e-cigarettes ROS ROS ED Constitutional Constitutional ED: Denies chills, fever(s) or weight loss Eyes Eyes: Denies change in vision or diplopia ENT ENT ED: Denies ear pain, rhinorrhea or sore throat Cardiovascular Cardiovascular: Reports chest pain; Denies orthopnea, palpitations or racing heartbeat Respiratory/Chest Respiratory/Chest: Reports cough, dyspnea and dyspnea on exertion; Denies orthopnea Gastrointestinal Gastrointestinal: Denies abdominal pain, diarrhea, nausea or vomiting Genitourinary Genitourinary ED: Denies dysuria, hematuria or urinary frequency Musculoskeletal Musculoskeletal: Reports neck pain and other Details: Left arm pain ; Denies arthralgias or myalgias Integumentary Denies abscess or rash Neurologic Neurologic: Reports paresthesias; Denies headache(s) or weakness Psychiatric Psychiatric: Denies anxiety, depression, suicidal ideation or suicidal thoughts Endocrine Endocrinology: Denies polydipsia, polyphagia or polyuria Allergic/Immunologic Allergic/Immunologic ED: Denies mouth swelling, tongue swelling or urticaria EXAM Physical Exam Const Vital Signs: 07/04/24 17:44 07/04/24 17:56 07/04/24 18:01 Temperature 97 F L 98 F Temperature Source Temporal Oral Pulse Rate 122 H Respiratory Rate 16 Blood Pressure 153/114 H Blood Pressure Mean 127 Pulse Ox 98 Oxygen Delivery Method Room Air Room Air Oxygen Flow Rate (L/min) 07/04/24 18:45 07/04/24 20:00 07/04/24 21:00 Temperature Temperature Source Pulse Rate 126 H 112 H 110 H Respiratory Rate 20 H 18 20 H Blood Pressure 148/99 H 139/90 H 137/100 H Blood Pressure Mean 114 106 112 Pulse Ox 94 94 Oxygen Delivery Method Nasal Cannula Oxygen Flow Rate (L/min) 1 07/04/24 22:35 Temperature 97.6 F L Temperature Source Pulse Rate 114 H Respiratory Rate 19 H Blood Pressure 132/98 H Blood Pressure Mean 109 Pulse Ox 96 Oxygen Delivery Method Oxygen Flow Rate (L/min) Positive well nourished and well developed General Appearance ED: well developed HEENT Reports normocephalic, head/scalp atraumatic and moist mucous membranes Eyes PERRL and EOMs intact bilaterally Neck no lymphadenopathy, supple and no JVD Resp normal respiratory effort and clear to auscultation bilaterally Cardio regular rate, regular rhythm and no murmurs Rate: tachycardic GI normal to inspection, nondistended, normoactive bowel sounds and non-tender Palpation: soft Back/Spine no CVA tenderness and normal ROM Extremity normal to inspection General Extremety ED: Negative for edema General Extremity: Negative for edema Neuro oriented x3 and CN's II-XII intact bilaterally Sensorium / Orientation: (more content not included)... Normal [facility] L501.4020on 07-04-2024 TROPONIN-I HS 206 pg/mL Invalid Interpretation Code 3.0-78.0 [facility] Comment on above: Result Comment: Plea se Note: New Test Units and Gender Specific Reference Ranges. For more information see Policy Stat Procedure [facility] High Sensitivity Troponin (TNIH) and attachments. Performed By: #### L 500.2500, L100.0100, L501.5425, L300.3900 #### [facility] [address] [place], [address] L501.5425on 07-04-2024 TROPONIN-I HS 18 pg/mL Normal 3.0-78.0 [facility] Comment on above: Order Comment: 1Y Result Comment: Plea se Note: New Test Units and Gender Specific Reference Ranges. For more information see Policy Stat Procedure [facility] High Sensitivity Troponin (TNIH) and attachments. Performed By: #### L 500.2500, L100.0100, L501.5425, L300.3900 #### [facility] [address] [place], [address] Prothrombin Time w/INRon INR Normal [facility] Comment on above: Result Comment: PT D ISCHARGED Performed By: #### L 300.3900 ####[facility] [address] [place], [address] PROTIME Normal 11.7-14.9 [facility] Comment on above: Result Comment: PT D ISCHARGED Performed By: #### L 300.3900 ####[facility] [address] [facility] [address] Urine Drug Screen (VISTA)on 07-04-2024 AMPHETAMINES Negative Normal <1000 ng/mL [facility] Comment on above: Performed By: #### L 505.5000 ####[facility] [address] [facility] [address] BARBITIURATES Negative Normal < 200 ng/mL [facility] Comment on above: Performed By: #### L 505.5000 ####[facility] [address] [facility] [address] BENZODIAZIPINE Negative Normal < 200 ng/mL [facility] Comment on above: Performed By: #### L 505.5000 ####[facility] [address] [facility] [address] COCAINE Negative Normal < 300 ng/mL [facility] Comment on above: Performed By: #### L 505.5000 ####[facility] [address] [facility] [address] ECSTACY Negative Normal < 500 ng/mL [facility] Comment on above: Performed By: #### L 505.5000 ####[facility] [address] [facility] [address] METHADONE Negative Normal < 300 ng/mL [facility] Comment on above: Performed By: #### L 505.5000 ####[facility] [address] [facility] [address] OPIATES Negative Normal < 300 ng/mL [facility] Comment on above: Performed By: #### L 505.5000 ####[facility] [address] [facility] [address] PCP Negative Normal < 25 ng/mL [facility] Comment on above: Performed By: #### L 505.5000 ####[facility] [address] [facility] [address] THC Positive Abnormal < 50 ng/mL [facility] Comment on above: Performed By: #### L 505.5000 ####[facility] [address] [place], [address] VISTA UDS PH 7 Normal [facility] Comment on above: Performed By: #### L 505.5000 ####[facility] [address] [place], [place], [address] CNOVon 06-23-2024 CNOV Office Visit (UCWSTR ) ANAFAMILIA BIRD ([id number]) 1985 M Date Time Provider Department 06/23/24 12:30 PM SHANA SORIA [facility] During your visit today, we recorded the following information about you: Temperature Pulse Respiration Blood pressure 97.7 degrees 120/minute 21/minute 118/98 Weight 70.5 kg Shana Soria APRN.YARD INSPECTOR 06/23/2024 12:32 PM Signed This note was created using Follicariter. Subjective Familia Perez is a 39 year old male. Presents with 8 day history of cough and congestion. Reports he needs cleared to return to work and they won't let him come back without a covid test and a note. Objective BP 118/98 Pulse 120 Temp 36.5 ?C (97.7 ?F) Resp 21 Wt 70.5 kg (155 lb 6.8 oz) SpO2 97% BMI 23.97 kg/m? Physical Exam PHYSICAL EXAMINATION: General appearance: Well appearing, alert, in no acute distress, well-hydrated, well nourished. Nose/Sinuses: Nares normal, septum midline, mucosa normal, no drainage or sinus tenderness Oropharynx: Lips, mucosa, and tongue normal, teeth and gums normal, oropharynx normal Lungs: Lungs clear to auscultation. No wheezing, rhonchi, rales. Heart: RRR without murmur, gallop, or rubs. No ectopy Assessment and Plan ASSESSMENT/PLAN: 1. URI, acute - ICD9: 465.9, ICD10: J06.9 - Discussed viral etiology and rationale for treatment. - Symptomatic treatment with prn analgesia - Supportive care with fluids and rest - COVID AND INFLUENZA A/B AND RSV PCR, ROUTINE JASON Berry Danielle, APRN.CNP 06/23/2024 2:53 PM Signed Addended by: SHANA SORIA on: 06/23/2024 02:53 PM Modules accepted: Orders Allergies As of Date: 06/23/2024 (No Known Allergies) Date Reviewed: 06/23/2024 Reviewed by: Cris Farrell MA - Fully Assessed Reason for Visit: Chest Congestion [236] Cmt: Sob x 8 days Primary Visit Diagnosis:URI, acute [J06.9] Order(s):COVID AND INFLUENZA A/B AND RSV PCR, ROUTINE [SQCVFLRS] Order #: [id number]. #:[id number] albuterol HFA (PROVENTIL HFA, VENTOLIN HFA) 90 mcg/actuation inhalerInhale 2 Puffs as instructed every 4 hours as needed for wheezing/shortness of breath.Disp: 1 EachRfl: 0 Inhalational Spacing Device1 Device one time only for 1 dose.Disp: 1 EachRfl: 0 Prescriptions as of 06/23/2024 - albuterol HFA (PROVENTIL HFA, VENTOLIN HFA) 90 mcg/actuation inhaler Inhale 2 Puffs as instructed every 4 hours as needed for wheezing/shortness of breath. - Inhalational Spacing Device 1 Device one time only for 1 dose. - doxycycline (VIBRA-TABS) 100 mg tablet Take 1 tablet by mouth two times a day for 7 days. - predniSONE (DELTASONE) 20 mg tablet Take 2 tablets by mouth once daily for 5 days. - Brompheniramine-Pseudoe ph-DM (BROMFED DM) 2-30-10 mg/5 mL syrup Take 10 mL by mouth four times a day as needed. Problem List As Of Date 06/23/2024 Noted Resolved Seizures [R56.9] 02/15/2012 Fracture of fifth metacarpal bone of right hand*02/28/2012 Current severe episode of major depressive diso*09/29/2017 Prescriptions ordered this encounter Disp Refills Start End ALBUTEROL SULFATE HFA 90 MCG/ACTUATI* 1 Ea* 0 06/23/2024 Cmt: Generic or brand: dispense inhaler preferred by patient/insurance unless CURTIS flag is selected. Route: INHALATION Sig: Inhale 2 Puffs as instructed every 4 hours as needed for wheezing/shortness of breath. INHALATIONAL SPACING DEVICE 1 Ea* 0 06/23/2024 06/23/2024 Route: Misc Si Device one time only for 1 dose. Encounter Status:Closed by SHANA SORIA on 06/23/24 Normal [facility] COVID AND INFLUENZA A/B AND RSV PCR, ROUTINEon 06-23-2024 SARS-CoV-2 (COVID-19) RNA JUSTINE+probe Ql (Unsp spec) SARS-COV-2 (AGENT OF COVID-19) RNA: Not detected INFLUENZA A RNA: Not detected INFLUENZA B RNA: Not detected RESPIRATORY SYNCYTIAL VIRUS (RSV) RNA: Not detected Normal [facility] Comment on above: Performed By: #### C VFS ####[facility] LABCLIA [id number] [address] [place] CNOVon 06-19-2024 CNOV Office Visit (UCWSTR ) FAMILIA PEREZ ([id number]) 1985 M Date Time Provider Department 06/19/24 5:15 PM PHI REID During your visit today, we recorded the following information about you: Temperature Pulse Respiration Blood pressure 98.4 degrees 76/minute 16/minute 120/80 Weight 69.8 kg Phi Reid APRN.YARD INSPECTOR 06/19/2024 7:49 PM Signed Subjective HPI HPI Familia Perez is a 39 year old male who presents today for CC of cough, congestion, fever. This started 4 days ago. Has tried otc medication for relief. Symptoms are worsened by nothing. smoker. .Patient presents with: Chest Congestion: cough, fever x 4 days PAST MEDICAL HISTORY No date: Seizures (HCC) PAST SURGICAL HISTORY No date: LITHOTRIPSY XTRCORP SHOCK WAVE Comment: Lithotripsy ALLERGIES Patient has no known allergies. MEDICATIONS Brompheniramine-Pseudoe ph-DM (BROMFED DM) 2-30-10 mg/5 mL syrup Take 10 mL by mouth four times a day as needed. FAMILY HISTORY Problem Relation Age of Onset Heart Mother Emphysema Mother No Known Problems Sister Social History Tobacco Use Smoking status: Every Day Current packs/day: 0.25 Types: Cigarettes Smokeless tobacco: Former Tobacco comments: 1-2 cigarettes a day Substance Use Topics Alcohol use: No Drug use: No Types: Marijuana Comment: no drugs , previous polysubstance abuser Review of Systems Constitutional: Positive for fever and malaise/fatigue. HENT: Positive for congestion. Negative for ear pain, nosebleeds and sore throat. Respiratory: Positive for cough. Negative for shortness of breath and wheezing. Musculoskeletal: Negative for neck pain. Skin: Negative for itching and rash. Objective Blood pressure 120/80, pulse 76, temperature 36.9 ?C (98.4 ?F), resp. rate 16, weight 69.8 kg (153 lb 14.1 oz), SpO2 96%. Physical Exam Constitutional: General: He is not in acute distress. Appearance: He is ill-appearing. He is not toxic-appearing or diaphoretic. HENT: Head: Normocephalic and atraumatic. Cardiovascular: Rate and Rhythm: Normal rate and regular rhythm. Heart sounds: Normal heart sounds, S1 normal and S2 normal. Pulmonary: Effort: Pulmonary effort is normal. Breath sounds: Normal breath sounds. Lymphadenopathy: Cervical: No cervical adenopathy. Right cervical: No superficial cervical adenopathy. Left cervical: No superficial cervical adenopathy. Neurological: Mental Status: He is alert and oriented to person, place, and time. Gait: Gait is intact. ASSESSMENT/PLAN: 1. Sinobronchitis - ICD9: 473.9, 490, ICD10: J32.9, J40 (primary diagnosis) Start steroid and hold atb. If s/s persist 3-5 days and or worsen fill atb rx - Supportive care with plenty of fluids, rest, and analgesia prn. - Follow up in 3-5 days if symptoms persist or worsen. -If you experience chest pain/shortness of breath go to ER If positive for covid is considering paxlovid. - DOXYCYCLINE HYCLATE 100 MG TABLET - PREDNISONE 20 MG TABLET - COVID AND INFLUENZA A/B AND RSV PCR, ROUTINE 2. Acute cough - ICD9: 786.2, ICD10: R05.1 - XR CHEST 2V FRONTAL/LAT IMPRESSION: 1. No evidence of acute cardiopulmonary disease. 2. Minimal anterior compression deformities of several midthoracic vertebral bodies of uncertain chronicity. Dictated by : MD Phi DAVIS, DION.YARD INSPECTOR Allergies As of Date: 06/19/2024 (No Known Allergies) Date Reviewed: 06/19/2024 Reviewed by: Sharon Bright MA - Fully Assessed Reason for Visit: Chest Congestion [236] Cmt: cough, fever x 4 days Primary Visit Diagnosis:Sinobronchiti s [J32.9, J40] Other Visit Diagnosis:Acute cough [R05.1] Order(s):XR CHEST 2V FRONTAL/LAT [[id number]] Order #: [id number]. #:[id number] doxycycline (VIBRA-TABS) 100 mg tabletTake 1 tablet by mouth two times a day for 7 days.Disp: 14 tabletRfl: 0 predniSONE (DELTASONE) 20 mg tabletTake 2 tablets by mouth once daily for 5 days.Disp: 10 tabletRfl: 0 COVID AND INFLUENZA A/B AND RSV PCR, ROUTINE [SQCVFLRS] Order #: [id number]. #:[id number] Prescriptions as of 06/19/2024 - doxycycline (VIBRA-TABS) 100 mg tablet Take 1 tablet by mouth two times a day for 7 days. - predniSONE (DELTASONE) 20 mg tablet Take 2 tablets by mouth once daily for 5 days. - Brompheniramine-Pseudoe ph-DM (BROMFED DM) 2-30-10 mg/5 mL syrup Take 10 mL by mouth four times a day as needed. Problem List As Of Date 06/19/2024 Noted Resolved Seizures [R56.9] 02/15/2012 Fracture of fifth metacarpal bone of right hand*02/28/2012 Current severe episode of major depressive diso*09/29/2017 Prescriptions ordered this encounter Disp Refills Start End DOXYCYCLINE HYCLATE 100 MG TABLET 14 t* 0 06/19/2024 06/26/2024 Class: Print RX Cmt: May transfer to Hyclate if less expensive. Route: ORAL Sig: Take 1 tablet by mouth two ti (more content not included)... Normal [facility] COVID AND INFLUENZA A/B AND RSV PCR, ROUTINEon 06-19-2024 SARS-CoV-2 (COVID-19) RNA JUSTINE+probe Ql (Unsp spec) SARS-COV-2 (AGENT OF COVID-19) RNA: Not detected INFLUENZA A RNA: Not detected INFLUENZA B RNA: Not detected RESPIRATORY SYNCYTIAL VIRUS (RSV) RNA: Not detected Normal [facility] Comment on above: Performed By: #### C VFLRS ####[facility] LABCLIA [id number] [place] [address] [place] XR CHEST 2V FRONTAL/LATon XR CHEST 2V FRONTAL/LAT * * *Final Repor t* * * DATE OF EXAM: Jun 19 2024 6:08PM WOX [id number] - XR CHEST 2V FRONTAL/LAT / PROCEDURE REASON: Acute cough * * * * Physician Interpretation * * * * EXAMINATION: CHEST RADIOGRAPH (2 VIEW FRONTAL and LATERAL) CLINICAL HISTORY: Acute cough MQ: XC2_6 EXAM DATE/TIME: 06/19/2024 6:08 PM COMPARISON: No relevant prior studies available. RESULT: Lines, tubes, and devices: None. Lungs and pleura: No consolidation. No lung mass. No pleural effusion. No pneumothorax. Cardiomediastinal silhouette: Normal cardiomediastinal silhouette. Bones and soft tissues: Minimal anterior compression deformities at the mid thoracic vertebral body of uncertain chronicity. Mild degenerative changes in the spine. IMPRESSION: 1. No evidence of acute cardiopulmonary disease. 2. Minimal anterior compression deformities of several midthoracic vertebral bodies of uncertain chronicity. Production Inspector: [facility] Transcribe Date/Time: Jun 19 2024 7:10P Dictated by : KARI SINGH MD This examination was interpreted and the report reviewed and electronically signed by: KARI SINGH MD on Jun 19 2024 7:12PM EST [id number] Normal [facility] XR Chest PA and Lateralon IMPRESSION: 1. No evidence of acute cardiopulmonary disease. 2. Minimal anterior compression deformities of several midthoracic vertebral bodies of uncertain chronicity. Production Inspector: [facility] Transcribe Date/Time: Jun 19 2024 7:10P Dictated by : KARI SINGH MD This examination was interpreted and the report reviewed and electronically signed by: KARI SINGH MD on Jun 19 2024 7:12PM EST DIVISION OF RADIOLOGY * * *Final Report* * * DATE OF EXAM: Jun 19 2024 6:08PM WOX [id number] - XR CHEST 2V FRONTAL/LAT / PROCEDURE REASON: Acute cough * * * * Physician Interpretation * * * * EXAMINATION: CHEST RADIOGRAPH (2 VIEW FRONTAL & LATERAL) CLINICAL HISTORY: Acute cough MQ: XC2_6 EXAM DATE/TIME: 06/19/2024 6:08 PM COMPARISON: No relevant prior studies available. RESULT: Lines, tubes, and devices: None. Lungs and pleura: No consolidation. No lung mass. No pleural effusion. No pneumothorax. Cardiomediastinal silhouette: Normal cardiomediastinal silhouette. Bones and soft tissues: Minimal anterior compression deformities at the mid thoracic vertebral body of uncertain chronicity. Mild degenerative changes in the spine. DIVISION OF RADIOLOGY Provider, [facility] - 06/19/2024 * * *Final Report* * * DATE OF EXAM: Jun 19 2024 6:08PM WOX [id number] - XR CHEST 2V FRONTAL/LAT / PROCEDURE REASON: Acute cough * * * * Physician Interpretation * * * * EXAMINATION: CHEST RADIOGRAPH (2 VIEW FRONTAL & LATERAL) CLINICAL HISTORY: Acute cough MQ: XC2_6 EXAM DATE/TIME: 06/19/2024 6:08 PM COMPARISON: No relevant prior studies available. RESULT: Lines, tubes, and devices: None. Lungs and pleura: No consolidation. No lung mass. No pleural effusion. No pneumothorax. Cardiomediastinal silhouette: Normal cardiomediastinal silhouette. Bones and soft tissues: Minimal anterior compression deformities at the mid thoracic vertebral body of uncertain chronicity. Mild degenerative changes in the spine. IMPRESSION IMPRESSION: 1. No evidence of acute cardiopulmonary disease. 2. Minimal anterior compression deformities of several midthoracic vertebral bodies of uncertain chronicity. Production Inspector: [facility] Transcribe Date/Time: Jun 19 2024 7:10P Dictated by : KARI SINGH MD This examination was interpreted and the report reviewed and electronically signed by: KARI SINGH MD on Jun 19 2024 7:12PM EST [facility] Radiology [facility]narrative[facility] Chest PA and LateralOrder ed By: [facility] Provider on 06-19-2024 [facility] CNOVon 06-18-2024 CNOV Office Visit (UCWSTR ) FAMILIA PEREZ ([id number]) 1985 M Date Time Provider Department 06/18/24 3:00 PM TAHIR MAN [facility] During your visit today, we recorded the following information about you: Temperature Pulse Respiration Blood pressure 97.9 degrees 112/minute 18/minute 124/72 Weight 71.7 kg Tahir Man PA 06/18/2024 2:21 PM Signed This note was created using Follicariter. Subjective Familia Perez is a 39 year old male. HPI 39-year-old male presents for nasal congestion, cough x 3 days. Patient states on Tuesday starting sick with cough and nasal congestion. He has some sinus pressure. He states that he feels short of breath at times while coughing. He denies any chest pain. He has felt feverish, has not actually taken his temperature. No vomiting or diarrhea. His family is sick with similar symptoms. No other complaint. Has not tried anything [id number] for symptoms. PAST MEDICAL HISTORY No date: Seizures (HCC) PAST SURGICAL HISTORY No date: LITHOTRIPSY XTRCORP SHOCK WAVE Comment: Lithotripsy ALLERGIES Patient has no known allergies. MEDICATIONS Brompheniramine-Pseudoe ph-DM (BROMFED DM) 2-30-10 mg/5 mL syrup Take 10 mL by mouth four times a day as needed. FAMILY HISTORY Problem Relation Age of Onset Heart Mother Emphysema Mother No Known Problems Sister Social History Tobacco Use Smoking status: Every Day Current packs/day: 0.25 Types: Cigarettes Smokeless tobacco: Former Tobacco comments: 1-2 cigarettes a day Substance Use Topics Alcohol use: No Drug use: No Types: Marijuana Comment: no drugs , previous polysubstance abuser Review of Systems Constitutional: Positive for chills. Negative for fever. HENT: Positive for congestion and sinus pressure. Negative for sore throat. Respiratory: Positive for cough and shortness of breath. Gastrointestinal: Negative for diarrhea and vomiting. Objective BP 124/72 Pulse 112 Temp 36.6 ?C (97.9 ?F) Resp 18 Wt 71.7 kg (158 lb 1.1 oz) SpO2 98% BMI 24.38 kg/m? Physical Exam Vitals and nursing note reviewed. Constitutional: General: He is not in acute distress. Appearance: Normal appearance. He is not toxic-appearing. HENT: Right Ear: Tympanic membrane and ear canal normal. Left Ear: Tympanic membrane and ear canal normal. Nose: Congestion present. Mouth/Throat: Mouth: Mucous membranes are moist. Eyes: Conjunctiva/sclera: Conjunctivae normal. Cardiovascular: Rate and Rhythm: Normal rate and regular rhythm. Pulmonary: Effort: Pulmonary effort is normal. Breath sounds: Normal breath sounds. No wheezing, rhonchi or rales. Skin: General: Skin is warm and dry. Neurological: Mental Status: He is alert. Assessment and Plan ASSESSMENT/PLAN: 1. Acute cough - ICD9: 786.2, ICD10: R05.1 (primary diagnosis) - XR CHEST 2V FRONTAL/LAT -No XR available at time of exam. Patient will return tomorrow for CXR. 2. URI, acute - ICD9: 465.9, ICD10: J06.9 - Discussed viral etiology and rationale for treatment. - Symptomatic treatment with prn analgesia - Supportive care with fluids and rest -Rx for Bromfed -Declines COVID swab Diagnosis and treatment plan were discussed and questions were answered to the patient's satisfaction. Pt acknowledged understanding of concepts and follow up plan. Specific signs and symptoms that would indicate the need for higher level of care were discussed in detail warranting prompt ER evaluation. SRINIVASA Guerra Allergies As of Date: 06/18/2024 (No Known Allergies) Date Reviewed: 06/18/2024 Reviewed by: Sharon Bright MA - Fully Assessed Reason for Visit: Sinus Problem [99] Cmt: sinus pressure, drainage, cough and chest congestion x 2-3 days Primary Visit Diagnosis:Acute cough [R05.1] Other Visit Diagnosis:URI, acute [J06.9] Order(s):Brompheniramin g-Wsykbbaej-VN (BROMFED DM) 2-30-10 mg/5 mL syrupTake 10 mL by mouth four times a day as needed.Disp: 118 mLRfl: 0 XR CHEST 2V FRONTAL/LAT [[id number]] Order #: [id number] FUTURE Prescriptions as of 06/18/2024 - Brompheniramine-Pseudoe ph-DM (BROMFED DM) 2-30-10 mg/5 mL syrup Take 10 mL by mouth four times a day as needed. Problem List As Of Date 06/18/2024 Noted Resolved Seizures [R56.9] 02/15/2012 Fracture of fifth metacarpal bone of right hand*02/28/2012 Current severe episode of major depressive diso*09/29/2017 Prescriptions ordered this encounter Disp Refills Start End BROMPHENIRAMINE-PSEUDOE PHEDRINE-DM 2* 118 * 0 06/18/2024 Route: ORAL Sig: Take 10 mL by mouth four times a day as needed. Encounter Status:Closed by TAHIR MAN on 06/18/24 Normal [facility] Absolute lymphocyte countOrd ered By: Fiordaliza Martin on 12-05-2023 Lymphocytes Auto (Unsp spec) [#/Vol] 4.50 10*3/uL 0.83-4.51 [facility] Automated lymphocyte count a s percentage of total leukocytesOrdered By: Fiordaliza Martin on 12-05-2023 Lymphocytes/100 WBC Auto (Unsp spec) 44.9 % 19-41 [facility] Basophil percentageOrdered B y: Fiordaliza Martin on 12-05-2023 Basophil percentage 0-5 SEEN /hpf 0-5 Wo [facility] Basophils/100 WBC (Bld) 0.3 % 0-1 [facility] Chloride [Moles/Vol] 109 mmol/L 98-107 [facility] Eosinophils/100 WBC (Bld) 0.6 % 0-5 [facility] Glucose [Mass/Vol] 91 mg/dL 74-106 [facility] Hemoglobin (Bld) [Mass/Vol] 15.5 g/dL 13.0-16.5 [facility] Monocytes/100 WBC (Bld) 4.4 % 0-10 [facility] Neutrophils (Bld) [#/Vol] 5.0 10*3/uL 2.0-7.7 [facility] Neutrophils/100 WBC (Bld) 49.7 % 47-70 [facility] Potassium [Moles/Vol] 3.4 mmol/L 3.5-5.1 [facility] Sodium [Moles/Vol] 139 mmol/L 136-145 [facility] WBC (Bld) [#/Vol] 10.0 10*3/uL 4.4-11.0 [facility] Bilirubin Test strip Ql (U)O rdered By: Fiordaliza Martin on 12-05-2023 Bilirubin Ql (U) Negative Negative [facility] Determination of erythrocyte mean corpuscular volume (MCV)Ordered By: Fiordaliza Martin on 12-05-2023 MCV (RBC) [Entitic vol] 89.2 fL 80-94 [facility] Erythrocyte distribution wid th ratioOrdered By: Fiordaliza Martin on 12-05-2023 Erythrocyte distribution width (RBC) [Ratio] 13.0 % 11.6-14.6 [facility] Erythrocyte distribution wid th standard deviationOrdered By: Fiordaliza Martin on 12-05-2023 Erythrocyte distribution width (RBC) [Entitic vol] 42.5 fL 35.1-43.9 [facility] Hematocrit Auto (Bld) [Volum e fraction]Ordered By: Fiordaliza Martin on 12-05-2023 Hematocrit (Bld) [Volume fraction] 44.8 % 40-54 [facility] Immature granulocytes/100 WB C Auto (Bld)Ordered By: Fiordaliza Martin on 12-05-2023 Immature granulocytes/100 WBC (Bld) 0.100 % 0.0-0.9 [facility] Comment on above: IG% - Immature Granu locytes (promyelocytes, myelocytes and metamyelocytes) > 1% indicates that a LEFT SHIFT is Present. Ketones Test strip Ql (U)Ord ered By: Fiordaliza Martin on 12-05-2023 Ketones Ql (U) 5 mg/dl Negative [facility] Laboratory - Chemistry and C hemistry - challengeOrdered By: Fiordaliza Martin on 12-05-2023 CO2 [Moles/Vol] 26.0 mmol/L 21.0-32.0 [facility] Urea nitrogen/Creatinine [Mass ratio] 10.6 mg/mg 10-20 [facility] Laboratory - Hematology and Cell countsOrdered By: Fiordaliza Maritn on 12-05-2023 MCH (RBC) [Entitic mass] 30.9 pg 27.0-32.0 [facility] MCHC (RBC) [Mass/Vol] 34.6 g/dL 32-36 [facility] Nucleated RBC/100 WBC (Bld) [Ratio] 0 % 0-5 [facility] Platelet mean volume (Bld) [Entitic vol] 9.4 fL 6.2-12.0 [facility] Platelets (Bld) [#/Vol] 347 10*3/uL 150-450 [facility] Mucus LM Ql (Urine sed)Order ed By: Fiordaliza Martin on 12-05-2023 Mucus Ql (Urine sed) RARE /hpf [facility] Nitrite Test strip Ql (U)Ord ered By: Fiordaliza Martin on 12-05-2023 Nitrite Ql (U) Negative Negative [facility] No Panel InformationOrdered By: Fiordaliza Martin on 12-05-2023 Urine RBC 0 SEEN /hpf 0-5 [facility] Estimated Creatinine Clearance Calc 82.13 ml/min [facility] Estimated GFR (MDRD) Amer 101 mL/min >60 [facility] Comment on above: GFR Calc Estimated GFR (MDRD) Non-Af Amer 84 mL/min >60 [facility] Comment on above: Non- GFR Calc Protein Test strip Ql (U)Ord ered By: Fiordaliza Martin on 12-05-2023 Protein Ql (U) Negative Negative [facility] RBC Auto (Bld) [#/Vol]Ordere d By: Fiordaliza Martin on 12-05-2023 RBC (Bld) [#/Vol] 5.02 10*6/uL 4.6-6.2 [facility] Serum or plasma calcium lizett urement (mass/volume)Ordered By: Fiordaliza Martin on 12-05-2023 Calcium [Mass/Vol] 9.4 mg/dL 8.5-10.1 [facility] Serum or plasma creatinine m easurement (mass/volume)Ordered By: Fiordaliza Martin on 12-05-2023 Creatinine [Mass/Vol] 1.04 mg/dL 0.70-1.30 [facility] Comment on above: The validity of the calculated GFR & GFRAA in patients over 70 years has not been determined. Clinical correlation is essential. Serum or plasma urea nitroge n measurement (mass/volume)Ordered By: Fiordaliza Martin on 12-05-2023 Urea nitrogen [Mass/Vol] 11 mg/dL 7-18 [facility] Squamous epithelial cells de tection in urine sediment by light microscopyOrdered By: Fiordaliza Martin on 12-05-2023 Epithelial cells.squamous LM Ql (Urine sed) 0-5 SEEN /hpf 0-5 [facility] Thin prep Papanicolaou smear with manual screeningOrdered By: Fiordaliza Martin on 12-05-2023 Thin prep Papanicolaou smear with manual screening 4 5-15 [facility] Urine blood detectionOrdered By: Fiordaliza Martin on 12-05-2023 RBC Ql (U) Negative Negative [facility] Urine clarityOrdered By: Monik Martin on 12-05-2023 Clarity (U) Clear Clear [facility] Urine color determinationOrd ered By: Fiordaliza Martin on 12-05-2023 Color (U) Yellow Yellow [facility] Urine glucose detectionOrder ed By: Fiordaliza Martin on 12-05-2023 Glucose Ql (U) Normal mg/dl Normal [facility] Urine leukocyte esterase det ection by dipstickOrdered By: Fiordaliza Martin on 12-05-2023 Leukocyte esterase Test strip Ql (U) 25 /ul Negative [facility] Urine pHOrdered By: Fiordaliza alvarado on 12-05-2023 pH (U) 6.0 [pH] 5.0 - 8.0 [facility] Urine sediment bacteria coun t by microscopy (number/high power field)Ordered By: Fiordaliza Martin on 12-05-2023 Bacteria LM.HPF (Urine sed) [#/Area] 0 /[HPF] None Seen [facility] Urine specific gravity measu rementOrdered By: Fiordaliza Martin on 12-05-2023 Specific gravity (U) [Rel density] 1.015 1.002-1.030 [facility] Urine urobilinogen measureme ntOrdered By: Fiordaliza Martin on 12-05-2023 Urobilinogen Ql (U) Normal mg/dl Normal [facility] XR CHEST PA/APon 02-14-2023 XR CHEST PA/AP EXAMINATION: XR CHEST PA/AP HISTORY: ORDERING SYSTEM PROVIDED HISTORY: cp, TECHNOLOGIST PROVIDED HISTORY: Illness/Other Reason for exam: cp Cancer History: n Surgery, RadiationHistory: n Encounter Type: Initial Additional signs and symptoms: cough ORDERING SYSTEM PROVIDED DIAGNOSIS CODES: COMPARISON: None. TECHNIQUE: AP upright portable chest radiograph performed. FINDINGS: The trachea is normal. There is magnification of the cardiac silhouette. The cardiomediastinal silhouette and hilar shadows are unremarkable. The lung cowart are clear. There is no pneumothorax. There is no osseous abnormality. IMPRESSION: Unremarkable AP upright portable chest radiograph. Workstation ID: [id number] Dictated by: SHEELA LUEVANO on TueFebruary 14, 2023 9:11:23 AM EDT Transcribed by: SHEELA LUEVANO on TueFebruary 14, 2023 9:11:23 AM EDT Finalized by: SHEELA LUEVANO on TueFebruary 14, 2023 9:11:[address] [facility] Comment on above: Order Comment: Injur y/Trauma or Illness?:Illness/Other How long have you had these symptoms (acute/chronic)?:Acute Reason for exam?:cp History of cancer?:n Surgeries, chemotherapy, or radiation?:n Type of Exam?:Initial Additional signs and symptoms?:cough Laboratory - Chemistry and C hemistry - challengeon 06-03-2022 Cholesterol [Mass/Vol] 281 mg/dL [facility] Work Phone: [phone] No Panel Informationon 06-03 N/A [facility] Work Phone: [phone] Comment on above: Age: 37Sex: MaleRace : WhiteSystolic Blood Pressure: 138Diastolic Blood Pressure: 88Total Cholesterol: 281HDL Cholesterol: 46.0LDL Cholesterol: 218Diabetes: NoSmoker: CurrentHow Long Ago Patient Quit Smoking: N/AOn Hypertension Treatment: NoOn a Statin: NoOn Aspirin Therapy: NoRefine Current Risk Estimate Using Data from a Previous Visit: No Current [facility] Work Phone: [phone] False [facility] Work Phone: [phone] 218 mg/dL [facility] Work Phone: [phone] 46.0 mg/dL [facility] Work Phone: {years} [facility] Work Phone: % [facility] Work Phone: CBCon 06-02-2022 Erythrocyte distribution width (RBC) [Ratio] 13.8 % Normal 11.5 - 14.5 [facility] Work Phone: [phone] Comment on above: Reference Range: 11. 5 - 14.5 Performed By: #### C BC #### [address] [address] Hematocrit (Bld) [Volume fraction] 45.6 % Normal 41.0 - 52.0 [facility] Work Phone: [phone] Comment on above: Reference Range: 41. 0 - 52.0 Performed By: #### C BC #### [address] [address] Hemoglobin (Bld) [Mass/Vol] 15.2 g/dL Normal 13.5 - 17.5 [facility] Work Phone: [phone] Comment on above: Reference Range: 13. 5 - 17.5 Performed By: #### C BC #### [address] [address] MCHC (RBC) [Mass/Vol] 33.4 g/dL Normal 32.0 - 36.0 [facility] Work Phone: [phone] Comment on above: Reference Range: 32. 0 - 36.0 Performed By: #### C BC #### [address] [address] MCV (RBC) [Entitic vol] 91 fL Normal 80 - 100 [facility] Work Phone: [phone] Comment on above: Performed By: #### C BC #### [address] [address] Platelets (Bld) [#/Vol] 338 10*3/uL Normal 150 - 450 [facility] Work Phone: [phone] Comment on above: Performed By: #### C BC #### [address] [address] RBC 5.00 x10E12/L Normal 4.50 - 5.90 [facility] Comment on above: Performed By: #### C BC #### [address] [address] WBC (Bld) [#/Vol] 8.7 10*3/uL Normal 4.4 - 11.3 [facility] Work Phone: [phone] Comment on above: Performed By: #### C BC #### [address] [address] CHEST 2 VIEW PA AND LATon CHEST 2 VIEW PA AND LAT Patient Name: FAMILIA PEREZ STUDY: TH CHEST 2 VIEW PA AND LAT; 06/02/2022 10:07 am INDICATION: pateint has H/O chest pressure R07.89: Chest pressure. COMPARISON: 03/11/2022 ACCESSION NUMBER(S): [id number] ORDERING CLINICIAN: HOWARD CLIFFORD FINDINGS: CARDIOMEDIASTINAL SILHOUETTE: Cardiomediastinal silhouette is normal in size and configuration. LUNGS: There are no focal areas of consolidation or pleural effusions noted. ABDOMEN: No remarkable upper abdominal findings. BONES: No acute osseous changes. IMPRESSION: 1. No evidence of acute cardiopulmonary process. Electronically signed by: ZOË HERNANDEZ MD Normal [facility] PANELon 2021 Albumin [Mass/Vol] 4.4 g/dL Normal 3.4 - 5.0 [facility] Comment on above: Performed By: #### C MP #### [address] [address] ALP [Catalytic activity/Vol] 51 U/L Normal 33 - 120 [facility] Work Phone: [phone] Comment on above: Performed By: #### C MP #### [address] [address] ALT [Catalytic activity/Vol] 18 U/L Normal 10 - 52 [facility] Comment on above: Result Comment: Justina ents treated with Sulfasalazine may generate falsely decreased results for ALT. Performed By: #### C MP #### [address] [address] Anion gap [Moles/Vol] 10 mmol/L Normal 10 - 20 [facility] Work Phone: [phone] Comment on above: Performed By: #### C MP #### [address] [address] AST [Catalytic activity/Vol] 15 U/L Normal 9 - 39 [facility] Comment on above: Performed By: #### C MP #### [address] [address] Bilirubin [Mass/Vol] 0.7 mg/dL Normal 0.0 - 1.2 [facility] Work Phone: [phone] Comment on above: Performed By: #### C MP #### [address] [address] Calcium [Mass/Vol] 9.5 mg/dL Normal 8.6 - 10.3 [facility] Work Phone: [phone] Comment on above: Performed By: #### C MP #### [address] [address] Chloride [Moles/Vol] 108 mmol/L High 98 - 107 [facility] Work Phone: [phone] Comment on above: Performed By: #### C MP #### [address] [address] Creatinine [Mass/Vol] 0.80 mg/dL Normal 0.50 - 1.30 [facility] Work Phone: [phone] Comment on above: Reference Range: 0.5 0 - 1.30 Performed By: #### C MP #### [address] [address] eGFR MALE >90 Normal >90 [facility] Comment on above: Result Comment: CALC ULATIONS OF ESTIMATED GFR ARE PERFORMED USING THE 2020 CKD-EPI STUDY REFIT EQUATION WITHOUT THE RACE VARIABLE FOR THE IDMS-TRACEABLE CREATININE METHODS. https://jasn.asnjournals.org/content/early/ASN.2020 534601 Performed By: #### C MP #### [address] [address] Glucose [Mass/Vol] 103 mg/dL High 74 - 99 [facility] Work Phone: [phone] Comment on above: Performed By: #### C MP #### [address] [address] HCO3 (Bld) [Moles/Vol] 25 mmol/L Normal 21 - 32 [facility] Comment on above: Performed By: #### C MP #### [address] [address] Potassium [Moles/Vol] 3.8 mmol/L Normal 3.5 - 5.3 [facility] Work Phone: Comment on above: Performed By: #### C MP #### [address] [address] Protein [Mass/Vol] 7.2 g/dL Normal 6.4 - 8.2 [facility] Work Phone: [phone] Comment on above: Performed By: #### C MP #### [address] [address] Sodium [Moles/Vol] 139 mmol/L Normal 136 - 145 [facility] Work Phone: [phone] Comment on above: Performed By: #### C MP #### [address] [address] Urea nitrogen [Mass/Vol] 10 mg/dL Normal 6 - 23 [facility] Work Phone: [phone] Comment on above: Performed By: #### C MP #### [address] [address] LIPID PANEL (CORONARY RISK 2 )on 06-02-2022 Cholesterol in VLDL [Mass/Vol] 17 mg/dL Normal 0 - 40 [facility] Comment on above: Performed By: #### L IPID #### [address] [address] Laboratory - Chemistry and C hemistry - challengeon 06-02-2022 Albumin BCP dye [Mass/Vol] 4.4 g/dL 3.4 - 5.0 [facility] Work Phone: [phone] ALT With P-5'-P [Catalytic activity/Vol] 18 U/L 10 - 52 [facility] Work Phone: [phone] Comment on above: Patients treated wit h Sulfasalazine may generate falsely decreased results for ALT. AST With P-5'-P [Catalytic activity/Vol] 15 U/L 9 - 39 [facility] Work Phone: [phone] CO2 [Moles/Vol] 25 mmol/L 21 - 32 [facility] Work Phone: [phone] Laboratory - Hematology and Cell countson 06-02-2022 RBC (Bld) [#/Vol] 5.00 {x10E12/L} See Below [facility] Work Phone: Comment on above: Reference Range: 4.5 0 - 5.90 Lipid Panelon 06-02-2022 Cholesterol [Mass/Vol] 281 mg/dL High 0 - 199 [facility] Work Phone: Comment on above: . AGE DESIRABLE BORD JESSI HIGH HIGH 0-19 Y 0 - 169 170 - 199 >/= 200 20-24 Y 0 - 189 190 - 224 >/= 225 >24 Y 0 - 199 200 - 239 >/= 240 All ranges are based on fasting samples. Specific therapeutic targets will vary based on patient-specific cardiac risk.. Pediatric guidelines reference:Pediatrics 2011, 128(S5). Adult guidelines reference: NCEP ATPIII Guidelines, MONIQUE 2001, 258:2486-97. Venipuncture immediately after or during the administration of Metamizole may lead to falsely low results. Testing should be performed immediately prior to Metamizole dosing. Result Comment: . AGE DESIRABLE BORDERLINE HIGH HIGH 0-19 Y 0 - 169 170 - 199 >/= 200 20-24 Y 0 - 189 190 - 224 >/= 225 >24 Y 0 - 199 200 - 239 >/= 240 All ranges are based on fasting samples. Specific therapeutic targets will vary based on patient-specific cardiac risk. . Pediatric guidelines reference:Pediatrics 2011, 128(S5). Adult guidelines reference: NCEP ATPIII Guidelines, MONIQUE 2001, 258:2486-97 . Venipuncture immediately after or during the administration of Metamizole may lead to falsely low results. Testing should be performed immediately prior to Metamizole dosing. Performed By: #### L IPID #### [id number] [place] [address] Cholesterol in HDL [Mass/Vol] 46.0 mg/dL Normal [facility] Work Phone: Comment on above: . AGE VERY LOW LOW N ORMAL HIGH 0-19 Y < 35 < 40 40-45 ---- 20-24 Y ---- < 40 >45 ---- >24 Y ---- < 40 40-60 >60. Result Comment: . AGE VERY LOW LOW NORMAL HIGH 0-19 Y < 35 < 40 40-45 ---- 20-24 Y ---- < 40 >45 ---- >24 Y ---- < 40 40-60 >60 . Performed By: #### L IPID #### [address] [address] Cholesterol in LDL [Mass/Vol] 218 mg/dL High 0 - 99 [facility] Work Phone: Comment on above: . NEAR BORD AGE JAQUELINE RABLE OPTIMAL HIGH HIGH VERY HIGH 0-19 Y 0 - 109 --- 110-129 >/= 130 ---- 20-24 Y 0 - 119 --- 120-159 >/= 160 ---- >24 Y 0 - 99 100-129 130-159 160-189 >/=190. Result Comment: . NEAR BORD AGE DESIRABLE OPTIMAL HIGH HIGH VERY HIGH 0-19 Y 0 - 109 --- 110-129 >/= 130 ---- 20-24 Y 0 - 119 --- 120-159 >/= 160 ---- >24 Y 0 - 99 100-129 130-159 160-189 >/=190 . Performed By: #### L IPID #### [address] [address] Cholesterol.total/Agnes sterol in HDL [Mass ratio] 6.1 {ratio} Abnormal [facility] Work Phone: Comment on above: REF VALUESDESIRABLE < 3.4HIGH RISK > 5.0 Result Comment: REF VALUES DESIRABLE < 3.4 HIGH RISK > 5.0 Performed By: #### L IPID #### [address] [address] Triglyceride [Mass/Vol] 85 mg/dL Normal 0 - 149 [facility] Work Phone: Comment on above: . AGE DESIRABLE BORD JESSI HIGH HIGH VERY HIGH 0 D-90 D 19 - 174 ---- ---- ----91 D- 9 Y 0 - 74 75 - 99 >/= 100 ---- 10-19 Y 0 - 89 90 - 129 >/= 130 ---- 20-24 Y 0 - 114 115 - 149 >/= 150 ---- >24 Y 0 - 149 150 - 199 200- 499 >/= 500. Venipuncture immediately after or during the administration of Metamizole may lead to falsely low results. Testing should be performed immediately prior to Metamizole dosing. Result Comment: . AGE DESIRABLE BORDERLINE HIGH HIGH VERY HIGH 0 D-90 D 19 - 174 ---- ---- ---- 91 D- 9 Y 0 - 74 75 - 99 >/= 100 ---- 10-19 Y 0 - 89 90 - 129 >/= 130 ---- 20-24 Y 0 - 114 115 - 149 >/= 150 ---- >24 Y 0 - 149 150 - 199 200- 499 >/= 500 . Venipuncture immediately after or during the administration of Metamizole may lead to falsely low results. Testing should be performed immediately prior to Metamizole dosing. Performed By: #### L IPID #### [id number] [place] [address] Lipid Panel 17 mg/dL 0 - 40 [facility] Work Phone: No Panel Informationon 06-02 >90 >90 [facility] Work Phone: Comment on above: CALCULATIONS OF CHIKI MATED GFR ARE PERFORMED USING THE 2020 CKD-EPI STUDY REFIT EQUATION WITHOUT THE RACE VARIABLE FOR THE IDMS-TRACEABLE CREATININE METHODS.https://jasn.asnjournals.org/content// ASN.7880680701 Office Visit ([facility] Merlyn morgan)on 06-02-2022 Follow-up visit Diagnoses/Problems Chest pressure (786.59) (R07.89) Current every day smoker (305.1) (F17.200) 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 : pateint has H/O chest pressure Chest pressure, SocHx: Current every day smoker Complete Blood Count; Status:Active; Requested for:02Jun2022; Comprehensive Metabolic Panel; Status:Active; Requested for:02Jun2022; Lipid Panel; Status:Active; Requested for:02Jun2022; Essential hypertension Start: Lisinopril 5 MG Oral Tablet; TAKE 1 TABLET DAILY SocHx: Current every day smoker Tobacco Use Screening; Status:Complete; Done: 02Jun2022 Tobacco Use Screening; Status:Complete; Done: 02Jun2022 Provider Impressions Chest pressure: Will obtain CXR and EKG. Instructed to seek emergent care if chest pressure becomes worse or is accompanied with nausea, sweating, or chest pain. Dizziness: Chronic stable, will obtain CBC and treat HTN. HTN: Start on Lisinopril 5 mg daily, recommend taking at bedtime to avoid increase in dizziness. Instructed to monitor BP at least 3 times weekly and keep record. 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 History of Present Illness Familia is a 37 yo male, here today to establish care with multiple health concerns. He reports chest pressure, history of seizures, recent kidney stone, recent tooth infection, elevated BP, and chronic dizziness. CP started a few months ago with bilateral upper arm feel asleep complains of dizziness. was seen in urgent care for CP, they collected VS and recommended he see PCP. No EKG was done. Was seen for tooth infection in 05/07, was placed on antibiotics and then tooth extraction. BP is elevated here today, was elevated at urgent care, he is unaware how long BP has been elevated Mother has high BP, father unknown Has history of seizures, was on Dilantin, stopped taking this drug, last seizure was in 20's, Smoker cigarettes daily/ pack a day for 22 years. no alcohol consumption marijuana recreationally, history of methamphetamine use for 2 years. 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 Review of Systems Constitutional: no chills, no fever and no night sweats. Eyes: no blurred vision and no eyesight problems. ENT: no hearing loss, no nasal congestion, no nasal discharge, no hoarseness, no oral lesions and no sore throat . missing teeth. Neck: no mass(es) and no swelling. Cardiovascular: no chest pain, no intermittent leg claudication, no lower extremity edema, no palpitations and no syncope . chest pressure. Respiratory: shortness of breath during exertion, but no cough, no shortness of breath at rest and no wheezing. Gastrointestinal: no abdominal pain, no blood in stools, no constipation, no diarrhea, no melena, no nausea, no rectal pain and no vomiting. Genitourinary: hematuria, but as noted in HPI, no dysuria, no change in urinary frequency, no urinary hesitancy and no feelings of urinary urgency . kidney stones. Musculoskeletal: no arthralgias, no back pain and no myalgias. Integumentary: no new skin lesions and no rashes . multiple tatoos. Neurological: dizziness, but as noted in HPI, no difficulty walking, no headache, no limb weakness, no numbness and no tingling . H/O seizure. Psychiatric: no anxiety, no depression, no anhedonia and no substance use disorders. Endocrine: no recent weight gain and no recent weight loss. Hematologic/Lymphatic: no tendency for easy bleeding and no tendency for easy bruising. 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 Normal [facility] 06-02-2022 XR Chest 2 Views Normal [facility] Work Phone: [phone] Tobacco Screening.on 022 Tobacco use status [facility]PHS a) Yes [facility] Work Phone: [phone] Tobacco Screening. Yes [facility] Work Phone: [phone] BLOOD CULTURE, BACTERIALon 0 03-11-2022 BLOOD CULTURE, BACTERIAL PATIENT: FAMILIA PEREZ LOCATION: [facility]rell [facility]#: [id number] : 81 AGE: SEX: M ORDERED BY: UYEN KAUR SOURCE: Blood COLLECTED: 03/11/22 09:54 ANTIBIOTICS AT LAURA.: RECEIVED : 03/11/22 17:56 SITE: ANTECUBITAL R E S U L T S BLOOD CULTURE, BACTERIAL FINAL 03/15/22 19:42 No Growth at 1 days No Growth at 2 days No Growth at 3 days NO GROWTH at 4 days - FINAL REPORT [facility] Comment on above: Performed By: #### B LDC #### [facility] [address] [place] [address] BLOOD CULTURE, BACTERIAL PATIENT: FAMILIA PEREZ [facility] [id number] : 81 AGE: SEX: M ORDERED BY: UYEN KAUR SOURCE: Blood COLLECTED: 03/11/22 09:54 ANTIBIOTICS AT LAURA.: RECEIVED : 03/11/22 17:54 SITE: ANTECUBITAL R E S U L T S BLOOD CULTURE, BACTERIAL FINAL 03/15/22 19:42 No Growth at 1 days No Growth at 2 days No Growth at 3 days NO GROWTH at 4 days - FINAL REPORT [facility] Comment on above: Performed By: #### B LDC ####[id number] [place] [address] CBC AND DIFFERENTIALon 03-11 Basophils (Bld) [#/Vol] 0.20 10*3/uL High 0.00 - 0.1 0 [facility] Comment on above: Performed By: #### C BCDF ####[address] [address] Basophils/100 WBC (Bld) 1.3 % Normal 0.0 - 2.0 [facility] Comment on above: Performed By: #### C BCDF ####[address] [address] Eosinophils (Bld) [#/Vol] 0.10 10*3/uL Normal 0.00 - 0.70 [facility] Comment on above: Performed By: #### C BCDF ####[address] [address] Eosinophils/100 WBC (Bld) 1.1 % Normal 0.0 - 6.0 [facility] Comment on above: Performed By: #### C BCDF ####[address] [address] Erythrocyte distribution width (RBC) [Ratio] 14.2 % Normal 11.5 - 14.5 [facility] Comment on above: Performed By: #### C BCDF ####[address] [address] Hematocrit (Bld) [Volume fraction] 46.0 % Normal 41.0 - 52.0 [facility] Comment on above: Performed By: #### C BCDF ####[address] [address] Hemoglobin (Bld) [Mass/Vol] 15.4 g/dL Normal 13.5 - 17.5 [facility] Comment on above: Performed By: #### C BCDF ####[address] [address] Lymphocytes (Bld) [#/Vol] 3.10 10*3/uL Normal 1.20 - 4.80 [facility] Comment on above: Performed By: #### C BCDF ####[address] [address] Lymphocytes/100 WBC (Bld) 24.5 % Normal 13.0 - 44.0 [facility] Comment on above: Performed By: #### C BCDF ####[address] [address] MCHC (RBC) [Mass/Vol] 33.5 g/dL Normal 32.0 - 36.0 [facility] Comment on above: Performed By: #### C BCDF ####[address] [address] MCV (RBC) [Entitic vol] 91 fL Normal 80 - 100 [facility] Comment on above: Performed By: #### C BCDF ####[address] [address] Monocytes (Bld) [#/Vol] 0.90 10*3/uL Normal 0.10 - 1.0 0 [facility] Comment on above: Performed By: #### C BCDF ####[address] [address] Monocytes/100 WBC (Bld) 6.7 % Normal 2.0 - 10.0 [facility] Comment on above: Performed By: #### C BCDF ####[address] [address] Neutrophils (Bld) [#/Vol] 8.50 10*3/uL High 1.20 - 7.70 [facility] Comment on above: Result Comment: Perc ent differential counts (%) should be interpreted in the context of the absolute cell counts (cells/L). Performed By: #### C BCDF ####[address] [address] Neutrophils/100 WBC (Bld) 66.4 % Normal 40.0 - 80.0 [facility] Comment on above: Performed By: #### C BCDF ####[address] [address] NUCLEATED RBC 0.1 /100 WBC Normal [facility] Comment on above: Performed By: #### C BCDF ####[address] [address] Platelets (Bld) [#/Vol] 308 10*3/uL Normal 150 - 450 [facility] Comment on above: Performed By: #### C BCDF ####[address] [address] RBC 5.05 x10E12/L Normal 4.50 - 5.90 [facility] Comment on above: Performed By: #### C BCDF ####[address] [address] WBC (Bld) [#/Vol] 12.8 10*3/uL High 4.4 - 11.3 [facility] Comment on above: Performed By: #### C BCDF ####[address] [address] CHEST 1 VIEWon 03-11-2022 CHEST 1 VIEW STUDY: Chest Radiograph; 03/11/2022 9:04 AM INDICATION: Weakness and dental pain for five years. COMPARISON: None Available ACCESSION NUMBER(S): [id number] ORDERING CLINICIAN: UYEN KAUR DO TECHNIQUE: Frontal chest was obtained at 10:06 hours. FINDINGS: CARDIOMEDIASTINAL SILHOUETTE: Cardiomediastinal silhouette is normal in size and configuration. LUNGS: Lungs are clear. ABDOMEN: No remarkable upper abdominal findings. BONES: No acute osseous changes. IMPRESSION: No acute cardiopulmonary abnormality. Signed by Trina Lee MD Electronically signed by: TRINA LEE MD Normal [facility] COMPREHENSIVE PANELon 2021 Albumin [Mass/Vol] 4.3 g/dL Normal 3.4 - 5.0 [facility] Comment on above: Performed By: #### C MP #### [address] [address] ALP [Catalytic activity/Vol] 58 U/L Normal 33 - 120 [facility] Comment on above: Performed By: #### C MP #### [address] [address] ALT [Catalytic activity/Vol] 26 U/L Normal 10 - 52 [facility] Comment on above: Result Comment: Justina ents treated with Sulfasalazine may generate falsely decreased results for ALT. Performed By: #### C MP #### [address] [address] Anion gap [Moles/Vol] 10 mmol/L Normal 10 - 20 [facility] Comment on above: Performed By: #### C MP #### [address] [address] AST [Catalytic activity/Vol] 20 U/L Normal 9 - 39 [facility] Comment on above: Performed By: #### C MP #### [address] [address] Bilirubin [Mass/Vol] 0.6 mg/dL Normal 0.0 - 1.2 [facility] Comment on above: Performed By: #### C MP #### [address] [address] Calcium [Mass/Vol] 9.3 mg/dL Normal 8.6 - 10.3 [facility] Comment on above: Performed By: #### C MP #### [address] [address] Chloride [Moles/Vol] 107 mmol/L Normal 98 - 107 [facility] Comment on above: Performed By: #### C MP #### [address] [address] Creatinine [Mass/Vol] 0.91 mg/dL Normal 0.50 - 1.30 [facility] Comment on above: Performed By: #### C MP #### [address] [address] eGFR MALE >90 Normal >90 [facility] Comment on above: Result Comment: CALC ULATIONS OF ESTIMATED GFR ARE PERFORMED USING THE 2020 CKD-EPI STUDY REFIT EQUATION WITHOUT THE RACE VARIABLE FOR THE IDMS-TRACEABLE CREATININE METHODS. https://jasn.asnjournals.org/content/early//ASN.2020 327686 Performed By: #### C MP #### [address] [address] Glucose [Mass/Vol] 90 mg/dL Normal 74 - 99 [facility] Comment on above: Performed By: #### C MP #### [address] [address] HCO3 (Bld) [Moles/Vol] 25 mmol/L Normal 21 - 32 [facility] Comment on above: Performed By: #### C MP #### [address] [address] Potassium [Moles/Vol] 4.0 mmol/L Normal 3.5 - 5.3 [facility] Comment on above: Performed By: #### C MP #### [address] [address] Protein [Mass/Vol] 7.2 g/dL Normal 6.4 - 8.2 [facility] Comment on above: Performed By: #### C MP #### [address] [address] Sodium [Moles/Vol] 138 mmol/L Normal 136 - 145 [facility] Comment on above: Performed By: #### C MP #### [address] [address] Urea nitrogen [Mass/Vol] 15 mg/dL Normal 6 - 23 [facility] Comment on above: Performed By: #### C MP #### [id number] CORONAVIRUS 2019 BY PCRon SARS-CoV-2 (COVID-19) RNA JUSTINE+probe Ql (Unsp spec) Not detected Normal Not Detected [facility] Comment on above: Result Comment: . This test has received FDA Emergency Use Authorization (EUA) and has been verified by [facility]. This test is only authorized for the duration of time that circumstances exist to justify the authorization of the emergency use of in vitro diagnostic tests for the detection of SARS-CoV-2 virus and/or diagnosis of COVID-19 infection under section 564(b)(1) of the Act, 21 U.S.C. 360bbb-3(b)(1), unless the authorization is terminated or revoked sooner. [facility] is certified under CLIA-88 as qualified to perform high complexity testing. Testing is performed in the [facility] laboratory located at [address] [place] [address]. SARS-CoV-2/Flu/RSV Multiplex Test: Fact sheet for providers: https://www.fda.gov/media/489982/download Fact sheet for patients: https://www.fda.gov/media/916096/download Performed By: #### C OV19 #### [place] [address] Lab Specimen Source Nasal, Nasopharyngeal Normal [facility] Comment on above: Performed By: #### C OV19 #### [place] [address] CT HEAD WO CONTRASTon 2021 CT HEAD WO CONTRAST STUDY: CT Head without IV Contrast; 03/11/2022 10:15 AM INDICATION: Left-sided mouth pain for five years, worse this week. Headache for 1.5 days. Weakness. ADDITIONAL HISTORY: Brain surgery as child. COMPARISON: None available. ACCESSION NUMBER(S): [id number] ORDERING CLINICIAN: UYEN KAUR DO TECHNIQUE: CT of the brain was performed without contrast. Automated mA/kV exposure control was utilized and patient examination was performed in strict accordance with principles of ALARA. FINDINGS: CT HEAD: CSF Spaces: The ventricles, sulci and basal cisterns are within normal limits. There is no extraaxial fluid collection. Parenchyma: The haas-white differentiation is intact. There is no mass effect or midline shift. There is no intracranial hemorrhage. 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 Calvarium: The calvarium is unremarkable. Paranasal sinuses and mastoids: Visualized paranasal sinuses and mastoids are clear. IMPRESSION: No CT evidence of acute intracranial abnormality. If concern of acute ischemia/infarction persists, further assessment with MRI may be considered as a more sensitive examination. Peripherally calcified pineal cyst with mild mass effect upon the superior aspect of the tectal plate. Signed by Trina Lee MD Electronically signed by: TRINA LEE MD Normal [facility] Covid 19 Resultson SARS-CoV-2 (COVID-19) RNA JUSTINE+probe Ql (Unsp spec) NEGATIVE COVID-19 Test Coronaviruses are common world-wide and are the cause of many common colds. SARS-COV2 is a new coronavirus that began circulating worldwide in 2019 so we are calling it COVID-19. It has been estimated that four out of five patients with COVID-19 will recover at home without the need for medical attention. Symptoms of COVID-19 may include cough, fever, shortness of breath, loss of taste or smell and other flu-like symptoms including chills, sore muscles, sore throat, and headache. Severe illness is more common in older people and people with other health problems such as high blood pressure, obesity, and immune system problems. If the test is positive, you have COVID-19. You will be contacted by the ordering physicians office and instructed to remain on home isolation, in accordance with CDC guidelines. You may also be contacted by the [facility] to see if any of your close contacts may have been exposed to the virus and need to quarantine. If the test is negative, you likely do not have COVID-19 at this time, but you still may have a different illness that can spread to other people (like Influenza, or the Flu) and could still be at risk for getting COVID-19. We recommend that you stay away from other people to limit the spread of illness until your symptoms are improving and you are fever-free for 24 hours without the use of fever lowering medications such as acetaminophen or ibuprofen. No test is 100% accurate so if you are still concerned you may have COVID-19, talk to your doctor about the need to continue to stay away from others. Medicines Unless your provider told you not to use the following: Acetaminophen (Tylenol and others) is generally safe. Anti-inflammatory medications, such as Ibuprofen (Advil or Motrin) or Naproxen (Aleve) can also be used. Eyxv-nah-jhcdvzh cough and cold medicines can be used according to the instructions on the package. Some gmea-wqj-amhnikt medicines also contain acetaminophen. Make sure you are not taking more than your recommended dose. For those not hospitalized, there is no specific treatment available for this illness. Antibiotics do not treat Coronaviruses. Follow-Up Follow up with your doctor by scheduling a virtual visit or consider follow-up at one of our urgent care fever clinics. If you are having difficulty breathing, or are very weak and having difficulty standing, this is a medical emergency. Call 911 or have someone take you to the nearest emergency room immediately. If possible, wear a facemask. Additional guidance from the CDC for patients who tested POSITIVE for COVID-19 How to isolate: Isolate yourself in a specific room at home and limit your contact with others. Use a separate bathroom from other members of the household, when possible. Leave home only to get essential medical care. Do not go to work, school or public areas. Avoid using public transportation, ride-sharing, or taxis. Restrict contact with pets and other animals. If you must care for your pet or be around animals while you are sick, wash your hands before and after your interaction and wear a facemask. Make sure that shared spaces in the home have good airflow, such as by an air conditioner or an opened window, weather permitting. Personal Hygiene Procedures: Wear a face mask when in the same room as other people or pets. If a face mask interferes with your breathing, others should wear a mask when sharing space with you. Frequent hand-washing: wash your hands with soap and water for at least 20 seconds. If soap and water are not available, use alcohol-based hand float remover. Avoid touching your eyes, nose, and mouth with unwashed hands. Household Hygiene Procedures: Avoid sharing personal household items such as dishes, glassware, cups, eating utensils, towels or bedding with other people or pets in your home. After use, these items should be washed with soap and hot water. Disinfect all high-touch surfaces every day with antibacterial cleaning solutions such as Lysol wipes, bleach, cleansers, etc. High-touch surfaces include tabletops, doorknobs, bathroom fixtures, toilets, phones, keyboards, tablets and bedside tables. Immediately clean any surfaces that may have blood, poop or body fluids on them, using antibacterial cleaning solutions such as Lysol wipes, bleach, cleansers, etc. If clothing or bedding come into contact with blood, poop or body fluids, they should be washed immediately. Follow the directions on the laundry detergent and clothing labels but hot water is recommended when possible. Stopping home isolation precautions: If possible, consult your doctor before stopping home isolation precautions. According to the CDC, you can discontinue home isolation precautions when you have met both of these criteria: Your fever and respiratory symptoms have been gone for 24 anu (more content not included)... Normal [facility] Electrocardiogram 12 Leadon 03-11-2022 Electrocardiogram 12 Lead Ventricular Rate 76 Atrial Rate 76 P-R Interval 142 QRS Duration 88 Q-T Interval 388 QTC Calculation(Bazett) 436 P Kendall 31 R Kendall -14 T Kendall -21 QRS Count 12 Q Onset 215 P Onset 144 P Offset 194 T Offset 409 QTC Fredericia 419 Diagnosis Class Normal Diagnosis Please see physician note for formal interpretation confirmed by Scribe Confirmed by Steve Gordon () on 03/16/2022 12:37:[address] [facility] LACTATEon 03-11-2022 Lactate [Moles/Vol] 1.1 mmol/L Normal 0.4 - 2.0 [facility] Comment on above: Result Comment: Sheryl puncture immediately after or during the administration of Metamizole may lead to falsely low results. Testing should be performed immediately prior to Metamizole dosing. Performed By: #### L ACT #### [id number] [place] [address] NECK W/O CONTRASTon NR CT NECK W/O CONTRAST STUDY: CT Soft Tissue Neck without IV Contrast; 03/11/2022 10:15 AM INDICATION: Left-sided mouth pain for five years, worse this week. Headache for 1.5 days. Weakness. ADDITIONAL HISTORY: Brain surgery as child. COMPARISON: None available. ACCESSION NUMBER(S): [id number] ORDERING CLINICIAN: UYEN KAUR DO TECHNIQUE: CT of the soft tissues of the neck was performed without contrast. Automated mA/kV exposure control was utilized and patient examination was performed in strict accordance with principles of ALARA. FINDINGS: Images are suboptimal without IV contrast. There is no discrete neck mass or fluid collection. Soft tissue and fat planes of the neck are well preserved. No cervical lymphadenopathy is demonstrated. Submandibular, parotid, and thyroid glands are unremarkable. The airway is patent and symmetric throughout. No suspicious bony lesions. Mild degenerative disc disease of the cervical spine. The visualized intracranial portions and lung apices are within normal limits. The visualized paranasal sinuses and mastoid air cells are clear. IMPRESSION: Suboptimal exam without IV contrast. No discrete mass lesion or fluid collection seen within the soft tissues of the neck on this unenhanced exam. There are no enlarged lymph nodes by size criteria. Signed by Trina Lee MD Electronically signed by: TRINA LEE MD [facility] Provider Note - ED v3on 05- Provider Note - ED v3 Provider Note: Chart Review: ED NOTES ED NOTES: Source of Information: Patient. EMR was reviewed for previous records. HPI: Multiple complaints. This 37-year-old white male presents to the ED with complaint of dental infection he states that he was started on an unknown antibiotic yesterday which he describes as a green pill that he takes 3 times a day states that today he has headache, blurred vision, weakness, increasing pain in his neck, paresthesias of both of his hands. No history of fevers chills or nausea or vomiting. States that he is never felt this ill before. Does admit to having multiple dental caries that are painful and infected currently. He said nothing makes his symptoms better or worse. PMH: Dental caries, dental infection PSH: Denies Social Hx: The patient is to smoking cigarettes daily. Denies any alcohol or illegal drug use. Fam: MEDS: Unknown antibiotic ALLERGIES: NKDA PHYSICAL EXAM: General: Patient alert, awake, oriented X3, appears be no obvious distress, nontoxic, cooperative Skin: Warm. Dry. Intact. No rash. Eyes: PEARTLA, EOMIs intact, sclera white, conjunctiva clear HEENT: Atraumatic. Normo-cephalic. Oral nasal mucosa pink and moist. Evaluation patient dentition reveals multiple dental caries. There is some inflammation of the gingiva without obvious apical abscess noted on examination. Patient does have some submandibular lymphadenopathy without evidence of Brian's angina. Neck: Supple without meningismus, bilateral anterior cervical lymphadenopathy. CV: Regular rate and rhythm without murmurs, heaves, lifts or thrills. Respiratory: Nonlabored breathing. There are no retractions or tachypnea. Lungs are clear to auscultation bilaterally. GI: Soft, nontender, without gross distention, bowel sounds present in all 4 quadrants. There is no pulsatile masses. There is no CVA tenderness. No rebound, rigidity or guarding. MUSC: There is no joint swelling or bony tenderness on exam. Neuro: Cranial nerves II - XII grossly intact. No focal neurologic deficits are noted on exam. Lower extremities: There is no peripheral edema bilaterally, negative Homans sign. No palpable cords. Distal pulses are present in both lower extremities. Psych: Maintains eye contact. Cooperative. ED course: EKG was interpreted by myself at 10:20 AM reveals sinus rhythm with occasional PVC. Heart rate is 6 bpm. QRS durations 80 ms. QTc is 436 ms axis is -14 degrees. Patient was seen and evaluated due to patient complaining of not feeling well also having dental infection I ascertained that the patient is on clindamycin currently and taking it 3 times a day. Patient had blood work performed rule out the possible sepsis. White cell count was slightly elevated 12.8. Lactic acid was normal vital signs are normal. Electrolytes are unremarkable. COVID testing was negative. Chest x-ray was negative. CT scan imaging the brain was negative for acute abnormality. CT scan imaging of the neck without contrast revealed no overt abscess. I did have a discussion with patient concerning his lab work before the urinalysis was resulted. He states that he needs to go to work and left the ED after that I did recommend that he take the clindamycin 4 times a day versus 3 times a day to make sure he follows up with dentist. This chart was dictated with the use of [email or web address] software within the framework of the current electronic medical records software. Attempts were made to edit in real time, given time constraints there is the potential for inaccuracies in my dictation. Uyen Kaur, DO HISTORY OF PRESENTING ILLNESS FAMILIA is a 37 year old Male and was seen by me at 11-Mar-2022 09:20 for a chief complaint of dental pain/injury (left sided mouth pain started 5 years worse this week went to urgent care put on an antibiotic. not better. not able to make a dentist appt until infection is gone )(1). Triage Information: Most recent Vital Sign Value Date Heart Rate (beats/min): 90 03-11-2022 09:11 Respirations (breaths/min): 18 03-11-2022 09:11 SpO2 (%): 99 03-11-2022 09:11 BP Systolic (mm Hg): 139 03-11-2022 09:11 BP Diastolic (mm Hg): 104 03-11-2022 09:11 PAST MEDICAL HISTORY CURRENT OR FORMER SUBSTANCE USE: Tobacco/Nicotine Use: light user (uses <10 cig/day, OR <0.5 ppd, OR 1 can/pouch (more content not included)... [facility] Risk Screen - Adult Emergenc yon 03-11-2022 Risk Screen - Adult Emergency Preferred Language: Preferred Language: Preferred Language for Discussing Health Care (patient/designee)Adarsh atkins Advanced Directives: Advance Directive/DNRno Family Violence Adult: Abuse Screen: Are you or have you been threatened or abused physically, emotionally, or sexually by anyoneno Learning Assessment (Patient): Learning Assessment (Patient): Patient is Able to be Assessed for Learningyes Factors Influencing Readiness to Learnacuteness of illness Factors that Impact Ability to Learnnone Devices/Methods Used to Communicatenone Learning Preferencesaudio Cultural Considerationsnone Developmental Considerationsnone Hoahaoism Considerationsnone Learning Assessment (Other Learner): Learning Assessment (Other Learner): Other learner availableno Pressure Injury/TB/Substance: Pressure Injury: Do you have a coughno Smoking Statusmoderate user (uses 11-30 cig/day, OR 0.5-1.5 ppd, OR 2-3 cans/pouches loose leaf tobacco per week, OR 0.5-1.5 vape pods per day) Tobacco Cessation Education (provide if tobacco use within the last 12 mos) patient declined Alcohol Usedenies Drug Usedenies Admission Risk Screen: Significant IndicatorsComplete CAGE: CAGE: Is this an [place] [place]): no Electronic Signatures: Luz Rivas (NICOLAS) (Signed 11-Mar-2022 09:15) Authored: Preferred Language, Advanced Directives, Family Violence Adult, Learning Assessment (Patient), Learning Assessment (Other Learner), Pressure Injury/TB/Substance, Pressure Injury, CAGE Last Updated: 11-Mar-2022 09:15 by Luz Rivas) [facility] Triage - EDon 03-11-2022 Triage - ED Chart Review: ARRIVAL INFORMATION Mode of Arrival: private vehicle CHIEF COMPLAINT FAMILIA PEREZ is a Male patient with a chief complaint of dental pain/injury (left sided mouth pain started 5 years worse this week went to urgent care put on an antibiotic. not better. not able to make a dentist appt until infection is gone ). Triage Date/Time: 11-Mar-2022 09:12 ADDY: 3 Pain Rating (0-10): 8 = Severe Pain location: dental Vital Signs: Blood Pressure: 139/104 Mean: Heart Rate: 90 Respiratory Rate: 18 Pulse Oximetry: 99% Height: 5 feet 9.00 inches. 175.2 CM Weight: 160.2 pounds. Calculated 72.7 kg. Calculated BMI (kg/m2): 23.684 Calculated BSA (m2) 1.88 [place] Coma Scale: Best Eye Response: (E4) spontaneous Best Motor Response: (M6) obeys commands Best Verbal Response: (V5) oriented [place] Score: 15 Allergies: no Patient has homicidal thoughts: no Risk Screens Suicide Risk Screen In the Past Month: Have you wished you were or wished you could go to sleep and not wake up no In the Past Month: Have you had any actual thoughts of killing yourself no In Your Lifetime: Have you ever done anything, started to do anything, or prepared to do anything to end your life no Alcazar Fall Scale Screening Has the patient fallen before (or is the patient in the ED as a result of a fall) has not had a fall Does the patient have an impaired gait does not have impaired gait Is the patient cognitively impaired not cognitively impaired Interventions: Alcazar Fall Interventions: LOW INTERVENTIONS: *patient oriented to surroundings and call system, * patient/family falls education completed and documented, *patients fall status communicated during bedside handoff, *whiteboard updated, *mode of toileting discussed with patient, *bed in low position with brakes locked, *call light in reach, * non-skid footwear TRAVEL HISTORY Travel History Coronavirus Screening: no exposure or symptoms Travel Exposure History: NO travel to International locations in the past 30 days PAIN Pain Scale Used: JAY Pain Rating (0-10): 8 = Severe Past Medical History: Past Medical History Reviewedyes Electronic Signatures: Luz Rivas) (Signed 11-Mar-2022 09:15) Authored: Quick Triage, Risk Screens, Pain, Travel History, Chart Review, Scores, Past Medical History Last Updated: 11-Mar-2022 09:15 by Luz Rivas (RN) Normal [facility] URINALYSIS WITH CULTURE IF I NDICATEDon 03-11-2022 Appearance (U) CLEAR Normal CLEAR [facility] Comment on above: Performed By: #### U ARFX #### [place] [address] Bilirubin Ql (U) Negative Normal NEGATIVE [facility] Comment on above: Performed By: #### U ARFX #### [id number] Color (U) Straw Normal STRAW,YELLO W [facility] Comment on above: Performed By: #### U ARFX #### [address] [address] Glucose Ql (U) Negative Normal NEGATIVE [facility] Comment on above: Performed By: #### U ARFX #### [address] [address] Hemoglobin Ql (U) Negative Normal NEGATIVE [facility] Comment on above: Performed By: #### U ARFX #### [address] [address] Ketones Ql (U) Negative Normal NEGATIVE [facility] Comment on above: Performed By: #### U ARFX #### [id number] Leukocyte esterase Test strip Ql (U) Negative Normal NEGATIVE [facility] Comment on above: Performed By: #### U ARFX #### [address] [address] Nitrite Ql (U) Negative Normal NEGATIVE [facility] Comment on above: Performed By: #### U ARFX #### [address] pH (U) 6.0 [pH] Normal 5.0 - 8.0 [facility] Comment on above: Performed By: #### U ARFX #### [address] [place] [address] Protein Ql (U) Negative Normal NEGATIVE [facility] Comment on above: Performed By: #### U ARFX #### [place] [address] Specific gravity (U) [Rel density] 1.010 Normal 1.005 - 1.035 [facility] Comment on above: Performed By: #### U ARFX #### [address] Urobilinogen (U) [Mass/Vol] mg/dL Normal 0.0 - 1.9 [facility] Comment on above: Performed By: #### U ARFX #### [place] [address] CORONAVIRUS 2019 BY PCRon SARS-CoV-2 (COVID-19) RNA JUSTINE+probe Ql (Unsp spec) Not detected Normal Not Detected [facility] Comment on above: Result Comment: . This test has received FDA Emergency Use Authorization (EUA) and has been verified by [facility]. This test is only authorized for the duration of time that circumstances exist to justify the authorization of the emergency use of in vitro diagnostic tests for the detection of SARS-CoV-2 virus and/or diagnosis of COVID-19 infection under section 564(b)(1) of the Act, 21 U.S.C. 360bbb-3(b)(1), unless the authorization is terminated or revoked sooner. [facility] is certified under CLIA-88 as qualified to perform high complexity testing. Testing is performed in the [facility] laboratory located at [address] [place] [address]. SARS-CoV-2/Flu/RSV Multiplex Test: Fact sheet for providers: https://www.fda.gov/media/922798/download Fact sheet for patients: https://www.fda.gov/media/626972/download Performed By: #### C OV19 #### [place] [address] DATE OF SYMPTOM ONSET [[id number]]? [id number] Normal [facility] Comment on above: Performed By: #### C OV19 #### [address] [place] [address] Lab Specimen Source Nasal, Nasopharyngeal Normal [facility] Comment on above: Performed By: #### C OV19 #### [address] [address] Covid 19 Resultson 1 SARS-CoV-2 (COVID-19) RNA JUSTINE+probe Ql (Unsp spec) NEGATIVE COVID-19 Test Coronaviruses are common world-wide and are the cause of many common colds. SARS-COV2 is a new coronavirus that began circulating worldwide in 2019 so we are calling it COVID-19. It has been estimated that four out of five patients with COVID-19 will recover at home without the need for medical attention. Symptoms of COVID-19 may include cough, fever, shortness of breath, loss of taste or smell and other flu-like symptoms including chills, sore muscles, sore throat, and headache. Severe illness is more common in older people and people with other health problems such as high blood pressure, obesity, and immune system problems. If the test is positive, you have COVID-19. You will be contacted by the ordering physicians office and instructed to remain on home isolation, in accordance with CDC guidelines. You may also be contacted by the [facility] to see if any of your close contacts may have been exposed to the virus and need to quarantine. If the test is negative, you likely do not have COVID-19 at this time, but you still may have a different illness that can spread to other people (like Influenza, or the Flu) and could still be at risk for getting COVID-19. We recommend that you stay away from other people to limit the spread of illness until your symptoms are improving and you are fever-free for 24 hours without the use of fever lowering medications such as acetaminophen or ibuprofen. No test is 100% accurate so if you are still concerned you may have COVID-19, talk to your doctor about the need to continue to stay away from others. Medicines Unless your provider told you not to use the following: Acetaminophen (Tylenol and others) is generally safe. Anti-inflammatory medications, such as Ibuprofen (Advil or Motrin) or Naproxen (Aleve) can also be used. Puai-hxo-itkiinw cough and cold medicines can be used according to the instructions on the package. Some tiap-dlz-jrnngzr medicines also contain acetaminophen. Make sure you are not taking more than your recommended dose. For those not hospitalized, there is no specific treatment available for this illness. Antibiotics do not treat Coronaviruses. Follow-Up Follow up with your doctor by scheduling a virtual visit or consider follow-up at one of our urgent care fever clinics. If you are having difficulty breathing, or are very weak and having difficulty standing, this is a medical emergency. Call 911 or have someone take you to the nearest emergency room immediately. If possible, wear a facemask. Additional guidance from the CDC for patients who tested POSITIVE for COVID-19 How to isolate: Isolate yourself in a specific room at home and limit your contact with others. Use a separate bathroom from other members of the household, when possible. Leave home only to get essential medical care. Do not go to work, school or public areas. Avoid using public transportation, ride-sharing, or taxis. Restrict contact with pets and other animals. If you must care for your pet or be around animals while you are sick, wash your hands before and after your interaction and wear a facemask. Make sure that shared spaces in the home have good airflow, such as by an air conditioner or an opened window, weather permitting. Personal Hygiene Procedures: Wear a face mask when in the same room as other people or pets. If a face mask interferes with your breathing, others should wear a mask when sharing space with you. Frequent hand-washing: wash your hands with soap and water for at least 20 seconds. If soap and water are not available, use alcohol-based hand float remover. Avoid touching your eyes, nose, and mouth with unwashed hands. Household Hygiene Procedures: Avoid sharing personal household items such as dishes, glassware, cups, eating utensils, towels or bedding with other people or pets in your home. After use, these items should be washed with soap and hot water. Disinfect all high-touch surfaces every day with antibacterial cleaning solutions such as Lysol wipes, bleach, cleansers, etc. High-touch surfaces include tabletops, doorknobs, bathroom fixtures, toilets, phones, keyboards, tablets and bedside tables. Immediately clean any surfaces that may have blood, poop or body fluids on them, using antibacterial cleaning solutions such as Lysol wipes, bleach, cleansers, etc. If clothing or bedding come into contact with blood, poop or body fluids, they should be washed immediately. Follow the directions on the laundry detergent and clothing labels but hot water is recommended when possible. Stopping home isolation precautions: If possible, consult your doctor before stopping home isolation precautions. According to the CDC, you can discontinue home isolation precautions when you have met both of these criteria: Your fever and respiratory symptoms have been gone for 24 anu (more content not included)... Normal [facility] Provider Note - ED v3on 06-17 Provider Note - ED v3 Provider Note: Chart Review: ED NOTES ED NOTES: History of Present Illness: 36-year-old male presents with concern for cough, rhinorrhea, shortness of breath. Began approximately 4 days ago. Worsening shortness of breath today. Patient is not vaccinated against coronavirus. Past Medical History: Epilepsy Past surgical History: Ureteral stent Family history: Reviewed and not pertinent to complaint Social history: Current smoker. Denies any drugs or alcohol. REVIEW OF SYSTEMS: Pertinent negatives and positives noted in the HPI. Otherwise, a complete review of system was negative. PHYSICAL EXAM: Appearance: Alert, oriented , cooperative, in no acute distress. Skin: Intact, dry skin, no lesions, rash, petechiae or purpura. Eyes: PERRLA, EOMs intact, Conjunctiva pink with no redness or exudates. Eyelids without lesions. No scleral icterus. HENT: Normocephalic, atraumatic. Nares patent Neck: Supple, without meningismus. Trachea at midline. No lymphadenopathy. Pulmonary: Clear bilaterally with good chest wall excursion. No rales, rhonchi or wheezing. No accessory muscle use or stridor. Cardiac: Regular rate and rhythm, no rubs, murmurs, or gallops. No JVD, Carotids without bruits. Abdomen: Abdomen is soft, nontender, and nondistended. No palpable organomegaly. No rebound or guarding. No CVA tenderness. Nonsurgical abdomen Genitourinary: Exam deferred. Musculoskeletal: Full range of motion. Pulses full and equal. No cyanosis, clubbing, or edema. Neurological: Cranial nerves are grossly intact, grossly normal sensation, no weakness, no focal findings identified. Psychiatric: Appropriate mood and affect. HISTORY OF PRESENTING ILLNESS FAMILIA is a 36 year old Male and was seen by me at 04-Jul-2021 15:39 for a chief complaint of shortness of breath . Other complaints include: Pt. having SOB, cough, Chest Pressure, and diarrhea since tuesday. (1). Triage Information: Most recent Vital Sign Value Date Temp (F): 98.6 07-04-2021 15:47 Temp (C): 37 07-04-2021 15:47 Heart Rate (beats/min): 97 07-04-2021 15:47 Respirations (breaths/min): 20 07-04-2021 15:47 SpO2 (%): 97 07-04-2021 15:47 BP Systolic (mm Hg): 151 07-04-2021 15:47 BP Diastolic (mm Hg): 106 07-04-2021 15:47 PAST MEDICAL HISTORY ALLERGIES/INTOLERANCES: No documented data. HEALTH HISTORY: No documented data. OUTPATIENT MEDICATIONS: Home Medications Review Status for Reconciliation: N/A Med Status: N/A No documented data. SIGNIFICANT EVENTS: Past Medical History Description:seizures CRITICAL CARE RESULTS: Recent Lab Results: I have reviewed these laboratory results: Coronavirus 2019 by PCR 04-Jul-2021 15:46:00 ResultValue Fluid Source Nasal, Nasopharyngeal Coronavirus 2019,PCR NOT DETECTED Reference Range: Not Detected . This test has received FDA Emergency Use Authorization (EUA) and has been verified by [facility]. This test is only authorized for the duration of time that circum Date of Symptom Onset [id number] VITAL SIGNS: T PRBP SpO2O2(LPM) %FiO2 Method 04-Jul-2021 16:30:[id number] 96 room air, no respiratory support 04-Jul-2021 15:47:[id number]/106 97 room air, no respiratory support 04-Jul-2021 15:31:[id number]/106 97 room air, no respiratory support MDM MDM/ED COURSE: Patient appears well nontoxic. Lung sounds clear bilaterally. No hypoxemia. Coronavirus negative. Patient refusing chest x-ray. Advised to follow-up with primary care. Stable at time of discharge. PROGRESS NOTE EKG Post-Procedure Diagnosis: EKG INTERPRETATION: EKG Date/Time: 04-Jul-2021 15:34 Impression: Sinus tachycardia at 102 bpm. AK interval 146 ms. QTC of 448 ms. PVCs. STEMI: no DISPOSITION Diagnosis/Annotation: ED Dx Name:URI (upper respiratory infection) Code:J06.9 Disposition: discharged Type: home CONSULT CRITICAL CARE TIME Is this a critically ill patient: no Electronic Signatures: Esa Ayon) (Signed 04-Jul-2021 17:44) Authored: ED Notes, HPI, PMH, PE, Results/Vital Signs, MDM/ED Course, Procedure, Clinical Impression, Attestation, Chart Review, Scores Last Updated: 04-Jul-2021 17:44 by Esa Ayon () References: 1. Data Referenced From Triage - ED 04-Jul-2021 15:47 Normal [facility] Risk Screen - Adult Emergenc yon 07-04-2021 Risk Screen - Adult Emergency Preferred Language: Preferred Language: Preferred Language for Discussing Health Care (patient/designee)Adarsh atkins Advanced Directives: Advance Directive/DNRno Family Violence Adult: Abuse Screen: Are you or have you been threatened or abused physically, emotionally, or sexually by anyoneno Learning Assessment (Patient): Learning Assessment (Patient): Patient is Able to be Assessed for Learningyes Factors Influencing Readiness to Learnacuteness of illness Factors that Impact Ability to Learnnone Devices/Methods Used to Communicatenone Learning Preferencesindividual instruction Cultural Considerationsnone Developmental Considerationsnone Hoahaoism Considerationsnone Learning Assessment (Other Learner): Learning Assessment (Other Learner): Other learner availableno Pressure Injury/TB/Substance: Pressure Injury: Do you have a coughyes... Has your cough lasted longer than 2 weeksno Smoking Statusmoderate user (uses 11-30 cig/day, OR 0.5-1.5 ppd, OR 2-3 cans/pouches loose leaf tobacco per week, OR 0.5-1.5 vape pods per day) Tobacco Cessation Education (provide if tobacco use within the last 12 mos) patient declined Alcohol Usedenies Drug Usedenies Admission Risk Screen: Significant IndicatorsComplete CAGE: CAGE: Is this an injured [place] a [place] Center [place] [place]): no Electronic Signatures: Carey Morales (RN) (Signed 04-Jul-2021 15:54) Authored: Preferred Language, Advanced Directives, Family Violence Adult, Learning Assessment (Patient), Learning Assessment (Other Learner), Pressure Injury/TB/Substance, Pressure Injury, CAGE Last Updated: 04-Jul-2021 15:54 by Carey Morales (RN) [facility] Triage - EDon 07-04-2021 Triage - ED Chart Review: PRIMARY ASSESSMENT ABCD Normal Findings: airway open and patent Breathing Left Breath Sounds: clear Right Breath Sounds: clear Circulation Skin Condition: warm and dry Skin Color: normal for race Disability Disability/AVPU: FAMILIA is alert Level of Consciousness: baseline ARRIVAL INFORMATION Means of Arrival: Ambulatory Mode of Arrival: private vehicle Arrival From: home Accompanied By: self CHIEF COMPLAINT FAMILIA PEREZ is a Male patient with a chief complaint of shortness of breath. Onset of the Complaint: 01-Jul-2021 Other Complaints: Pt. having SOB, cough, Chest Pressure, and diarrhea since tuesday. Triage Date/Time: 04-Jul-2021 15:31 ADDY: 2 Pain Rating (0-10): 1 = Mild Vital Signs: Temperature: 98.6F ( 37.0C) taken forehead Blood Pressure: 151/106 Mean: Heart Rate: 97 Respiratory Rate: 20 Pulse Oximetry: 97% on room air, no respiratory support. Stu Coma Scale: Best Eye Response: (E4) spontaneous Best Motor Response: (M6) obeys commands Best Verbal Response: (V5) oriented [place] Score: 15 Cough lasting greater than 3 weeks: no Allergies: yes Patient has homicidal thoughts: no Risk Screens Suicide Risk Screen In the Past Month: Have you wished you were or wished you could go to sleep and not wake up no In the Past Month: Have you had any actual thoughts of killing yourself no In Your Lifetime: Have you ever done anything, started to do anything, or prepared to do anything to end your life no Alcazar Fall Scale Screening Has the patient fallen before (or is the patient in the ED as a result of a fall) has not had a fall Does the patient have an impaired gait does not have impaired gait Is the patient cognitively impaired not cognitively impaired Interventions: Alcazar Fall Interventions: LOW INTERVENTIONS: *patient oriented to surroundings and call system, * patient/family falls education completed and documented, *patients fall status communicated during bedside handoff, *whiteboard updated, *mode of toileting discussed with patient, *bed in low position with brakes locked, *call light in reach, * non-skid footwear PAST MEDICAL HISTORY Immunization History: Last Known Tetanus Immunization: Unknown TRAVEL HISTORY Travel History Coronavirus Screening: positive for symptoms Travel Exposure History: NO travel to International locations in the past 30 days PAIN Pain Scale Used: JAY Pain Assessment: Left:, upper, chest, no and pressure Pain Rating (0-10): 1 = Mild Past Medical History: Past Medical History Reviewedyes seizures: Past Medical History, Active Electronic Signatures: Carey Morales (NICOLAS) (Signed 04-Jul-2021 15:53) Authored: Quick Triage, Risk Screens, Pain, Arrival, ABCD, Immunizations, Travel History, Chart Review, Scores, Past Medical History Last Updated: 04-Jul-2021 15:53 by Carey Mroales (NICOLAS) [facility] EMERG Knee LEFT [id number] 03-18 EMERG Knee LEFT [id number] EXAM: EMERG Knee L EFT [id number] [facility] Department of Radiology FAMILIA PEREZ VISIT: [id number] : 1985 SEX: M DEPT NO: [id number] PATIENT LOCATION: ER1 EXAM: EMERG Knee LEFT [id number] 04/14/2019 16:10:00 SIGNS AND SYMPTOMS: COMMENTS? PERTINENT SYMPTOMS: PERTINENT SYMPTOMS: pain Requesting Provider: JOAN DALTON - CLINICAL INDICATION: Pain 34-year-old male EXAM PERFORMED: EMERG Knee LEFT [id number] COMPARISON: None available in PACS. FINDINGS: The knee film revealed no acute fracture. The medial and lateral compartments are normal. The patellofemoral joint space is normal. IMPRESSION: Normal left knee. Performed By: Damien Fuentes 04/14/2019 16:10:00 Signed By: HUMERA LARA MD 04/14/2019 16:23:00 Normal [facility] EMERG Knee RIGHT [id number] EMERG Knee RIGHT [id number] EXAM: EMERG Knee RIGHT [id number] [facility] Department of Radiology FAMILIA PEREZ VISIT: [id number] : 1985 SEX: M DEPT NO: [id number] PATIENT LOCATION: ER1 EXAM: EMERG Knee RIGHT [id number] 04/14/2019 16:10:00 SIGNS AND SYMPTOMS: COMMENTS? PERTINENT SYMPTOMS: PERTINENT SYMPTOMS: pain Requesting Provider: JOAN DALTON - CLINICAL INDICATION: Pain EXAM PERFORMED: EMERG Knee RIGHT [id number] COMPARISON: None available in PACS. FINDINGS: The knee film revealed no acute fracture. The medial and lateral compartments are normal. The patellofemoral joint space is normal. IMPRESSION: Normal right knee. Performed By: Damien Fuentes 04/14/2019 16:10:00 Signed By: HUMERA LARA MD 04/14/2019 16:23:00 Normal [facility] ER NOTEon 04-14-2019 ER NOTE TRIAGE ([place] Apr 14, 2019 14:49 IJ) TRIAGE NOTES: PT AMBULATES TO TRIAGE ONE WITHOUT DIFFICULTY. PT C/O BILATERAL KNEE PAIN THAT HAS BEEN ONGOING FOR ROUGHLY A WEEK NOW. REPORTS IT FEELS LIKE THEY ARE GRINDING AND BURNING. 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 BELIEVES THIS MAY HAVE SOMETHING TO DO WITH IT. RESPS E/U, NAD NOTED. ([place] Apr 14, 2019 14:49 IJH) PATIENT: NAME: Familia Perez, AGE: 34, GENDER: male, : Tue1985, TIME OF GREET: TueApr 14, 2019 14:46, PREFERRED LANGUAGE: Vietnamese, SSN: [id number], Zip Code: [address], KG WEIGHT: 90.72, PHONE: [phone], , , Family MD: PHYSICIAN, NO, MRSA/VRE - VERIFY: No, P/A DRUG SCREEN RQ?: NO. (TueApr 14, 2019 14:49 IJH) ADMISSION: URGENCY: ADDY LEVEL 5, DEPT: Emergency, BED: WAITING. (TueApr 14, 2019 14:49 IJH) VITAL SIGNS: BP: 148/75, Pulse: 90, Resp: 16, Temp: 98.3, Pain: 5, O2 sat: 97 on (RA), Time: 04/14/2019 14:47. (TueApr 14, 2019 14:47 IJH) COMPLAINT: Pt Sts Yuan Knee Pain. (TueApr 14, 2019 14:49 IJH) ASSESSMENT: Triage assessment performed. (TueApr 14, 2019 14:49 IJH) ABUSE SCREENING: No domestic violence. (TueApr 14, 2019 14:49 IJH) BH SCREENIN. In the last 30 days have you wished you were or wished you could go to sleep and not wake up? No, 2. In the last 30 days have you had any actual thoughts of killing yourself? No, 6. Have you ever done anything, started to do anything, or prepared to do anything to end your life? No, Patient screens as no Identifiable suicide risk., Do you have thoughts about harming others? No. (TueApr 14, 2019 14:49 IJH) PROVIDERS: TRIAGE NURSE: Kit Vaughn RN. (TueApr 14, 2019 14:49 IJH) PREVIOUS VISIT ALLERGIES: NKDA. (TueApr 14, 2019 14:49 IJH) KNOWN ALLERGIES NKDA CURRENT MEDICATIONS (TueApr 14, 2019 14:49 IJH) None HPI KNEE (TueApr 14, 2019 17:03 [facility]) HISTORY OF PRESENT ILLNESS: CC: Bilateral knee pain HPI: Patient complains of bilateral anterior knee pain ??2 months. 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 Denies swelling. Denies calf pain. No redness. No fevers or chills. He does have a history of [place] krishna in the left knee as a teenager. His chiropractor told him to come to the emergency room for an MRI. ROS: All systems reviewed and negative except as noted in HPI PE: VS reviewed. Nurses notes reviewed. Gen: WN, WD in NAD Head: NC AT. Eyes: PER. Extrem: Moves all extremities normally. There is bilateral patellar tenderness over the patellar tendon to palpation without swelling. Knee ligaments are stable in all directions bilaterally. There is no effusion. No erythema or warmth. Bilateral knees with normal range of motion. Skin: Warm and dry no rashes. Neuro: Grossly neurologically intact. PAST MEDICAL HISTORY ([place] Apr 14, 2019 14:49 IJH) MEDICAL HISTORY: Past medical history includes neurological disease, post-traumatic seizures. SURGICAL HISTORY MALE: Patient has no surgical history. PSYCHIATRIC HISTORY: No previous psychiatric history. SOCIAL HISTORY: Social history includes no recent travel outside the [place] in the last 30 days., Patient denies alcohol use, Patient currently uses drugs, abuses marijuana, Patient currently uses tobacco, smokes cigarettes, daily. NOTES: Nursing records reviewed, Agree with nursing records. DOCTOR NOTES ([place] Apr 14, 2019 17:05 [facility]) NOTES: Patient may need an MRI in the future but this is not possible on an emergency basis today. This was discussed with the patient. VITAL SIGNS VITAL SIGNS: BP: 148/75, Pulse: 90, Resp: 16, Temp: 98.3, Pain: 5, O2 sat: 97 on (RA). ([place] Apr 14, 2019 14:47 IJH) BP: 145/73, Pulse: 90, Resp: 18, Pain: 5, O2 sat: 99. (Rust Apr 14, 2019 17:22 EEM3) NURSING ASSESSMENT: A SEPSIS SCREENING TOOL (Rust Apr 14, 2019 14:49 IJ) SEPSIS SCREENING TOOL: Patient has no infection that is suspected or identified, This patient has been identified as NOT meeting the severe sepsis criteria as defined by the CMS guidelines. NURSING ASSESSMENT: EXTREMITY LOWER ([place] Apr 14, 2019 15:56 EEM3) CONSTITUTIONAL: History obtained from patient, Patient arrives ambulatory, Gait steady, Patient appears comfortable, Patient cooperative, alert. Oriented to person, place and time, Skin warm, Skin dry, Skin normal in color, Mucous membranes pink, moist. Patient is well-groomed, Patient complains of YUAN KNEE PAIN, PT. EVENTS ATTENDING: SRINIVASA Dalton Mark C. saw the patient at [place] Apr 14, 2019 15:01. (TueApr 14, 2019 15:01 [facility]) TRANSFER: Triage to Emergency Waiting. (TueApr 14, 2019 14:49 IJ) Emergency Waiting to Emergency Department Triage 3. (TueApr 14, 2019 15:02 [facility]) Removed from Emergency Emergency Department Triage 3. (TueApr 14, 2019 17:23 EEM3) NURSING PROCEDURE: DISCHARGE NOTE (TueApr 14, 2019 17:22 EEM3) DISCHARGE: Patient discharged to home, ambulating without assistance, driving self, accompanied by other family member, Summary of Care printed/ provided, Discharge instructions given to patient, Simple or moderate discharge teaching performed, Prescriptions given and instructions on side effects given, Above person(s) verbalized understanding of discharge instructions and follow-up care, Patient treated and evaluated by physician. TIME: No Barriers to Learning, Explained DCI, Handouts given for DCI, Patient Receptive to DCI, Cooperative with DCI. VITAL SIGNS: BP: 145/73, Pulse: 90, Resp: 18, Pain: 5, O2 sat: 99, Time: 04/14/2019 17:22. GREET (TueApr 14, 2019 14:47 [facility]) GREET: Greet: [place] Apr 14, 2019 14:47. NOTES: Patient arrived ambulatory, Notes: PT AMBULATED TO GREET DESK WITHOUT DIFFICULTY. ORDERS (TueApr 14, 2019 15:54 [facility]) ER KNEE LEFT: Ordered by: SRINIVASA Dalton Mark C. Ordered for: SRINIVASA Dalton Mark C. Status: Active. ER KNEE RIGHT: Ordered by: SRINIVASA Dalton Mark C. Ordered for: SRINIVASA Dalton Mark C. Status: Active. ORDER DETAILS Order Name: ER KNEE LEFT, Status: Active, Time: 15:54 04/14/2019, User: SRINIVASA Dalton Mark C., - Ordered for: SRINIVASA Dalton Mark C., - Entered by: SRINIVASA Dalton Mark C. - [place] Apr 14, 2019 15:54, - Quantity: 1, Order Name: ER KNEE RIGHT, Status: Active, Time: 15:54 04/14/2019, User: SRINIVASA Dalton Mark C., - Ordered for: SRINIAVSA Dalton Mark C., - Entered by: SRINIVASA Dalton Mark C. - [place] Apr 14, 2019 15:54, - Quantity: 1. DIAGNOSIS (TueApr 14, 2019 16:57 [facility]) FINAL: PRIMARY: Bilateral patellofemoral tendinitis. DISPOSITION PATIENT: Disposition: 01 Home or Self Care, Condition: GOOD. ([place] Apr 14, 2019 16:57 [facility]) Patient left the department. (TueApr 14, 2019 17:23 EEM3) INSTRUCTION (TueApr 14, 2019 16:58 [facility]) DISCHARGE: TENDONITIS. FOLLOWUP: MD ANTONIA, LACHO, , [facility], [address] [facility] [address], , Follow up with Primary Specialist as needed. PRESCRIPTION ([place] Apr 14, 2019 16:58 [facility]) PredniSONE: Tablet : 10 mg : Oral : Quantity: Unit: . Route: Oral. Schedule: SEE NOTES. Dispense: QS May substitute. Refills: No Refills Notes: , 60MG X 3 DAYS, 40 MG FOR 3 DAYS, 20 MG FOR 3 DAYS AND 10 MG PO X 3 DAYS THEN D/C No Refills May fill with generic unless noted CURTIS. ADMIN DIGITAL SIGNATURE: SRINIVASA Dalton Mark C. (TueApr 14, 2019 17:06 [facility]) SRINIVASA Dalton Mark C. ([place] Apr 14, 2019 17:06 [facility]) NICOLAS Vaughn Ian. (TueApr 16, 2019 15:19 [facility]) PATIENT DATA CHANGE: Attending changed from (none) to SRINIVASA Fleming. ([place] Apr 14, 2019 15:01 [facility]) A08 [id number] by Interface, Payment: SP. (TueApr 14, 2019 15:36) Dave: EEM3=JOEY Ray Elizabeth E. IJLydia=NICOLAS Vaughn Ian JLM=NICOLAS Valero, Juan Holm [facility]=SRINIVASA Dalton Mark C. [facility] ER NOTEon 01-08-2019 ER NOTE TRIAGE (TueJan 08, 2019 11:34 CTD) TRIAGE NOTES: PT AMBUALTES TO TRIAGE C/O LEFT UPPER LEG REDNESS. PT STS FIRST NOTICED THE AREA 2 DAYS AGO. PT STS HE 'POPPED THE AREA AND HAD WHITE DRAINAGE. PT DENIES RECENT FEVER. NO STREAKING NOTED. RESPIRATIONS REGULAR. (TueJan 08, 2019 11:34 CTD) PATIENT: NAME: Familia Perez, AGE: 33, GENDER: male, : Sun 1985, TIME OF GREET: TueJan 08, 2019 11:31, PREFERRED LANGUAGE: Vietnamese, KG WEIGHT: 77.11, , , Family MD: PHYSICIAN, NO, MRSA/VRE - VERIFY: No, P/A DRUG SCREEN RQ?: NO. (TueJan 08, 2019 11:34 CTD) ADMISSION: URGENCY: ADDY LEVEL 5, DEPT: Emergency, BED: WAITING. (TueJan 08, 2019 11:34 CTD) VITAL SIGNS: BP: 136/91, Pulse: 106, Resp: 16, Temp: 97.8, Pain: 10, O2 sat: 97 on (RA), Time: 01/08/2019 11:32. (TueJan 08, 2019 11:32 CTD) COMPLAINT: Pt Sts L Leg Sore. (TueJan 08, 2019 11:34 CTD) ASSESSMENT: Triage assessment performed. (TueJan 08, 2019 11:34 CTD) PAIN: Patient complains of pain, Pain described as aching, On a scale 0-10 patient rates pain as 10. (TueJan 08, 2019 11:34 CTD) ABUSE SCREENING: No abuse verbalized or identified. (TueJan 08, 2019 11:34 CTD) BH SCREENIN. In the last 30 days have you wished you were or wished you could go to sleep and not wake up? No, 2. In the last 30 days have you had any actual thoughts of killing yourself? No, 6. Have you ever done anything, started to do anything, or prepared to do anything to end your life? No, Patient screens as no Identifiable suicide risk., Do you have thoughts about harming others? No. (TueJan 08, 2019 11:34 CTD) PROVIDERS: TRIAGE NURSE: Eren Galindo RN. (TueJan 08, 2019 11:34 CTD) KNOWN ALLERGIES NKDA CURRENT MEDICATIONS (TueJan 08, 2019 11:35 CTD) None DOSAGE AMOUNTS UNAVAILABLE HPI ABSCESS (TueJan 08, 2019 13:15 ART1) CHIEF COMPLAINT: Patient presents for evaluation of swelling, presents for evaluation of pain, presents for evaluation of drainage from wound. HISTORIAN: History provided by patient. LOCATION: Symptoms are localized, most severe to LEFT LEG. QUALITY: Pain is sharp in nature, described as stabbing. SEVERITY: Maximum severity of symptoms moderate, Currently symptoms are moderate. TIME COURSE: Sudden onset of symptoms, 2, days ago, Symptoms are worsening, INCREASINGLY PAINFUL. ASSOCIATED WITH: No associated symptoms. ROS (TueJan 08, 2019 13:15 ART1) SKIN: Historian reports skin changes, ABSCESS LEFT LEG. NOTES: All systems reviewed, negative except as described above. PAST MEDICAL HISTORY MEDICAL HISTORY: Past medical history includes neurological disease, post-traumatic seizures. (TueJan 08, 2019 11:34 CTD) SURGICAL HISTORY MALE: Patient has no surgical history. (TueJan 08, 2019 11:34 CTD) PSYCHIATRIC HISTORY: No previous psychiatric history. (TueJan 08, 2019 11:34 CTD) SOCIAL HISTORY: Patient denies alcohol use, Patient currently uses drugs, abuses marijuana, Patient currently uses tobacco, smokes cigarettes, daily. (TueJan 08, 2019 11:34 CTD) NOTES: Nursing records reviewed, Agree with nursing records. (TueJan 08, 2019 13:15 ART1) PHYSICAL EXAM CONSTITUTIONAL: Vital signs reviewed, Patient afebrile, Blood pressure, hypertensive, Patient appears non toxic, Patient alert and oriented to person, place and time. (TueJan 08, 2019 13:15 ART1) HEAD: Head exam normal, Head exam included findings of head atraumatic. (TueJan 08, 2019 13:15 ART1) RESPIRATORY CHEST: Respiratory and chest exam normal, Respiratory exam included findings of no respiratory distress, Breath sounds clear, No wheezing, No rales, No rhonchi, Chest exam included findings of chest movement symmetrical, Chest expansion equal. (TueJan 08, 2019 13:15 ART1) CARDIOVASCULAR: Cardiovascular assessment normal, Cardiovascular exam included findings of heart rate regular rate and rhythm, Heart sounds normal, no murmurs, no rub, no gallop. (TueJan 08, 2019 13:15 ART1) LOWER EXTREMITY: Lower extremity exam included findings of inspection abnormal, APPROX 3.5 CM CIRCULAR ABSCESS MID LATERAL LEFT THIGH WITH SURROUNDING ERYTHEMA THAT IS NON-FLUCTUANT WITH NO SIGN OF DRAINAGE AND TTP, Range of motion normal, Motor strength normal, Sensation intact, Pedal pulse normal. (TueJan 08, 2019 13:18 ART1) NEURO: Neuro exam normal, Stu coma scale 15. (TueJan 08, 2019 13:15 ART1) SKIN: Skin exam normal, Skin exam included findings of skin warm, dry, and normal in color. (TueJan 08, 2019 13:15 ART1) LYMPHATIC: Lymphatic exam normal, Femoral nodes normal, Inguinal nodes normal. (TueJan 08, 2019 13:19 ART1) VITAL SIGNS (TueJan 08, 2019 11:32 CTD) VITAL SIGNS: BP: 136/91, Pulse: 106, Resp: 16, Temp: 97.8, Pain: 10, O2 sat: 97 on (RA). NURSING ASSESSMENT: A SEPSIS SCREENING TOOL (TueJan 08, 2019 11:35 CTD) SEPSIS SCREENING TOOL: Patient has suspected or confirmed Skin / Soft tissue inflammation, Patient's heart rate is above 90 bpm, This patient has been identified as NOT meeting the severe sepsis criteria as defined by the CMS guidelines. NURSING ASSESSMENT: FALL RISK (TueJan 08, 2019 12:20 JAD8) ALCAZAR FALL SCALE: History of falling: No, Ambulatory aid: None/BR/WC/Nurse(0), Gait/transferring: Normal/BR/Immobile (0), Mental status: Oriented to own ability (0), Total: 0, No identified risk for fall. EVENTS ATTENDING: SRINIVASA Houston Allan R. saw the patient at TueJan 08, 2019 13:03. (TueJan 08, 2019 13:03 ART1) TRANSFER: Triage to Emergency Waiting. (TueJan 08, 2019 11:34 CTD) Emergency Waiting to Emergency Department Triage 3. (TueJan 08, 2019 12:18 YA1) Removed from Emergency Emergency Department Triage 3. (TueJan 08, 2019 13:29 JAD8) NURSING PROCEDURE: DISCHARGE NOTE (TueJan 08, 2019 13:29 JAD8) DISCHARGE: Patient discharged to home, Notes: patient left without discharge instructions. patient called and informed that discharge paperwork and prescriptions would be at the greet desk for patient to lemon picker. patient stated understanding. NURSING PROCEDURE: NURSE NOTES (TueJan 08, 2019 12:20 JAD8) NURSES NOTES: Notes: patient ambulated to triage room 3, call light given, Earl BERNABE to see. NURSING PROCEDURE: WOUND CARE (TueJan 08, 2019 12:46 JAD8) PATIENT IDENTIFIER: Patient's identity verified by patient stating name, Patient's identity verified by patient stating date, Patient's identity verified by hospital ID bracelet. WOUND CARE: Wound site: left leg, Cause of wound: abscess, Wound cleansed with Sureclens, by [email or web address]. FOLLOW-UP: After procedure, simple dressing applied, using telfa pad dressing, 3 inch alyson wrap to hold dressing in place. GREET (TueJan 08, 2019 11:31 C[facility]3) GREET: Greet: TueJan 08, 2019 11:31. NOTES: Notes: PT AMBULATES TO [facility] WITH CO LEFT UPPER LEG REDNESS AND SWELLING. ORDERS (TueJan 08, 2019 12:48 JAD8) dry dressing left leg secure with alyson wrap VO. Earl Houston PA: Ordered by: Michael Hernandez Jessica A. Ordered for: SRINIVASA Houston Allan R. Status: Done by: Michael Hernandez Jessica A. - TueJan 08, 2019 12:49. ORDER DETAILS Order Name: dry dressing left leg secure with alyson wrap VO. Earl BERNABE, Status: Done, Time: 12:49 01/08/2019, User: Michael Hernandez Jessica A., - Ordered for: SRINVIASA Houston Allan R., - Entered by: Michael Hernandez Jessica A. - TueJan 08, 2019 12:48, - Quantity: 1. DIAGNOSIS (TueJan 08, 2019 13:20 ART1) FINAL: PRIMARY: ABSCESS LEFT THIGH. DISPOSITION PATIENT: Disposition: 01 Home or Self Care, Condition: GOOD. (TueJan 08, 2019 13:20 ART1) Patient left the department. (TueJan 08, 2019 13:29 JAD8) INSTRUCTION (TueJan 08, 2019 13:21 ART1) DISCHARGE: ABSCESS - WITH ANTIBIOTICS. FOLLOWUP: PHYSICIAN, NO FAMILY, , LINE-LICKING, PHYSICIAN REFERAL, , . SPECIAL: APPLY HOT COMPRESSES AT LEAST 3X/DAILY DO NOT SQUEEZE ABSCESS BUT ALLOW TO DRAIN SPONTANEOUSLY Take medication as prescribed Return to ER if worse. PRESCRIPTION (TueJan 08, 2019 13:20 ART1) Bactrim DS: tablet : 800 mg-160 mg : oral : Quantity: 1 Unit: tab(s). Route: oral. Schedule: twice a day. Dispense: 20 Unit: tab(s). May substitute. Refills: No Refills Notes: , No Refills May fill with generic unless noted CURTIS. Keflex: capsule : 500 mg : oral : Quantity: 1 Unit: cap(s). Route: oral. Schedule: twice a day. Dispense: 20 Unit: cap(s). May substitute. Refills: No Refills Notes: , No Refills May fill with generic unless noted CURTIS. ADMIN DIGITAL SIGNATURE: SRINIVASA Houston, Mitch Pickering (TueJan 08, 2019 23:56 ART1) NICOLAS Daniels, Yasmin Mason (Naomi Feb 01, 2019 09:16 TSD2) Michael Hernandez Jessica A. (TueFeb 02, 2019 23:06 JAD8) NICOLAS Galindo, Eren Guerrero ([place] Feb 04, 2019 06:23 CTD) PATIENT DATA CHANGE: Attending changed from (none) to SRINIVASA Marte. (TueJan 08, 2019 12:06 ART1) Primary Nurse changed from (none) to Anika Hernandez L.P.N. (TueJan 08, 2019 12:40 JAD8) A08 [id number] by Interface, SSN: [id number], Zip Code: [id number], , Payment: [facility]. (TueJan 08, 2019 12:42) A08 [id number] by Interface. (TueJan 08, 2019 12:43) A08 [id number] by Interface. (TueJan 08, 2019 12:43) A08 [id number] by Interface. (TueJan 08, 2019 12:45) Dave: ART1=SRINIVASA [place], Mitch Pickering CSH3=Jorge Gonzalez Connie S. CTD=NICOLAS Galindo, Eren Guerrero JAD8=Michael Hernandez Jessica A. TSD2=NICOLAS Daniels, Yasmin Mason YA1=Alecia Govea R.N [facility] Vital Signs Date Time Vital Sign Value Performing Clinician Facility 04-16-2025 10:07-0400 Body temperature 97 [degF] No Primary Care Physician [facility] 04-16-2025 10:07-0400 Diastolic blood pressure 95 mm[Hg] No Primary Care Physician [facility] 04-16-2025 10:07-0400 Heart rate 97 /min No Primary Care Physician [facility] 04-16-2025 10:07-0400 Respiratory rate 14 /min No Primary Care Physician [facility] 04-16-2025 10:07-0400 SaO2% (BldA) [Mass fraction] 98 % No Primary Care Physician [facility] 04-16-2025 10:07-0400 Systolic blood pressure 141 mm[Hg] No Primary Care Physician [facility] 04-16-2025 07:25-0400 Body height 2179.32 cm No Primary Care Physician [facility] 04-16-2025 07:25-0400 Body mass index (BMI) [Ratio] 0.1 kg/m2 No Primary Care Physician [facility] 04-16-2025 07:25-0400 Body weight 71.5 kg No Primary Care Physician [facility] 02-19-2025 10:49-0400 Body mass index (BMI) [Ratio] 22.7 kg/m2 No Primary Care Physician [facility] 02-19-2025 10:49-0400 Body temperature 96.9 [degF] No Primary Care Physician [facility] 02-19-2025 10:49-0400 Body weight 69.9 kg No Primary Care Physician [facility] 02-19-2025 10:49-0400 Diastolic blood pressure 102 mm[Hg] No Primary Care Physician [facility] 02-19-2025 10:49-0400 Heart rate 83 /min No Primary Care Physician [facility] 02-19-2025 10:49-0400 Respiratory rate 14 /min No Primary Care Physician [facility] 02-19-2025 10:49-0400 SaO2% (BldA) [Mass fraction] 98 % No Primary Care Physician [facility] 02-19-2025 10:49-0400 Systolic blood pressure 132 mm[Hg] No Primary Care Physician [facility] 12-24-2024 17:54-0400 Body temperature 97.3 [degF] No Primary Care Physician [facility] 12-24-2024 17:54-0400 Diastolic blood pressure 72 mm[Hg] No Primary Care Physician [facility] 12-24-2024 17:54-0400 Heart rate 90 /min No Primary Care Physician [facility] 12-24-2024 17:54-0400 Respiratory rate 18 /min No Primary Care Physician [facility] 12-24-2024 17:54-0400 SaO2% (BldA) [Mass fraction] 99 % No Primary Care Physician [facility] 12-24-2024 17:54-0400 Systolic blood pressure 115 mm[Hg] No Primary Care Physician [facility] 12-24-2024 16:34-0400 Body height 175.26 cm No Primary Care Physician [facility] 12-24-2024 16:34-0400 Body mass index (BMI) [Ratio] 22.4 kg/m2 No Primary Care Physician [facility] 12-24-2024 16:34-0400 Body weight 68.76 kg No Primary Care Physician [facility] 11-13-2024 10:00-0500 Diastolic blood pressure 82 mm[Hg] No Primary Care Physician [facility] 11-13-2024 10:00-0500 Heart rate 92 /min No Primary Care Physician [facility] 11-13-2024 10:00-0500 Respiratory rate 18 /min No Primary Care Physician [facility] 11-13-2024 10:00-0500 SaO2% (BldA) [Mass fraction] 95 % No Primary Care Physician [facility] 11-13-2024 10:00-0500 Systolic blood pressure 118 mm[Hg] No Primary Care Physician [facility] 11-13-2024 08:47-0500 Body mass index (BMI) [Ratio] 24.4 kg/m2 No Primary Care Physician [facility] 11-13-2024 08:47-0500 Body weight 75 kg No Primary Care Physician [facility] 11-13-2024 08:22-0500 Body temperature 98 [degF] No Primary Care Physician [facility] 11-02-2024 14:31-0500 Body mass index (BMI) [Ratio] 23.1 kg/m2 No Primary Care Physician [facility] 11-02-2024 14:31-0500 Body temperature 98 [degF] No Primary Care Physician [facility] 11-02-2024 14:31-0500 Body weight 70.98 kg No Primary Care Physician [facility] 11-02-2024 14:31-0500 Diastolic blood pressure 102 mm[Hg] No Primary Care Physician [facility] 11-02-2024 14:31-0500 Heart rate 117 /min No Primary Care Physician [facility] 11-02-2024 14:31-0500 Respiratory rate 16 /min No Primary Care Physician [facility] 11-02-2024 14:31-0500 SaO2% (BldA) [Mass fraction] 98 % No Primary Care Physician [facility] 11-02-2024 14:31-0500 Systolic blood pressure 140 mm[Hg] No Primary Care Physician [facility] 09-27-2024 16:17-0500 Body mass index (BMI) [Ratio] 23.9 kg/m2 No Primary Care Physician [facility] 09-27-2024 16:17-0500 Body weight 73.48 kg No Primary Care Physician [facility] 09-27-2024 16:17-0500 Diastolic blood pressure 77 mm[Hg] No Primary Care Physician [facility] 09-27-2024 16:17-0500 Heart rate 85 /min No Primary Care Physician [facility] 09-27-2024 16:17-0500 Respiratory rate 16 /min No Primary Care Physician [facility] 09-27-2024 16:17-0500 Systolic blood pressure 127 mm[Hg] No Primary Care Physician [facility] 06-23-2024 12:20-0400 Body mass index (BMI) [Ratio] 23.97 kg/m2 Shana Soria APRN.CNP Work Phone: [facility] 06-23-2024 12:20-0400 Body temperature 97.7 [degF] Shana Soria APRN.CNP Work Phone: [facility] 06-23-2024 12:20-0400 Body weight 70.5 kg Shana Soria FILTER SCREEN CLEANER.YARD INSPECTOR Work Phone: [facility] 06-23-2024 12:20-0400 Diastolic blood pressure 98 mm[Hg] Shana Soria FILTER SCREEN CLEANER.YARD INSPECTOR Work Phone: [facility] 06-23-2024 12:20-0400 Heart rate 120 /min Shana Soria FILTER SCREEN CLEANER.YARD INSPECTOR Work Phone: [facility] 06-23-2024 12:20-0400 Respiratory rate 21 /min Shana Soria FILTER SCREEN CLEANER.YARD INSPECTOR Work Phone: [facility] 06-23-2024 12:20-0400 SaO2% (BldA) [Mass fraction] 97 % Shana Soria FILTER SCREEN CLEANER.YARD INSPECTOR Work Phone: [facility] 06-23-2024 12:20-0400 Systolic blood pressure 118 mm[Hg] Shana Soria FILTER SCREEN CLEANER.YARD INSPECTOR Work Phone: [facility] 06-19-2024 17:21-0400 Body mass index (BMI) [Ratio] 23.73 kg/m2 hPi Reid APRN.YARD INSPECTOR Work Phone: [facility] 06-19-2024 17:21-0400 Body temperature 98.4 [degF] Phi Reid APRN.YARD INSPECTOR Work Phone: [facility] 06-19-2024 17:21-0400 Body weight 69.8 kg Phi Reid APRN.YARD INSPECTOR Work Phone: [facility] 06-19-2024 17:21-0400 Diastolic blood pressure 80 mm[Hg] Phi Reid APRN.YARD INSPECTOR Work Phone: [facility] 06-19-2024 17:21-0400 Heart rate 76 /min Phi Reid APRN.YARD INSPECTOR Work Phone: [facility] 06-19-2024 17:21-0400 Respiratory rate 16 /min Phi Franklin FILTER SCREEN CLEANER.YARD INSPECTOR Work Phone: [facility] 06-19-2024 17:21-0400 SaO2% (BldA) [Mass fraction] 96 % Phi Reid DION.YARD INSPECTOR Work Phone: [facility] 06-19-2024 17:21-0400 Systolic blood pressure 120 mm[Hg] Phi Reid DION.YARD INSPECTOR Work Phone: [facility] 06-18-2024 14:13-0400 Body mass index (BMI) [Ratio] 24.38 kg/m2 Krislyn Aberegg PA Work Phone: [facility] 06-18-2024 14:13-0400 Body temperature 97.9 [degF] Krislyn Aberegg PA Work Phone: [facility] 06-18-2024 14:13-0400 Body weight 71.7 kg Krislyn Aberegg PA Work Phone: [facility] 06-18-2024 14:13-0400 Diastolic blood pressure 72 mm[Hg] Krislyn Aberegg PA Work Phone: [facility] 06-18-2024 14:13-0400 Heart rate 112 /min Krislyn Aberegg PA Work Phone: [facility] 06-18-2024 14:13-0400 Respiratory rate 18 /min Krislyn Aberegg PA Work Phone: [facility] 06-18-2024 14:13-0400 SaO2% (BldA) [Mass fraction] 98 % Krislyn Aberegg PA Work Phone: [facility] 06-18-2024 14:13-0400 Systolic blood pressure 124 mm[Hg] Krislyn Aberegg PA Work Phone: [facility] 12-05-2023 16:22-0500 Body temperature 97.6 [degF] [facility] 12-05-2023 16:22-0500 Diastolic blood pressure 89 mm[Hg] [facility] 12-05-2023 16:22-0500 Heart rate 75 /min [facility] 12-05-2023 16:22-0500 Respiratory rate 12 /min [facility] 12-05-2023 16:22-0500 SaO2% (BldA) [Mass fraction] 99 % [facility] 12-05-2023 16:22-0500 Systolic blood pressure 146 mm[Hg] [facility] 12-05-2023 13:25-0500 Body height 165.[address] [facility] 12-05-2023 13:25-0500 Body mass index (BMI) [Ratio] 24.9 kg/m2 [facility] 12-05-2023 13:25-0500 Body weight 67.[address] [facility] 12-29-2022 12:55-0400 Body height 171.5 cm Jennifer Haagen FILTER SCREEN CLEANER.YARD INSPECTOR Work Phone: [facility] 12-29-2022 12:55-0400 Body weight 69.4 kg Jennifer Haagen FILTER SCREEN CLEANER.YARD INSPECTOR Work Phone: [facility] 12-29-2022 12:55-0400 Diastolic blood pressure 96 mm[Hg] Jennifer Haagen FILTER SCREEN CLEANER.YARD INSPECTOR Work Phone: [facility] 12-29-2022 12:55-0400 Heart rate 94 /min Jennifer Haagen FILTER SCREEN CLEANER.YARD INSPECTOR Work Phone: [facility] 12-29-2022 12:55-0400 Respiratory rate 18 /min Jennifer Haagen FILTER SCREEN CLEANER.YARD INSPECTOR Work Phone: [facility] 12-29-2022 12:55-0400 SaO2% (BldA) [Mass fraction] 96 % Jennifer Haagen FILTER SCREEN CLEANER.YARD INSPECTOR Work Phone: [facility] 12-29-2022 12:55-0400 Systolic blood pressure 132 mm[Hg] Jennifer Haagen FILTER SCREEN CLEANER.YARD INSPECTOR Work Phone: [facility] 06-03-2022 08:45-0400 Systolic blood pressure 138 mm[Hg] Howard Clifford Work Phone: [facility] Work Phone: 06-02-2022 09:28-0400 Body height 170.18 cm Howard Lopesd Work Phone: [facility] Work Phone: 06-02-2022 09:28-0400 Body mass index (BMI) [Ratio] 23.74 kg/m2 Howard Lopesd Work Phone: [facility] Work Phone: 06-02-2022 09:28-0400 Body surface area Derived from formula 1.8 m2 Howard Lopesd Work Phone: [facility] Work Phone: 06-02-2022 09:28-0400 Body weight 68.75 kg Howard Lopesd Work Phone: [facility] Work Phone: 06-02-2022 09:28-0400 Diastolic blood pressure 88 mm[Hg] Howard Lopesd Work Phone: [facility] Work Phone: 06-02-2022 09:28-0400 Heart rate 83 /min Howard Lopesd Work Phone: [facility] Work Phone: 06-02-2022 09:28-0400 Systolic blood pressure 138 mm[Hg] Howard Lopesd Work Phone: [facility] Work Phone: 03-11-2022 11:53-0400 Body temperature 97.88 [degF] No Pcp Required [facility] 03-11-2022 11:11-0400 Body height 175.2 cm No Pcp Required [facility] 03-11-2022 11:11-0400 Body weight 72.7 kg No Pcp Required [facility] 03-11-2022 11:11-0400 Diastolic blood pressure 104 mm[Hg] No Pcp Required [facility] 03-11-2022 11:[id number] Heart rate 90 /min No Pcp Required [facility] 03-11-2022 11:[id number] Respiratory rate 18 /min No Pcp Required [facility] 03-11-2022 11:110400 SaO2% (BldA) [Mass fraction] 99 % No Pcp Required [facility] 03-11-2022 11:[id number] Systolic blood pressure 139 mm[Hg] No Pcp Required [facility] Encounters Encounter Date Encounter Type Care Provider Facility Start: 04-16-2025 End: 04-16-2025 Emergency department patient visit No Primary Care Physician -Emergency Department Work Phone: Start: 02-19-2025 End: 02-19-2025 Emergency department patient visit Lambert Ferny Facility:[facility] Start: 02-19-2025 End: 02-19-2025 Patient encounter procedure Anika Sanchez APRN.YARD INSPECTOR Work Phone: [facility] Comment on above: Eye abnormalities (P rimary Dx) Start: 02-19-2025 End: 02-19-2025 ambulatory HOWARD CLIFFORD DARRIN Facility:[facility] Start: 12-24-2024 End: 12-24-2024 Emergency department patient visit No Primary Care Physician -Emergency Department Work Phone: Start: 12-24-2024 End: 12-24-2024 [facility] Start: 12-24-2024 End: 12-24-2024 Patient encounter procedure Edu Hinton MD Work Phone: [facility] Comment on above: SOB (shortness of br eath) (Primary Dx); Chest tightness; Dizziness Start: 11-13-2024 End: 11-13-2024 Emergency department patient visit Dr. Jordan Hill DO -Emergency Department Work Phone: Start: 11-02-2024 End: 11-02-2024 Emergency department patient visit Dr. Obi Lynch DO -Emergency Department Work Phone: Start: 09-27-2024 End: 09-27-2024 Patient encounter procedure Antonio Rao INTERNAL GRINDER-C -[facility] Work Phone: Start: 09-27-2024 End: 09-27-2024 ambulatory Antonio Rao INTERNAL GRINDER [facility] Start: 09-21-2024 ambulatory No Primary Car e Physician Facility:[facility] Start: 08-21-2024 End: 08-21-2024 ambulatory No Primary Care Physician Facility:[facility] Start: 08-21-2024 End: 08-21-2024 ambulatory No Primary Care Physician Facility:[facility] Start: 07-26-2024 End: 07-26-2024 ambulatory No Primary Care Physician Facility:[facility] Start: 07-14-2024 End: 07-14-2024 Emergency department patient visit Obi Lynch Facility:[facility] Start: 07-10-2024 ambulatory No Primary Car e Physician Facility:[facility] Start: 07-09-2024 ambulatory Celeste Levine Facility:[facility] Start: 07-09-2024 End: 07-10-2024 Evaluation and management of inpatient Celeste Leivne Facility:[facility] Start: 07-04-2024 End: 07-04-2024 Emergency department patient visit Jones Huff Facility:[facility] Start: 06-23-2024 End: 06-23-2024 ambulatory Kaylie Coker RN NURSE LACE BURN OUT TENDER Comment on above: Medication Request Start: 06-23-2024 End: 06-23-2024 Patient encounter procedure Shana Soria APRN.YARD INSPECTOR Work Phone: [facility] Comment on above: URI, acute (Primary Dx) Start: 06-19-2024 End: 06-19-2024 Subsequent hospital visit by physician Xr [facility] Work Phone: Radiology Comment on above: Acute cough [R05.1] Start: 06-19-2024 End: 06-19-2024 ambulatory HOWARD CLIFFORD Facility:[facility] Start: 06-19-2024 End: 06-19-2024 Patient encounter procedure Phi Reid APRN.YARD INSPECTOR Work Phone: [facility] Comment on above: Sinobronchitis (Prim josé manuel Dx); Acute cough Start: 06-18-2024 End: 06-18-2024 Patient encounter procedure Tahir BERNABE Work Phone: [facility] Comment on above: Acute cough (Primary Dx); URI, acute Start: 06-18-2024 End: 06-18-2024 ambulatory HOWARD DARRIN DARRIN Facility:[facility] Start: 12-05-2023 End: 12-05-2023 Emergency department patient visit [facility] Department Work Phone: Start: 02-14-2023 End: 02-14-2023 Emergency department patient visit PHYSICIAN [facility] Start: 12-29-2022 End: 12-29-2022 Office outpatient visit 15 minutes Jennifer Zarate APRN.CNP Work Phone: [facility] Comment on above: Skin lesion (Primary Dx) Start: 12-15-2022 ambulatory Felicita Goodwin on PA-C Work Phone: [facility] Start: 12-15-2022 Patient encounter procedure Felicita Adams PA-C Work Phone: [facility] Comment on above: I cant seem to find who peyman kirk make a appointment with it tells me i have a up coming appointment Start: 12-14-2022 End: 12-14-2022 ambulatory Felicita Adams PA-C Work Phone: [facility] Comment on above: Lesion of ala of nos e (Primary Dx) Start: 12-14-2022 End: 12-14-2022 Telemedicine consultation with patient Felicita Adams PA-C Work Phone: [facility] Start: 10-09-2022 Refill Felicita Marie Buddy on PA-C Work Phone: [facility] Comment on above: Refill Request Start: 09-01-[address] Mrs[address] Howard Clifford Fa cility:[id number] Start: 06-03-2022 AUDIT Howard Clifford Work Phone: [facility] Work Phone: Start: 06-02-[address] Mrs[address] Howard Clifford Fa cility:[id number] Start: 03-11-2022 End: 03-11-2022 Emergency department patient visit Uyen Kaur [facility] Emergency Start: 07-04-2021 End: 07-04-2021 Emergency department patient visit Esa Ayon [facility] Emergency 09 Start: 11-28-2017 Ambulatory AHMED ITRAT Facility:[facility] Procedures Date Procedure Procedure Detail Performing Clinician Start: 04-16-2025 X-ray of foot, three or more views No Primary Care Physician Start: 12-24-2024 CT of chest without contrast No Primary Care Physician Start: 11-13-2024 X-ray of chest, PA a nd lateral views No Primary Care Physician Start: 11-02-2024 CT of abdomen and pe lvis without contrast No Primary Care Physician Start: 11-02-2024 Urine culture No Primar y Care Physician Start: 06-19-2024 Radiologic exam ches t 2 views Phi Reid APRN.CNP Work Phone: Start: 12-05-2023 CT of abdomen and pe lvis without contrast Start: 06-02-2022 Lipid 1996 panel - S abby or Plasma Tahir BERNABE Work Phone: Start: 03-11-2022 End: 03-11-2022 EKG impression Uyen Kaur Start: 07-04-2021 End: 07-04-2021 EKG impression Esa Ayon Insertion of uretera l stent with ureterotomy Howard Clifford Work Phone: Plan of Treatment Date Care Activity Detail Author Start: 06-02-2027 Lipid panel Lipid Screening [facility] Start: 06-17-2025 Influenza vaccination Influenz a Vaccine (Season Ended) [facility] Start: 04-16-2025 [facility] Start: 02-19-2025 [facility] Start: 12-24-2024 [facility] Start: 11-13-2024 [facility] Start: 06-17-2024 Covid-19 Vaccine ( season) Covid-19 Vaccine ( season) [facility] Start: 06-17-2024 Covid-19 Vaccine ( season) Covid-19 Vaccine ( season) [facility] Start: 06-17-2024 Influenza vaccination Influenza Vacc ine (#1) [facility] Start: 12-05-2023 [facility] Start: 09-01-2022 EPV, Provider: Howard Clifford, Status: Pen, Time: 11:15 AM EPV, Provider: Howard Clifford, Status: Pen, Time: 11:15 AM [facility] Work Phone: Start: 06-17-2022 Influenza vaccination INFLUENZA (#1) [facility] Start: 03-11-2022 End: 03-14-2022 Iohexol (Omnipaque 350-Radiology Contrast) . ; (OMNIPAQUE)DOSE = 109.05 mL IntraVenous Push OnceCa.5 mL/Kg/DOSE x 72.7 Kg = 109.05 mL/Dose (Daily Total is 109.05 mL) Start: 11-Mar-2022 End: 13-Mar-2022 Ordered: 11-Mar-2022 Uyen Kaur [facility] Start: 10-17-2021 DEPRESSION ASSESSMENT DEPRESSION ASS ESSMENT [facility] Start: 2018 LIPID SCREEN LIPID SCREEN [facility] Start: 2002 Hepatitis B Vaccine (1 of 3 - 19+ 3-dose series) Hepatitis B Vaccine (1 of 3 - 19+ 3-dose series) [facility] Start: 2002 Pneumococcal vaccination Pneumococcal Vaccine (1 of 2 - PCV) [facility] Start: 2002 Urine microalbumin profile [facility] Start: 2001 Anxiety Screening Anxiety Screening [facility] Start: 2001 HEPATITIS C SCREENING HEPATITIS C [facility] Start: 2001 Hepatitis C screening Hepatitis C [facility] Start: 2001 HIV SCREENING HIV SCREENING [facility] Start: 2001 HIV screening HIV Screening [facility] Start: 1989 PNEUMOCOCCAL (1 - PCV) PNEUMOCOCCAL (1 - PCV) [facility] Start: 1989 Pneumococcal vaccination Pneumococcal Vaccine (1 of 2 - PCV) [facility] Start: 1983 COVID-19 VACCINE (#1) COVID-19 VACCI NE (#1) [facility] Start: 1983 HEPATITIS B (1 of 3 - 3-dose series) HEPATITIS B (1 of 3 - 3-dose series) [facility] COVID & INFLUENZA A/ B & RSV PCR, ROUTINE COVID & INFLUENZA A/B & RSV PCR, ROUTINE Microbiology Routine Sinobronchitis 06/19/2024 7:24 PM EDT [facility] Work Phone: COVID & INFLUENZA A/ B & RSV PCR, ROUTINE COVID & INFLUENZA A/B & RSV PCR, ROUTINE Microbiology Routine URI, acute Ordered: 06/23/2024 [facility] Work Phone: Comment on above: Ordered: 06/23/2024 Patient Education [facility] Work Phone: Patient referral [facility] Work Phone: [facility] End: 07-18-2025 XR Chest PA and Lateral XR CHEST 2V FRONTAL/LAT Radiology STAT Acute cough 1 Occurrences starting 06/18/2024 until 07/18/2025 [facility] Work Phone: Comment on above: 1 Occurrences starti ng 06/18/2024 until 07/18/2025 Payers Date Payer Category Payer Self-pay [id number] 2024 Unknown [id number] 2022 Unknown [id number] 2018 Medicaid [id number] 1983 Unknown [id number] 2.16. [id number] 1983 Unknown [id number] 2.16. [id number] 1983 Unknown [id number] 2.16. [id number] Unknown Unknown [id number] Unknown [id number] Unknown [id number] 2.16.8 [id number] Unknown [id number] 2.16.8 40.1.414961.3.579.2.462 Unknown [id number] 2.16.8 40.1.674033.3.579.2.462 Unknown [id number] 2.16.8 40.1.881213.3.579.2.462 Unknown [id number] 2.16.8 40.1.884981.3.579.2.462 Unknown [id number] 2.16.8 40.1.342157.3.579.2.462 Unknown [id number] 2.16.8 40.1.529005.3.579.2.462 Unknown [id number] 2.16.8 40.1.162216.3.579.2.462 Unknown [id number] 2.16.8 40.1.913838.3.579.2.462 Unknown [id number] 2.16.8 40.1.330546.3.579.2.462 Unknown [id number] 2.16.8 40.1.262730.3.579.2.462 Unknown [id number] 2.16.8 40.1.551163.3.579.2.462 Unknown [id number] 2.16.8 40.1.605762.3.579.2.462 Unknown [id number] 2.16.8 40.1.791123.3.579.2.462 Unknown [id number] 2.16.8 40.1.084562.3.579.2.462 Unknown [id number] 2.16.8 40.1.252622.3.579.2.462 Unknown [id number] 2.16.8 40.1.572560.3.579.2.462 Social History Date Type Detail Facility [place] [facility] Start: 12-05-2023 Tobacco smokin g consumption unknown [facility] Start: 09-14-2017 End: 07-09-2024 Uses marijuana Uses marijuana [facility] Start: 09-14-2017 End: 04-16-2025 Tobacco smoking status NHIS Smokes tobacco daily [facility] History of tobacco use Cigarette Smoker C [facility] Start: 09-14-2017 End: 06-18-2024 Tobacco use and exposure Former smokeless tobacco user [facility] Start: 10-05-2017 End: 06-23-2024 Alcohol intake Current non-drinker of alcohol (finding) [facility] Start: 09-14-2017 End: 12-29-2022 Tobacco Comment 1-2 cigarettes a day [facility] Start: 1985 Sex Assigned At Not on file C [facility] Start: 12-14-2022 History SDOH Housing Unable to Pay 3 [facility] Start: 01-21-2014 None [facility] Start: 01-21-2014 Marijuana [facility] Start: 01-21-2014 Cigarettes [facility] Start: 1985 Sex Assigned At Male W [facility] Start: 12-14-2022 End: 07-09-2024 Social connection and isolation panel [facility] In a typical week, h ow many times do you talk on the telephone with family, friends, or neighbors? Patient declined [facility] Start: 12-24-2024 Sex Male (finding) [facility] Medical Equipment Procedure Code Equipment Code Equipment Origin al Text Equipment Identifier Dates Laser Rental - [id number] Start: 03-11-2011 Stent Uret 6fr 2 2cm Dbl Pgtl - [id number] Start: 03-11-2011 Functional Status Date Assessment Result Facility 03-21-2015 Are you deaf, or do you have serious difficulty hearing No 03/21/2015 4:38 PM EDT Irma Angelo RN No [facility] Work Phone: 03-21-2015 Are you blind, or do you have serious difficulty seeing, even when wearing glasses No 03/21/2015 4:38 PM EDT Irma Angelo RN No [facility] 03-21-2015 Do you have serious difficulty walking or climbing stairs No 03/21/2015 4:38 PM EDT Irma Angelo RN No [facility] 03-21-2015 Do you have difficul ty dressing or bathing No 03/21/2015 4:38 PM EDT Irma Angelo RN No [facility] 03-21-2015 Because of a physica l, mental, or emotional condition, do you have difficulty doing errands alone such as visiting a physician's office or shopping No 03/21/2015 4:38 PM EDT Irma Angelo RN No [facility] Mental Status Date Assessment Result Facility 11-13-2024 Cognitive function Level Of Cons ciousness Awake;Alert;Appropriate;Fol lows Commands [facility] Work Phone: 03-21-2015 Because of a physica l, mental, or emotional condition, do you have serious difficulty concentrating, remembering, or making decisions No 03/21/2015 4:38 PM EDT Irma Angelo RN No [facility] Clinical Notes 12-14-2022 to 04-16-2025 Anika Sanchez APRN.[facility] - 02/19/2025 10:41 AM EDTMEdu Carter MD - 12/24/2024 9:14 AM EDT Note Date & Type Note Facility 04-16-2025 Radiology Diagnostic study note [facility] Imaging Services [address] [place] [address] Foot min 3 Views MR#: [id number] Acct: [id number] Name: FAMILIA PEREZ Rep #: [id number] : 1985 M 40 From: Silverio Addison MD PCP: Care Physician,No Primary Status: PRE ER Study:Foot min 3 Views Date of Exam: 11/10 Exam# [id number] Ordering Dr: Mona Tomlinson MD PROCEDURE: FOOT MIN 3 VIEWS 04/16/2025 REASON FOR EXAM: TRAUMA ATTENTIL LATERAL TOES TECHNIQUE: FOOT MIN 3 VIEWS COMPARISON: None FINDINGS: There is an oblique fracture of the 4th proximal phalanx with a slight impaction. There is a transverse fracture of the 5th proximal phalanx with anatomic alignment. There is no dislocation. Mineralization is normal. There is no visible atherosclerosis. RAD/Foot min 3 Views IMPRESSION: There is an oblique fracture of the 4th proximal phalanx with a slight impaction. There is a transverse fracture of the 5th proximal phalanx with anatomic alignment. Critical results were discussed with Dr. Tomlinson by Dr. Addison at the time ofdictation. Reading Location: [facility] CC: Dr. Codey Tomlinson MD; No Primary Care Physician ~ Production Inspector: Signed [facility] 02-19-2025 Note HNO ID: [id number] Author: ANIKA SANCHEZ APRN.YARD INSPECTOR Service: ? Author Type: Nurse Practitioner Type: Progress Notes Filed: 02/19/2025 10:46 Note Text: Called to triage patient. Presents with eye complaints Acute onset yesterday He walks in without the initial ability to open eyes He is walking arm in arm with his significant other He was able to open eyes, He can only read the E on the eye chart Discussed limitations of express care Referred to ED [facility] 02-19-2025 History of Present illness Narrative Called to triage patient. Presents with eye complaints Acute onset yesterday He walks in without the initial ability to open eyes He is walking arm in arm with his significant other He was able to open eyes, He can only read the E on the eye chart Discussed limitations of express care Referred to ED documented in this encounter [facility] 12-24-2024 Radiology Diagnostic study note [facility] Imaging Services [address] [place] [address] Chest without Contrast MR#: [id number] Acct: [id number] Name: FAMILIA PEREZ PAULINO Rep #: [id number] : 1985 M 39 From: Andie Barry MD PCP: Care Physician,No Primary Status: REG ER Study:Chest without Contrast Date of Exam: 12/24/24 Exam# [id number] Ordering Dr: Luz Christina PROCEDURE: CHEST WITHOUT CONTRAST REASON FOR EXAM: FALL TECHNIQUE: Chest CT without contrast. COMPARISON: Chest radiograph 11/13/2019 FINDINGS: Hardware: None. Lymph nodes: No mediastinal hilar or axillary lymphadenopathy. Heart and Vasculature: Normal heart size. No pericardial effusion. Thoracic aorta and pulmonary arteries have normal contours; noncontrast technique limits evaluation. Coronary Artery Calcifications: Lungs and Airways: The lungs are normally expanded and clear. Pleura: No pleural effusion. No pneumothorax. Upper Abdomen: Visualized portions of the upper abdominal viscera are unremarkable. Bones: Bone windows are unremarkable. CT/Chest without Contrast IMPRESSION: No acute findings in the thorax. One or more dose reduction techniques were used (e.g., Automated exposure control, adjustment of the mA and/or kV according to patient size, use of iterative reconstruction technique). [facility] CC: SRINIVASA Quevedo; No Primary Care Physician ~ Production Inspector: Signed [facility] 12-24-2024 Note HNO ID: [id number] Author: EDU HINTON MD Service: ? Author Type: Physician Type: Progress Notes Filed: 12/24/2024 09:18 Note Text: [facility] Triage Note: Patient presents to the [facility] with complaint of chest tightness and shortness of breath. It is making him feel dizzy, but says his heart medicine makes him feel dizzy too. He has no cough, fever, cold symptoms, or history of asthma. He does smoke. Patient is somewhat anxious, alert, ambulates by himself, and speaks in full sentences. 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 [facility] 12-24-2024 History of Present illness Narrative [facility] Triage Note: Patient presents to the [facility] with complaint of chest tightness and shortness of breath. It is making him feel dizzy, but says his heart medicine makes him feel dizzy too. He has no cough, fever, cold symptoms, or history of asthma. He does smoke. Patient is somewhat anxious, alert, ambulates by himself, and speaks in full sentences. 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 documented in this encounter [facility] 09-27-2024 Evaluation note Diagnosis Onset Date Resolution Congestive heart failure acute September 27, 2 024 3:59pm Fatigue acute September 27, 2024 3:59pm Myocarditis acute September 3:59pm Chest pain resolved September 27, 2024 3:59pm [facility] Work Phone: 1(936) 224-966009-24-2024 [facility] Medical Records Department [address] [place] [address] Discharge Summary 07/10/24 1346 MR#: [id number] Acct: [id number] Name: FAMILIA PEREZ Rep #: [id number] : 1985 39 From: Carlos Banks DO PCP: Care Physician,No Primary Status:ADM IN Location: [place] [address] Providers Date of Admission: 07/09/24 Primary Care Physician: No Primary Care Phys Consultations 07/09/24 17:48 Consult: Cardiology Routine Consulting Provider: Denis Agustin Reason for Consult: New trop elevation, tachycardic, concern for new HF in 39 y/o EMERGENT Consult: No MD Notified: Yes Date Notified: 07/09/24 Time Notified: 17:56 Method of Notification: Text Reason For Visit: ELEVATED TROPONIN Diagnosis Discharge Diagnosis (1) Elevated troponin: Status: Acute Code(s): R79.89 - Other specified abnormal findings of blood chemistry Plan Acute heart failure with reduced ejection fraction * EF on echocardiogram is 15%. Discussed with Dr. Agustin of cardiology. Hobson the patient likely had a viral myocarditis. Patient okay to go home. Patient will be on medications to help optimize his heart returning to normal function with carvedilol 6.25 mg twice daily, losartan and spironolactone. Patient will be on furosemide as needed. 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 Patient will follow-up with cardiology in about 2 weeks time and further adjustments to his medications will be made at that time. Eventually he will need follow-up echocardiogram to see if his EF is improving. NSTEMI type II: * Likely due to demand of the heart failure with a cardiomyopathy * No additional workup at this time. Discharge home. Medications at Discharge Home Medications carvedilol 6.25 mg tablet 6.25 mg PO BIDCM #60 tabs 07/10/24 furosemide 20 mg tablet 20 mg PO DAILY PRN For weight gain of 2 pounds in 1 day or 3 pounds in 1 week #30 tabs 07/10/24 losartan 25 mg tablet 25 mg PO DINNER #30 tabs 07/10/24 spironolactone 25 mg tablet 25 mg PO DAILY #30 tabs 07/10/24 Hospital Course Procedures 2-D Echocardiogram Summary of Care Provided Minutes Spent on Discharge: 35 Hospital Course: Patient presents with shortness of breath and was found to be in heart failure. Patient did receive furosemide and that did help him. He did have an echocardiogram that showed an EF of 15%. Cardiology feels that he may have had a viral myocarditis that caused a cardiomyopathy. Patient will be on carvedilol, losartan and spironolactone as well as as needed furosemide. Patient will need follow-up cardiology next couple weeks for further medication titration and eventually patient will require repeat echocardiogram. Weight / BMI Weight Weight: 69.4 kg Body Mass Index (BMI) 22.6 ABG / Lab / Microbiology Data 07/10/24 05:33 07/10/24 05:33 Laboratory: Laboratory Results - last 24 hr 07/09/24 12:05: C-React Prot Ext Range 13.50 H, B-Natriuretic Peptide 683.5 H 07/09/24 14:16: Troponin I High Sens 219 H* 07/10/24 05:33: WBC 19.7 H, RBC 5.29, Hgb 16.0, Hct 48.8, MCV 92.2, MCH 30.2, MCHC 32.8, RDW Std Deviation 45.4 H, RDW Coeff of Liliana 13.2, Plt Count 448, MPV 9.2, Immature Gran % (Auto) 0.500, Neut % (Auto) 89.3 H, Lymph % (Auto) 8.2 L, Hubbard % (Auto) 1.8, Eos % (Auto) 0.0, Baso % (Auto) 0.2, A bsolute Neuts (auto) 17.6 H, Absolute Lymphs (auto) 1.62, Nucleated RBC % 0, Sodium 135 L, Potassium 4.3, Chloride 107, Carbon Dioxide 22.0, Anion Gap 6, BUN 19 H, Creatinine 1.11, Estim Creat Clear Calc 85.97, Est GFR (MDRD) Af Amer 94, Est GFR (MDRD) Non-Af 77, BUN/Creatinine Ratio 17.1, Glucose 140 H, Calcium 10.1, Magnesium 2.2, Total Bilirubin 0.70, AST 15, ALT 37, Alkaline Phosphatase 69, Troponin I High Sens 72, Total Protein 7.9, Albumin 3.5, Globulin 4.4 H, Albumin/Globulin Ratio 0.8 L, Triglycerides 64, Cholesterol 329 H, LDL Cholesterol 257 H, VLDL Cholesterol 13, HDL Cholesterol 59, TSH 0.345 L Radiography Diagnostic Testing: Radiology Impression Echocardiogram 07/09/24 17:48 Interpretation Summary The left ventricular ejection fraction is 15 %. Mildly dilated left ventricle. There is severe global hypokinesis of the left ventricle. The left atrium is moderately enlarged. Mild (1+) eccentric mitral valve insufficiency. The global longitudinal strain is severely abnormal. The global longitudinal strain = -6.7% (abnormal). Ordering Physician: Celeste Levine Performed By: Obi Mendoza RCS D/C Instructions Discharge Diet: Low fat / Low cholesterol, 8 Cup Fluid Restriction and 2000 mg Sodium Diet Return to work on: 07/10/24 [employer] (more content not included)...[facility]09-07-2024 Note* Addendum Note - Shana Soria APRN.YARD INSPECTOR - 06/23/2024 2:53 PM EDT Addended by: SHANA SORIA on: 06/23/2024 02:53 PM Modules accepted: Orders [facility]09-07-2024 Miscellaneous Notes* Addendum Note - Shana Soria APRN.CNP - 06/23/2024 2:53 PM EDTAddended by: SHANA SORIA on: 06/23/2024 02:53 PM Modules accepted: Orders [facility] Telephone encounter Note * Telephone Encounter - Kaylie Coker RN - 06/23/2024 2:46 PM EDT Patient calling, states prescription ordered at [facility] today, 06/23/24 was not received by pharmacy. Patient denies any new or worsening symptoms of which a provider is not aware: Yes. Conferenced to [place] at [facility]. [facility]09-07-2024 Miscellaneous Notes* Telephone Encounter - Kaylie Coker RN - 06/23/2024 2:46 PM EDT Patient calling, states prescription ordered at [facility] today, 06/23/24 was not received by pharmacy. Patient denies any new or worsening symptoms of which a provider is not aware: Yes. Conferenced to [place] at [facility]. [facility]24 NoteHNO ID: [id number] Author: SHANA SORIA APRN.CNP Service: ? Author Type: Nurse Practitioner Type: Progress Notes Filed: 06/23/2024 12:32 Note Text: This note was created using Follicariter. Subjective Familia Perez is a 39 year old male. Presents with 8 day history of cough and congestion. Reports he needs cleared to return to work and they won't let him come back without a covid test and a note. Objective BP 118/98 Pulse 120 Temp 36.5 ?C (97.7 ?F) Resp 21 Wt 70.5 kg (155 lb 6.8 oz) SpO2 97% BMI 23.97 kg/m? Physical Exam PHYSICAL EXAMINATION: General appearance: Well appearing, alert, in no acute distress, well-hydrated, well nourished. Nose/Sinuses: Nares normal, septum midline, mucosa normal, no drainage or sinus tenderness Oropharynx: Lips, mucosa, and tongue normal, teeth and gums normal, oropharynx normal Lungs: Lungs clear to auscultation. No wheezing, rhonchi, rales. Heart: RRR without murmur, gallop, or rubs. No ectopy Assessment and Plan ASSESSMENT/PLAN: 1. URI, acute - ICD9: 465.9, ICD10: J06.9 - Discussed viral etiology and rationale for treatment. - Symptomatic treatment with prn analgesia - Supportive care with fluids and rest - COVID AND INFLUENZA A/B AND RSV PCR, ROUTINE Shana Soria APRN.[facility]09-07-2024 History of Present illness Narrative* Shana Soria APRN.[facility] - 06/23/2024 12:30 PM EDT This note was created using Follicariter. Subjective Familia Perez is a 39 year old male. Presents with 8 day history of cough and congestion. Reports he needs cleared to return to work and they won't let him come back without a covid test and a note. Objective BP 118/98 Pulse 120 Temp 36.5 C (97.7 F) Resp 21 Wt 70.5 kg (155 lb 6.8 oz) SpO2 97% BMI 23.97 kg/m Physical Exam PHYSICAL EXAMINATION: General appearance: Well appearing, alert, in no acute distress, well-hydrated, well nourished. Nose/Sinuses: Nares normal, septum midline, mucosa normal, no drainage or sinus tenderness Oropharynx: Lips, mucosa, and tongue normal, teeth and gums normal, oropharynx normal Lungs: Lungs clear to auscultation. No wheezing, rhonchi, rales. Heart: RRR without murmur, gallop, or rubs. No ectopy Assessment and Plan ASSESSMENT/PLAN: 1. URI, acute - ICD9: 465.9, ICD10: J06.9 - Discussed viral etiology and rationale for treatment. - Symptomatic treatment with prn analgesia - Supportive care with fluids and rest - COVID & INFLUENZA A/B & RSV PCR, ROUTINE Shana Soria APRN.YARD INSPECTOR documented [facility]24 NoteHNO ID: [id number] Author: PHI REID APRN.SCOTTIE Service: ? Author Type: Nurse Practitioner Type: Progress Notes Filed: 06/19/2024 19:49 Note Text: Subjective HPI HPI Familia Perez is a 39 year old male who presents today for CC of cough, congestion, fever. This started 4 days ago. Has tried otc medication for relief. Symptoms are worsened by nothing. smoker. .Patient presents with: Chest Congestion: cough, fever x 4 days PAST MEDICAL HISTORY No date: Seizures (HCC) PAST SURGICAL HISTORY No date: LITHOTRIPSY XTRCORP SHOCK WAVE Comment: Lithotripsy ALLERGIES Patient has no known allergies. MEDICATIONS Thdxfuevyqyybva-Nqscqfzln-MJ (BROMFED DM) 2-30-10 mg/5 mL syrup Take 10 mL by mouth four times a day as needed. FAMILY HISTORY Problem Relation Age of Onset Heart Mother Emphysema Mother No Known Problems Sister Social History Tobacco Use Smoking status: Every Day Current packs/day: 0.25 Types: Cigarettes Smokeless tobacco: Former Tobacco comments: 1-2 cigarettes a day Substance Use Topics Alcohol use: No Drug use: No Types: Marijuana Comment: no drugs , previous polysubstance abuser Review of Systems Constitutional: Positive for fever and malaise/fatigue. HENT: Positive for congestion. Negative for ear pain, nosebleeds and sore throat. Respiratory: Positive for cough. Negative for shortness of breath and wheezing. Musculoskeletal: Negative for neck pain. Skin: Negative for itching and rash. Objective Blood pressure 120/80, pulse 76, temperature 36.9 ?C (98.4 ?F), resp. rate 16, weight 69.8 kg (153 lb 14.1 oz), SpO2 96%. Physical Exam Constitutional: General: He is not in acute distress. Appearance: He is ill-appearing. He is not toxic-appearing or diaphoretic. HENT: Head: Normocephalic and atraumatic. Cardiovascular: Rate and Rhythm: Normal rate and regular rhythm. Heart sounds: Normal heart sounds, S1 normal and S2 normal. Pulmonary: Effort: Pulmonary effort is normal. Breath sounds: Normal breath sounds. Lymphadenopathy: Cervical: No cervical adenopathy. Right cervical: No superficial cervical adenopathy. Left cervical: No superficial cervical adenopathy. Neurological: Mental Status: He is alert and oriented to person, place, and time. Gait: Gait is intact. ASSESSMENT/PLAN: 1. Sinobronchitis - ICD9: 473.9, 490, ICD10: J32.9, J40 (primary diagnosis) Start steroid and hold atb. If s/s persist 3-5 days and or worsen fill atb rx - Supportive care with plenty of fluids, rest, and analgesia prn. - Follow up in 3-5 days if symptoms persist or worsen. -If you experience chest pain/shortness of breath go to ER If positive for covid is considering paxlovid. - DOXYCYCLINE HYCLATE 100 MG TABLET - PREDNISONE 20 MG TABLET - COVID AND INFLUENZA A/B AND RSV PCR, ROUTINE 2. Acute cough - ICD9: 786.2, ICD10: R05.1 - XR CHEST 2V FRONTAL/LAT IMPRESSION: 1. No evidence of acute cardiopulmonary disease. 2. Minimal anterior compression deformities of several midthoracic vertebral bodies of uncertain chronicity. Dictated by : MD Phi DAVIS APRN.[facility]09-03-2024 History of Present illness Narrative* Phi Reid APRN.YARD INSPECTOR - 06/19/2024 6:14 PM EDT Subjective HPI HPI Familia Perez is a 39 year old male who presents today for CC of cough, congestion, fever.This started 4 days ago. Has tried otc medication for relief. Symptoms are worsened by nothing. smoker. .Patient presents with: Chest Congestion: cough, fever x 4 days PAST MEDICAL HISTORY No date: Seizures (HCC) PAST SURGICAL HISTORY No date: LITHOTRIPSY XTRCORP SHOCK WAVE Comment: Lithotripsy ALLERGIES Patient has no known allergies. MEDICATIONS Gwqrwdpvksdmbsy-Xxlxnqkys-HR (BROMFED DM) 2-30-10 mg/5 mL syrup Take 10 mL by mouth four times a day as needed. FAMILY HISTORY Problem Relation Age of Onset Heart Mother Emphysema Mother No Known Problems Sister Social History Tobacco Use Smoking status: Every Day Current packs/day: 0.25 Types: Cigarettes Smokeless tobacco: Former Tobacco comments: 1-2 cigarettes a day Substance Use Topics Alcohol use: No Drug use: No Types: Marijuana Comment: no drugs , previous polysubstance abuser Review of Systems Constitutional: Positive for fever and malaise/fatigue. HENT: Positive for congestion. Negative for ear pain, nosebleeds and sore throat. Respiratory: Positive for cough. Negative for shortness of breath and wheezing. Musculoskeletal: Negative for neck pain. Skin: Negative for itching and rash. Objective Blood pressure 120/80, pulse 76, temperature 36.9 C (98.4 F), resp. rate 16, weight 69.8 kg (153 lb14.1 oz), SpO2 96%. Physical Exam Constitutional: General: He is not in acute distress. Appearance: He is ill-appearing. He is not toxic-appearing or diaphoretic. HENT: Head: Normocephalic and atraumatic. Cardiovascular: Rate and Rhythm: Normal rate and regular rhythm. Heart sounds: Normal heart sounds, S1 normal and S2 normal. Pulmonary: Effort: Pulmonary effort is normal. Breath sounds: Normal breath sounds. Lymphadenopathy: Cervical: No cervical adenopathy. Right cervical: No superficial cervical adenopathy. Left cervical: No superficial cervical adenopathy. Neurological: Mental Status: He is alert and oriented to person, place, and time. Gait: Gait is intact. ASSESSMENT/PLAN: 1. Sinobronchitis - ICD9: 473.9, 490, ICD10: J32.9, J40 (primary diagnosis) Start steroid and hold atb. If s/s persist 3-5 days and or worsen fill atb rx - Supportive care with plenty of fluids, rest, and analgesia prn. - Follow up in 3-5 days if symptoms persist or worsen. -If you experience chest pain/shortness of breath go to ER If positive for covid is considering paxlovid. - DOXYCYCLINE HYCLATE 100 MG TABLET - PREDNISONE 20 MG TABLET - COVID & INFLUENZA A/B & RSV PCR, ROUTINE 2. Acute cough - ICD9: 786.2, ICD10: R05.1 - XR CHEST 2V FRONTAL/LAT IMPRESSION: 1. No evidence of acute cardiopulmonary disease. 2. Minimal anterior compression deformities of several midthoracic vertebral bodies of uncertain chronicity. Dictated by : MD Phi DAVIS APRN.YARD INSPECTOR documented in [facility] encounter[facility]24 History of Present illness Narrative* Aisha Mabry RT(R) - 06/19/2024 5:50 PM EDT Radiology Service Progress Note PATIENT NAME: Familia Perez DATE OF SERVICE: June 19, 2024 TIME: 6:02 PM PATIENT IDENTITY VERIFICATION COMPLETED USING TWO (2) IDENTIFIERS: Name and Date of confirmedby patient verbally. FALL SCREENING: Has the patient had 2 falls in the last year or 1 fall with injury or currently using an Ambulatory Assistive Device (Walker, Cane, Wheelchair, Crutches, etc.)? No PATIENT GENDER DATA: Male PATIENT RELEVANT IMPLANT DATA REVIEWED: Yes PATIENT PRESENTS WITH AN IMPLANTABLE OR ATTACHED PORCELAIN ENAMEL LABORER: No RADIOLOGY DEPARTMENT: General X-ray: Exam(s) Completed: Chest X-Ray PERIPHERAL IV DATA: Not applicable SIGNED BY: RT Verito(Luis A) June 19, 2024 6:02 PM documented in this encounterMart[facility]09-03-2024 NoteHNO ID: [id number] Author: AISHA MABRY RT(R) Service: ? Author Type: Medical Device Engineer Type: Progress Notes Filed: 06/19/2024 18:07 Note Text: Radiology Service Progress Note PATIENT NAME: Familia Perez DATE OF SERVICE: June 19, 2024 TIME: 6:02 PM PATIENT IDENTITY VERIFICATION COMPLETED USING TWO (2) IDENTIFIERS: Name and Date of confirmed by patient verbally. FALL SCREENING: Has the patient had 2 falls in the last year or 1 fall with injury or currently using an Ambulatory Assistive Device (Walker, Cane, Wheelchair, Crutches, etc.)? No PATIENT GENDER DATA: Male PATIENT RELEVANT IMPLANT DATA REVIEWED: Yes PATIENT PRESENTS WITH AN IMPLANTABLE OR ATTACHED PORCELAIN ENAMEL LABORER: No RADIOLOGY DEPARTMENT: General X-ray: Exam(s) Completed: Chest X-Ray PERIPHERAL IV DATA: Not applicable SIGNED BY: RT Verito(R) June 19, 2024 6:02 [facility]09-02-2024 NoteHNO ID: [id number] Author: TAHIR MAN PA Service: ? Author Type: Physician Home Health Care Worker Type: Progress Notes Filed: 06/18/2024 14:21 Note Text: This note was created using Follicariter. Subjective Familia Perez is a 39 year old male. HPI 39-year-old male presents for nasal congestion, cough x 3 days. Patient states on Tuesday starting sick with cough and nasal congestion. He has some sinus pressure. He states that he feels short of breath at times while coughing. He denies any chest pain. He has felt feverish, has not actually taken his temperature. No vomiting or diarrhea. His family is sick with similar symptoms. No other complaint. Has not tried anything krlc-vvk-cyvresn for symptoms. PAST MEDICAL HISTORY No date: Seizures (HCC) PAST SURGICAL HISTORY No date: LITHOTRIPSY XTRCORP SHOCK WAVE Comment: Lithotripsy ALLERGIES Patient has no known allergies. MEDICATIONS Pkdvakcxbczqhfh-Lqwkplzsd-PE (BROMFED DM) 2-30-10 mg/5 mL syrup Take 10 mL by mouth four times a day as needed. FAMILY HISTORY Problem Relation Age of Onset Heart Mother Emphysema Mother No Known Problems Sister Social History Tobacco Use Smoking status: Every Day Current packs/day: 0.25 Types: Cigarettes Smokeless tobacco: Former Tobacco comments: 1-2 cigarettes a day Substance Use Topics Alcohol use: No Drug use: No Types: Marijuana Comment: no drugs , previous polysubstance abuser Review of Systems Constitutional: Positive for chills. Negative for fever. HENT: Positive for congestion and sinus pressure. Negative for sore throat. Respiratory: Positive for cough and shortness of breath. Gastrointestinal: Negative for diarrhea and vomiting. Objective BP 124/72 Pulse 112 Temp 36.6 ?C (97.9 ?F) Resp 18 Wt 71.7 kg (158 lb 1.1 oz) SpO2 98% BMI 24.38 kg/m? Physical Exam Vitals and nursing note reviewed. Constitutional: General: He is not in acute distress. Appearance: Normal appearance. He is not toxic-appearing. HENT: Right Ear: Tympanic membrane and ear canal normal. Left Ear: Tympanic membrane and ear canal normal. Nose: Congestion present. Mouth/Throat: Mouth: Mucous membranes are moist. Eyes: Conjunctiva/sclera: Conjunctivae normal. Cardiovascular: Rate and Rhythm: Normal rate and regular rhythm. Pulmonary: Effort: Pulmonary effort is normal. Breath sounds: Normal breath sounds. No wheezing, rhonchi or rales. Skin: General: Skin is warm and dry. Neurological: Mental Status: He is alert. Assessment and Plan ASSESSMENT/PLAN: 1. Acute cough - ICD9: 786.2, ICD10: R05.1 (primary diagnosis) - XR CHEST 2V FRONTAL/LAT -No XR available at time of exam. Patient will return tomorrow for CXR. 2. URI, acute - ICD9: 465.9, ICD10: J06.9 - Discussed viral etiology and rationale for treatment. - Symptomatic treatment with prn analgesia - Supportive care with fluids and rest -Rx for Bromfed -Declines COVID swab Diagnosis and treatment plan were discussed and questions were answered to the patient's satisfaction. Pt acknowledged understanding of concepts and follow up plan. Specific signs and symptoms that would indicate the need for higher level of care were discussed in detail warranting prompt ER evaluation. Tahir Man [facility]09-02-2024 History of Present illness Narrative* Tahir Man PA - 06/18/2024 2:19 PM EDT This note was created using NoteWriter. Subjective Familia Perez is a 39 year old male. HPI 39-year-old male presents for nasal congestion, cough x 3 days. Patient states on Tuesday starting sick with cough and nasal congestion. He has some sinus pressure. He states that he feels short of breath at times while coughing. He denies any chest pain. He has felt feverish, has not actually taken his temperature. No vomiting or diarrhea. His family is sick with similar symptoms. No other complaint. Has not tried anything vehi-qym-lljwcza for symptoms. PAST MEDICAL HISTORY No date: Seizures (HCC) PAST SURGICAL HISTORY No date: LITHOTRIPSY XTRCORP SHOCK WAVE Comment: Lithotripsy ALLERGIES Patient has no known allergies. MEDICATIONS Xqsfodoraltpomz-Fraguljjn-ZQ (BROMFED DM) 2-30-10 mg/5 mL syrup Take 10 mL by mouth four times a day as needed. FAMILY HISTORY Problem Relation Age of Onset Heart Mother Emphysema Mother No Known Problems Sister Social History Tobacco Use Smoking status: Every Day Current packs/day: 0.25 Types: Cigarettes Smokeless tobacco: Former Tobacco comments: 1-2 cigarettes a day Substance Use Topics Alcohol use: No Drug use: No Types: Marijuana Comment: no drugs , previous polysubstance abuser Review of Systems Constitutional: Positive for chills. Negative for fever. HENT: Positive for congestion and sinus pressure. Negative for sore throat. Respiratory: Positive for cough and shortness of breath. Gastrointestinal: Negative for diarrhea and vomiting. Objective BP 124/72 Pulse 112 Temp 36.6 C (97.9 F) Resp 18 Wt 71.7 kg (158 lb 1.1 oz) SpO2 98% BMI 24.38 kg/m Physical Exam Vitals and nursing note reviewed. Constitutional: General: He is not in acute distress. Appearance: Normal appearance. He is not toxic-appearing. HENT: Right Ear: Tympanic membrane and ear canal normal. Left Ear: Tympanic membrane and ear canal normal. Nose: Congestion present. Mouth/Throat: Mouth: Mucous membranes are moist. Eyes: Conjunctiva/sclera: Conjunctivae normal. Cardiovascular: Rate and Rhythm: Normal rate and regular rhythm. Pulmonary: Effort: Pulmonary effort is normal. Breath sounds: Normal breath sounds. No wheezing, rhonchi or rales. Skin: General: Skin is warm and dry. Neurological: Mental Status: He is alert. Assessment and Plan ASSESSMENT/PLAN: 1. Acute cough - ICD9: 786.2, ICD10: R05.1 (primary diagnosis) - XR CHEST 2V FRONTAL/LAT -No XR available at time of exam. Patient will return tomorrow for CXR. 2. URI, acute - ICD9: 465.9, ICD10: J06.9 - Discussed viral etiology and rationale for treatment. - Symptomatic treatment with prn analgesia - Supportive care with fluids and rest -Rx for Bromfed -Declines COVID swab Diagnosis and treatment plan were discussed and questions were answered to the patient's satisfaction. Pt acknowledged understanding of concepts and follow up plan. Specific signs and symptoms that would indicate the need for higher level of care were discussed in detail warranting prompt ER evaluation. SRINIVASA Guerra documented in this [facility] Discharge summary Author Fiordaliza Martin [facility] December 05, 2023 4:10pm Note Date/Time December 05, 2023 2:21pm [facility] Medical Records Department [address] [place] [address] Emergency Department Summary 12/05/23 MR#: [id number] Acct: [id number] Name: FAMILIA PEREZ Rep #:[id number] : 1985 38 From: Fiordaliza Seth PCP: Care Physician,No Primary Status :REG ER Location: ED HPI History of Present Illness Chief Complaint: Abd Pain Informant: patient Narrative Narrative: Patient is a 38-year-old male with history of kidney stones (about 6 years ago requiring stenting through [facility]) presenting with continued right flank pain. Patient states this feels like his prior kidney stone. States his symptoms started 3 days ago. He is return to drink more water with no relief of his symptoms. Has not tried any jjps-ums-oqvygwk medicines including Tylenol ibuprofen. Has had associated nausea and vomiting. Denies any blood in his vomit. Denies any blood in his urine but has pain in his right flank with urination. Denies any fever or chills. Notes when he sits the symptoms get some intermittent numbness to his legs but does not currently have any numbness or tingling. No other complaints or concerns at this time. [facility] Medical History Arthritis Fatigue Knee pain Loss of consciousness Migraines Neck pain Seizures Home Medications venlafaxine 25 mg tablet 25 mg PO TID 01/11/18 [History Last Taken Unknown] ibuprofen 600 mg tablet 600 mg PO Q6H PRN pain #20 tabs 12/05/23 [Rx Last Taken Unknown] metaxalone 800 mg tablet 800 mg PO TID PRN muscle pain #20 tabs 12/05/23 [Rx Last Taken Unknown] Allergy/AdvReac Type Severity Reaction Status Date / Time naproxen Allergy Inflammation Verified 12/05/23 13:25 of lung Social History Smoking Status: Current every day smoker tobacco type: e-cigarettes ROS ROS ED Constitutional Constitutional ED: Denies chills or fever(s) Cardiovascular Cardiovascular: Denies chest pain Respiratory/Chest Respiratory/Chest: Denies cough Gastrointestinal Gastrointestinal: Reports abdominal pain, nausea and vomiting Genitourinary Genitourinary ED: Reports dysuria; Denies hematuria Musculoskeletal Musculoskeletal: Denies arthralgias or myalgias Integumentary Denies rash Neurologic Neurologic: Denies headache(s) or weakness Psychiatric Psychiatric: Denies anxiety Hematologic/Lymphatic Hematologic/Lymphatic: Denies easy bleeding or easy bruising EXAM Physical Exam Const Vital Signs: 12/05/23 13:25 Temperature 97.1 F L Temperature Source Temporal Pulse Rate 95 Respiratory Rate 16 Blood Pressure 110/81 H Blood Pressure Mean 90 Pulse Ox 99 Oxygen Delivery Method Room Air Positive well nourished and well developed Constitutional Narrative: uncomfortable appearing General Appearance ED: well developed and NAD HEENT Reports moist mucous membranes Neck supple Chest Wall inspection of chest normal and palpation of chest normal Resp normal respiratory effort and clear to auscultation bilaterally Cardio regular rate, regular rhythm and no murmurs GI non-distended and no masses Palpation: soft; Negative for tender or guarding Back/Spine Back/Spine Narrative: lumbar right paraspinal TTP General Back: CVA tenderness right Lumbar Spine / Lower Back: Negative for lumbar spinal tenderness Extremity normal to inspection General Extremety ED: Negative for edema or tenderness General Extremity: Negative for edema Neuro oriented x3 Sensorium / Orientation: alert Motor Exam: Negative for general weakness Psych mental status grossly normal Skin no rashes or lesions noted and no wounds MDM MDM MDM Narrative Medical decision making narrative: Patient is evaluated for 3 days of worsening right flank pain. States he feels prior similar to his prior kidney stones. Kidney stone workup is initiated. Hehas his young daughter at the bedside and states he cannot take anything sedating because he has to take care of his daughter and is driving. Patient isgiven IV Toradol, Zofran and fluids in the ER. Will obtain CT flank study as well as BMP, CBC and urinalysis. Patient seems more comfortable but still having pain. Does seem to be worse with movements. He does have tenderness palpation of the right lower thoracic/lumbar paraspinal region. CBC normal. BMP unremarkable. Urinalysis does not show any blood is not consistent with infection. CT of the abdomen andpelvis does not show any acute obstructive uropathy but does show nonobstructiveright intrarenal calculi. Patient be treated with NSAIDs, Lidoderm patch in theER and Skelaxin to see if this helps the symptoms as I suspect is more muscle skeletal. Is encouraged to follow-up outpatient with urology as he does have intrarenal calculi. He is agreeable. Is given a work note for today and tomorrow per his request. Discharged home in stable condition. Lab Data Attestation: I reviewed the patient's lab results. Labs: Laboratory Results - last 24 hr 12/05/23 12/05/23 13:45 15:10 WBC 10.0 RBC 5.02 Hgb 15.5 Hct 44.8 MCV 89.2 MCH 30.9 MCHC 34.6 RDW Std Deviation 42.5 RDW Coeff of Liliana 13.0 Plt Count 347 MPV 9.4 Immature Gran % (Auto) 0.100 Neut % (Auto) 49.7 Lymph % (Auto) 44.9 H Hubbard % (Auto) 4.4 Eos % (Auto) 0.6 Baso % (Auto) 0.3 Absolute Neuts (auto) 5.0 Absolute Lymphs (auto) 4.50 Nucleated RBC % 0 Sodium 139 Potassium 3.4 L Chloride 109 H Carbon Dioxide 26.0 Anion Gap 4 L BUN 11 Creatinine 1.04 Estim Creat Clear Calc 82.13 Est GFR (MDRD) Af Amer 101 Est GFR (MDRD) Non-Af 84 BUN/Creatinine Ratio 10.6 Glucose 91 Calcium 9.4 Urine Color Yellow Urine Clarity Clear Urine pH 6.0 Ur Specific [place] 1.015 Urine Protein Negative Urine Glucose (UA) Normal Urine Ketones 5 H Urine Occult Blood Negative Urine Nitrite Negative Urine Bilirubin Negative Urine Urobilinogen Normal Ur Leukocyte Esterase 25 H Radiography Diagnostic Testing: Clinical Impression(s) from Imaging Studies Abdomen/Pelvis CT 12/05/23 14:05 IMPRESSION: No obstructive uropathy is seen. Nonobstructive right intrarenal calculi. Scattered sigmoid diverticula. Electronically Signed: Ede Horne MD at 14:57 EST , Discharge Plan Triage Chief Complaint: Abd Pain ED Provider: Fiordaliza Martin Dx/Rx/DC Orders Clinical Impression: Acute right flank pain, Acute right-sided back pain Instructions: ED Back Pain (Acute or Chronic), ED Flank Pain, Uncertain Cause Prescriptions: New ibuprofen 600 mg tablet 600 mg PO Q6H PRN (Reason: pain) Qty: 20 0RF metaxalone 800 mg tablet 800 mg PO TID PRN (Reason: muscle pain) Qty: 20 0RF No Action venlafaxine 25 mg tablet 25 mg PO TID Stand Alone Forms: ED Work / School Excuse Primary Care Provider: Care Physician,No Primary Referrals: Hugo De Los Santos MD [Non-Staff] - Brian Chairez MD [Med Staff - Active Staff] - 3-5 Days if not improving Activity Restrictions/Additional Instructions: I suspect you have a muscle strain in your back that is causing your pain (or spasm). Your lab work was normal. Urinalysis did not show any blood was not consistent with infection. Your CT showed a stone in your kidney on the right but did not show signs of an obstructive stone that should be causing this degree of pain. You have been given outpatient follow-up with a urologist. In the meantime alternate ibuprofen and Tylenol. He can use qldv-igh-cltukjy Lidoderm patches. I have also also prescribed a muscle relaxer. You can continue to use heat. Disposition Disposition: Home, Self Care What to do if you have Problems For any increased pain, shortness of breath, bleeding, nausea or vomiting, chestpain, or any unexpected problems, contact your Primary Care Provider. Call [email or web address] ([phone]) or report to the closest Emergency Room. Call 911 if necessary. 12/05/23 1610 <Electronically signed by Fiordaliza Martin DO> Cosigner Signature (if applicable): CC: No Primary Care Physician ~ Signed [facility] Work Phone: [phone] 404-952903-15-2023 Instructions* Patient Instructions* Jennifer Zarate APRN.CNP - 12/29/2022 1:16 PM EDT Schedule with dermatology. documented in this [facility] History of Present illness Narrative* Jennifer Zarate APRN.CNP - 12/29/2022 1:03 PM EDT This is a 37 year old male who presents today with: Patient presents with: Referral Request HISTORY OF PRESENT ILLNESS: Familia Perez is a 37 year old male. Patient presents with: Referral Request Pt presents today for derm referral. Refers that he is only here for that. Pt with argumentative demeanor. Stating it is a waste of time and money that we made him come in. Proceeds to say that healthcare is a joke and healthcare workers are only in it for the money. He is not on any medications currently. Has lisinopril and atorvastatin on his medication rec/dispense list; however patient reports he is not taking. He states he went to cardiology, but all they wanted to do is start him on medications. (However, prescriber is primary care provider). Made him dizzy, so he stopped them. Limited data available on Care Everywhere; however this note is available from 06/02/22: History of Present Illness Familia is a 37 yo male, here today to establish care with multiple health concerns. He reports chest pressure, history of seizures, recent kidney stone, recent tooth infection, elevated BP, and chronic dizziness. CP started a few months ago with bilateral upper arm feel asleep complains of dizziness. was seen in urgent care for CP, they collected VS and recommended he see PCP. No EKG was done. Was seen for tooth infection in 05/07, was placed on antibiotics and then tooth extraction. BP is elevated here today, was elevated at urgent care, he is unaware how long BP has been elevated Mother has high BP, father unknown Has history of seizures, was on Dilantin, stopped taking this drug, last seizure was in 20's, Smoker cigarettes daily/ pack a day for 22 years. no alcohol consumption marijuana recreationally, history of methamphetamine use for 2 years. 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 He has a lesion on the right side of the nose. Been present for several years. Will not heal and has seemed to grow. Refers that he had a referral to dermatology, however, hospitalist was not covered by his insurance. REVIEW OF SYSTEMS GENERAL: No weight loss, malaise or fevers/chills HEENT: Negative for frequent or significant headaches, No changes in hearing or vision. NECK: Negative for lumps, goiter, pain and significant neck swelling RESPIRATORY: Negative for cough, hemoptysis, wheezing, dyspnea or shortness of breath CARDIOVASCULAR: Negative for chest pain, leg swelling, orthopnea, or palpitations GI: No nausea, vomiting, or diarrhea/constipation. No hematochezia/melena. No heartburn or reflux symptoms. : No history of dysuria, frequency or incontinence MUSCULOSKELETAL: Negative for joint pain or swelling. SKIN: Nose lesion. ENDOCRINE: Negative for cold or heat intolerance, polyuria, polydipsia and goiter NEURO: No history of headaches, syncope, paralysis, seizures or tremors PAST MEDICAL HISTORY: PAST MEDICAL HISTORY Diagnosis Date Seizures (HCC) PAST SURGICAL HISTORY Procedure Laterality Date LITHOTRIPSY XTRCORP SHOCK WAVE Lithotripsy ALLERGIES Patient has no known allergies. MEDICATIONS No current outpatient medications on file. No current facility-administered medications for this visit. FAMILY HISTORY Problem Relation Age of Onset Heart Mother Emphysema Mother No Known Problems Sister Social History Tobacco Use Smoking status: Every Day Packs/day: 0.25 Types: Cigarettes Smokeless tobacco: Former Tobacco comments: 1-2 cigarettes a day Substance Use Topics Alcohol use: No Drug use: No Types: Marijuana Comment: no drugs , previous polysubstance abuser EXAM: BP 132/96 Pulse 94 Resp 18 Ht 171.5 cm (5' 7.52) Wt 69.4 kg (153 lb) SpO2 96% BMI 23.60 kg/m PHYSICAL EXAM: General Appearance: Well appearing, alert, in no acute distress, well-hydrated, well nourished.. Skin: Scabbed area appx 4-5 mm on the side of the right nose. Head: Normocephalic, no masses, lesions, tenderness or abnormalities. Eyes: Anicteric sclera. Extraocular movements are intact. Lungs: Lungs clear to auscultation. No wheezing, rhonchi, rales.. Heart: RRR without murmur, gallop, or rubs. No ectopy. Neurologic: Gait normal. ASSESSMENT/PLAN: 1. Skin lesion - ICD9: 709.9, ICD10: L98.9 Concern for BCC. - CONSULT TO DERMATOLOGY Pt argumentative today. He makes it very clear that he does not desire to establish care, as he only wants his skin lesion addressed. Discussed with patient that he has not been in the office for 5 years and that in order to provide safe and effective care requires periodic health visits with a provider. Discussed that previous provider extended the courtesy to allow him to come in and reestablish care into a closed practice after not being seen in 5 years. Patient voices that he has no intent on coming for any routine or preventative care; but will only come to the healthcare provider when he desires/needs to. Discussed with patient that in order for us to be able to write orders/referrals, we actually do need to see/assess the patient to determine appropriate course of treatment. Pt responded, that's your problem. Jennifer Zarate APRN.CNP The patient indicates understanding of these issues and agrees with the plan. documented in this [facility]02-28-[facility] History of Present illness Narrative* Felicita Adams PA-C - 12/14/2022 4:18 PM EST Alternative video platform was used for evaluation of this patient. Location of patient: [place] Patient was offered a virtual/telemedicine appointment in lieu of an office visit due to recommendations to reduce patient exposure to COVID-19. Patient is aware of limitations of performing the visit without a face to face visit in the office setting and agrees. 4:19 PM 37 year old male with c/o lesion on right nasal ala getting larger over 3-4 years. Tries not to touch it. Scabs but doesn't pick. No obstructing internal nasal passage. HISTORIES FAMILY HISTORY Problem Relation Age of Onset Heart Mother Emphysema Mother PAST MEDICAL HISTORY Diagnosis Date Seizures (HCC) PAST SURGICAL HISTORY Procedure Laterality Date FRAGMENTING/KIDNEY STONE Lithotripsy Social History Tobacco Use Smoking status: Every Day Packs/day: 0.25 Types: Cigarettes Smokeless tobacco: Former Tobacco comments: 1-2 cigarettes a day Substance Use Topics Alcohol use: No Drug use: No Types: Marijuana Comment: no drugs , previous polysubstance abuser ACTIVE PROBLEM LIST Seizures (Hcc) Fracture of Fifth Metacarpal Bone of Right Hand Current Severe Episode of Major Depressive Disorder Without Psychotic Features Without Prior Episode (Hcc) Current Outpatient Medications Medication Sig Dispense Refill venlafaxine ER (EFFEXOR XR) 75 mg 24 hr capsule Take 1 capsule by mouth once daily. 30 capsule 5 traZODone (DESYREL) 50 mg tablet Take 1.5 tablets by mouth daily at bedtime. 30 tablet 2 acetaminophen (TYLENOL) 325 mg tablet Take 650 mg by mouth every 6 hours as needed. No current facility-administered medications for this visit. HEPATITIS B(1 of 3 - 3-dose series) Never done COVID-19 VACCINE(1) Never done PNEUMOCOCCAL(1 - PCV) Never done HEPATITIS C SCREENING Never done HIV SCREENING Never done DTAP,TDAP,TD(1 - Tdap) Never done LIPID SCREEN due on 2018 INFLUENZA(1) Never done EXAM: There were no vitals taken for this visit. Pleasant well appearing adult man in no acute distress. Alert and oriented all spheres. Normal affect and cognition. Speech normal. No deficits to learning or comprehension. Speaking in full sentences easily. Well hydrated and active. [place] to lips and oral membranes. Right nasal ala with approximately 7x10mm oval lesion with raised border, depressed and scabbed center highly suggestive of BCC ASSESSMENT/PLAN: 1. Lesion of ala of nose - ICD9: 709.9, ICD10: L98.9 Suspect BCC - CONSULT TO DERMATOLOGY Advised he needs to re-establish care due to prolonged duration since last visit. Will schedule adult physical. He says nothing has changed and can only come in at certain times. 7 minute call Felicita Adams PA-C [facility] Diagnosis Adjustment insomnia Transient disorder of initiating or maintaining sleep Severe single current episode of major depressive disorder, without psychotic features (HCC) documented in [facility] encounter [facility]* Diagnosis Lesion of ala of nose- Primary Unspecified disorder of skin and subcutaneous tissue documented in this encounter [facility] note* Diagnosis Skin lesion- Primary Unspecified disorder of skin and subcutaneous tissue documented in this encounter [facility] noteNo assessment information availableWEast [facility] Work Phone: Evaluation note* Diagnosis Acute cough- Primary URI, acute Acute upper respiratory infections of unspecified site documented in this encounter [facility] note* Diagnosis Sinobronchitis- Primary Unspecified sinusitis (chronic) Acute cough documented in this encounter [facility] note* Diagnosis URI, acute- Primary Acute upper respiratory infections of unspecified site documented in this encounter [facility] note* Diagnosis SOB (shortness of breath)- Primary Shortness of breath Chest tightness Other chest pain Dizziness Dizziness and giddiness documented in this encounter [facility] note* Diagnosis Eye abnormalities- Primary Unspecified congenital anomaly of eye documented in this encounter [facility] Discharge instructions Additional Instructions I suspect you have a muscle strain in your back that is causing your pain (or spasm). Your lab work was normal. Urinalysis did not show any blood was not consistent with infection. Your CT showed a stone in your kidney on the right but did not show signs of an obstructive stone that should be causing this degree of pain. You have been given outpatient follow-up with a urologist. In the meantime alternate ibuprofen and Tylenol. He can use [id number] Lidoderm patches. I have also also prescribed a muscle relaxer. You can continue to use heat.[facility] Work Phone: Hospital Discharge instructions Additional Instructions The CT scan of your chest shows no broken bones or internal injuries. Take Tylenol or ibuprofen and ice as needed.[facility] Work Phone: Hospital Discharge instructionsAdditional Instructions You have a broken 4th and 5th toes. Ice and elevate. Motrin and Tylenol for pain. Postop shoe to help you walk. Follow-up with the swing frame grinder operator as needed.[facility] Work Phone: Reason for referral (narrative)No reason for referral information [facility] Summary Purpose Family History Unknown Family Member Name Dates Details Family history of cardiac di sorder: Mother(V17.49, Z82.49) Status:Active Family history of asthma: Mo ther(V17.5, Z82.5) Status:Active Family history of emphysema: Mother(V17.6, Z82.5) Status:Active Family history of hyperchole sterolemia: Mother(V18.19, Z83.42) Status:Active Family history of hypertensi on: Mother(V17.49, Z82.49) Status:Active Relationship Condition Age at Onset Recorded Date/T moo Unknown Family History?No pertinent history Unkno wn January 21, 2014 2:25am Family History?No pertinent history Unkno wn January 21, 2014 2:25am Relationship Condition Age at Onset Recorded Date/T moo mother Cardiac disease Unknown Advance Directives Advance Directive Response Recorded Date/ Time Advance Directives No January 21 3:04am Living Will Yes December 05 1:50pm Power of Copper Miner Blasting No December 05, 2023 1:50pm Advance Directive Response Recorded Date/ Time Living Will No November 02 3:47pm Power of Copper Miner Blasting No November 02, 2024 3:47pm Living Will No November 13 9:47am Power of Copper Miner Blasting No November 13, 2024 9:47am Living Will No December 24, 2024 5:26pm Power of Copper Miner Blasting No December 24 5:26pm Advance Directives No January 21 4:04am Advance Directive Response Recorded Date/ Time Living Will No December 24, 2024 5:26pm Do you have a Healthcare Power of Copper Miner Blasting? No December 24, 2024 5:26pm Do you have a Healthcare Power of Copper Miner Blasting? No February 19, 2025 11:53am Do you have a Healthcare Power of Copper Miner Blasting? No April 16, 2025 8:14am Advance Directives No January 21 4:04am Reason for Referral Specialty Diagnoses / Procedures Referred By Contac t Referred To Contact Dermatology Diagnoses Lesion of ala of nose Procedures CONSULT TO DERMATOLOGY Felicita Adams PA-C [address] [place] [address] Referral ID Status Reason Start Date Expiration Date Visits Requested Visits Authorized [id number] Ref Not Required PCP Requested Referral 12/14/2022 12/14/2023 1 1 Specialty Diagnoses / Procedures Referred By Contac t Referred To Contact Dermatology Diagnoses Skin lesion Procedures CONSULT TO DERMATOLOGY Jennifer Zarate APRN.YARD INSPECTOR [address] [place] [address] Referral ID Status Reason Start Date Expiration Date Visits Requested Visits Authorized [id number] Ref Not Required PCP Requested Referral 12/29/2022 12/29/2023 1 1 Chief Complaint and Reason for Visit Chief Complaint ABD PAIN Chief Complaint Admit Date 1 M FU/ JR APPROVED September 27, 2024 3:59pm FLANK PAIN November 02, 2024 2 :30pm CHEST PAIN November 13, 2024 8 :21am fall December 24, 2024 4:3 2pm Reason for Visit Admit Date Congestive heart failure September 27, 2024 3:59pm Fatigue September 27, 2024 3:59pm Myocarditis September 27, 2024 3:59pm Chest pain September 27, 2024 3:59pm Chief Complaint Admit Date fall December 24, 2024 4:3 2pm EYES February 19, 2025 10:48a m FOOT April 16, 2025 7:25a m Additional Source Comments (unrecognized sect ion and content) No Status Records FoundNo Status Records FoundNo Status Records FoundNo Status Records FoundNo Status Records FoundNo Status Records FoundNo Status Records FoundNo Status Records Found INFORMATION SOURCE (unrecogn ized section and content) DATE CREATED AUTHOR 04/10/2018 [facility] DATE CREATED AUTHOR AUTHOR'S ORGANIZ ATION 04/29/2019 [facility] DATE CREATED AUTHOR AUTHOR'S ORGANIZ ATION 06/09/2022 [facility] DATE CREATED AUTHOR AUTHOR'S ORGANIZ ATION 06/09/2022 [facility] DATE CREATED AUTHOR AUTHOR'S ORGANIZ ATION 09/02/2022 [facility] [place] DATE CREATED AUTHOR AUTHOR'S ORGANIZ ATION 02/20/2023 [facility] DATE CREATED AUTHOR AUTHOR'S ORGANIZ ATION 02/22/2025 [facility] DATE CREATED AUTHOR AUTHOR'S ORGANIZ ATION 04/12/[address] [facility] <item><item> Privacy Markings (unrecogniz ed section and content) Section Author: Becky Miranda PROHIBITION ON REDISCLOSURE OF CONFIDENTIAL INFORMATION This notice accompanies a disclosure of information concerning a client made to you with the consent of such client. Section Author: Becky Miranda PROHIBITION ON REDISCLOSURE OF CONFIDENTIAL INFORMATION This notice accompanies a disclosure of information concerning a client made to you with the consent of such client. Source Comments (unrecognize d section and content) In the event this informatio n is protected by the Federal Confidentiality of Alcohol and Drug Abuse Patient Records regulations: The Federal rules restrict any use of the information to criminally investigate or prosecute any alcohol or drug abuse patient.[facility] the event this information is protected by the Federal Confidentiality of Alcohol and Drug Abuse Patient Records regulations: The Federal rules restrict any use of the information to criminally investigate or prosecute any alcohol or drug abuse patient.[facility] the event this information is protected by the Federal Confidentiality of Alcohol and Drug Abuse Patient Records regulations: The Federal rules restrict any use of the information to criminally investigate or prosecute any alcohol or drug abuse patient.[facility] the event this information is protected by the Federal Confidentiality of Alcohol and Drug Abuse Patient Records regulations: The Federal rules restrict any use of the information to criminally investigate or prosecute any alcohol or drug abuse patient.[facility] the event this information is protected by the Federal Confidentiality of Alcohol and Drug Abuse Patient Records regulations: The Federal rules restrict any use of the information to criminally investigate or prosecute any alcohol or drug abuse patient.[facility] the event this information is protected by the Federal Confidentiality of Alcohol and Drug Abuse Patient Records regulations: The Federal rules restrict any use of the information to criminally investigate or prosecute any alcohol or drug abuse patient.[facility] the event this information is protected by the Federal Confidentiality of Alcohol and Drug Abuse Patient Records regulations: The Federal rules restrict any use of the information to criminally investigate or prosecute any alcohol or drug abuse patient.[facility] the event this information is protected by the Federal Confidentiality of Alcohol and Drug Abuse Patient Records regulations: The Federal rules restrict any use of the information to criminally investigate or prosecute any alcohol or drug abuse patient.[facility] the event this information is protected by the Federal Confidentiality of Alcohol and Drug Abuse Patient Records regulations: The Federal rules restrict any use of the information to criminally investigate or prosecute any alcohol or drug abuse patient.[facility] the event this information is protected by the Federal Confidentiality of Alcohol and Drug Abuse Patient Records regulations: The Federal rules restrict any use of the information to criminally investigate or prosecute any alcohol or drug abuse patient.[facility] the event this information is protected by the Federal Confidentiality of Alcohol and Drug Abuse Patient Records regulations: The Federal rules restrict any use of the information to criminally investigate or prosecute any alcohol or drug abuse patient.[facility] Reason for Visit (unrecogniz ed section and content) Reason Onset Date Comments Refill Request 10/09/2022 Reason Comments SKIN CANCER Reason Comments Referral Request Reason Comments Sinus Problem sinus pressure, drai nage, cough and chest congestion x 2-3 days Reason Comments Chest Congestion cough, fever x 4 day s Reason Comments Chest Congestion Sob x 8 days Reason Comments Medication Request Care Teams (unrecognized sec tion and content) Wrister Relationship Specialty Start Date End Date Felicita Adams PA-C [address] [place], [place] [id number] PCP - General Family Medicine 09/14/17 Wrister Relationship Specialty Start Date End Date Felicita Adams PA-C [address] [place], [place] [address] PCP - General Family Medicine 09/14/17 Wrister Relationship Specialty Start Date End Date Felicita Adams PA-C [address] [place] [address] PCP - General Family Medicine 09/14/17 Wrister Relationship Specialty Start Date End Date Felicita Adams PA-C [address] [facility] [place] [address] PCP - General Family Medicine 09/14/17 12/29/22 Team Status: Active Member Role Status Dates Dr. Hugo De Los Santos MD Family Provider Active No Primary Care Physician Primary Care Provider Active Team Status: Inactive Member Role Status Dates Dr. Fiordaliza Martin DO Emergency Provider Active No Primary Care Physician Primary Care Provider Active Wrister Relationship Specialty Start Date End Date Howard Clifford CNP [address] [facility] [place] [place] [address] PCP - General Family Medicine 06/02/22 Wrister Relationship Specialty Start Date End Date Howard Clifford CNP [address] [place] [address] PCP - General Family Medicine 06/02/22 Wrister Relationship Specialty Start Date End Date Howard Clifford CNP [address] [place] [address] PCP - General Family Medicine 06/02/22 Wrister Relationship Specialty Start Date End Date Howard Clifford CNP [address] [place] [address] PCP - General Family Medicine 06/02/22 Wrister Relationship Specialty Start Date End Date Howard Clifford CNP [address] [place] [address] PCP - General Family Medicine 06/02/22 Wrister Relationship Specialty Start Date End Date Howard Clifford CNP [address] [place] [address] PCP - General Family Medicine 06/02/22 Team Status: Active Member Role Status Dates No Primary Care Physician Primary Care Provider Active Team Status: Inactive Member Role Status Dates No Primary Care Physician Primary Care Provider Active Start: September 27, 2024 End: September 27, 2024 No Primary Care Physician Referring Provider Active Start: September 27, 2024 End: September 27, 2024 Antonio Rao INTERNAL GRINDER, INTERNAL GRINDER-C Attending Provider Active S tart: September 27, 2024 End: September 27, 2024 Team Status: Inactive Member Role Status Dates No Primary Care Physician Primary Care Provider Active Start: November 02, 2024 End: November 02, 2024 Dr. Obi Lynch , DO Attending Provider Activ e Start: November 02, 2024 End: November 02, 2024 Dr. Obi Lynch , Emergency Provider Activ e Start: November 02, 2024 End: November 02, 2024 Team Status: Inactive Member Role Status Dates No Primary Care Physician Primary Care Provider Active Start: November 13, 2024 End: November 13, 2024 Dr. Jordan Hill DO Attending Provider Active Start: November 13, 2024 End: November 13, 2024 Dr. Jordan Hill DO Emergency Provider Active Start: November 13, 2024 End: November 13, 2024 Team Status: Inactive Member Role Status Dates No Primary Care Physician Primary Care Provider Active Start: December 24, 2024 End: December 24, 2024 Kahlil Bowman MD Emergency Provider Active Star t: December 24, 2024 End: December 24, 2024 Wrister Relationship Specialty Start Date End Date Howard Clifford CNP [facility] [place] [address] PCP - General Family Medicine 06/02/22 Team Status: Active Member Role/Relationship Status Dates No Primary Care Physician Primary Care Provider Active Team Status: Inactive Member Role/Relationship Status Dates No Primary Care Physician Primary Care Provider Active Start: December 24, 2024 End: December 24, 2024 Kahlil Bowman MD Attending Provider Active Star t: December 24, 2024 End: December 24, 2024 Kahlil Bowman MD Emergency Provider Active Star t: December 24, 2024 End: December 24, 2024 Team Status: Inactive Member Role/Relationship Status Dates No Primary Care Physician Primary Care Provider Active Start: February 19, 2025 End: February 19, 2025 Dr. Lambert Isaacs , Attending Provider Active Start: February 19, 2025 End: February 19, 2025 Dr. Lambert Isaacs , Emergency Provider Active Start: February 19, 2025 End: February 19, 2025 Team Status: Inactive Member Role/Relationship Status Dates No Primary Care Physician Primary Care Provider Active Start: April 16, 2025 End: April 16, 2025 Dr. Codey Tomlinson MD Emergency Provider Active S tart: April 16, 2025 End: April 16, 2025 Goals (unrecognized section and content) Goals may be documented in a n alternate sectionGoals may be documented in an alternate sectionGoals may be documented in an alternate section FOR RECORDS PERTAINING TO PATIENTS WHO ARE OR HAVE BEEN ENROLLED IN A CHEMICAL DEPENDENCY/SUBSTANCEABUSE PROGRAM, SOME INFORMATION MAY BE OMITTED. This clinical summary was aggregated from multiple sources. Caution should be exercised in using it in the provision of clinical care. This summary normalizes information from multiple sources, and as a consequence, information in this document may materially change the coding, format and clinical context of patient data. In addition, data may be omitted in some cases. CLINICAL DECISIONS SHOULD BE BASED ON THE PRIMARY CLINICAL RECORDS. [employer] provides no warranty or guarantee of the accuracy or completeness of information in this document.
== END 2025-04-16 10:08 | disposition home or self-care (01) ==
PROVIDERS: Emergency Provider Emergency Medicine; Visit Provider Emergency Medicine
DX: S92.912A Unspecified fracture of left toe(s), initial encounter for closed fracture (principal); I50.9 Heart failure, unspecified; X58.XXXA Exposure to other specified factors, initial encounter
CPT/HCPCS: 73630; 99283

== ENCOUNTER 2025-07-22 14:35 | Emergency (ER) | payer OTHER, MEDICAID, SELFPAY ==
[2025-07-22 14:35] VITALS: BP 144/103; PULSE 97; RESP 14; TEMP 35.7; O2SAT 98; BMI 22.4
--- NOTE | 2025-07-22 14:56 | EKG12_ITS ---
Test Reason : Blood Pressure : */* mmHG Vent. Rate : 89 BPM Atrial Rate : 89 BPM P-R Int : 152 ms QRS Dur : 88 ms QT Int : 364 ms P-R-T Axes : 45 -37 -15 degrees QTcB Int : 442 ms Normal sinus rhythm Left axis deviation Minimal voltage criteria for LVH, may be normal variant ( [place] product ) Nonspecific T wave abnormality Abnormal ECG Confirmed by AIDAN MARTINEZ, VICTORINA ([id number]), acquisition editor KENDAL LOPEZ ([id number]) on 07/24/2025 1:21:03 PM Referred By: Confirmed By: VICTORINA BERMUDEZ MD
--- NOTE | 2025-07-22 14:57 | ED.VIS.CHEST ---
HPI History of Present Illness Chief Complaint: Chest Pain Narrative Narrative: Patient is a 40-year-old male with past medical history of migraines, seizures, congestive heart failure who presents to the emergency department with a chief complaint chest pain. He states that his pain started yesterday morning when he woke up he also notes that he is having lightheadedness and shortness of breath with this. He states that he has a history of heart failure and sees a heart doctor upstairs and states that he has not seen them in quite some time secondary to insurance issues. He states that he was told that he developed heart failure secondary to a viral illness but does not exactly recall exactly what happened. 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 He states I am trying to better my life patient denies any recent travel history denies history of blood clots. Patient notes that if he moves a short distance he becomes more short of breath and states that this was worse today while at work and therefore his work advised him to come here to be further evaluated. [facility] Medical History Congestive heart failure Seizure disorder Skin cancer Tobacco use Seizures Migraines Arthritis Home Medications ?Medication ?Instructions ?Recorded ?Last Taken ?Type NK 07/22/25 Unknown History Allergy/AdvReac Type Severity Reaction Status Date / Time No Known Allergies Allergy Verified 07/22/25 14:35 Family History Mother Heart disease Surgical History History of stent insertion of renal artery History of craniotomy Social History Smoking Status: Current every day smoker tobacco type: cigarettes and e-cigarettes alcohol intake: never substance use type: does not use caffeine: Yes ROS ROS ED ROS Narrative Constitutional: Denies any fevers, chills, headaches Eyes: Denies double vision blurry vision Cardiovascular: Complains of chest pain as noted above denies palpitations Respiratory: Complains of shortness of breath as noted above denies coughing wheezing Abdomen: Denies nausea vomit diarrhea Neurological: Denies any numbness, weakness, tingling Musculoskeletal: Denies back pain Skin: Denies any rashes or lesions EXAM Physical Exam Narrative Exam Narrative: General: Patient was lying in bed rest comfortably did not appear to be in acute distress Head: Atraumatic, normocephalic Eyes: PERRL bilaterally, EOMI bilaterally, no conjunctival injection noted Neck: Soft, supple, trachea midline Cardiovascular: Regular rate and rhythm no murmurs gallops rubs noted Respiratory: Clear to auscultation bilaterally Abdomen: Soft, nondistended, no tenderness to palpation Extremities: +5/5 strength noted in the bilateral upper and lower extremities, radial pulses +2/4 in the bilateral extremities Neurological: Patient following commands knew that he was at [facility] the year is 2024 Skin: Warm, dry, intact no rashes or lesions noted Const Vital Signs: 07/22/25 14:35 07/22/25 15:05 07/22/25 16:35 Temperature 96.3 F L Temperature Source Temporal Pulse Rate 97 77 Respiratory Rate 14 16 Blood Pressure 144/103 H 127/89 H Blood Pressure Mean 116 101 Pulse Ox 98 99 Oxygen Delivery Method Room Air Room Air Room Air MDM MDM MDM Narrative Medical decision making narrative: Patient is a 40-year-old male who presented to the emergency department chief complaint of left-sided chest pain. On the differential diagnose includes but not limited to ACS, pneumonia, pneumothorax, pleural effusion, CHF exacerbation, PE although I have low suspicion for this clinically. Once workup is obtained and reviewed he will be reevaluated. Patient's previous echocardiogram from 07/06/2024 was reviewed and showed ejection fraction of 15% with severe global hypokinesis of the left ventricle. Cohutta Score (Revised) for Pulmonary Embolism from [email or web address] on 07/22/2025 All calculations should be rechecked by clinician prior to use RESULT SUMMARY: 3 points Low risk group: 7-9% incidence of PE from several studies. INPUTS: Age >65 ?> 0 = No Previous DVT or PE ?> 0 = No Surgery (under general anesthesia) or lower limb fracture in past month ?> 0 = No Active malignant condition ?> 0 = No Unilateral lower limb pain ?> 0 = No Hemoptysis ?> 0 = No Heart rate ?> 3 = 75-94 Pain on lower limb palpation and unilateral edema ?> 0 = No Patient's cardiology note from 09/27/2024 was reviewed and at that time the office he was seen for follow-up purposes for a postviral myocarditis which at that point time the echo once again showed the ejection fraction of 15%. They noted that he had moderately enlarged left atrium with 1+ mitral regurgitation. They noted that his proBNP at that point time was elevated to 650 and during his hospitalization went down to 362. In the noted says guideline directed medical therapy carvedilol 12.5 mg oral twice daily, Lasix 20 mg oral as needed, losartan 25 mg oral daily, spironolactone 25 mg oral daily. Patient states that he is not been on a medication secondary to insurance issues for quite some time. In the note they were considering changing losartan to Entresto if things were worsening for him. Patient CBC reviewed showed no evidence leukocytosis white blood cell normal at 9.3, hemoglobin 14.9, plate count normal at 372. Patient sodium is 139, potassium normal 3.8, creatinine 0.85. Patient's troponin was less than 6, proBNP was elevated 889. Patient's EKG was reviewed which showed sinus rhythm with a rate of 89 bpm NH interval 152. This was compared to EKG from November 13, 2024 and is largely unchanged. Patient chest x-ray reviewed by myself by radiology showed no acute cardiopulmonary processes. Nursing went into repeat troponin as well as ambulate him with a pulse ox and he states that he needs to go he does not want to do this. He states that he is get home to care for his daughter he was not expecting to be here in the emergency department this long. He states that he will come back with worsening symptoms or other concerns. Advised him that he needs to follow-up with his primary care physician in the outpatient setting and discussed with them in regards to prescription assistance as it is important for him to get back on his medications given his heart history. He is agreeable this plan all course concerns answered is discharged home in stable condition Lab Data Labs: Laboratory Results - last 24 hr 07/22/25 15:05 WBC 9.3 RBC 4.93 Hgb 14.9 Hct 44.4 MCV 90.1 MCH 30.2 MCHC 33.6 RDW Std Deviation 43.5 RDW Coeff of Liliana 13.2 Plt Count 372 MPV 8.7 Immature Gran % (Auto) 0.300 Neut % (Auto) 52.3 Lymph % (Auto) 38.2 Kay % (Auto) 6.9 Eos % (Auto) 1.5 Baso % (Auto) 0.8 Absolute Neuts (auto) 4.9 Absolute Lymphs (auto) 3.55 Nucleated RBC % 0 Sodium 139 Potassium 3.8 Chloride 105 Carbon Dioxide 22.1 Anion Gap 12 BUN 9 Creatinine 0.85 Estim Creat Clear Calc 110.49 Est GFR (MDRD) Non-Af 111 BUN/Creatinine Ratio 10.8 Glucose 88 Calcium 9.4 Troponin T High Sens < 6 NT pro BNP II 889 H Radiography Diagnostic Testing: Clinical Impression(s) from Imaging Studies Chest X-Ray 07/22/25 15:27 IMPRESSION: NO ACUTE FINDINGS. Reading Location: [id number] Discharge Plan Triage Chief Complaint: Chest Pain ED Provider: Jordan Hill Dx/Rx/DC Orders Clinical Impression: Chest pain, TOBAR (dyspnea on exertion), History of viral myocarditis Prescriptions: No Action NK Primary Care Provider: Care Physician,No Primary Referrals: Care Physician,No Primary [Primary Care Provider, Medical] Anika Braun, TAPPER OPERATOR-C [[facility] [place]] Activity Restrictions/Additional Instructions: Follow-up your doctor in outpatient setting. Return for worsening symptoms or other concerns. You do need to get in contact with your doctor in regards to getting back on your medications that you were previously on. Print Language: Nauruan Disposition Disposition: Home, Self Care
[2025-07-22 15:09] LABS: Hematocrit 44.4 % (40-54); Hemoglobin 14.9 g/dL (13.0-16.5); Immature Granulocytes Count 0.030 X10^3/uL (0.0-0.0); Mean Corp Hgb Conc 33.6 g/dL (32-36); Mean Corpuscular Volume 90.1 fL (80-94); Mean Platelet Vol. 8.7 fl (6.2-12.0); NRBC Flagged by Analyzer 0 % (0-5); Platelet Count 372 K/mm3 (150-450); RBC Distribution Width CV 13.2 % (11.6-14.6); RBC Distribution Width SD 43.5 fl (35.1-43.9); Red Blood Count 4.93 M/mm3 (4.6-6.2); White Blood Count 9.3 K/mm3 (4.4-11.0)
--- NOTE | 2025-07-22 15:27 | RAD_ITS ---
PROCEDURE: CHEST PA AND LATERAL 07/22/2025 REASON FOR EXAM: SOB TECHNIQUE: Procedure Code: RADCXR Modality: DX Procedure: CHEST PA AND LATERAL COMPARISON: Prior study dated July 14, 2024. FINDINGS: Hardware: EKG electrodes are seen. Heart: The heart size is normal. Mediastinum: The mediastinal contour is unremarkable. Lungs: The lungs are clear. Bones: The bones are unremarkable. RAD/Chest PA and Lateral IMPRESSION: NO ACUTE FINDINGS. Reading Location: [id number]
[2025-07-22 15:43] LABS: Anion Gap 12 (5-15); BUN 9 mg/dL (4-19); BUN/Creat Ratio 10.8 RATIO (10-20); Calcium,Total 9.4 mg/dL (7.6-11.0); Carbon Dioxide 22.1 mmol/L (21.0-32.0); Chloride 105 mmol/L (98-108); Estimated Creatinine Clearance 110.49 ml/min (50-250); Glucose 88 mg/dL (70-99); Potassium 3.8 mmol/L (3.3-5.1); Pro- Brain NATRIURETIC PEPTIDE 889 pg/mL (<=450); Troponin T High Sensitivity < 6 ng/L (<=22)
[2025-07-22] MEDS: 0.9% Normal Saline (1000mL) 1,000 ML 999 ML IV (16:04)
[2025-07-22 16:35] VITALS: BP 127/89; PULSE 77; RESP 16; O2SAT 99
--- NOTE | 2025-07-22 17:03 | ED.RN ---
THIS RN IN ROOM TO DRAW 2HR TROPONIN. PT STATES I NEED TO GET HOME TO MY KIDS...I DIDN'T REALIZE IT WAS GOING TO TAKE THIS LONG PT REFUSES 2HR TROP AT THIS TIME. DR. FANG NOTIFIED AND STATES I WILL TALK TO HIM
--- NOTE | 2025-07-22 18:33 | CM.ED ---
Social Work Reason for visit: No PCP. SW entered room, introduced self, role with hospital and reason for visit. Patient stated he did have a primary care physician through [facility]. Declined any additional needs. Audrey Yanez, CABLE TV INSTALLER, TENONER OPERATOR
== END 2025-07-22 17:45 | disposition home or self-care (01) ==
PROVIDERS: Emergency Provider Emergency Medicine; Visit Provider Emergency Medicine
DX: R07.9 Chest pain, unspecified (principal); I50.9 Heart failure, unspecified; R06.09 Other forms of dyspnea; F17.210 Nicotine dependence, cigarettes, uncomplicated; F17.290 Nicotine dependence, other tobacco product, uncomplicated
CPT/HCPCS: 71046; 80048; 83880; 84484; 85025; 93005; 96361; 96374; 99284; J1938

== ENCOUNTER 2025-07-23 14:02 | Emergency (ER) | payer OTHER, MEDICAID, SELFPAY ==
[2025-07-23] VITALS (7 sets, daily range): BP systolic 123–132; BP diastolic 88–96; PULSE 81–106; RESP 9–23; TEMP 36.4–36.8; O2SAT 97–100; BMI 23.3
--- NOTE | 2025-07-23 14:25 | EKG12_ITS ---
Test Reason : Blood Pressure : */* mmHG Vent. Rate : 88 BPM Atrial Rate : 88 BPM P-R Int : 164 ms QRS Dur : 90 ms QT Int : 364 ms P-R-T Axes : 53 -7 -60 degrees QTcB Int : 440 ms Normal sinus rhythm ST & T wave abnormality, consider inferolateral ischemia Abnormal ECG Confirmed by AIDAN MARTINEZ, VICTORINA ([id number]), sports editor KENDAL LOPEZ ([id number]) on 07/24/2025 1:25:45 PM Referred By: DARRYL Confirmed By: VICTORINA BERMUDEZ MD
[2025-07-23 14:48] LABS: Hematocrit 42.6 % (40-54); Hemoglobin 14.3 g/dL (13.0-16.5); Immature Granulocytes Count 0.020 X10^3/uL (0.0-0.0); Mean Corp Hgb Conc 33.6 g/dL (32-36); Mean Corpuscular Volume 90.3 fL (80-94); Mean Platelet Vol. 8.9 fl (6.2-12.0); NRBC Flagged by Analyzer 0 % (0-5); Platelet Count 348 K/mm3 (150-450); RBC Distribution Width CV 13.2 % (11.6-14.6); RBC Distribution Width SD 43.5 fl (35.1-43.9); Red Blood Count 4.72 M/mm3 (4.6-6.2); White Blood Count 7.9 K/mm3 (4.4-11.0)
--- NOTE | 2025-07-23 14:56 | EDS_ITS ---
HPI History of Present Illness Chief Complaint: Shortness of Breath Narrative Narrative: 40-year-old male past medical history of viral myocarditis, presents with multiple somatic complaints including headache, palpitations, and shortness of breath that he has had for the last 4 days. Of note, he was seen in the emergency department yesterday. He said that he received a medication but he cannot remember what it was, and he was supposed to be admitted but he had to take care of his 7-year-old daughter and find a place for her to stay. He returns with shortness of breath, fatigue, and palpitations as well as headache. [facility] Medical History Congestive heart failure Seizure disorder Skin cancer Tobacco use Seizures Migraines Arthritis Home Medications ?Medication ?Instructions ?Recorded ?Last Taken ?Type NK 07/22/25 Unknown History Allergy/AdvReac Type Severity Reaction Status Date / Time No Known Allergies Allergy Verified 07/23/25 14:04 Family History Mother Heart disease Surgical History History of stent insertion of renal artery History of craniotomy Social History Smoking Status: Current every day smoker tobacco type: cigarettes and e- cigarettes alcohol intake: never substance use type: does not use caffeine: Yes ROS ROS ED ROS Narrative Review of systems is positive for headache with history of migraine, palpitation s, shortness of breath. No fevers or chills, no cough, no other symptoms. EXAM Physical Exam Narrative Exam Narrative: Afebrile. Vital signs noted. Nontoxic-appearing. Cardiovascular examination reveals intermittent tachycardia, regular, lungs clear to auscultation bilat erally. Abdomen is soft and nontender with positive bowel sounds. No guarding or rebound. Neurological examination nonfocal, nonlateralizing. No appreciable pedal edema bilaterally. Const Vital Signs: 07/23/25 14:03 07/23/25 14:04 07/23/25 14:12 Temperature 97.6 F L 97.5 F L Temperature Source Temporal Oral Pulse Rate 106 H 96 Respiratory Rate 23 H 10 L Respiratory Effort Normal Non-Labored Respiratory Depth Normal Respiratory Pattern Normal Blood Pressure 132/92 H 127/88 H Blood Pressure Mean 105 101 Pulse Ox 100 100 Oxygen Delivery Method Room Air Room Air Room Air 07/23/25 14:39 07/23/25 14:40 07/23/25 15:04 Temperature 97.6 F L Temperature Source Oral Pulse Rate 92 89 Respiratory Rate 9 L 13 Respiratory Effort Respiratory Depth Respiratory Pattern Blood Pressure 127/89 H 131/89 H Blood Pressure Mean 101 103 Pulse Ox 98 97 Oxygen Delivery Method Room Air Room Air Room Air 07/23/25 15:33 Temperature Temperature Source Pulse Rate 81 Respiratory Rate 23 H Respiratory Effort Respiratory Depth Respiratory Pattern Blood Pressure 131/96 H Blood Pressure Mean 107 Pulse Ox 97 Oxygen Delivery Method Room Air MDM MDM MDM Narrative Medical decision making narrative: Differential diagnosis includes but not limited to CHF exacerbation versus pneumonia versus pneumothorax. History and physical does not support the latter 2, and additionally he was worked up in the emergency department yesterday. I reviewed his prior ED visit. Additionally, I reviewed his cardiology echocardiogram from June 2024, approximately 1 year ago and he had an ejection fraction of 15%. I did repeat his laboratory work including BNP. EKG was obtained and interpreted by myself independently as normal sinus rhythm at 88 bpm without ectopy or acute ST changes. No STEMI. I reviewed his chest x-ray from yesterday and the report and there is no acute process. I do not feel he needs a repeat x-ray. I reviewed his laboratory work and he has normal white count of 7.9 with hemoglobin normal at 14.3, hematocrit 42.6, platelet count normal at 348. BMP remarkable for glucose of 151 with normal sodium and normal potassium. BNP is 607, but improved over yesterday. He was administered Compazine and Benadryl for his headache. He has not followed up with cardiology since September 27 2024. The plan was to adjust his medications after a repeat echocardiogram. I discussed patient with Dr. Cleveland. He prefers to defer writing any pres criptions for the patient, and have him follow-up in the office as an outpatient. He will have his office call him here while he is in the emergency department. I feel he can be discharged to follow-up and that he does not require any admission or observation at this time because his ambulatory pulse ox on room air is 97%. Disposition is discharged home in stable condition. I did stress the importance of follow-up with cardiology. They have arranged and a follow-up appointment for him with the PA, Antonio Brink, on July 25, 2025, , at 11 AM. Disposition is discharged home in stable condition. History & Record Review Discussion w/independent historian: Patient Additional record(s) reviewed:: Prior ED visit and Prior labs Lab Data Attestation: I reviewed the patient's lab results. Labs: Laboratory Results - last 24 hr 07/23/25 14:40 WBC 7.9 RBC 4.72 Hgb 14.3 Hct 42.6 MCV 90.3 MCH 30.3 MCHC 33.6 RDW Std Deviation 43.5 RDW Coeff of Liliana 13.2 Plt Count 348 MPV 8.9 Immature Gran % (Auto) 0.300 Neut % (Auto) 46.0 L Lymph % (Auto) 45.3 H [place] % (Auto) 6.3 Eos % (Auto) 1.5 Baso % (Auto) 0.6 Absolute Neuts (auto) 3.7 Absolute Lymphs (auto) 3.60 Nucleated RBC % 0 Sodium 139 Potassium 3.6 Chloride 106 Carbon Dioxide 21.9 Anion Gap 12 BUN 14 Creatinine 0.91 Estim Creat Clear Calc 105.75 Est GFR (MDRD) Non-Af 108 BUN/Creatinine Ratio 15.0 Glucose 151 H Calcium 9.4 NT pro BNP II 607 H Management Discussion w/another healthcare provider: Regional Medical Director (Dr. 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 and concrete plant worker/Case management Discharge Plan Triage Chief Complaint: Shortness of Breath ED Provider: Kahlil Bowman Dx/Rx/DC Orders Clinical Impression: TOBAR (dyspnea on exertion), Fatigue, Palpitations, Headache Instructions: ED Dyspnea, ED Heart Palpitations Prescriptions: No Action NK Primary Care Provider: Care Physician,No Primary Referrals: Care Physician,No Primary [Primary Care Provider, Medical] Antonio Rao RECONDITIONER, RECONDITIONER-C [Med Staff - Adv Practice Prof, Cardiology] - 07/25/25 11:00 am Activity Restrictions/Additional Instructions: You have a follow-up appointment with cardiology for , 07/25/2025 at 11 AM. Is important that you keep this appointment because they can restart your medications. Print Language: Icelandic Disposition Disposition: Home, Self Care
[2025-07-23] MEDS: DiphenhydrAMINE 50 MG/ML Syringe 25 MG IV (15:02)
[2025-07-23 15:20] LABS: Anion Gap 12 (5-15); BUN 14 mg/dL (4-19); BUN/Creat Ratio 15.0 RATIO (10-20); Calcium,Total 9.4 mg/dL (7.6-11.0); Carbon Dioxide 21.9 mmol/L (21.0-32.0); Chloride 106 mmol/L (98-108); Estimated Creatinine Clearance 105.75 ml/min (50-250); Glucose 151 mg/dL (70-99); Potassium 3.6 mmol/L (3.3-5.1); Pro- Brain NATRIURETIC PEPTIDE 607 pg/mL (<=450)
--- NOTE | 2025-07-23 16:10 | CM.ED ---
Social Work SW met with patient at physician request as patient told physician he was unable to pay for his prescriptions as he did not have insurance. SW informed patient that his insurance was active, patient stated that he had used his insurance last time he tried to fill his medications but still could not afford them. Patient was unable to remember the names of his medicines as he says it has been a few months since he was on them. SW reviewed patients chart and looked up prescription cost using [employer]. Patient was notified of general cost of each med and was also given several other prescription drug cards to see if any others could get his medication cheaper. Patient expressed understanding. Audrey Yanez, BAR MACHINE OPERATOR MULTIPLE SPINDLE, CONDENSER SETTER
== END 2025-07-23 16:06 | disposition home or self-care (01) ==
PROVIDERS: Emergency Provider Emergency Medicine; Visit Provider Emergency Medicine
DX: R06.09 Other forms of dyspnea (principal); R53.83 Other fatigue; R00.2 Palpitations; R51.9 Headache, unspecified
CPT/HCPCS: 80048; 83880; 85025; 93005; 96374; 96376; 99283; A4216

== ENCOUNTER 2025-08-02 10:39 | Emergency (ER) | payer MEDICAID, SELFPAY ==
[2025-08-02 10:39] VITALS: BP 150/116; PULSE 92; RESP 18; TEMP 36.9; O2SAT 100; BMI 22.6
--- NOTE | 2025-08-02 10:50 | EKG12_ITS ---
Test Reason : CP Blood Pressure : */* mmHG Vent. Rate : 85 BPM Atrial Rate : 85 BPM P-R Int : 160 ms QRS Dur : 88 ms QT Int : 372 ms P-R-T Axes : 42 -34 -26 degrees QTcB Int : 442 ms Normal sinus rhythm Left axis deviation Minimal voltage criteria for LVH, may be normal variant ( [place] product ) Inferior infarct (cited on or before 25-Jul-2025) Abnormal ECG Confirmed by AIDAN MARTINEZ, VICTORINA ([id number]), metropolitan editor CLARA DESAI ([id number]) on 08/05/2025 9:15:12 AM Referred By: ERWIN/JOLIE Confirmed By: VICTORINA BERMUDEZ MD
--- NOTE | 2025-08-02 11:03 | ED.VIS.CHEST ---
HPI History of Present Illness Chief Complaint: Chest Pain Informant: patient Narrative Narrative: 40-year-old male presenting to the emergency room for the third time this month for the evaluation of chest pain. Patient states over the past 3 days he has had a intermittent pinching pain in his left mid back and left anterior chest. States is worse with movement and with laying on his left side. He tried some Tums with no relief. He wonders if he is having a heart attack. He did follow-up with cardiology earlier this month because of a history of a postinfectious cardiomyopathy. He is scheduled for further cardiac testing mid August. He denies any recent fevers. No leg swelling. He states he is taking furosemide which is causing him to urinate quite frequently. He notes that he is dizzy when he goes to stand and has not worked for the past couple days. No syncope. No significant shortness of breath. [facility] Medical History Congestive heart failure Seizure disorder Skin cancer Tobacco use Seizures Migraines Arthritis Home Medications ?Medication ?Instructions ?Recorded ?Last Taken ?Type furosemide 40 mg tablet (Lasix) 40 mg PO DAILY PRN shortness of 07/25/25 Unknown Rx breath #30 tabs Allergy/AdvReac Type Severity Reaction Status Date / Time No Known Allergies Allergy Verified 08/02/25 10:39 Family History Mother Heart disease Surgical History History of stent insertion of renal artery History of craniotomy Social History Smoking Status: Current every day smoker tobacco type: cigarettes and e-cigarettes alcohol intake: never substance use type: does not use caffeine: Yes ROS ROS ED Constitutional Constitutional ED: Denies chills or weight loss Eyes Eyes: Denies change in vision or diplopia ENT ENT ED: Denies ear pain, rhinorrhea or sore throat Cardiovascular Cardiovascular: Reports as per HPI and chest pain; Denies orthopnea, palpitations or racing heartbeat Respiratory/Chest Respiratory/Chest: Denies cough, dyspnea or orthopnea Gastrointestinal Gastrointestinal: Denies abdominal pain, diarrhea, nausea or vomiting Genitourinary Genitourinary ED: Reports urinary frequency; Denies dysuria or hematuria Musculoskeletal Musculoskeletal: Reports back pain; Denies arthralgias or myalgias Integumentary Denies abscess or rash Neurologic Neurologic: Denies headache(s) or weakness Psychiatric Psychiatric: Denies anxiety, depression, suicidal ideation or suicidal thoughts Endocrine Endocrinology: Denies polydipsia, polyphagia or polyuria Allergic/Immunologic Allergic/Immunologic ED: Denies mouth swelling, tongue swelling or urticaria EXAM Physical Exam Const Vital Signs: 08/02/25 10:39 08/02/25 11:39 08/02/25 12:00 Temperature 98.5 F Temperature Source Oral Pulse Rate 92 88 86 Respiratory Rate 18 14 13 Blood Pressure 150/116 H 132/98 H 122/105 H Blood Pressure [Lying] Blood Pressure [Sitting (for 1 minute prior to obtaining)] Blood Pressure [Standing (for 1 minute prior to obtaining)] Blood Pressure Mean 127 109 110 Blood Pressure Mean [Lying] Blood Pressure Mean [Sitting (for 1 minute prior to obtaining)] Blood Pressure Mean [Standing (for 1 minute prior to obtaining)] Pulse Ox 100 98 Oxygen Delivery Method Room Air Room Air Room Air 08/02/25 12:12 08/02/25 12:42 Temperature 97.2 F L Temperature Source Pulse Rate 97 Respiratory Rate 16 Blood Pressure 129/98 H Blood Pressure [Lying] 123/93 H Blood Pressure [Sitting (for 1 minute prior to obtaining)] 146/94 H Blood Pressure [Standing (for 1 minute prior to obtaining)] 122/105 H Blood Pressure Mean 108 Blood Pressure Mean [Lying] 103 Blood Pressure Mean [Sitting (for 1 minute prior to obtaining)] 111 Blood Pressure Mean [Standing (for 1 minute prior to obtaining)] 110 Pulse Ox 98 Oxygen Delivery Method Positive well nourished and well developed General Appearance ED: well developed HEENT Reports normocephalic, head/scalp atraumatic and moist mucous membranes Eyes PERRL and EOMs intact bilaterally Neck no lymphadenopathy, supple and no JVD Chest Wall Chest Narrative: Tender palpation along the left lower costochondral border of the chest wall extending anterior laterally and posteriorly along the ribs. This is similar to the patient's discomfort that he is reporting at home. Is also worse with movements. Resp normal respiratory effort and clear to auscultation bilaterally Cardio regular rate, regular rhythm and no murmurs GI normal to inspection, nondistended, normoactive bowel sounds and non-tender Palpation: soft Back/Spine no CVA tenderness and normal ROM Extremity normal to inspection General Extremety ED: Negative for edema General Extremity: Negative for edema Neuro oriented x3 and CN's II-XII intact bilaterally Sensorium / Orientation: alert Motor Exam: strength 5/5 throughout Psych mental status grossly normal Mood & Affect: Negative for depressed or tearful Skin no rashes or lesions noted and no wounds MDM MDM MDM Narrative Medical decision making narrative: Differential diagnosis includes but not limited to acute coronary syndrome cardiac dysrhythmia chest wall pain congestive heart failure pleurisy pulmonary embolism aortic dissection Basic blood work was obtained which was negative including a troponin of less than 6 and again this is 3 days of symptomology. Send no events on the monitor. He has been as low as 78 heart rate. His orthostatics were reviewed and did not feel that they are significantly positive and he does not appear clinically dehydrated. I will have him decrease his Lasix in half. He is to continue to follow-up with cardiology. History & Record Review Discussion w/independent historian: Patient Additional record(s) reviewed:: Prior outpatient record, Prior ED visit and Prior labs Lab Data Attestation: I reviewed the patient's lab results. Labs: Laboratory Results - last 24 hr 08/02/25 10:56 WBC 9.6 RBC 5.12 Hgb 15.3 Hct 46.0 MCV 89.8 MCH 29.9 MCHC 33.3 RDW Std Deviation 43.1 RDW Coeff of Liliana 13.0 Plt Count 345 MPV 9.0 Immature Gran % (Auto) 0.300 Neut % (Auto) 56.1 Lymph % (Auto) 36.8 [place] % (Auto) 4.7 Eos % (Auto) 1.7 Baso % (Auto) 0.4 Absolute Neuts (auto) 5.4 Absolute Lymphs (auto) 3.52 Nucleated RBC % 0 Sodium 136 Potassium 3.6 Chloride 98 Carbon Dioxide 24.1 Anion Gap 14 BUN 13 Creatinine 1.06 Estim Creat Clear Calc 89.11 Est GFR (MDRD) Non-Af 90 BUN/Creatinine Ratio 12.5 Glucose 178 H Calcium 9.5 Troponin T High Sens < 6 Radiography Diagnostic Testing: Clinical Impression(s) from Imaging Studies Chest X-Ray 08/02/25 11:20 IMPRESSION: No acute abnormality Reading Location: [facility] EKG Initial EKG: Attestation: I personally reviewed and interpreted this EKG as follows: Comments: Normal sinus rhythm ventricular rate of 85 bpm Discharge Plan Triage Chief Complaint: Chest Pain ED Provider: Jones Huff Dx/Rx/DC Orders Clinical Impression: Dizziness, Chest pain Instructions: ED Chest Wall Pain, Costochondritis Prescriptions: No Action furosemide [Lasix] 40 mg tablet 40 mg PO DAILY PRN (Reason: shortness of breath) Qty: 30 0RF Stand Alone Forms: Work / School Excuse Primary Care Provider: Care Physician,No Primary Referrals: NOT,DEFINED [Non-Staff, None] Antoino Rao AMPOULE WASHING MACHINE OPERATOR, AMPOULE WASHING MACHINE OPERATOR-C [Med Staff - Adv Practice Prof, Cardiology] - Keep Arabella appointment Activity Restrictions/Additional Instructions: Decrease your Lasix to 1/2 tablet/day. Print Language: Maori Disposition Disposition: Home, Self Care Discharge Date/Time: 08/02/25 12:44
[2025-08-02 11:10] LABS: Hematocrit 46.0 % (40-54); Hemoglobin 15.3 g/dL (13.0-16.5); Immature Granulocytes Count 0.030 X10^3/uL (0.0-0.0); Mean Corp Hgb Conc 33.3 g/dL (32-36); Mean Corpuscular Volume 89.8 fL (80-94); Mean Platelet Vol. 9.0 fl (6.2-12.0); NRBC Flagged by Analyzer 0 % (0-5); Platelet Count 345 K/mm3 (150-450); RBC Distribution Width CV 13.0 % (11.6-14.6); RBC Distribution Width SD 43.1 fl (35.1-43.9); Red Blood Count 5.12 M/mm3 (4.6-6.2); White Blood Count 9.6 K/mm3 (4.4-11.0)
--- NOTE | 2025-08-02 11:20 | RAD_ITS ---
PROCEDURE: CHEST PA AND LATERAL 08/02/2025 REASON FOR EXAM: CHEST PAIN TECHNIQUE: Procedure Code: RADCXR Modality: DX Procedure: CHEST PA AND LATERAL COMPARISON: July 22, 2025 FINDINGS: Hardware: EKG leads Heart: The heart size is normal. Mediastinum: The mediastinal contour is unremarkable. Lungs: The lungs are clear. Bones: The bones are unremarkable. RAD/Chest PA and Lateral IMPRESSION: No acute abnormality Reading Location: [id number]
[2025-08-02 11:33] LABS: Troponin T High Sensitivity < 6 ng/L (<=22)
[2025-08-02 11:36] LABS: Anion Gap 14 (5-15); BUN 13 mg/dL (4-19); BUN/Creat Ratio 12.5 RATIO (10-20); Calcium,Total 9.5 mg/dL (7.6-11.0); Carbon Dioxide 24.1 mmol/L (21.0-32.0); Chloride 98 mmol/L (98-108); Estimated Creatinine Clearance 89.11 ml/min (50-250); Glucose 178 mg/dL (70-99); Potassium 3.6 mmol/L (3.3-5.1)
[2025-08-02 11:39] VITALS: BP 132/98; PULSE 88; RESP 14
[2025-08-02 12:00] VITALS: BP 122/105; PULSE 86; RESP 13; O2SAT 98
[2025-08-02 12:12] VITALS: BP 122/105; BP 123/93; BP 146/94
[2025-08-02 12:42] VITALS: BP 129/98; PULSE 97; RESP 16; TEMP 36.2; O2SAT 98
--- NOTE | 2025-08-02 12:42 | ED.RN ---
Explained to pt what costochondritis is and ways to treat it at home. Explained that antiinflammatory is the best thing for it. Pt asked for a work note before discharge
== END 2025-08-02 12:44 | disposition home or self-care (01) ==
PROVIDERS: Emergency Provider Emergency Medicine; Visit Provider Emergency Medicine
DX: R42 Dizziness and giddiness (principal); I50.9 Heart failure, unspecified; R07.9 Chest pain, unspecified; G43.909 Migraine, unspecified, not intractable, without status migrainosus; F17.210 Nicotine dependence, cigarettes, uncomplicated; F17.290 Nicotine dependence, other tobacco product, uncomplicated
CPT/HCPCS: 71046; 80048; 84484; 85025; 93005; 96374; 99285; A4216

== ENCOUNTER → 2025-08-30 | Outpatient (CLI) | payer MEDICAID, SELFPAY | END | disposition home or self-care (01) | LOC: CVS 09:45 | PROVIDERS: Referring Provider Nurse Practitioner Family; Visit Provider Nurse Practitioner Family | DX: R07.9 Chest pain, unspecified (principal) | CPT/HCPCS: 93306; Q9957; A4216; C8929 ==